=== PATIENT | female | born 1965 ===

== ENCOUNTER 2016-09-05 20:41 | Observation (INO) | payer MEDICAID ==
[2016-09-05 20:42] VITALS: BMI 24.2
[2016-09-05 22:06] VITALS: O2SAT 96
--- NOTE | 2016-09-06 01:57 | C.PDOC ---
History Of Present Illness 51 year old patient presents to the ED for acute alcohol intoxication. Patient admits to drinking prior to arrival. Patient also complains of a cough that started today. Patient denies shortness of breath, fever, vomiting, or any other complaints at this time. Time Seen by Provider: 09/06/16 00:45 Chief Complaint (Nursing): Substance Abuse History Per: Patient History/Exam Limitations: intoxication Onset/Duration Of Symptoms: Hrs (today) Current Symptoms Are (Timing): Still Present Suicide/Self Injury Attempted (Context): None Modifying Factor(s): Alcohol Severity: None Pain Scale Rating Of: 0 Recent travel outside of the [place]: No Past Medical History Reviewed: Historical Data, Nursing Documentation, Vital Signs Vital Signs: Last Vital Signs Temp 98 F 09/06/16 04:30 Pulse 84 09/06/16 04:30 Resp 20 09/06/16 04:30 BP 101/59 L 09/06/16 04:30 Pulse Ox 96 09/06/16 05:36 - Medical History PMH: Anxiety, Asthma, Depression, HTN, Paranoia, Pneumonia, Schizophrenia, TIA Denies: Chronic Kidney Disease - [facility] Procedures ALCOHOL DETOXIFICATION (12/21/14) APPLICATION OF SPLINT (05/22/14) DETOXIFICATION SERVICES FOR SUBSTANCE ABUSE TREATMENT (03/06/16) GROUP SALES AND SERVICE ENGINEER FOR SUBSTANCE ABUSE TREATMENT, PSYCHOEDUCATION (12/12/15) INDIV SALES AND SERVICE ENGINEER FOR SUBSTANCE ABUSE, COGNITIVE BEHAVIORAL (03/06/16) INDIV PSYCHOTHERAPY FOR SUBSTANCE ABUSE TREATMENT, SUPPORT (03/06/16) INJECT/INFUSE NEC (12/19/13) Family History: States: Unknown Family Hx - Social History Hx Tobacco Use: Yes Hx Alcohol Use: Yes Hx Substance Use: No - Immunization History Hx Tetanus Toxoid Vaccination: No Hx Influenza Vaccination: No Hx Pneumococcal Vaccination: No Review Of Systems Except As Marked, All Systems Reviewed And Found Negative. Constitutional: Negative for: Fever Respiratory: Positive for: Cough. Negative for: Shortness of Breath Gastrointestinal: Negative for: Vomiting Physical Exam - Physical Exam Appears: Non-toxic, No Acute Distress, Other (EtOH on breath) Skin: Warm, Dry, Rash Head: Atraumatic, Normacephalic Eye(s): bilateral: Normal Inspection, PERRL, EOMI Ear(s): Bilateral: Normal Nose: Normal Oral Mucosa: Moist Throat: Normal, No Erythema, No Exudate Neck: Normal ROM, Supple Chest: Symmetrical Cardiovascular: Rhythm Regular Respiratory: Normal Breath Sounds, No Accessory Muscle Use, Rales, Rhonchi, No Wheezing Gastrointestinal/Abdominal: Soft, No Tenderness Back: Normal Inspection Extremity: Normal ROM Neurological/Psych: Oriented x3 ED Course And Treatment O2 Sat by Pulse Oximetry: 96 (RA) Pulse Ox Interpretation: Normal Medical Decision Making Medical Decision Making: Plan: -Chest XR -Benadryl Chest XR: negative. No acute disease. pt requests refill of her permetrin cream that she lost for scabies, and also requests benadryl for itching in er. 600: pt awake alert ambulatory, steady gait, stable for d.c ED OBSERVATION Date of observation admission: 09/06/16 Time of observation admission: 01:20 - Observation admission statement Patient is being placed in observation because:: acute alcohol intoxication - Goals of Observation Goals of observation are:: sobriety Disposition - Disposition Disposition: HOME/ ROUTINE Disposition Time: 05:46 Condition: STABLE - Clinical Impression Clinical Impression: Scabies, Alcoholic intoxication - Scribe Statement The provider has reviewed the documentation as recorded by the Scribe Merced Lowe Provider Attestation: All medical record entries made by the Scribe were at my direction and personally dictated by me. I have reviewed the chart and agree that the record accurately reflects my personal performance of the history, physical exam, medical decision making, and the department course for this patient. I have also personally directed, reviewed, and agree with the discharge instructions and disposition.
[2016-09-06 05:40] VITALS: BP 101/59; PULSE 84; RESP 20; TEMP 98
--- NOTE | 2016-09-06 11:42 | RAD ---
HISTORY: Cough COMPARISON: 07/15/2016 TECHNIQUE: Chest PA and lateral FINDINGS: LUNGS: There is a 17 mm nodular opacity in the left lung base. There are chronic changes in both lung bases. There is no focal consolidation. PLEURA: No significant pleural effusion identified. No pneumothorax apparent. CARDIOVASCULAR: Normal. OSSEOUS STRUCTURES: No significant abnormalities. VISUALIZED UPPER ABDOMEN: Normal. OTHER FINDINGS: None. IMPRESSION: 17 mm nodular opacity in the left lung base may represent nipple shadow however parenchymal nodule cannot be completely excluded. Repeat PA radiographs with nipple markers is recommended. Chronic changes in both lung bases.
== END 2016-09-06 05:35 | disposition home or self-care (01) ==
LOC: C.ER 20:41 → C.9OBSV 09-06 01:20
PROVIDERS: ADMIT Student in an Organized Health Care Education/Training Program; ATTEND Student in an Organized Health Care Education/Training Program
DX: F10.129 Alcohol abuse with intoxication, unspecified (principal); I10 Essential (primary) hypertension; Z87.891 Personal history of nicotine dependence; Z59.0 Homelessness

== ENCOUNTER 2016-09-07 15:53 | Observation (INO) | payer MEDICAID ==
[2016-09-07 15:54] VITALS: BMI 24.2
[2016-09-07 16:18] VITALS: BP 128/83; PULSE 81; RESP 20
--- NOTE | 2016-09-07 16:54 | C.PDOC ---
Time Seen by Provider: 09/07/16 16:42 Chief Complaint (Nursing): Altered Mental Status Past Medical History Vital Signs: Last Vital Signs Temp Pulse 81 09/07/16 16:14 Resp 20 09/07/16 16:14 BP 128/83 09/07/16 16:14 Pulse Ox - Medical History PMH: Anxiety, Asthma, Depression, HTN, Paranoia, Pneumonia, Schizophrenia, TIA Denies: Chronic Kidney Disease - [facility] Procedures ALCOHOL DETOXIFICATION (12/21/14) APPLICATION OF SPLINT (05/22/14) DETOXIFICATION SERVICES FOR SUBSTANCE ABUSE TREATMENT (03/06/16) GROUP PRINCIPAL TRAINER FOR SUBSTANCE ABUSE TREATMENT, PSYCHOEDUCATION (12/12/15) INDIV PRINCIPAL TRAINER FOR SUBSTANCE ABUSE, COGNITIVE BEHAVIORAL (03/06/16) INDIV PSYCHOTHERAPY FOR SUBSTANCE ABUSE TREATMENT, SUPPORT (03/06/16) INJECT/INFUSE NEC (12/19/13) Family History: States: Unknown Family Hx - Social History Hx Tobacco Use: Yes Hx Alcohol Use: Yes Hx Substance Use: No - Immunization History Hx Tetanus Toxoid Vaccination: No Hx Influenza Vaccination: No Hx Pneumococcal Vaccination: No
--- NOTE | 2016-09-07 16:58 | C.PDOC ---
History Of Present Illness The patient, a 51 y/o female, is brought to the ED by EMS for evaluation of public alcohol intoxication for an unknown duration. Patient is familiar to the ED and has had many prior evaluations concerning alcohol intoxication. Patient admits to drinking earlier today. She denies suicidal/homicidal ideation and has no physical complaints at this time. Time Seen by Provider: 09/07/16 16:42 Chief Complaint (Nursing): Altered Mental Status History Per: Patient, EMS History/Exam Limitations: intoxication Onset/Duration Of Symptoms: Unknown Current Symptoms Are (Timing): Still Present Suicide/Self Injury Attempted (Context): None Modifying Factor(s): Alcohol Associated Symptoms: denies: Suicidal Thoughts, Suicidal Plan Involuntary Hold By: None Recent travel outside of the [place]: No Additional History Per: Patient, EMS Past Medical History Reviewed: Historical Data, Nursing Documentation, Vital Signs Vital Signs: Last Vital Signs Temp Pulse 81 09/07/16 16:14 Resp 20 09/07/16 16:14 BP 128/83 09/07/16 16:14 Pulse Ox - Medical History PMH: Anxiety, Asthma, Depression, HTN, Paranoia, Pneumonia, Schizophrenia, TIA Denies: Chronic Kidney Disease Surgical History: No Surg Hx - [facility] Procedures ALCOHOL DETOXIFICATION (12/21/14) APPLICATION OF SPLINT (05/22/14) DETOXIFICATION SERVICES FOR SUBSTANCE ABUSE TREATMENT (03/06/16) GROUP VICE PRESIDENT OF TALENT ACQUISITION FOR SUBSTANCE ABUSE TREATMENT, PSYCHOEDUCATION (12/12/15) INDIV VICE PRESIDENT OF TALENT ACQUISITION FOR SUBSTANCE ABUSE, COGNITIVE BEHAVIORAL (03/06/16) INDIV PSYCHOTHERAPY FOR SUBSTANCE ABUSE TREATMENT, SUPPORT (03/06/16) INJECT/INFUSE NEC (12/19/13) Family History: States: Unknown Family Hx - Social History Hx Tobacco Use: Yes Hx Alcohol Use: Yes Hx Substance Use: No - Immunization History Hx Tetanus Toxoid Vaccination: No Hx Influenza Vaccination: No Hx Pneumococcal Vaccination: No Review Of Systems Except As Marked, All Systems Reviewed And Found Negative. Constitutional: Positive for: Other (+ETOH intoxication ) Psych: Negative for: Suicidal ideation Physical Exam - Physical Exam Appears: No Acute Distress, Other (visibly intoxicated ) Skin: Normal Color, Warm, Dry Head: Atraumatic, Normacephalic Eye(s): bilateral: Normal Inspection, EOMI Oral Mucosa: Moist, Other (alcohol on breath ) Neck: Supple Chest: Symmetrical, No Deformity, No Tenderness Cardiovascular: Rhythm Regular, No Murmur Respiratory: Normal Breath Sounds, No Rales, No Rhonchi, No Wheezing Back: Normal Inspection, No Vertebral Tenderness, No Paraspinal Tenderness Extremity: Normal ROM, Capillary Refill (less than 2 seconds) Neurological/Psych: Other (arousable to touch and verbal stimuli ) Gait: Unsteady ED Course And Treatment Reevaluation Time: 19:10 Reassessment Condition: Improved (Patient seen ambulatory to the bathroom afterwhich she eloped from ED.) Disposition - Disposition Disposition: ELOPEMENT - ER ONLY Disposition Time: 19:10 Condition: IMPROVED - Clinical Impression Clinical Impression: Alcohol intoxication - Scribe Statement The provider has reviewed the documentation as recorded by the Scribe (Mary Lowe) Provider Attestation: All medical record entries made by the Scribe were at my direction and personally dictated by me. I have reviewed the chart and agree that the record accurately reflects my personal performance of the history, physical exam, medical decision making, and the department course for this patient. I have also personally directed, reviewed, and agree with the discharge instructions and disposition.
== END 2016-09-07 19:11 | disposition home or self-care (01) ==
LOC: C.ER 15:53 → C.9OBSV 17:09
PROVIDERS: ADMIT Emergency Medicine; ATTEND Emergency Medicine
DX: F10.129 Alcohol abuse with intoxication, unspecified (principal); I10 Essential (primary) hypertension; Z86.73 Personal history of transient ischemic attack (TIA), and cerebral infarction without residual deficits; Z87.891 Personal history of nicotine dependence

== ENCOUNTER 2016-09-16 20:09 | Observation (INO) | payer MEDICAID ==
[2016-09-16 20:10] VITALS: BMI 24.2
--- NOTE | 2016-09-16 20:33 | C.PDOC ---
History Of Present Illness Patient presents to the emergency room with ETOH intoxication. Patient is intoxicated and wants a place to stay since it's raining outside. Patient is well known to the ED with multiple prior visits for ETOH intoxication. Patient denies any knee pain or any other physical complaints. Time Seen by Provider: 09/16/16 20:31 Chief Complaint (Nursing): Substance Abuse History Per: Patient History/Exam Limitations: no limitations Onset/Duration Of Symptoms: Hrs Current Symptoms Are (Timing): Still Present Suicide/Self Injury Attempted (Context): None Modifying Factor(s): Alcohol Severity: None Involuntary Hold By: None Recent travel outside of the [place]: No Past Medical History Reviewed: Historical Data, Nursing Documentation, Vital Signs Vital Signs: Last Vital Signs Temp 97.8 F 09/16/16 20:24 Pulse 86 09/16/16 20:24 Resp 16 09/16/16 20:24 BP 131/84 09/16/16 20:24 Pulse Ox 99 09/16/16 20:37 - Medical History PMH: Anxiety, Asthma, Depression, HTN, Paranoia, Pneumonia, Schizophrenia, TIA Denies: Chronic Kidney Disease - [facility] Procedures ALCOHOL DETOXIFICATION (12/21/14) APPLICATION OF SPLINT (05/22/14) DETOXIFICATION SERVICES FOR SUBSTANCE ABUSE TREATMENT (03/06/16) GROUP ELECTRICAL CONTROLS TECHNICIAN FOR SUBSTANCE ABUSE TREATMENT, PSYCHOEDUCATION (12/12/15) INDIV ELECTRICAL CONTROLS TECHNICIAN FOR SUBSTANCE ABUSE, COGNITIVE BEHAVIORAL (03/06/16) INDIV PSYCHOTHERAPY FOR SUBSTANCE ABUSE TREATMENT, SUPPORT (03/06/16) INJECT/INFUSE NEC (12/19/13) Family History: States: Unknown Family Hx - Social History Hx Tobacco Use: Yes Hx Alcohol Use: Yes Hx Substance Use: No - Immunization History Hx Tetanus Toxoid Vaccination: Yes Hx Influenza Vaccination: No Hx Pneumococcal Vaccination: No Review Of Systems Constitutional: Positive for: Other (ETOH intoxication). Negative for: Fever, Chills Gastrointestinal: Negative for: Nausea, Vomiting, Diarrhea Musculoskeletal: Negative for: Other (Knee pain) Physical Exam - Physical Exam Appears: Non-toxic, No Acute Distress, Other (ETOH on breath) Skin: Warm, Dry Extremity: Normal ROM, No Tenderness Neurological/Psych: Oriented x3, Normal Speech ED Course And Treatment O2 Sat by Pulse Oximetry: 99 Pulse Ox Interpretation: Normal Reevaluation Time: 05:23 Reassessment Condition: Improved Disposition Counseled Patient/Family Regarding: Studies Performed, Diagnosis, Need For Followup - Disposition Disposition: HOME/ ROUTINE Disposition Time: 20:32 Condition: FAIR - Clinical Impression Clinical Impression: Alcohol abuse with intoxication - Scribe Statement The provider has reviewed the documentation as recorded by the Isis Dean Provider Scribe Attestation: All medical record entries made by the Isis were at my direction and personally dictated by me. I have reviewed the chart and agree that the record accurately reflects my personal performance of the history, physical exam, medical decision making, and the department course for this patient. I have also personally directed, reviewed, and agree with the discharge instructions and disposition.
[2016-09-17 05:57] VITALS: BP 120/71; PULSE 80; RESP 18; TEMP 98.4; O2SAT 100
== END 2016-09-17 05:23 | disposition home or self-care (01) ==
LOC: C.ER 20:09 → C.9OBSV 20:33
PROVIDERS: ADMIT Emergency Medicine; ATTEND Emergency Medicine
DX: F10.229 Alcohol dependence with intoxication, unspecified (principal); Z59.0 Homelessness; F41.8 Other specified anxiety disorders; I10 Essential (primary) hypertension; F20.9 Schizophrenia, unspecified; J45.909 Unspecified asthma, uncomplicated
CPT/HCPCS: 82948; 99284; G0378

== ENCOUNTER 2016-09-19 01:01 | Emergency (ER) | payer MEDICAID ==
[2016-09-19 01:01] VITALS: BMI 24.2
--- NOTE | 2016-09-19 02:32 | C.PDOC ---
History Of Present Illness Patient presents to the emergency room with ETOH intoxication. Patient is intoxicated and wants a place to stay. Patient is well known to the ED with multiple prior visits for ETOH intoxication. Patient denies any knee pain or any other physical complaints. History Per: Patient History/Exam Limitations: no limitations, intoxication Onset/Duration Of Symptoms: Hrs Current Symptoms Are (Timing): Still Present Past Medical History Reviewed: Historical Data, Nursing Documentation, Vital Signs Vital Signs: Last Vital Signs Temp 98.3 F 09/19/16 02:00 Pulse 74 09/19/16 02:00 Resp 20 09/19/16 04:35 BP 125/69 09/19/16 02:00 Pulse Ox 99 09/19/16 02:00 - Medical History PMH: Anxiety, Asthma, Depression, HTN, Paranoia, Pneumonia, Schizophrenia, TIA Denies: Chronic Kidney Disease - [facility] Procedures ALCOHOL DETOXIFICATION (12/21/14) APPLICATION OF SPLINT (05/22/14) DETOXIFICATION SERVICES FOR SUBSTANCE ABUSE TREATMENT (03/06/16) GROUP LARGE ANIMAL HUSBANDRY TECHNICIAN FOR SUBSTANCE ABUSE TREATMENT, PSYCHOEDUCATION (12/12/15) INDIV LARGE ANIMAL HUSBANDRY TECHNICIAN FOR SUBSTANCE ABUSE, COGNITIVE BEHAVIORAL (03/06/16) INDIV PSYCHOTHERAPY FOR SUBSTANCE ABUSE TREATMENT, SUPPORT (03/06/16) INJECT/INFUSE NEC (12/19/13) Family History: States: Unknown Family Hx - Social History Hx Tobacco Use: Yes Hx Alcohol Use: Yes Hx Substance Use: No - Immunization History Hx Tetanus Toxoid Vaccination: Yes Hx Influenza Vaccination: No Hx Pneumococcal Vaccination: No Review Of Systems Constitutional: Negative for: Fever, Chills Cardiovascular: Negative for: Palpitations Respiratory: Negative for: Cough Gastrointestinal: Negative for: Nausea, Vomiting Musculoskeletal: Negative for: Leg Pain Physical Exam - Physical Exam Appears: Well, Non-toxic Skin: Normal Color, Warm, Dry Head: Atraumatic, Normacephalic Oral Mucosa: Moist Chest: Symmetrical Cardiovascular: Rhythm Regular Respiratory: Normal Breath Sounds, No Rales, No Rhonchi, No Wheezing Gastrointestinal/Abdominal: Soft, No Tenderness Neurological/Psych: Oriented x3, Normal Speech, Normal Cognition ED OBSERVATION Date of observation admission: 09/19/16 Time of observation admission: 02:31 - Observation admission statement Patient is being placed in observation because:: Alcohol intoxication. homelessness Disposition - Disposition Disposition: HOME/ ROUTINE Disposition Time: 04:35 Condition: IMPROVED - Clinical Impression Clinical Impression: Alcohol intoxication - Scribe Statement The provider has reviewed the documentation as recorded by the Scribe Antoine Sumner All medical record entries made by the Tootieibe were at my direction and personally dictated by me. I have reviewed the chart and agree that the record accurately reflects my personal performance of the history, physical exam, medical decision making, and the department course for this patient. I have also personally directed, reviewed, and agree with the discharge instructions and disposition.
[2016-09-19 04:34] VITALS: BP 125/69; PULSE 74; TEMP 98.3; O2SAT 99
[2016-09-19 04:37] VITALS: RESP 20
== END 2016-09-19 04:34 | disposition home or self-care (01) ==
LOC: C.ER 01:01
DX: F10.129 Alcohol abuse with intoxication, unspecified (principal); Y90.9 Presence of alcohol in blood, level not specified

== ENCOUNTER 2016-09-19 19:59 | Observation (INO) | payer MEDICAID, OTHER ==
[2016-09-19 20:00] VITALS: BMI 24.2
--- NOTE | 2016-09-19 22:36 | C.PDOC ---
History Of Present Illness 51 year old patient presents to the ED for acute alcohol intoxication. Patient admits to drinking alcohol just prior to arrival. Patient is well known in the ED for the same complaint. Patient denies chest pain, shortness of breath, vomiting, abdominal pain, suicidal or homicidal ideation. Time Seen by Provider: 09/19/16 22:34 Chief Complaint (Nursing): Substance Abuse History Per: Patient History/Exam Limitations: intoxication Onset/Duration Of Symptoms: Other Suicide/Self Injury Attempted (Context): None Modifying Factor(s): Alcohol Recent travel outside of the [place]: No Additional History Per: Prior Records Past Medical History Reviewed: Historical Data, Nursing Documentation, Vital Signs Vital Signs: Last Vital Signs Temp 98.4 F 09/20/16 02:31 Pulse 81 09/20/16 02:31 Resp 17 09/20/16 02:31 BP 141/75 09/20/16 02:31 Pulse Ox 96 09/20/16 02:31 - Medical History PMH: Anxiety, Asthma, Depression, HTN, Paranoia, Pneumonia, Schizophrenia, TIA - [facility] Procedures ALCOHOL DETOXIFICATION (12/21/14) APPLICATION OF SPLINT (05/22/14) DETOXIFICATION SERVICES FOR SUBSTANCE ABUSE TREATMENT (03/06/16) GROUP ORE DRESSING ENGINEER FOR SUBSTANCE ABUSE TREATMENT, PSYCHOEDUCATION (12/12/15) INDIV ORE DRESSING ENGINEER FOR SUBSTANCE ABUSE, COGNITIVE BEHAVIORAL (03/06/16) INDIV PSYCHOTHERAPY FOR SUBSTANCE ABUSE TREATMENT, SUPPORT (03/06/16) INJECT/INFUSE NEC (12/19/13) Family History: States: Unknown Family Hx - Social History Hx Tobacco Use: Yes Hx Alcohol Use: Yes Hx Substance Use: No - Immunization History Hx Tetanus Toxoid Vaccination: Yes Review Of Systems Except As Marked, All Systems Reviewed And Found Negative. Cardiovascular: Negative for: Chest Pain Respiratory: Negative for: Shortness of Breath Gastrointestinal: Negative for: Vomiting, Abdominal Pain Psych: Negative for: Suicidal ideation Physical Exam - Physical Exam Appears: Non-toxic, No Acute Distress, Unkempt, Other (EtOH on breath) Skin: Warm, Dry Head: Atraumatic, Normacephalic Neck: Normal ROM, Supple Chest: Symmetrical Cardiovascular: Rhythm Regular Respiratory: Normal Breath Sounds Gastrointestinal/Abdominal: Soft, No Tenderness Back: Normal Inspection Extremity: Normal ROM ED Course And Treatment O2 Sat by Pulse Oximetry: 100 (RA) Pulse Ox Interpretation: Normal ED OBSERVATION Date of observation admission: 09/19/16 Time of observation admission: 22:35 - Observation admission statement Patient is being placed in observation because:: intoxication - Goals of Observation Goals of observation are:: sober enough to be discharged - Progress Note Progress Note: 09/20/16 05:05 pt remained stable after several hours of sleeping pt stable for dc Disposition - Disposition Disposition: HOME/ ROUTINE Disposition Time: 05:02 Condition: FAIR - Clinical Impression Clinical Impression: Alcohol intoxication - Scribe Statement The provider has reviewed the documentation as recorded by the Tootieibchristen Lowe Provider Attestation: All medical record entries made by the Tootieibe were at my direction and personally dictated by me. I have reviewed the chart and agree that the record accurately reflects my personal performance of the history, physical exam, medical decision making, and the department course for this patient. I have also personally directed, reviewed, and agree with the discharge instructions and disposition.
[2016-09-20 06:30] VITALS: BP 124/71; PULSE 80; RESP 18; TEMP 98.5; O2SAT 96
== END 2016-09-20 05:01 | disposition home or self-care (01) ==
LOC: C.ER 19:59 → C.9OBSV 22:35
PROVIDERS: ADMIT Emergency Medicine; ATTEND Emergency Medicine
DX: F10.129 Alcohol abuse with intoxication, unspecified (principal); J45.909 Unspecified asthma, uncomplicated; I10 Essential (primary) hypertension
CPT/HCPCS: G0378 ×2

== ENCOUNTER 2016-09-20 08:17 | Inpatient (IN) | payer MEDICAID, OTHER ==
[2016-09-20 08:18] VITALS: BMI 24.2
[2016-09-20] MEDS ORDERED: Multivitamin (MVI) 10 ML, Thiamine 100 MG, Folic Acid 1 MG in Sodium Chloride 0.9% 1,00... IV STA (08:48)
[2016-09-20] MEDS ORDERED: Dextrose 5%/0.9% NS 1,000 ML IV ONE (08:50)
[2016-09-20] MEDS ORDERED: Dextrose 5%/0.33% NS 1,000 ML IV ONE (09:04)
[2016-09-20 09:21] LABS: BASO % 1.1 % (0.0-2.0); EOS % 1.1 % (0.0-4.0); HEMATOCRIT 32.5 % (34.0-47.0); LYMPH # 0.8 K/uL (1.0-4.3); LYMPH % 22.2 % (20.0-40.0); MEAN CELL VOLUME 86.7 fL (81.0-99.0); MEAN CORPUSCULAR HEMOGLOBIN 27.5 pg (27.0-31.0); MEAN CORPUSCULAR HGB CONC 31.7 g/dL (33.0-37.0); MEAN PLATELET VOLUME 7.2 fL (7.2-11.7); MONO # 0.3 K/uL (0.0-0.8); MONO % 9.1 % (0.0-10.0); NRBC % 0.1 % (0.0-2.0); RED CELL DISTRIBUTION WIDTH 16.9 % (11.5-14.5); WHITE BLOOD COUNT 3.5 K/uL (4.8-10.8)
[2016-09-20 09:30] LABS: CHLORIDE 95 mmol/L (98-107)
[2016-09-20 09:31] LABS: POTASSIUM 3.6 mmol/L (3.6-5.2); SODIUM 140 mmol/L (132-148)
[2016-09-20 09:33] LABS: ALB/GLOB RATIO 1.3 (1.0-2.1); ALKALINE PHOSPHATASE 77 U/L (38-126); ALT/SGPT 64 U/L (9-52); AST/SGOT 172 U/L (14-36); BILIRUBIN,TOTAL 0.8 mg/dL (0.2-1.3); BLOOD UREA NITROGEN 14 mg/dL (7-17); CARBON DIOXIDE 28 mmol/L (22-30); GFR AFRICAN-AMERICAN > 60
[2016-09-20 09:34] LABS: ALCOHOL SERUM 127 mg/dl (0-10); CALCIUM 8.7 mg/dl (8.6-10.4); GLUCOSE,RANDOM 101 mg/dL (65-105)
--- NOTE | 2016-09-20 10:33 | C.PDOC ---
History Of Present Illness 51-year-old female, PMHx includes EtOH Abuse, presents to the emergency department with complaints of GI distress. Patient states she was discharged from ED this morning, after which she developed generalized tremors, and a few episodes of non-bilious/non-bloody vomiting w/ associated epigastric discomfort , resulting in her coming to the ED for evaluation. No other complaints at this time. Last drink was yesterday. Time Seen by Provider: 09/20/16 08:45 Chief Complaint (Nursing): GI Problem History Per: Patient History/Exam Limitations: no limitations Onset/Duration Of Symptoms: Hrs Current Symptoms Are (Timing): Still Present Past Medical History Reviewed: Historical Data, Nursing Documentation, Vital Signs Vital Signs: Last Vital Signs Temp 98.9 F 09/20/16 08:47 Pulse 83 09/20/16 17:37 Resp 18 09/20/16 17:37 BP 140/94 H 09/20/16 17:37 Pulse Ox 96 09/20/16 17:37 - Medical History PMH: Anxiety, Asthma, Depression, HTN, Paranoia, Pneumonia, Schizophrenia, TIA Denies: Chronic Kidney Disease - [facility] Procedures ALCOHOL DETOXIFICATION (12/21/14) APPLICATION OF SPLINT (05/22/14) DETOXIFICATION SERVICES FOR SUBSTANCE ABUSE TREATMENT (03/06/16) GROUP ASSEMBLER MUSICAL EQUIPMENT FOR SUBSTANCE ABUSE TREATMENT, PSYCHOEDUCATION (12/12/15) INDIV ASSEMBLER MUSICAL EQUIPMENT FOR SUBSTANCE ABUSE, COGNITIVE BEHAVIORAL (03/06/16) INDIV PSYCHOTHERAPY FOR SUBSTANCE ABUSE TREATMENT, SUPPORT (03/06/16) INJECT/INFUSE NEC (12/19/13) Family History: States: Unknown Family Hx - Social History Hx Tobacco Use: Yes Hx Alcohol Use: Yes Hx Substance Use: No - Immunization History Hx Tetanus Toxoid Vaccination: Yes Hx Influenza Vaccination: No Hx Pneumococcal Vaccination: No Review Of Systems Except As Marked, All Systems Reviewed And Found Negative. Constitutional: Negative for: Fever Cardiovascular: Negative for: Chest Pain, Palpitations Respiratory: Negative for: Shortness of Breath Gastrointestinal: Positive for: Nausea, Vomiting, Abdominal Pain Musculoskeletal: Negative for: Back Pain Skin: Negative for: Rash Neurological: Negative for: Weakness, Numbness, Headache, Dizziness Physical Exam - Physical Exam Appears: Non-toxic, No Acute Distress Skin: Warm, Dry, No Rash Head: Atraumatic, Normacephalic Eye(s): bilateral: Normal Inspection, PERRL Nose: Normal Oral Mucosa: Moist Tongue: Other (no fasciculation) Lips: Normal Appearing Neck: Normal ROM Cardiovascular: Rhythm Regular Respiratory: Normal Breath Sounds, No Accessory Muscle Use Gastrointestinal/Abdominal: Soft, Tenderness (mild, epigastricj), No Guarding, No Rebound Extremity: Normal ROM Neurological/Psych: Oriented x3, Normal Speech, Other (generalized tremors.) ED Course And Treatment - Laboratory Results Result Diagrams: 09/20/16 09:13 09/20/16 09:13 O2 Sat by Pulse Oximetry: 98 Progress Note: Patient was treated with IV hydration, Zofran, Protonix, banana bag, Librium po, Ativan, Duoneb x 1. On re-exam patient feels much better, tolerated po. patient now requesting detox, stating she feels depressed and wants to be evaluated. Patient is medically cleared to be evaluated and admitted by psych. Patient was evaluated by the weld lay out worker and was accepted to psych floor for admission by . Disposition - Disposition Disposition Time: 17:24 Condition: STABLE - Clinical Impression Clinical Impression: Alcohol abuse, Depressed, Nausea & vomiting - Scribe Statement The provider has reviewed the documentation as recorded by the Scribe Julius Diallo All medical record entries made by the Scribe were at my direction and personally dictated by me. I have reviewed the chart and agree that the record accurately reflects my personal performance of the history, physical exam, medical decision making, and the department course for this patient. I have also personally directed, reviewed, and agree with the discharge instructions and disposition. Decision To Admit - Pt Status Changed To: Hospital Disposition Of: Inpatient - Admit Certification Admit to Inpatient:: After my assessment, the patient will require hospitalization for at least two midnights. This is because of the severity of symptoms shown, intensity of services needed, and/or the medical risk in this patient being treated as an outpatient. - InPatient: Physician Admission Certification: I certify that this patient requires 2 or more midnights of care for the following reason:: patient will need more then 2 days of admission. - . Bed Request Type: Psychiatry Admitting Physician: Yan Todd Patient Diagnosis: Alcohol abuse, Depressed, Nausea & vomiting
[2016-09-20 11:36] LABS: RBC URINE < 1 /hpf (0-3); URINE BILIRUBIN NEGATIVE (NEGATIVE); URINE BLOOD NEGATIVE (NEGATIVE); URINE COLOR Yellow (YELLOW); URINE GLUCOSE (UA) 3+ mg/dL (Normal); URINE KETONE NEGATIVE (NEGATIVE); URINE LEUKOCYTE ESTERASE NEG Leu/uL (Negative); URINE PROTEIN NEGATIVE (NEGATIVE); URINE UROBILINOGEN NORMAL mg/dL (0.2-1.0); WBC URINE < 1 /hpf (0-5)
--- NOTE | 2016-09-20 12:32 | RAD ---
PROCEDURE: CHEST RADIOGRAPH, 1 VIEW HISTORY: vomiting COMPARISON: Comparison is made to the previous study dated 09/06/2016 FINDINGS: LUNGS: No evidence of new infiltrate or consolidation in the lungs. PLEURA: No pneumothorax or pleural fluid seen. CARDIOVASCULAR: Normal. OSSEOUS STRUCTURES: No significant abnormalities. VISUALIZED UPPER ABDOMEN: Normal. OTHER FINDINGS: None. IMPRESSION: No significant interval change compared to the previous exam.
--- NOTE | 2016-09-20 12:59 | US ---
HISTORY: epigastric abdominal pain COMPARISON: Abdominal ultrasound performed 12/12/15 TECHNIQUE: Sonographic evaluation of the right upper quadrant of the abdomen. FINDINGS: LIVER: Measures 19.1 cm in length. Echogenic liver may be seen in setting of hepatic parenchymal disease or fatty infiltration. No focal hepatic mass identified. The main portal vein appears patent with normal directional flow. No intrahepatic bile duct dilatation. GALLBLADDER: No gallstones. No gallbladder wall thickening or pericholecystic edema. Negative sonographic Rivas's sign as assessed by the automobile wrecker. COMMON BILE DUCT: Measures 3 mm. No stones. No dilatation. PANCREAS: Not well-visualized. RIGHT KIDNEY: Measures 11.2 x 4.3 x 4.4 cm. No obstructing calculus or hydronephrosis identified. AORTA: Limited visualization appears grossly unremarkable. IVC: Limited visualization appears grossly unremarkable. OTHER FINDINGS: None . IMPRESSION: Echogenic liver may be seen in setting of hepatic parenchymal disease or fatty infiltration. Mild hepatomegaly.
[2016-09-20] MEDS ORDERED: Albuterol-Ipratrop 3 mg / 0.5 (3 ml) UD IH STA (14:32)
[2016-09-20] MEDS ORDERED: Albuterol 0.083% Inhal Sol (2.5 mg/3 mL) UD ONE (14:35)
[2016-09-20 18:19] VITALS: O2SAT 98
[2016-09-21] MEDS: Multiple Vitamins Tab PO SCH (10:38)
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
[2016-09-21] MEDS: Albuterol-Ipratrop 3 mg / 0.5 (3 ml) UD INH PRN (16:19)
[2016-09-21] MEDS ORDERED: Albuterol HFA 90 mcg/actuation (8 g) INH PRN (18:12)
[2016-09-22 08:01] VITALS: TEMP 98.1
[2016-09-22] MEDS: Multiple Vitamins Tab PO SCH (10:59)
--- NOTE | 2016-09-22 12:54 | PCM.PYCHPN ---
Psychiatric Progress Note - Psychiatric Progress Note Patient seen today, length of contact: 20 min Patient Chief Complaint: "I feel better" Problems Identified/Issues Discussed: The pt is seen, chart reviewed, case discussed with staff. Patient's mood has improved from yesterday. She states her appetite has been good lately. She plans to enter an outpatient care center after discharge and plans to stay with mother. She currently refuses rehab. She has no suicidal thoughts or hallucinations. After care discussed, support and psychoeducation given. Medical Problems: Asthma Medication Change: Yes (Lorazepam Taper) Medical Record Reviewed: Yes Mental Status Examination - Cognitive Function Orientation: Person, Place, Situation, Time Memory: Intact Attention: WNL Concentration: WNL Association: WN Fund of Knowledge: WNL - Mood Mood: Depressed - Affect Affect: Constricted - Speech Speech: Appropriate - Formal Thought Process Formal Thought Process: No Impairment - Suicidal Ideation Suicidal Ideation: No - Homicidal Ideation Homicidal Ideation: No Goal/Treatment Plan - Goal/Treatment Plan Need for Continued Stay: Remain at risks for inpatient hospitalization, Discharge may exacerbated symptoms Progress Toward Problem(s) and Goals/Treatment Plan: Alcohol: -Lorazepam taper -Folic acid 1mg PO daily -Thiamine Hcl 100mg PO daily -Multivitamins daily -As needed meds -Attend group activities and groups -[place], CBT -supportive psychoeducation -Refer to program Depression: -CBT and supportive psychotherapy -Attend groups and activities -Consider meds Estimated Date of D/C: 09/23/16 - Smoking Cessation Smoking Cessation Initiated: No
[2016-09-23] MEDS: Albuterol-Ipratrop 3 mg / 0.5 (3 ml) UD INH PRN (05:16)
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
[2016-09-23] MEDS: Multiple Vitamins Tab PO SCH (11:05)
[2016-09-23 11:07] VITALS: BP 102/66; PULSE 100; RESP 19
== END 2016-09-23 11:45 | disposition home or self-care (01) | DRG 751 ==
LOC: C.ER 08:17 → C.5E 17:24
PROVIDERS: ADMIT Psychiatry & Neurology Psychiatry; ATTEND Psychiatry & Neurology Psychiatry
PROC: HZ2ZZZZ Detoxification Services for Substance Abuse Treatment (ICD-10-PCS; principal; 2016-09-20)
DX: F10.239 Alcohol dependence with withdrawal, unspecified (principal); F10.230 Alcohol dependence with withdrawal, uncomplicated; F33.9 Major depressive disorder, recurrent, unspecified; I10 Essential (primary) hypertension; F43.10 Post-traumatic stress disorder, unspecified; J45.909 Unspecified asthma, uncomplicated; Z87.891 Personal history of nicotine dependence; Z68.20 Body mass index [BMI] 20.0-20.9, adult; F10.229 Alcohol dependence with intoxication, unspecified; Y90.6 Blood alcohol level of 120-199 mg/100 ml

== ENCOUNTER 2016-10-03 20:34 | Emergency (ER) | payer MEDICAID, OTHER ==
[2016-10-03 20:35] VITALS: BMI 24.2
[2016-10-03 21:16] VITALS: BP 117/68; PULSE 89; RESP 18; TEMP 97.9; O2SAT 95
--- NOTE | 2016-10-03 21:32 | C.PDOC ---
History Of Present Illness 51 year old patient presents to the ED complaining of acute alcohol intoxication. Patient admits to drinking alcohol prior to arrival. Patient is well known in the ED for this complaint. Patient was argumentative at bedside and wants to leave now. Patient denies suicidal ideation, homicidal ideation, or any other complaints at this time. Time Seen by Provider: 10/03/16 21:30 Chief Complaint (Nursing): Substance Abuse History Per: Patient History/Exam Limitations: intoxication Onset/Duration Of Symptoms: Other Suicide/Self Injury Attempted (Context): None Modifying Factor(s): Alcohol Severity: None Pain Scale Rating Of: 0 Associated Symptoms: Other Involuntary Hold By: None Recent travel outside of the [place]: No Additional History Per: Prior Records Past Medical History Reviewed: Historical Data, Nursing Documentation, Vital Signs Vital Signs: Last Vital Signs Temp 97.9 F 10/03/16 21:14 Pulse 89 10/03/16 21:14 Resp 18 10/03/16 21:14 BP 117/68 10/03/16 21:14 Pulse Ox 95 10/03/16 23:10 - Medical History PMH: Anxiety, Asthma, Depression, HTN, Paranoia, Pneumonia, Schizophrenia, TIA - [facility] Procedures ALCOHOL DETOXIFICATION (12/21/14) APPLICATION OF SPLINT (05/22/14) DETOXIFICATION SERVICES FOR SUBSTANCE ABUSE TREATMENT (09/20/16) GROUP TILT TRAY DRIVER FOR SUBSTANCE ABUSE TREATMENT, PSYCHOEDUCATION (12/12/15) INDIV TILT TRAY DRIVER FOR SUBSTANCE ABUSE, COGNITIVE BEHAVIORAL (03/06/16) INDIV PSYCHOTHERAPY FOR SUBSTANCE ABUSE TREATMENT, SUPPORT (03/06/16) INJECT/INFUSE NEC (12/19/13) Family History: States: Unknown Family Hx - Social History Hx Tobacco Use: Yes Hx Alcohol Use: Yes Hx Substance Use: Yes - Immunization History Hx Tetanus Toxoid Vaccination: Yes Hx Influenza Vaccination: No Hx Pneumococcal Vaccination: No Review Of Systems Except As Marked, All Systems Reviewed And Found Negative. Psych: Negative for: Suicidal ideation Physical Exam - Physical Exam Appears: Non-toxic, No Acute Distress, Other (intoxicated, disheveled, argumentative, foul smelling) Skin: Warm, Dry Head: Atraumatic, Normacephalic Neck: Normal ROM, Supple Chest: Symmetrical Cardiovascular: Rhythm Regular Respiratory: No Accessory Muscle Use Back: Normal Inspection Extremity: Normal ROM Neurological/Psych: Oriented x3 Gait: Other (stable) ED Course And Treatment O2 Sat by Pulse Oximetry: 95 (RA) Pulse Ox Interpretation: Normal Medical Decision Making Medical Decision Making: typical alcohol abuse. stable gait Wants d/c Disposition Doctor Will See Patient In The: Office Counseled Patient/Family Regarding: Studies Performed, Diagnosis - Disposition Referrals: Alcoholics Anonymous [Outside] [facility] [Outside] [facility] [Outside] Disposition: HOME/ ROUTINE Disposition Time: 21:31 Condition: GOOD Instructions: Abuse of Alcohol (ED) - Clinical Impression Clinical Impression: Alcohol abuse - Scribe Statement The provider has reviewed the documentation as recorded by the Scribe Merced Lowe Provider Attestation: All medical record entries made by the Scribe were at my direction and personally dictated by me. I have reviewed the chart and agree that the record accurately reflects my personal performance of the history, physical exam, medical decision making, and the department course for this patient. I have also personally directed, reviewed, and agree with the discharge instructions and disposition.
== END 2016-10-03 21:40 | disposition home or self-care (01) ==
LOC: C.ER 20:34
DX: F10.120 Alcohol abuse with intoxication, uncomplicated (principal); Y90.9 Presence of alcohol in blood, level not specified

== ENCOUNTER 2016-10-15 23:38 | Observation (INO) | payer MEDICAID, OTHER ==
[2016-10-15 23:39] VITALS: BMI 24.2
[2016-10-15 23:58] VITALS: O2SAT 97
--- NOTE | 2016-10-16 00:06 | C.PDOC ---
History Of Present Illness Patient brought in by EMS for acute ETOH intoxication. Patient has no physical complaints at this time. Time Seen by Provider: 10/16/16 00:06 Chief Complaint (Nursing): Substance Abuse History Per: Patient, EMS History/Exam Limitations: no limitations, intoxication Onset/Duration Of Symptoms: Hrs Current Symptoms Are (Timing): Still Present Suicide/Self Injury Attempted (Context): None Modifying Factor(s): Alcohol Severity: None Pain Scale Rating Of: 0 Associated Symptoms: denies: Depression, Suicidal Thoughts, Suicidal Plan Involuntary Hold By: None Recent travel outside of the [place]: No Past Medical History Reviewed: Historical Data, Nursing Documentation, Vital Signs Vital Signs: Last Vital Signs Temp 98.1 F 10/15/16 23:58 Pulse 85 10/15/16 23:58 Resp 22 10/15/16 23:58 BP Pulse Ox 97 10/16/16 01:04 - Medical History PMH: Anxiety, Asthma, Depression, HTN, Paranoia, Pneumonia, Schizophrenia, TIA Surgical History: No Surg Hx - [facility] Procedures ALCOHOL DETOXIFICATION (12/21/14) APPLICATION OF SPLINT (05/22/14) DETOXIFICATION SERVICES FOR SUBSTANCE ABUSE TREATMENT (09/20/16) GROUP HARVEST MANAGER FOR SUBSTANCE ABUSE TREATMENT, PSYCHOEDUCATION (12/12/15) INDIV HARVEST MANAGER FOR SUBSTANCE ABUSE, COGNITIVE BEHAVIORAL (03/06/16) INDIV PSYCHOTHERAPY FOR SUBSTANCE ABUSE TREATMENT, SUPPORT (03/06/16) INJECT/INFUSE NEC (12/19/13) Family History: States: No Known Family Hx - Social History Hx Tobacco Use: Yes Hx Alcohol Use: Yes Hx Substance Use: Yes - Immunization History Hx Tetanus Toxoid Vaccination: Yes Hx Influenza Vaccination: No Hx Pneumococcal Vaccination: No Review Of Systems Constitutional: Negative for: Fever, Chills Gastrointestinal: Negative for: Nausea, Vomiting, Diarrhea Neurological: Positive for: Other (ETOH intoxication) Physical Exam - Physical Exam Appears: Well, Non-toxic, Other (ETOH on breath) Skin: Warm, Dry Oral Mucosa: Moist Chest: Symmetrical, No Tenderness Cardiovascular: Rhythm Regular, No Murmur Respiratory: No Rales, No Rhonchi, No Wheezing Gastrointestinal/Abdominal: Soft, No Tenderness Neurological/Psych: Oriented x3 ED Course And Treatment O2 Sat by Pulse Oximetry: 97 Pulse Ox Interpretation: Normal Reevaluation Time: 04:52 ED OBSERVATION Discharge: Yes Date of observation admission: 10/16/16 Time of observation admission: 00:34 - Observation admission statement Patient is being placed in observation because:: Acute ETOH intoxication - Goals of Observation Goals of observation are:: Sobriety Disposition Counseled Patient/Family Regarding: Studies Performed, Diagnosis, Need For Followup - Disposition Disposition: HOME/ ROUTINE Disposition Time: 00:06 Condition: FAIR - Clinical Impression Clinical Impression: Alcohol intoxication - Scribe Statement The provider has reviewed the documentation as recorded by the Tootieibchristen Sumner All medical record entries made by the Tootieibchristen were at my direction and personally dictated by me. I have reviewed the chart and agree that the record accurately reflects my personal performance of the history, physical exam, medical decision making, and the department course for this patient. I have also personally directed, reviewed, and agree with the discharge instructions and disposition.
[2016-10-16 05:38] VITALS: BP 130/70; PULSE 80; RESP 14; TEMP 97.8
== END 2016-10-16 04:52 | disposition home or self-care (01) ==
LOC: C.ER 23:38 → C.9OBSV 10-16 00:06
PROVIDERS: ADMIT Emergency Medicine; ATTEND Emergency Medicine
DX: F10.120 Alcohol abuse with intoxication, uncomplicated (principal); Y90.9 Presence of alcohol in blood, level not specified
CPT/HCPCS: 99283; G0378

== ENCOUNTER 2016-11-14 15:47 | Observation (INO) | payer MEDICAID, OTHER ==
[2016-11-14 15:48] VITALS: BMI 24.2
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
[2016-11-14 19:03] VITALS: BP 120/84; PULSE 79; RESP 18; TEMP 98.1; O2SAT 99
== END 2016-11-14 18:51 | disposition home or self-care (01) ==
LOC: C.ER 15:47 → C.9OBSV 18:02
PROVIDERS: ADMIT Emergency Medicine; ATTEND Emergency Medicine
DX: F10.129 Alcohol abuse with intoxication, unspecified (principal); F22 Delusional disorders; I10 Essential (primary) hypertension; Z87.891 Personal history of nicotine dependence; Y90.9 Presence of alcohol in blood, level not specified

== ENCOUNTER 2016-11-18 08:32 | Emergency (ER) | payer MEDICAID, OTHER ==
[2016-11-18 08:32] VITALS: BMI 24.2
[2016-11-18] MEDS ORDERED: Permethrin 5% Cream(60 gm) TOP ONE (09:18)
[2016-11-18] MEDS ORDERED: Albuterol-Ipratrop 3 mg / 0.5 (3 ml) UD ONE (09:27)
[2016-11-18] MEDS: Albuterol-Ipratrop 3 mg / 0.5 (3 ml) UD IH SCH ×3 (09:40→10:00)
--- NOTE | 2016-11-18 10:15 | C.PDOC ---
History Of Present Illness 51 y/o female pmhx asthma presents to the ED with complains of diffuse itching, wheezing and SOB. Pt also reports her upper lip is swollen. Pt denies chest pain , sore throat, throat swelling, or any other complaints. Time Seen by Provider: 11/18/16 08:38 Chief Complaint (Nursing): Shortness Of Breath History Per: Patient History/Exam Limitations: no limitations Onset/Duration Of Symptoms: Hrs Current Symptoms Are (Timing): Still Present Severity: Mild Recent travel outside of the [place]: No Past Medical History Reviewed: Historical Data, Nursing Documentation, Vital Signs Vital Signs: Last Vital Signs Temp 98.0 F 11/18/16 11:06 Pulse 82 11/18/16 11:06 Resp 18 11/18/16 11:06 BP 151/88 H 11/18/16 11:06 Pulse Ox 99 11/18/16 11:06 - Medical History PMH: Anxiety, Asthma, Depression, HTN, Paranoia, Pneumonia, Schizophrenia, TIA - [facility] Procedures ALCOHOL DETOXIFICATION (12/21/14) APPLICATION OF SPLINT (05/22/14) DETOXIFICATION SERVICES FOR SUBSTANCE ABUSE TREATMENT (09/20/16) GROUP HEARING AID TECHNICIAN FOR SUBSTANCE ABUSE TREATMENT, PSYCHOEDUCATION (12/12/15) INDIV HEARING AID TECHNICIAN FOR SUBSTANCE ABUSE, COGNITIVE BEHAVIORAL (03/06/16) INDIV PSYCHOTHERAPY FOR SUBSTANCE ABUSE TREATMENT, SUPPORT (03/06/16) INJECT/INFUSE NEC (12/19/13) Family History: States: Unknown Family Hx - Social History Hx Tobacco Use: Yes Hx Alcohol Use: Yes Hx Substance Use: No - Immunization History Hx Tetanus Toxoid Vaccination: Yes Hx Influenza Vaccination: No Hx Pneumococcal Vaccination: No Review Of Systems Except As Marked, All Systems Reviewed And Found Negative. Constitutional: Negative for: Fever ENT: Positive for: Other (upper lip swelling). Negative for: Throat Pain, Throat Swelling Cardiovascular: Negative for: Chest Pain Respiratory: Positive for: Shortness of Breath Skin: Positive for: Other (diffuse itching) Physical Exam - Physical Exam Appears: Non-toxic, No Acute Distress Skin: Warm, Dry, Other (excoriations to entire body with papules and burrows on hands) Head: Atraumatic, Normacephalic Eye(s): bilateral: Normal Inspection, PERRL, EOMI Nose: Normal Oral Mucosa: Moist Lips: Swelling (minimal upper lip swelling) Throat: Normal, No Erythema Neck: Normal, Normal ROM, Supple Chest: Symmetrical, No Tenderness Cardiovascular: Rhythm Regular, No Murmur Respiratory: No Accessory Muscle Use, No Rales, No Rhonchi, Wheezing (mild wheezing bilaterally) Gastrointestinal/Abdominal: Normal Exam, Soft, No Tenderness Extremity: Bilateral: Atraumatic Neurological/Psych: Oriented x3, Normal Speech (speaking in full sentences), Normal Motor Gait: Steady ED Course And Treatment O2 Sat by Pulse Oximetry: 98 (room air) Pulse Ox Interpretation: Normal Progress Note: Plan: benadryl, prednisone, nebulizer treatment Medical Decision Making Medical Decision Making: The patient was told to shower and permethrin was applied to the patient in the ED. On re-exam, the patient reports improvement of symptoms. Ambulatory in the ED with steady gait. Lungs are CTA, heart is RRR, abdomen is soft, non-tender and patient is tolerating PO well. Follow up with the medical doctor within 1-2 days without fail. Return if worsened. Disposition - Disposition Referrals: [facility] [Outside] Disposition: HOME/ ROUTINE Disposition Time: 10:42 Condition: GOOD Additional Instructions: Follow up with the medical doctor within 1-2 days without fail. Return if worsened. Prescriptions: Albuterol HFA [Ventolin HFA 90 mcg/actuation (8 g)] 1 puff IH Q6 #60 puff Bacitracin OINT 1 applic TP BID #3 tube DiphenhydrAMINE [Benadryl] 25 mg PO Q4H PRN #30 cap PRN Reason: Itching / Pruritus predniSONE [Prednisone] 20 mg PO BID #10 tab Instructions: Scabies (ED) - Clinical Impression Clinical Impression: Scabies, Asthma exacerbation - PA / [place] UNDERWRITER / Resident Statement MD/DO has reviewed & agrees with the documentation as recorded. - Scribe Statement The provider has reviewed the documentation as recorded by the Isis Galvez All medical record entries made by the Scribe were at my direction and personally dictated by me. I have reviewed the chart and agree that the record accurately reflects my personal performance of the history, physical exam, medical decision making, and the department course for this patient. I have also personally directed, reviewed, and agree with the discharge instructions and disposition.
[2016-11-18 11:06] VITALS: RESP 18
[2016-11-18 11:07] VITALS: BP 151/88; PULSE 82; TEMP 98
[2016-11-18 18:29] VITALS: O2SAT 98
== END 2016-11-18 11:07 | disposition home or self-care (01) ==
LOC: C.ER 08:32
DX: J45.901 Unspecified asthma with (acute) exacerbation (principal); B86 Scabies

== ENCOUNTER 2016-11-20 19:59 | Emergency (ER) | payer OTHER ==
[2016-11-20 19:59] VITALS: BMI 24.2
== END 2016-11-20 20:05 | disposition left against medical advice (07) ==
LOC: C.ER 19:59
DX: Z02.89 Encounter for other administrative examinations (principal); F19.10 Other psychoactive substance abuse, uncomplicated

== ENCOUNTER 2016-11-22 22:45 | Observation (INO) | payer OTHER ==
[2016-11-22 22:46] VITALS: BMI 24.2
[2016-11-22 23:12] VITALS: O2SAT 98
--- NOTE | 2016-11-23 00:55 | C.PDOC ---
History Of Present Illness 51 year old patient is brought to the ED by ambulance for acute alcohol intoxication. She is well known in the ED. Patient admits to drinking alcohol today. She denies suicidal ideation, homicidal ideation, or any physical complaints at this time. Time Seen by Provider: 11/22/16 23:17 Chief Complaint (Nursing): Substance Abuse History Per: Patient, EMS History/Exam Limitations: intoxication Onset/Duration Of Symptoms: Other Current Symptoms Are (Timing): Still Present Suicide/Self Injury Attempted (Context): None Modifying Factor(s): Alcohol Severity: None Pain Scale Rating Of: 0 Additional History Per: Prior Records Past Medical History Reviewed: Historical Data, Nursing Documentation, Vital Signs Vital Signs: Last Vital Signs Temp 97.4 F L 11/22/16 23:07 Pulse 85 11/22/16 23:07 Resp 16 11/22/16 23:07 BP 116/77 11/22/16 23:07 Pulse Ox 98 11/23/16 02:59 - Medical History PMH: Anxiety, Asthma, Depression, HTN, Paranoia, Pneumonia, Schizophrenia, TIA ( a year ago) - [facility] Procedures ALCOHOL DETOXIFICATION (12/21/14) APPLICATION OF SPLINT (05/22/14) DETOXIFICATION SERVICES FOR SUBSTANCE ABUSE TREATMENT (09/20/16) GROUP HERBOLOGIST FOR SUBSTANCE ABUSE TREATMENT, PSYCHOEDUCATION (12/12/15) INDIV HERBOLOGIST FOR SUBSTANCE ABUSE, COGNITIVE BEHAVIORAL (03/06/16) INDIV PSYCHOTHERAPY FOR SUBSTANCE ABUSE TREATMENT, SUPPORT (03/06/16) INJECT/INFUSE NEC (12/19/13) Family History: States: No Known Family Hx - Social History Hx Tobacco Use: Yes Hx Alcohol Use: Yes Hx Substance Use: No - Immunization History Hx Tetanus Toxoid Vaccination: Yes Hx Influenza Vaccination: No Hx Pneumococcal Vaccination: No Review Of Systems Except As Marked, All Systems Reviewed And Found Negative. Constitutional: Positive for: Other (intoxication) Psych: Negative for: Suicidal ideation, Other (homicidal ideation) Physical Exam - Physical Exam Appears: Unkempt, Other (intoxicated) Skin: Warm, Dry Head: Atraumatic, Normacephalic Neck: Supple Cardiovascular: Rhythm Regular Respiratory: Normal Breath Sounds, No Rales, No Rhonchi, No Wheezing Gastrointestinal/Abdominal: Soft, No Tenderness Back: Normal Inspection Extremity: Bilateral: Atraumatic Neurological/Psych: Oriented x3 ED Course And Treatment O2 Sat by Pulse Oximetry: 98 (room air) Pulse Ox Interpretation: Normal Disposition Counseled Patient/Family Regarding: Studies Performed, Diagnosis, Need For Followup - Disposition Disposition: HOME/ ROUTINE Disposition Time: 05:55 Condition: STABLE - POA Present On Arrival: None - Clinical Impression Clinical Impression: Alcohol intoxication - Scribe Statement The provider has reviewed the documentation as recorded by the Scribe Merced Lowe Provider Attestation: All medical record entries made by the Tootieibe were at my direction and personally dictated by me. I have reviewed the chart and agree that the record accurately reflects my personal performance of the history, physical exam, medical decision making, and the department course for this patient. I have also personally directed, reviewed, and agree with the discharge instructions and disposition.
[2016-11-23 06:14] VITALS: BP 117/80; PULSE 89; RESP 20; TEMP 98
== END 2016-11-23 05:55 | disposition home or self-care (01) ==
LOC: C.ER 22:45 → C.9OBSV 23:36
PROVIDERS: ADMIT Emergency Medicine; ATTEND Emergency Medicine
DX: F10.129 Alcohol abuse with intoxication, unspecified (principal); I10 Essential (primary) hypertension; Z87.891 Personal history of nicotine dependence; Y90.9 Presence of alcohol in blood, level not specified
CPT/HCPCS: 82948; G0378

== ENCOUNTER 2016-11-24 08:08 | Emergency (ER) | payer OTHER ==
[2016-11-24 08:20] VITALS: BMI 21.6
[2016-11-24 08:25] VITALS: BP 126/76; PULSE 100; RESP 20; TEMP 97.6; O2SAT 100
--- NOTE | 2016-11-24 08:31 | C.PDOC ---
History Of Present Illness 51 yr old female brought in via EMS, presents to the ER for being found sleeping in a [employer] vestibule. Patient is well known to this ER and provider. Patient states she has not drank since last night, states "I'm fine, i just want to be discharged so i can go to my mom's house". Patient denies drug use, fever, chest pain, SOB, homicidal ideation or suicidal ideation. BIBA FOR SLEEPING IN [employer] SPACE. PS HAS NOT DRANK SINCE LAST NIGHT. DENIES DRUG USE. STATES "IM FINE, I JUST WANT TO BE DC SO I CAN GO TO MY MOM'S HOUSE". PT WELL KNOWN TO THIS ER AND THIS PROVIDER EXAM PSYCH CLEAR SPEECH AND THOUGHT, STEADY GAIT. NO S/S ACUTE INTOX GAIT WNL REMAINDER NEG Time Seen by Provider: 11/24/16 08:19 Chief Complaint (Nursing): Medical Clearance History Per: Patient History/Exam Limitations: no limitations Onset/Duration Of Symptoms: Unknown Past Medical History Reviewed: Historical Data, Nursing Documentation, Vital Signs Vital Signs: Last Vital Signs Temp 97.6 F 11/24/16 08:12 Pulse 100 H 11/24/16 08:12 Resp 20 11/24/16 08:12 BP 126/76 11/24/16 08:12 Pulse Ox 100 11/24/16 08:43 - Medical History PMH: Anxiety, Asthma, Depression, HTN, Paranoia, Pneumonia, Schizophrenia, TIA ( a year ago) - [facility] Procedures ALCOHOL DETOXIFICATION (12/21/14) APPLICATION OF SPLINT (05/22/14) DETOXIFICATION SERVICES FOR SUBSTANCE ABUSE TREATMENT (09/20/16) GROUP PLASTIC MOLDER FOR SUBSTANCE ABUSE TREATMENT, PSYCHOEDUCATION (12/12/15) INDIV PLASTIC MOLDER FOR SUBSTANCE ABUSE, COGNITIVE BEHAVIORAL (03/06/16) INDIV PSYCHOTHERAPY FOR SUBSTANCE ABUSE TREATMENT, SUPPORT (03/06/16) INJECT/INFUSE NEC (12/19/13) Family History: States: Unknown Family Hx - Social History Hx Tobacco Use: Yes Hx Alcohol Use: Yes Hx Substance Use: No - Immunization History Hx Tetanus Toxoid Vaccination: No Hx Influenza Vaccination: No Hx Pneumococcal Vaccination: No Review Of Systems Except As Marked, All Systems Reviewed And Found Negative. Constitutional: Negative for: Fever Cardiovascular: Negative for: Chest Pain Respiratory: Negative for: Shortness of Breath Psych: Negative for: Suicidal ideation Physical Exam - Physical Exam Appears: Well, Non-toxic, No Acute Distress Skin: Warm, Dry, No Rash Head: Atraumatic, Normacephalic Chest: Symmetrical, No Tenderness Cardiovascular: Rhythm Regular, No Murmur Respiratory: Normal Breath Sounds, No Rales, No Rhonchi, No Wheezing Extremity: Normal ROM, No Swelling Neurological/Psych: Oriented x3, Normal Cognition, Normal Motor, Other (Clear speech and thoughts. ) Gait: Unsteady ED Course And Treatment O2 Sat by Pulse Oximetry: 100 Disposition Counseled Patient/Family Regarding: Diagnosis, Need For Followup - Disposition Referrals: YOUR,PMD [Other] Disposition: HOME/ ROUTINE Disposition Time: 08:29 Condition: IMPROVED Forms: General Discharge Instructions - Clinical Impression Clinical Impression: Medical assessment - Scribe Statement The provider has reviewed the documentation as recorded by the Tootieibe Jazzy Crowe Provider Attestation: All medical record entries made by the Scribe were at my direction and personally dictated by me. I have reviewed the chart and agree that the record accurately reflects my personal performance of the history, physical exam, medical decision making, and the department course for this patient. I have also personally directed, reviewed, and agree with the discharge instructions and disposition.
== END 2016-11-24 08:45 | disposition home or self-care (01) ==
LOC: C.ER 08:08
DX: Z00.00 Encounter for general adult medical examination without abnormal findings (principal)

== ENCOUNTER 2016-11-28 12:41 | Observation (INO) | payer OTHER ==
[2016-11-28 12:41] VITALS: BMI 21.6
[2016-11-28 12:58] VITALS: RESP 18
[2016-11-28] MEDS ORDERED: Multivitamin (MVI) 10 ML, Thiamine 100 MG, Folic Acid 1 MG in Sodium Chloride 0.9% 1,00... IV STA (14:15)
[2016-11-28 14:45] LABS: BASO % 0.9 % (0.0-2.0); EOS # 0.1 K/uL (0.0-0.7); EOS % 1.3 % (0.0-4.0); HEMATOCRIT 31.5 % (34.0-47.0); LYMPH # 1.5 K/uL (1.0-4.3); LYMPH % 31.9 % (20.0-40.0); MEAN CELL VOLUME 87.2 fL (81.0-99.0); MEAN CORPUSCULAR HEMOGLOBIN 28.2 pg (27.0-31.0); MEAN CORPUSCULAR HGB CONC 32.3 g/dL (33.0-37.0); MEAN PLATELET VOLUME 6.9 fL (7.2-11.7); MONO # 0.2 K/uL (0.0-0.8); MONO % 5.2 % (0.0-10.0); RED CELL DISTRIBUTION WIDTH 17.3 % (11.5-14.5); WHITE BLOOD COUNT 4.6 K/uL (4.8-10.8)
[2016-11-28 14:56] LABS: CHLORIDE 109 mmol/L (98-107)
[2016-11-28 14:57] LABS: POTASSIUM 3.5 mmol/L (3.6-5.2); SODIUM 146 mmol/L (132-148)
[2016-11-28 14:59] LABS: AST/SGOT 68 U/L (14-36); BILIRUBIN,TOTAL 0.6 mg/dL (0.2-1.3); CARBON DIOXIDE 23 mmol/L (22-30); GFR AFRICAN-AMERICAN > 60
[2016-11-28 15:00] LABS: ALB/GLOB RATIO 1.2 (1.0-2.1); ALKALINE PHOSPHATASE 82 U/L (38-126); ALT/SGPT 29 U/L (9-52); BLOOD UREA NITROGEN 14 mg/dL (7-17); CALCIUM 8.1 mg/dl (8.6-10.4); GLUCOSE,RANDOM 99 mg/dL (65-105); MAGNESIUM 1.9 mg/dL (1.6-2.3); TOTAL PROTEIN 7.4 g/dL (6.3-8.3)
[2016-11-28 15:20] LABS: ALCOHOL SERUM 363 mg/dl (0-10)
[2016-11-28 16:01] LABS: RBC URINE 1 /hpf (0-3); URINE BACTERIA RARE (<OCC); URINE BILIRUBIN NEGATIVE (NEGATIVE); URINE COLOR Yellow (YELLOW); URINE GLUCOSE (UA) NORMAL (Normal); URINE KETONE NEGATIVE (NEGATIVE); URINE LEUKOCYTE ESTERASE 2+ Leu/uL (Negative); URINE PROTEIN 1+ mg/dL (NEGATIVE); URINE UROBILINOGEN NORMAL mg/dL (0.2-1.0); WBC URINE 4 /hpf (0-5)
[2016-11-28 16:03] LABS: URINE BLOOD TRACE (NEGATIVE)
--- NOTE | 2016-11-28 20:47 | C.PDOC ---
History Of Present Illness Pt was BIBEMS due to public alcohol intoxication. Time Seen by Provider: 11/28/16 13:55 Chief Complaint (Nursing): Substance Abuse History Per: Patient, EMS History/Exam Limitations: intoxication Onset/Duration Of Symptoms: Unknown (today) Current Symptoms Are (Timing): Still Present Suicide/Self Injury Attempted (Context): None Modifying Factor(s): Alcohol Severity: Severe Associated Symptoms: denies: Suicidal Thoughts, Suicidal Plan Additional History Per: Prior Records Past Medical History Reviewed: Historical Data, Nursing Documentation, Vital Signs Vital Signs: Last Vital Signs Temp 97.9 F 11/28/16 22:18 Pulse 89 11/28/16 22:18 Resp 18 11/28/16 22:18 BP 123/61 11/28/16 22:18 Pulse Ox 99 11/28/16 22:18 - Medical History PMH: Anxiety, Asthma, Depression, HTN, Paranoia, Pneumonia, Schizophrenia, TIA ( a year ago) - [facility] Procedures ALCOHOL DETOXIFICATION (12/21/14) APPLICATION OF SPLINT (05/22/14) DETOXIFICATION SERVICES FOR SUBSTANCE ABUSE TREATMENT (09/20/16) GROUP DELIVERY TABLE OPERATOR FOR SUBSTANCE ABUSE TREATMENT, PSYCHOEDUCATION (12/12/15) INDIV DELIVERY TABLE OPERATOR FOR SUBSTANCE ABUSE, COGNITIVE BEHAVIORAL (03/06/16) INDIV PSYCHOTHERAPY FOR SUBSTANCE ABUSE TREATMENT, SUPPORT (03/06/16) INJECT/INFUSE NEC (12/19/13) Family History: States: Unknown Family Hx - Social History Hx Tobacco Use: Yes Hx Alcohol Use: Yes Hx Substance Use: No - Immunization History Hx Tetanus Toxoid Vaccination: No Hx Influenza Vaccination: No Hx Pneumococcal Vaccination: Yes Review Of Systems Review Of Systems: ROS cannot be obtained secondary to pt's inabilty to answer questions. Physical Exam - Physical Exam Appears: No Acute Distress, Unkempt, Agitated, Other (AOB, intoxicated) Skin: Warm, Dry Head: Atraumatic Eye(s): bilateral: PERRL Neck: Normal ROM, No Midline Cervical Tenderness, No Step Off Deformity, Supple Chest: Symmetrical, No Deformity Cardiovascular: Rhythm Regular Respiratory: Normal Breath Sounds, No Accessory Muscle Use Gastrointestinal/Abdominal: Soft Extremity: Normal ROM, No Deformity Neurological/Psych: Oriented x3, Slow To Respond With Command Gait: Unable To Assess ED Course And Treatment - Laboratory Results Result Diagrams: 11/28/16 14:42 11/28/16 14:42 O2 Sat by Pulse Oximetry: 100 Pulse Ox Interpretation: Normal ED OBSERVATION Date of observation admission: 11/28/16 Time of observation admission: 14:00 - Observation admission statement Patient is being placed in observation because:: Alcohol intoxication. - Goals of Observation Goals of observation are:: Sobriety Disposition - Disposition Disposition Time: 01:00 Condition: FAIR - Clinical Impression Clinical Impression: Alcohol intoxication Physician Patient Turnover Patient Signed Over To: Juanita Talley Handoff Comments: to discharge pt in the AM once sober.
[2016-11-29] MEDS ORDERED: Albuterol-Ipratrop 3 mg / 0.5 (3 ml) UD ONE (00:12)
[2016-11-29] MEDS ORDERED: Albuterol-Ipratrop 3 mg / 0.5 (3 ml) UD INH STA (00:30)
[2016-11-29 05:49] VITALS: BP 127/71; PULSE 88; TEMP 98.4; O2SAT 99
== END 2016-11-29 05:25 | disposition home or self-care (01) ==
LOC: C.ER 12:41 → C.9OBSV 20:49
PROVIDERS: ADMIT Emergency Medicine; ATTEND Emergency Medicine
DX: F10.120 Alcohol abuse with intoxication, uncomplicated (principal); F22 Delusional disorders; I10 Essential (primary) hypertension; Z87.891 Personal history of nicotine dependence; Y90.8 Blood alcohol level of 240 mg/100 ml or more; F13.10 Sedative, hypnotic or anxiolytic abuse, uncomplicated
CPT/HCPCS: 80053; 81001; 82550; 83735; 84703; 85025; 96374; G0378; G0480; J2060; J3411; J7040

== ENCOUNTER 2016-11-30 08:58 | Emergency (ER) | payer OTHER ==
[2016-11-30 08:59] VITALS: BMI 21.6
[2016-11-30 09:09] VITALS: BP 102/69; PULSE 90; RESP 18; TEMP 98.7; O2SAT 98
--- NOTE | 2016-11-30 09:44 | C.PDOC ---
History Of Present Illness 51 y/o female brought in by EMS for bizarre behavior outside. Patient yelling and uncooperative on ED arrival. Denies being drunk. Time Seen by Provider: 11/30/16 09:03 Chief Complaint (Nursing): Substance Abuse History Per: Patient History/Exam Limitations: no limitations Current Symptoms Are (Timing): Still Present Modifying Factor(s): None Associated Symptoms: denies: Suicidal Thoughts, Suicidal Plan Recent travel outside of the [place]: No Past Medical History Reviewed: Historical Data, Nursing Documentation, Vital Signs Vital Signs: Last Vital Signs Temp 98.7 F 11/30/16 09:00 Pulse 90 11/30/16 09:00 Resp 18 11/30/16 09:00 BP 102/69 11/30/16 09:00 Pulse Ox 98 11/30/16 10:14 - Medical History PMH: Anxiety, Asthma, Depression, HTN, Paranoia, Pneumonia, Schizophrenia, TIA ( a year ago) - [facility] Procedures ALCOHOL DETOXIFICATION (12/21/14) APPLICATION OF SPLINT (05/22/14) DETOXIFICATION SERVICES FOR SUBSTANCE ABUSE TREATMENT (09/20/16) GROUP QUALITY AUDITOR FOR SUBSTANCE ABUSE TREATMENT, PSYCHOEDUCATION (12/12/15) INDIV QUALITY AUDITOR FOR SUBSTANCE ABUSE, COGNITIVE BEHAVIORAL (03/06/16) INDIV PSYCHOTHERAPY FOR SUBSTANCE ABUSE TREATMENT, SUPPORT (03/06/16) INJECT/INFUSE NEC (12/19/13) Family History: States: No Known Family Hx - Social History Hx Tobacco Use: Yes Hx Alcohol Use: Yes Hx Substance Use: No - Immunization History Hx Tetanus Toxoid Vaccination: No Hx Influenza Vaccination: No Hx Pneumococcal Vaccination: Yes Review Of Systems Except As Marked, All Systems Reviewed And Found Negative. Constitutional: Negative for: Fever, Chills Respiratory: Negative for: Cough, Shortness of Breath Gastrointestinal: Negative for: Nausea, Vomiting, Abdominal Pain Skin: Negative for: Rash Neurological: Negative for: Headache Psych: Positive for: Anxiety, Other (bizarre behavior) Physical Exam - Physical Exam Appears: Well, Non-toxic, Unkempt, Other (Awake, alert, oriented. Appears anxious. ) Skin: Normal Color, Warm, Dry Head: Atraumatic, Normacephalic Oral Mucosa: Moist Chest: Symmetrical Cardiovascular: Rhythm Regular Respiratory: Normal Breath Sounds, No Rales, No Rhonchi, No Wheezing Gastrointestinal/Abdominal: Normal Exam, Bowel Sounds, Soft, No Tenderness Extremity: Normal ROM Neurological/Psych: Oriented x3 Gait: Steady ED Course And Treatment O2 Sat by Pulse Oximetry: 98 (RA) Pulse Ox Interpretation: Normal Progress Note: Patient is AAOx3, sober and ambulating normally in ED. She denies depression/suicidal or homicidal ideations. Will discharge. Disposition Counseled Patient/Family Regarding: Diagnosis, Need For Followup - Disposition Referrals: [facility] [Outside] Disposition: HOME/ ROUTINE Disposition Time: 10:00 Condition: STABLE Instructions: Alcohol Dependence (ED) Forms: General Discharge Instructions Print Language: LATVIAN - POA Present On Arrival: None - Clinical Impression Clinical Impression: Homeless, Alcohol dependence - Scribe Statement The provider has reviewed the documentation as recorded by the Isis Arevalo Provider Attestation: All medical record entries made by the Isis were at my direction and personally dictated by me. I have reviewed the chart and agree that the record accurately reflects my personal performance of the history, physical exam, medical decision making, and the department course for this patient. I have also personally directed, reviewed, and agree with the discharge instructions and disposition.
== END 2016-11-30 10:37 | disposition home or self-care (01) ==
LOC: C.ER 08:58
DX: F10.20 Alcohol dependence, uncomplicated (principal); Y90.9 Presence of alcohol in blood, level not specified; Z59.0 Homelessness

== ENCOUNTER → 2016-12-03 00:33 | Emergency (ER) | payer SELFPAY ==
[2016-12-03 00:33] VITALS: BMI 21.6
== END | disposition left against medical advice (07) ==
LOC: C.ER 00:33
DX: Z02.89 Encounter for other administrative examinations (principal); Z00.00 Encounter for general adult medical examination without abnormal findings

== ENCOUNTER 2016-12-04 03:51 | Emergency (ER) | payer SELFPAY ==
[2016-12-04 03:52] VITALS: BMI 21.6
[2016-12-04 04:10] VITALS: PULSE 78; RESP 20; O2SAT 97
--- NOTE | 2016-12-04 04:14 | C.PDOC ---
Time Seen by Provider: 12/04/16 04:13 Chief Complaint (Nursing): Substance Abuse Past Medical History Vital Signs: Last Vital Signs Temp 97.4 F L 12/04/16 04:00 Pulse 78 12/04/16 04:00 Resp 20 12/04/16 04:00 BP 112/70 12/04/16 04:00 Pulse Ox 97 12/04/16 04:00 - Medical History PMH: Anxiety, Asthma, Depression, HTN, Paranoia, Pneumonia, Schizophrenia, TIA ( a year ago) Denies: Diabetes, Hepatitis, HIV, Seizures, Sexually Transmitted Disease - [facility] Procedures ALCOHOL DETOXIFICATION (12/21/14) APPLICATION OF SPLINT (05/22/14) DETOXIFICATION SERVICES FOR SUBSTANCE ABUSE TREATMENT (09/20/16) GROUP TIRE BALANCER FOR SUBSTANCE ABUSE TREATMENT, PSYCHOEDUCATION (12/12/15) INDIV TIRE BALANCER FOR SUBSTANCE ABUSE, COGNITIVE BEHAVIORAL (03/06/16) INDIV PSYCHOTHERAPY FOR SUBSTANCE ABUSE TREATMENT, SUPPORT (03/06/16) INJECT/INFUSE NEC (12/19/13) Family History: States: Unknown Family Hx - Social History Hx Tobacco Use: Yes Hx Alcohol Use: Yes Hx Substance Use: No - Immunization History Hx Tetanus Toxoid Vaccination: No Hx Influenza Vaccination: No Hx Pneumococcal Vaccination: Yes ED Course And Treatment O2 Sat by Pulse Oximetry: 97 Medical Decision Making Medical Decision Making: typical alcohol abuse, malingering, no acute medical issues. Disposition Doctor Will See Patient In The: Office Counseled Patient/Family Regarding: Studies Performed, Diagnosis - Disposition Disposition: HOME/ ROUTINE Disposition Time: 04:14 Condition: GOOD - Clinical Impression Clinical Impression: Alcohol abuse with intoxication
[2016-12-04 04:45] VITALS: BP 132/78; TEMP 98
== END 2016-12-04 04:42 | disposition home or self-care (01) ==
LOC: C.ER 03:51
DX: F10.120 Alcohol abuse with intoxication, uncomplicated (principal); Y90.9 Presence of alcohol in blood, level not specified

== ENCOUNTER 2016-12-07 08:01 | Observation (INO) | payer OTHER ==
[2016-12-07 08:02] VITALS: BMI 21.6
--- NOTE | 2016-12-07 09:14 | C.PDOC ---
History Of Present Illness 51 yr old female brought in via BLS for alcohol intoxication. Patient is very well known to the ED for multiple visits to the ED for alcohol abuse. Denies any active complaints. Time Seen by Provider: 12/07/16 09:00 Chief Complaint (Nursing): Substance Abuse History Per: Patient History/Exam Limitations: no limitations Onset/Duration Of Symptoms: Persistent Current Symptoms Are (Timing): Still Present Modifying Factor(s): Alcohol Past Medical History Reviewed: Historical Data, Nursing Documentation, Vital Signs Vital Signs: Last Vital Signs Temp 98.1 F 12/07/16 16:18 Pulse 98 H 12/07/16 16:18 Resp 20 12/07/16 16:18 BP 138/88 12/07/16 16:18 Pulse Ox 99 12/07/16 16:18 - Medical History PMH: Anxiety, Asthma, Depression, HTN, Paranoia, Pneumonia, Schizophrenia, TIA - [facility] Procedures ALCOHOL DETOXIFICATION (12/21/14) APPLICATION OF SPLINT (05/22/14) DETOXIFICATION SERVICES FOR SUBSTANCE ABUSE TREATMENT (09/20/16) GROUP CABINET FINISHER FOR SUBSTANCE ABUSE TREATMENT, PSYCHOEDUCATION (12/12/15) INDIV CABINET FINISHER FOR SUBSTANCE ABUSE, COGNITIVE BEHAVIORAL (03/06/16) INDIV PSYCHOTHERAPY FOR SUBSTANCE ABUSE TREATMENT, SUPPORT (03/06/16) INJECT/INFUSE NEC (12/19/13) Family History: States: No Known Family Hx - Social History Hx Tobacco Use: Yes Hx Alcohol Use: Yes Hx Substance Use: No - Immunization History Hx Tetanus Toxoid Vaccination: No Hx Influenza Vaccination: No Hx Pneumococcal Vaccination: Yes Review Of Systems Except As Marked, All Systems Reviewed And Found Negative. Constitutional: Negative for: Fever Gastrointestinal: Negative for: Nausea, Vomiting Psych: Negative for: Suicidal ideation Physical Exam - Physical Exam Appears: Non-toxic, No Acute Distress, Unkempt Skin: Warm, Dry, No Rash Head: Atraumatic, Normacephalic Chest: Symmetrical, No Tenderness Cardiovascular: Rhythm Regular, No Murmur Respiratory: Normal Breath Sounds, No Rales, No Rhonchi, No Wheezing Extremity: Normal ROM, No Swelling Neurological/Psych: Oriented x3, Normal Speech, Normal Motor ED Course And Treatment O2 Sat by Pulse Oximetry: 97 Disposition - Disposition Disposition: HOME/ ROUTINE Disposition Time: 16:00 Condition: IMPROVED - Clinical Impression Clinical Impression: History of alcohol abuse, Alcohol use - Scribe Statement The provider has reviewed the documentation as recorded by the Scribe Jazzy Crowe Provider Attestation: All medical record entries made by the Tootieibe were at my direction and personally dictated by me. I have reviewed the chart and agree that the record accurately reflects my personal performance of the history, physical exam, medical decision making, and the department course for this patient. I have also personally directed, reviewed, and agree with the discharge instructions and disposition.
[2016-12-07 16:18] VITALS: BP 138/88; PULSE 98; RESP 20; TEMP 98.1
[2016-12-07 18:01] VITALS: O2SAT 97
== END 2016-12-07 16:05 | disposition home or self-care (01) ==
LOC: C.ER 08:01 → C.9OBSV 09:05
PROVIDERS: ADMIT Emergency Medicine; ATTEND Emergency Medicine
DX: F10.120 Alcohol abuse with intoxication, uncomplicated (principal); I10 Essential (primary) hypertension; F20.9 Schizophrenia, unspecified; J45.909 Unspecified asthma, uncomplicated; Z86.73 Personal history of transient ischemic attack (TIA), and cerebral infarction without residual deficits
CPT/HCPCS: 82948; G0378

== ENCOUNTER 2016-12-07 20:41 | Observation (INO) | payer OTHER ==
[2016-12-07 20:41] VITALS: BMI 21.6
[2016-12-07] MEDS ORDERED: Sodium Chloride 0.9% 1,000 ML IV ONE ×2 (21:23→23:26)
--- NOTE | 2016-12-07 21:49 | C.PDOC ---
History Of Present Illness 51 year old female presents to the ED with complaints of vomiting beginning just prior to arrival. Patient was discharged today from [facility] [place] ED and upon going to her mother's house she began to vomit the food she was given while in the ED. She is requesting detox despite being aware no detox beds were available. Patient denies any diarrhea or other physical complaints at this time. Time Seen by Provider: 12/07/16 21:09 Chief Complaint (Nursing): Substance Abuse History Per: Patient History/Exam Limitations: no limitations Onset/Duration Of Symptoms: Hrs Current Symptoms Are (Timing): Still Present Suicide/Self Injury Attempted (Context): None Associated Symptoms: denies: Suicidal Thoughts, Suicidal Plan Involuntary Hold By: None Recent travel outside of the [place]: No Additional History Per: Prior Records Past Medical History Reviewed: Historical Data, Nursing Documentation, Vital Signs Vital Signs: Last Vital Signs Temp 98.6 F 12/07/16 21:17 Pulse 108 H 12/07/16 21:17 Resp 20 12/07/16 21:17 BP 160/91 H 12/07/16 21:17 Pulse Ox 98 12/07/16 23:27 - Medical History PMH: Anxiety, Asthma, Depression, HTN, Paranoia, Pneumonia, Schizophrenia, TIA - [facility] Procedures ALCOHOL DETOXIFICATION (12/21/14) APPLICATION OF SPLINT (05/22/14) DETOXIFICATION SERVICES FOR SUBSTANCE ABUSE TREATMENT (09/20/16) GROUP PHLEBOTOMIST ASSOCIATE FOR SUBSTANCE ABUSE TREATMENT, PSYCHOEDUCATION (12/12/15) INDIV PHLEBOTOMIST ASSOCIATE FOR SUBSTANCE ABUSE, COGNITIVE BEHAVIORAL (03/06/16) INDIV PSYCHOTHERAPY FOR SUBSTANCE ABUSE TREATMENT, SUPPORT (03/06/16) INJECT/INFUSE NEC (12/19/13) Family History: States: Unknown Family Hx - Social History Hx Tobacco Use: Yes Hx Alcohol Use: Yes Hx Substance Use: No - Immunization History Hx Tetanus Toxoid Vaccination: No Hx Influenza Vaccination: No Hx Pneumococcal Vaccination: Yes Review Of Systems Constitutional: Negative for: Fever, Chills, Sweats Respiratory: Negative for: Cough, Shortness of Breath Gastrointestinal: Positive for: Vomiting. Negative for: Nausea, Abdominal Pain , Diarrhea Genitourinary: Negative for: Dysuria Neurological: Negative for: Headache Psych: Negative for: Suicidal ideation Physical Exam - Physical Exam Appears: Non-toxic, No Acute Distress, Other (Patient smells like urine and alcohol. ) Skin: Warm, Dry, Other (patient's hands are very brown from so much time spent outside. ) Head: Atraumatic Neck: Supple Chest: Symmetrical, No Deformity Cardiovascular: Rhythm Regular Respiratory: No Rales, No Rhonchi, No Stridor, No Wheezing Gastrointestinal/Abdominal: Soft, No Tenderness, No Distention, No Guarding, No Rebound Extremity: Normal ROM, No Tenderness, No Calf Tenderness, No Swelling Neurological/Psych: Oriented x3 ED Course And Treatment - Laboratory Results Result Diagrams: 12/07/16 21:47 12/07/16 21:47 Lab Interpretation: No Acute Changes Interpretation Of Abnormal: ETOH 63 O2 Sat by Pulse Oximetry: 98 (room air ) Pulse Ox Interpretation: Normal Progress Note: Patient better after IV fluids and Zofran. Requesting fluids by mouth. she is visible shaky. discussed with shut off worker and there are no available detox beds at this time. 11:25 Patient continues to vomit in ED. Additional Zofran and Librium ordered. - Physician Consult Information Time Consulting Physician Contacted: 23:35 Physician Contacted: Remy Hung Outcome Of Conversation: Patient to be admitted for alcohol withdrawal with persistent vomiting. Medical Decision Making Medical Decision Making: Patient was given IV fluids and Ondanestron. Patient was instructed to follow up regarding detox. Disposition - Disposition Disposition: HOSPITALIZED Disposition Time: 23:36 Condition: FAIR - POA Present On Arrival: None - Clinical Impression Clinical Impression: Alcohol withdrawal, Intractable vomiting - Scribe Statement The provider has reviewed the documentation as recorded by the Scribchristen Heredia All medical record entries made by the Tootieibchristen were at my direction and personally dictated by me. I have reviewed the chart and agree that the record accurately reflects my personal performance of the history, physical exam, medical decision making, and the department course for this patient. I have also personally directed, reviewed, and agree with the discharge instructions and disposition.
[2016-12-07 21:53] LABS: BASO % 0.9 % (0.0-2.0); EOS % 0.2 % (0.0-4.0); HEMATOCRIT 31.7 % (34.0-47.0); LYMPH # 0.7 K/uL (1.0-4.3); LYMPH % 13.5 % (20.0-40.0); MEAN CELL VOLUME 87.4 fL (81.0-99.0); MEAN CORPUSCULAR HEMOGLOBIN 29.2 pg (27.0-31.0); MEAN CORPUSCULAR HGB CONC 33.4 g/dL (33.0-37.0); MEAN PLATELET VOLUME 6.8 fL (7.2-11.7); MONO # 0.4 K/uL (0.0-0.8); NRBC % 0.2 % (0.0-2.0); RED CELL DISTRIBUTION WIDTH 18.4 % (11.5-14.5); WHITE BLOOD COUNT 5.1 K/uL (4.8-10.8)
[2016-12-07 22:01] LABS: CHLORIDE 100 mmol/L (98-107); POTASSIUM 3.9 mmol/L (3.6-5.2); SODIUM 141 mmol/L (132-148)
[2016-12-07 22:03] LABS: ALB/GLOB RATIO 1.2 (1.0-2.1); ALKALINE PHOSPHATASE 110 U/L (38-126); AST/SGOT 88 U/L (14-36); BILIRUBIN,TOTAL 0.9 mg/dL (0.2-1.3); CARBON DIOXIDE 28 mmol/L (22-30); GFR AFRICAN-AMERICAN > 60; TOTAL PROTEIN 7.8 g/dL (6.3-8.3)
[2016-12-07 22:04] LABS: ALCOHOL SERUM 63 mg/dl (0-10); ALT/SGPT 40 U/L (9-52); BLOOD UREA NITROGEN 17 mg/dL (7-17); CALCIUM 9.4 mg/dl (8.6-10.4); GLUCOSE,RANDOM 103 mg/dL (65-105)
[2016-12-08] MEDS ORDERED: Albuterol HFA 90 mcg/actuation (8 g) IH PRN (00:51)
[2016-12-08] MEDS ORDERED: Folic Acid 1 MG, Thiamine 100 MG, Multivitamin (MVI) 10 ML in Dextrose 5% In Water 1,00... IV SCH ×2 (01:00→10:00)
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
[2016-12-08 04:19] VITALS: RESP 20
[2016-12-08 07:23] LABS: BASO % 0.5 % (0.0-2.0); HEMATOCRIT 33.7 % (34.0-47.0); LYMPH # 1.2 K/uL (1.0-4.3); LYMPH % 31.3 % (20.0-40.0); MEAN CELL VOLUME 87.9 fL (81.0-99.0); MEAN PLATELET VOLUME 7.3 fL (7.2-11.7); MONO # 0.4 K/uL (0.0-0.8); MONO % 10.4 % (0.0-10.0); NRBC % 0.2 % (0.0-2.0); RED CELL DISTRIBUTION WIDTH 18.5 % (11.5-14.5); WHITE BLOOD COUNT 3.7 K/uL (4.8-10.8)
[2016-12-08 07:49] LABS: CHLORIDE 97 mmol/L (98-107)
[2016-12-08 07:50] LABS: POTASSIUM 3.3 mmol/L (3.6-5.2); SODIUM 135 mmol/L (132-148)
[2016-12-08 07:52] LABS: GFR AFRICAN-AMERICAN > 60
[2016-12-08 07:53] LABS: ALB/GLOB RATIO 1.1 (1.0-2.1); ALKALINE PHOSPHATASE 94 U/L (38-126); ALT/SGPT 30 U/L (9-52); AST/SGOT 73 U/L (14-36); BLOOD UREA NITROGEN 11 mg/dL (7-17); CALCIUM 8.7 mg/dl (8.6-10.4); CARBON DIOXIDE 30 mmol/L (22-30); GLUCOSE,RANDOM 79 mg/dL (65-105); PHOSPHOROUS 3.4 mg/dL (2.5-4.5); TOTAL PROTEIN 7.3 g/dL (6.3-8.3)
[2016-12-08 07:54] LABS: MAGNESIUM 1.6 mg/dL (1.6-2.3)
--- NOTE | 2016-12-08 09:19 | CP.PCM.PN ---
<Rosibel Winn V - Last Filed: 12/08/16 20:33> Objective - Vital Signs/Intake and Output Vital Signs (last 24 hours): Temp Pulse Resp BP Pulse Ox 98.2 F 95 H 20 126/91 H 96 12/08/16 16:04 12/08/16 16:04 12/08/16 16:04 12/08/16 16:04 12/08/16 16:04 Intake and Output: 12/08/16 12/09/16 18:59 06:59 Intake Total 800 Balance 800 - Medications Medications: Current Medications Albuterol (Ventolin Hfa 90 Mcg/Actuation (8 G)) 2 puff IH RQ6 PRN PRN Reason: Shortness of Breath Escitalopram Oxalate (Lexapro) 5 mg PO DAILY [facility] Famotidine (Pepcid) 20 mg IVP Q12 [facility] Last Admin: 12/08/16 09:21 Dose: 20 mg Heparin Sodium (Porcine) (Heparin) 5,000 units SC Q8 [facility] Last Admin: 12/08/16 13:07 Dose: 5,000 units Folic Acid 1 mg/ Thiamine HCl 100 mg/ Multivitamins/Vitamin C 10 ml/ Dextrose 1 ,011.2 mls @ 100 mls/hr IV DAILY [facility] Last Admin: 12/08/16 11:01 Dose: 100 mls/hr Lorazepam (Ativan) 2 mg IVP Q6H PRN; Taper PRN Reason: Anxiety Stop: 12/12/16 08:39 Last Admin: 12/08/16 17:40 Dose: 2 mg Ondansetron HCl (Zofran Inj) 4 mg IVP Q6 PRN PRN Reason: Nausea/Vomiting Promethazine HCl/Codeine (Phenergan/Codeine Oral Syrup) 5 ml PO Q6H PRN PRN Reason: Cough Trazodone HCl (Desyrel) 50 mg PO HS SHA - Labs Labs: 12/08/16 07:07 12/08/16 07:07 Attending/Attestation - Attestation I have personally seen and examined this patient.: Yes I have fully participated in the care of the patient.: Yes I have reviewed all pertinent clinical information, including history, physical exam and plan: Yes Notes (Text): Patient seen, examined, and case discussed during day-time resident. Patient seen during afternoon rounds. patient reports last drink was 24 hours ago. Patient denies SI/denies HI/denies hallucinations. Patient does not appear to have tremors. Patient is requesting for detox bed. Patient also reports history of asthma, multiple histories of pneumonia during the past 6 months, history of heart murmur. Patient reports she was living at a long-term last week, then at a friends, and then at her mothers. Assessment/Plan 1) Alcohol Withdrawal * Psych (Dr. Todd) on board-->help appreciated * Seizure precautions * Aspiration precautions * Ativan taper (Day 1) 2) Productive cough * Chest xray (12/08/16): no focal infiltrate no effusion * Phenergan w codeine 5ml PO Q 4hour PRN cough 3) Depression * Psych (Dr. Todd ) on board-->help appreciated * Lexapro 5mg PO daily 4) Suspect Scabies * Infectious Disease (Dr. Jernigan)-->f/u recommendations * Start Permethrin 5% cream * contact isolation * patient has poor hygiene and superficial leg wounds 5) History of Heart murmur * Order for echocardiogram 6) History of asthma * Albuterol PRN * patient is not in acute exacerbation 7) Prophylactic Measures * Pepcid 20mg IVP Q12H for GI px * SCDs b/l * Start Heparin 5000 units subq 8h for DVT ppx * Zofran 4mg IV Q 6 HR PRN nausea <Oumou Neri E - Last Filed: 12/08/16 21:21> Subjective - Date & Time of Evaluation Date of Evaluation: 12/08/16 Time of Evaluation: 07:45 - Subjective Subjective: Medicine Note (PGY1) : DR. Winn's service Patient was seen and examined at bedside. Patient was very drowsy. Patient states that she is feeling better with decreased nausea and being able to tolerate food. Patient had no acute event overnight. Patient reports headache, productive cough, chills, minimal nausea but denies nausea, fever, cp, sob, urinary symptoms and abd pain. Objective - Vital Signs/Intake and Output Vital Signs (last 24 hours): Temp Pulse Resp BP Pulse Ox 98.6 F 72 20 142/90 98 12/08/16 08:23 12/08/16 08:23 12/08/16 08:23 12/08/16 08:23 12/08/16 08:23 - Medications Medications: Current Medications Albuterol (Ventolin Hfa 90 Mcg/Actuation (8 G)) 2 puff IH RQ6 PRN PRN Reason: Shortness of Breath Famotidine (Pepcid) 20 mg IVP Q12 SHA Heparin Sodium (Porcine) (Heparin) 5,000 units SC Q8 [facility] Last Admin: 12/08/16 05:57 Dose: 5,000 units Folic Acid 1 mg/ Thiamine HCl 100 mg/ Multivitamins/Vitamin C 10 ml/ Dextrose 1 ,011.2 mls @ 100 mls/hr IV DAILY [facility] Lorazepam (Ativan) 2 mg IVP Q6H PRN; Taper PRN Reason: Anxiety Stop: 12/12/16 08:39 Ondansetron HCl (Zofran Inj) 4 mg IVP Q6 PRN PRN Reason: Nausea/Vomiting Permethrin (Permethrin 5% Cream) 1 gm TOP DAILY SHA - Labs Labs: 12/08/16 07:07 12/08/16 07:07 - Constitutional Appears: Well, No Acute Distress - Head Exam Head Exam: NORMOCEPHALIC - Eye Exam Eye Exam: EOMI, Normal appearance - ENT Exam ENT Exam: Mucous Membranes Moist - Respiratory Exam Respiratory Exam: Clear to Ausculation Bilateral, NORMAL BREATHING PATTERN - Cardiovascular Exam Cardiovascular Exam: REGULAR RHYTHM, +S1, +S2 - GI/Abdominal Exam GI & Abdominal Exam: Soft, Normal Bowel Sounds - Extremities Exam Extremities Exam: Normal Capillary Refill, Normal Inspection Additional comments: Rash and burrowing due to scabies - Neurological Exam Neurological Exam: Alert - Psychiatric Exam Psychiatric exam: Normal Affect, Normal Mood - Skin Skin Exam: Dry, Normal Color, Warm Assessment and Plan - Assessment and Plan (Free Text) Assessment: 1. Alcohol Withdrawal Ativan 2mg IV Q6h prn Banana bag Added MV/thiamine/folic acid after completion of banana bag Seizure precautions Aspiration precautions Lipase: 67 Liqid diet 2. Productive Cough Afebrile, no leukocytosis Chest X-ray (12/08/16): No focal infiltrate and no effusion Promethazine/Codeine 5ml PO q6h prn 3. Depression Psychiatry consulted (Dr. Yan Todd) -> help appreciated As per psychiatry: * Lexapro 5mg PO daily and trazadone 50mg HS for insomnia 4. Scabies consider skin scraping Permethrin 5% cream contact isolation Burrowing in the nail beds -> Podiatry consult (12/08/16) ---> help appreciated 5. Asthma Ventolin 2 puffs IH RQ6 PRN 6. Hx CARDIAC Murmur: F /U echocardiogram in the AM Prophylactic Measures Pepcid 20mg IVP Q12 SCDs NPO
[2016-12-08] MEDS ORDERED: Permethrin 5% Cream(60 gm) TOP SCH (10:00)
--- NOTE | 2016-12-08 11:37 | PCM.PSYCH ---
Initial Psychiatric Evaluation - Initial Psychiatric Evaluation Type of Admission: Voluntary Legal Status: Capacity Chief Complaint (in patient's own words): "Not well" History of Present Illness and Precipitating Events: The patient is seen, chart reviewed and case discussed. Consultation was requested because of patient's alcohol use. She is known to the flex o writer operator from previous admissions. This is a 51-year-old female, single with children, unemployed and living in [facility] in [place]. She frequent the visits ERs in both [facility] and [facility] and admitted again with alcohol-related GI problems this time. Likely pancreatitis. She admits to drinking more than a pint of liquor every day but denies drug use. She also feels depressed but not suicidal. No manic and no psychotic symptoms elicited. She admits to being noncompliant with outpatient follow-ups or medications. Past psych hx: Alcohol-related depression, no follow up Family psych: Depression Medical; Asthma Current Medications: Active Medications Generic Name Dose Route Start Last Admin Trade Name Freq PRN Reason Stop Dose Admin Albuterol 2 puff 12/08/16 00:51 Ventolin Hfa 90 Mcg/Actuation (8 G) IH RQ6 PRN Shortness of Breath Famotidine 20 mg 12/08/16 10:00 12/08/16 09:21 Pepcid IVP 20 mg Q12 SHA Administration Heparin Sodium (Porcine) 5,000 units 12/08/16 06:00 12/08/16 05:57 Heparin SC 5,000 units Q8 SHA Administration Folic Acid 1 mg/ Thiamine HCl 1,011.2 mls @ 100 mls/hr 12/08/16 10:00 11:01 100 mg/ Multivitamins/Vitamin IV 100 mls/hr C 10 ml/ Dextrose DAILY SHA Administration Lorazepam 2 mg 12/08/16 08:40 12/08/16 09:22 Ativan IVP 12/12/16 08:39 2 mg Q6H PRN Administration Anxiety Taper Ondansetron HCl 4 mg 12/08/16 01:06 Zofran Inj IVP Q6 PRN Nausea/Vomiting Permethrin 1 gm 12/08/16 10:00 Permethrin 5% Cream TOP DAILY SHA Past Psychiatric History - Past Psychiatric History Previous Treatment History: Inpatient Pertinent Medical Hx (Current Medical&Sleep Prob, Allergies): Allergies Allergy/AdvReac Type Severity Reaction Status Date / Time shellfish derived Allergy Severe SWELLING Verified 12/01/16 22:55 Albuterol HFA [Ventolin HFA 90 mcg/actuation (8 g)] 2 puff IH [id number] PRN Review of Systems - Neurological Neurological: Tremor, Weakness - Psychiatric Psychiatric: Abnormal Sleep Pattern, Anhedonia, Anxiety, Change in Appetite, Depression, Difficulty Concentrating. absent: Hallucinations, Homicidal Ideation, Suicidal Ideation Mental Status Examination - Personal Presentation Personal Presentation: Looks older than stated age - Affect Affect: Constricted - Motor Activity Motor Activity: Calm - Reliability in Providing Information Reliability in Providing Information: Fair - Speech Speech: Organized - Mood Mood: Depressed, Anxious - Formal Thought Process Formal Thought Process: No Impairment - Cognitive Functions Orientation: Person, Place, Situation, Time Sensorium: Drowsy Attention/Concentration: Easily distracted Abstract Thinking: [place] Estimate of Intelligence: Below average Judgement: Imparied, as evidence by: Poor judgement Memory: Recent intact, as evidence by: Ability to recall events of the day, Remote impaired as evidenced by: Inability to recall sig life events - Risk Risk: Withdrawal, Diminished functioning - Strength & Assets Inventory Strength & Assets Inventory: Cooperative - Limitations Limitations: Living alone DSM 5 DX - DSM 5 DSM 5 Diagnosis: Major depression, recurrent, moderate Alcohol withdrawal Alcohol use d/o - severe - Recommended/Plan of Treatment Treatment Recommendations and Plan of Treatment: Ativan IV detox due to NPO status Gabapentin for augmentation whe po is OK Lexapro and trazodone for depression and insomnia respectively when po ok As needed meds and vitamins MT for abstinence and CBT for relapse prevention Support and psychoeducation Consider and encourage MAT such as naltrexone Refer to after care 33 min
--- NOTE | 2016-12-08 12:17 | RAD ---
Chest x-ray single frontal view History: Cough. Comparison: None available. Findings: No focal infiltrate or effusion. Tortuous aorta. Heart size within normal limits. Impression: No focal infiltrate or effusion.
[2016-12-08] MEDS ORDERED: Permethrin 5% Cream(60 gm) TOP ONE (13:00)
[2016-12-08] MEDS ORDERED: Potassium Chloride 20 mEq ER Tab PO ONE ×2 (15:29→22:13)
[2016-12-08] MEDS ORDERED: Magnesium Sulfate 1 gm in D5W 1 GM/100 ML BAG IVPB ONE ×2 (15:31→21:50)
[2016-12-08] MEDS ORDERED: Promethazine/Cod 6.25mg-10mg/5ml Syr UD PO PRN (16:19)
[2016-12-09 00:57] VITALS: BP 122/82; TEMP 99; O2SAT 97
[2016-12-09 01:09] VITALS: PULSE 94
--- NOTE | 2016-12-09 05:53 | CP.PCM.PN ---
Objective - Vital Signs/Intake and Output Vital Signs (last 24 hours): Temp Pulse Resp BP Pulse Ox 99 F 94 H 20 122/82 97 12/08/16 23:25 12/09/16 01:05 12/08/16 23:25 12/08/16 23:25 12/08/16 23:25 Intake and Output: 12/08/16 12/09/16 18:59 06:59 Intake Total 800 1320 Balance 800 1320 - Medications Medications: Current Medications Albuterol (Ventolin Hfa 90 Mcg/Actuation (8 G)) 2 puff IH RQ6 PRN PRN Reason: Shortness of Breath Escitalopram Oxalate (Lexapro) 5 mg PO DAILY [facility] Famotidine (Pepcid) 20 mg IVP Q12 [facility] Last Admin: 12/08/16 21:37 Dose: 20 mg Heparin Sodium (Porcine) (Heparin) 5,000 units SC Q8 [facility] Last Admin: 12/08/16 21:37 Dose: 5,000 units Folic Acid 1 mg/ Thiamine HCl 100 mg/ Multivitamins/Vitamin C 10 ml/ Dextrose 1 ,011.2 mls @ 100 mls/hr IV DAILY [facility] Last Admin: 12/08/16 11:01 Dose: 100 mls/hr Lorazepam (Ativan) 2 mg IVP Q6H PRN; Taper PRN Reason: Anxiety Stop: 12/12/16 08:39 Last Admin: 12/08/16 17:40 Dose: 2 mg Ondansetron HCl (Zofran Inj) 4 mg IVP Q6 PRN PRN Reason: Nausea/Vomiting Promethazine HCl/Codeine (Phenergan/Codeine Oral Syrup) 5 ml PO Q6H PRN PRN Reason: Cough Trazodone HCl (Desyrel) 50 mg PO HS [facility] Last Admin: 12/08/16 21:37 Dose: 50 mg - Labs Labs: 12/08/16 07:07 12/08/16 07:07
[2016-12-09 06:46] LABS: CHLORIDE 93 mmol/L (98-107); SODIUM 132 mmol/L (132-148)
[2016-12-09 06:47] LABS: POTASSIUM 3.7 mmol/L (3.6-5.2)
[2016-12-09 06:49] LABS: ALKALINE PHOSPHATASE 106 U/L (38-126); AST/SGOT 70 U/L (14-36); BILIRUBIN,TOTAL 0.9 mg/dL (0.2-1.3); BLOOD UREA NITROGEN 6 mg/dL (7-17); CARBON DIOXIDE 29 mmol/L (22-30); GFR AFRICAN-AMERICAN > 60; GLUCOSE,RANDOM 93 mg/dL (65-105); PHOSPHOROUS 3.2 mg/dL (2.5-4.5); TOTAL PROTEIN 7.6 g/dL (6.3-8.3)
[2016-12-09 06:50] LABS: ALT/SGPT 37 U/L (9-52); CALCIUM 8.9 mg/dl (8.6-10.4); MAGNESIUM 1.9 mg/dL (1.6-2.3)
[2016-12-09 07:06] LABS: BASO % 0.9 % (0.0-2.0); EOS # 0.1 K/uL (0.0-0.7); EOS % 2.5 % (0.0-4.0); HEMATOCRIT 35.7 % (34.0-47.0); LYMPH # 0.9 K/uL (1.0-4.3); LYMPH % 27.8 % (20.0-40.0); MEAN CELL VOLUME 88.9 fL (81.0-99.0); MEAN CORPUSCULAR HEMOGLOBIN 29.1 pg (27.0-31.0); MEAN CORPUSCULAR HGB CONC 32.7 g/dL (33.0-37.0); MONO # 0.3 K/uL (0.0-0.8); MONO % 9.1 % (0.0-10.0); NRBC % 0.1 % (0.0-2.0); RED CELL DISTRIBUTION WIDTH 17.8 % (11.5-14.5); WHITE BLOOD COUNT 3.4 K/uL (4.8-10.8)
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
[2016-12-09] MEDS ORDERED: Potassium Chloride 20 mEq ER Tab PO ONE (21:49)
== END 2016-12-09 07:00 | disposition left against medical advice (07) ==
LOC: C.ER 20:41 → C.5T 23:37 → C.6T 12-08 00:57 → C.5T 12-08 00:57 → C.9E 12-08 01:40 → C.5T 12-08 03:45
PROVIDERS: ADMIT Hospitalist; ATTEND Hospitalist
DX: F10.230 Alcohol dependence with withdrawal, uncomplicated (principal); F41.9 Anxiety disorder, unspecified; G47.00 Insomnia, unspecified; J45.909 Unspecified asthma, uncomplicated; K85.90 Acute pancreatitis without necrosis or infection, unspecified; Z87.01 Personal history of pneumonia (recurrent); F33.1 Major depressive disorder, recurrent, moderate; F10.220 Alcohol dependence with intoxication, uncomplicated; Y90.3 Blood alcohol level of 60-79 mg/100 ml
CPT/HCPCS: 36415; 71010; 80053; 80320; 83690; 83735; 84100; 85025; 86703; 96361; 96365; 96372; 96375; 96376; 99285; G0378; J1644; J2060; J2405; J3411; J3475; J7040; J7070

== ENCOUNTER 2016-12-13 02:52 | Emergency (ER) | payer OTHER ==
[2016-12-13 02:52] VITALS: BMI 21.6
[2016-12-13 03:06] VITALS: O2SAT 98
--- NOTE | 2016-12-13 03:22 | C.PDOC ---
History Of Present Illness Patient was brought to the ER via EMS for acute ETOH intoxication. Denies any physical complaints at this time. Time Seen by Provider: 12/13/16 03:10 Chief Complaint (Nursing): Substance Abuse History Per: Patient History/Exam Limitations: no limitations Onset/Duration Of Symptoms: Hrs Current Symptoms Are (Timing): Still Present Suicide/Self Injury Attempted (Context): None Modifying Factor(s): Alcohol Severity: None Pain Scale Rating Of: 0 Associated Symptoms: denies: Depression, Suicidal Thoughts, Suicidal Plan Involuntary Hold By: None Recent travel outside of the [place]: No Past Medical History Reviewed: Historical Data, Nursing Documentation, Vital Signs Vital Signs: Last Vital Signs Temp 97.2 F L 12/13/16 03:01 Pulse 88 12/13/16 03:01 Resp 18 12/13/16 03:01 BP 125/88 12/13/16 03:01 Pulse Ox 98 12/13/16 03:28 - Medical History PMH: Anxiety, Asthma, Depression, HTN, Paranoia, Pneumonia, Schizophrenia, TIA Surgical History: No Surg Hx - [facility] Procedures ALCOHOL DETOXIFICATION (12/21/14) APPLICATION OF SPLINT (05/22/14) DETOXIFICATION SERVICES FOR SUBSTANCE ABUSE TREATMENT (09/20/16) GROUP CATEGORY ANALYST FOR SUBSTANCE ABUSE TREATMENT, PSYCHOEDUCATION (12/12/15) INDIV CATEGORY ANALYST FOR SUBSTANCE ABUSE, COGNITIVE BEHAVIORAL (03/06/16) INDIV PSYCHOTHERAPY FOR SUBSTANCE ABUSE TREATMENT, SUPPORT (03/06/16) INJECT/INFUSE NEC (12/19/13) Family History: States: Unknown Family Hx - Social History Hx Tobacco Use: Yes Hx Alcohol Use: Yes Hx Substance Use: No - Immunization History Hx Tetanus Toxoid Vaccination: No Hx Influenza Vaccination: No Hx Pneumococcal Vaccination: Yes Review Of Systems Constitutional: Negative for: Fever, Chills Gastrointestinal: Negative for: Nausea, Vomiting, Diarrhea Physical Exam - Physical Exam Appears: Non-toxic, Other (ETOH on breath) Skin: Warm, Dry Oral Mucosa: Moist Chest: Symmetrical, No Tenderness Cardiovascular: Rhythm Regular, No Murmur Respiratory: No Rales, No Rhonchi, No Wheezing Gastrointestinal/Abdominal: Soft, No Tenderness Neurological/Psych: Oriented x3 ED Course And Treatment O2 Sat by Pulse Oximetry: 98 (Room air) Pulse Ox Interpretation: Normal Progress Note: Librium administered. Reevaluation Time: 05:45 Reassessment Condition: Improved Disposition Counseled Patient/Family Regarding: Studies Performed, Diagnosis, Need For Followup - Disposition Referrals: [facility] [Outside] Disposition Time: 05:46 Condition: FAIR Instructions: Alcohol Intoxication (DC) - Clinical Impression Clinical Impression: Alcohol intoxication, Alcohol abuse - Scribe Statement The provider has reviewed the documentation as recorded by the Scribe Antoine Sumner All medical record entries made by the Tootieibchristen were at my direction and personally dictated by me. I have reviewed the chart and agree that the record accurately reflects my personal performance of the history, physical exam, medical decision making, and the department course for this patient. I have also personally directed, reviewed, and agree with the discharge instructions and disposition.
[2016-12-13 05:52] VITALS: BP 128/66; PULSE 81; RESP 20; TEMP 97.4
== END 2016-12-13 05:52 | disposition home or self-care (01) ==
LOC: C.ER 02:52
DX: F10.129 Alcohol abuse with intoxication, unspecified (principal)

== ENCOUNTER 2016-12-14 10:08 | Observation (INO) | payer OTHER ==
[2016-12-14 10:08] VITALS: BMI 21.6
[2016-12-14 10:43] VITALS: O2SAT 98
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
[2016-12-14 16:52] VITALS: BP 102/64; PULSE 74; RESP 20; TEMP 98.6
== END 2016-12-14 16:41 | disposition home or self-care (01) ==
LOC: C.ER 10:08 → C.9OBSV 10:45
PROVIDERS: ADMIT Emergency Medicine; ATTEND Emergency Medicine
DX: F10.129 Alcohol abuse with intoxication, unspecified (principal); F22 Delusional disorders; I10 Essential (primary) hypertension; J45.909 Unspecified asthma, uncomplicated; Y90.9 Presence of alcohol in blood, level not specified
CPT/HCPCS: G0378; J3486

== ENCOUNTER 2016-12-23 05:37 | Emergency (ER) | payer OTHER ==
[2016-12-23 05:50] VITALS: BMI 22.3
[2016-12-23 06:08] VITALS: BP 158/94; PULSE 97; RESP 18; TEMP 98.2; O2SAT 97
--- NOTE | 2016-12-23 06:22 | C.PDOC ---
History Of Present Illness 51 year old female brought via EMS for a complaint of dysuria and frequent urination or an unknown amount of time. Patient is a well known homeless alcoholic; is surprisingly not intoxicated at this time. Denies abdominal pain or back pain. Time Seen by Provider: 12/23/16 05:46 Chief Complaint (Nursing): Female Genitourinary History Per: Patient History/Exam Limitations: no limitations Onset/Duration Of Symptoms: Unknown Current Symptoms Are (Timing): Still Present Quality Of Discomfort: Burning Associated Symptoms: Urinary Symptoms. denies: Back Pain Alleviating Factors: None Recent travel outside of the [place]: No Abnormal Vaginal Bleeding: No Past Medical History Reviewed: Historical Data, Nursing Documentation, Vital Signs Vital Signs: Last Vital Signs Temp 98.2 F 12/23/16 06:05 Pulse 97 H 12/23/16 06:05 Resp 18 12/23/16 06:05 BP 158/94 H 12/23/16 06:05 Pulse Ox 97 12/23/16 06:25 - Medical History PMH: Anxiety, Asthma, Depression, HTN, Paranoia, Pneumonia, Schizophrenia, TIA Surgical History: No Surg Hx - [facility] Procedures ALCOHOL DETOXIFICATION (12/21/14) APPLICATION OF SPLINT (05/22/14) DETOXIFICATION SERVICES FOR SUBSTANCE ABUSE TREATMENT (09/20/16) GROUP LEGAL CLERK FOR SUBSTANCE ABUSE TREATMENT, PSYCHOEDUCATION (12/12/15) INDIV LEGAL CLERK FOR SUBSTANCE ABUSE, COGNITIVE BEHAVIORAL (03/06/16) INDIV PSYCHOTHERAPY FOR SUBSTANCE ABUSE TREATMENT, SUPPORT (03/06/16) INJECT/INFUSE NEC (12/19/13) Family History: States: Unknown Family Hx - Social History Hx Tobacco Use: Yes Hx Alcohol Use: Yes Hx Substance Use: No - Immunization History Hx Tetanus Toxoid Vaccination: No Hx Influenza Vaccination: No Hx Pneumococcal Vaccination: Yes Review Of Systems Gastrointestinal: Negative for: Abdominal Pain Genitourinary: Positive for: Dysuria, Frequency Musculoskeletal: Negative for: Back Pain Physical Exam - Physical Exam Appears: Other (Disheveled, foul smelling) Skin: Normal Color, Warm, Dry Head: Atraumatic, Normacephalic Oral Mucosa: Moist Gastrointestinal/Abdominal: Soft, No Tenderness Neurological/Psych: Oriented x3, Normal Speech, Normal Cognition ED Course And Treatment - Laboratory Results Lab Interpretation: Abnormal (UIA 209 WBC's) Urine POC: Negative O2 Sat by Pulse Oximetry: 97 (Room air) Pulse Ox Interpretation: Normal Progress Note: Urinalysis ordered. pyridium, macrobid Medical Decision Making Medical Decision Making: uti, not preg Disposition Doctor Will See Patient In The: Office Counseled Patient/Family Regarding: Studies Performed, Diagnosis - Disposition Disposition: HOME/ ROUTINE Disposition Time: 06:38 Condition: GOOD - Clinical Impression Clinical Impression: UTI (urinary tract infection) - Scribe Statement The provider has reviewed the documentation as recorded by the Scribchristen Sumner All medical record entries made by the Tootieibchristen were at my direction and personally dictated by me. I have reviewed the chart and agree that the record accurately reflects my personal performance of the history, physical exam, medical decision making, and the department course for this patient. I have also personally directed, reviewed, and agree with the discharge instructions and disposition.
[2016-12-23 06:26] LABS: SQUAMOUS EPITHIAL 1 /hpf (0-5); URINE BACTERIA RARE (<OCC); URINE BILIRUBIN NEGATIVE (NEGATIVE); URINE BLOOD NEGATIVE (NEGATIVE); URINE CLARITY Hazy (Clear); URINE COLOR Yellow (YELLOW); URINE GLUCOSE (UA) NORMAL (Normal); URINE LEUKOCYTE ESTERASE 2+ Leu/uL (Negative); URINE NITRATE NEGATIVE (NEGATIVE); URINE PROTEIN 2+ mg/dL (NEGATIVE)
[2016-12-23 06:34] LABS: HCG,QUALITATIVE URINE NEGATIVE (NEGATIVE)
== END 2016-12-23 06:49 | disposition home or self-care (01) ==
LOC: C.ER 05:37
DX: N39.0 Urinary tract infection, site not specified (principal)

== ENCOUNTER 2016-12-31 02:57 | Observation (INO) | payer OTHER ==
[2016-12-31 02:57] VITALS: BMI 23.3
--- NOTE | 2016-12-31 03:35 | C.PDOC ---
History Of Present Illness A 51 y/o F brought in by EMS for ETOH intoxication. Denies suicidal, homicidal ideation, or any other complaints. No signs of trauma. Time Seen by Provider: 12/31/16 03:13 Chief Complaint (Nursing): Substance Abuse History Per: Patient History/Exam Limitations: no limitations Onset/Duration Of Symptoms: Hrs Current Symptoms Are (Timing): Still Present Suicide/Self Injury Attempted (Context): None Modifying Factor(s): Alcohol Severity: Mild Associated Symptoms: denies: Suicidal Thoughts, Suicidal Plan Involuntary Hold By: None Recent travel outside of the [place]: No Additional History Per: Patient Past Medical History Reviewed: Historical Data, Nursing Documentation, Vital Signs Vital Signs: Last Vital Signs Temp 98.0 F 12/31/16 03:05 Pulse 66 12/31/16 03:05 Resp 16 12/31/16 03:05 BP 99/64 L 12/31/16 03:05 Pulse Ox 99 12/31/16 03:57 - Medical History PMH: Anxiety, Asthma, Depression, HTN, Paranoia, Pneumonia, Schizophrenia, TIA - [facility] Procedures ALCOHOL DETOXIFICATION (12/21/14) APPLICATION OF SPLINT (05/22/14) DETOXIFICATION SERVICES FOR SUBSTANCE ABUSE TREATMENT (09/20/16) GROUP COCOA PRESS OPERATOR FOR SUBSTANCE ABUSE TREATMENT, PSYCHOEDUCATION (12/12/15) INDIV COCOA PRESS OPERATOR FOR SUBSTANCE ABUSE, COGNITIVE BEHAVIORAL (03/06/16) INDIV PSYCHOTHERAPY FOR SUBSTANCE ABUSE TREATMENT, SUPPORT (03/06/16) INJECT/INFUSE NEC (12/19/13) Family History: States: Unknown Family Hx - Social History Hx Tobacco Use: Yes Hx Alcohol Use: Yes Hx Substance Use: No - Immunization History Hx Tetanus Toxoid Vaccination: No Hx Influenza Vaccination: No Hx Pneumococcal Vaccination: Yes Review Of Systems Except As Marked, All Systems Reviewed And Found Negative. Constitutional: Positive for: Other (ETOH intoxicated. No trauma) Psych: Negative for: Suicidal ideation, Other (Homicidal ideation) Physical Exam - Physical Exam Appears: Non-toxic, No Acute Distress, Other (ETOH intoxicated, (+) AOB. No signs of trauma) Skin: Warm, Dry Head: Atraumatic, Normacephalic Cardiovascular: Rhythm Regular Respiratory: Normal Breath Sounds, No Accessory Muscle Use, No Rales, No Rhonchi , No Wheezing Gastrointestinal/Abdominal: Soft, No Tenderness Neurological/Psych: Oriented x3, Other (No focal deficit) ED Course And Treatment O2 Sat by Pulse Oximetry: 99 (RA) Pulse Ox Interpretation: Normal Progress Note: Impression: A 51 y/o F brought in by EMS for ETOH intoxication. Plans: ED obs, reassess ED OBSERVATION Date of observation admission: 12/31/16 Time of observation admission: 03:34 - Observation admission statement Patient is being placed in observation because:: ETOH intoxication - Goals of Observation Goals of observation are:: Needs to be observed in the safe place for sobriety. - Progress Note Progress Note: 12/31/16 06:51 Patient is alert and awake, walking in ED with steady gait and is stable to be d /c home. Disposition - Disposition Disposition: HOME/ ROUTINE Disposition Time: 06:51 Condition: IMPROVED - Clinical Impression Clinical Impression: Alcohol intoxication - Scribe Statement The provider has reviewed the documentation as recorded by the Scribe Iris potter All medical record entries made by the Scribe were at my direction and personally dictated by me. I have reviewed the chart and agree that the record accurately reflects my personal performance of the history, physical exam, medical decision making, and the department course for this patient. I have also personally directed, reviewed, and agree with the discharge instructions and disposition.
[2016-12-31 12:30] VITALS: BP 100/62; PULSE 75; RESP 18; TEMP 98.7; O2SAT 97
== END 2016-12-31 06:57 | disposition home or self-care (01) ==
LOC: C.ER 02:57 → C.9OBSV 03:35
PROVIDERS: ADMIT Emergency Medicine; ATTEND Emergency Medicine
DX: F10.129 Alcohol abuse with intoxication, unspecified (principal); Z86.73 Personal history of transient ischemic attack (TIA), and cerebral infarction without residual deficits; J45.909 Unspecified asthma, uncomplicated; I10 Essential (primary) hypertension; F22 Delusional disorders; F20.9 Schizophrenia, unspecified; F41.9 Anxiety disorder, unspecified; F32.9 Major depressive disorder, single episode, unspecified
CPT/HCPCS: 99283; G0378

== ENCOUNTER 2017-01-26 03:28 | Emergency (ER) | payer SELFPAY ==
[2017-01-26 03:28] VITALS: BMI 23.3
== END 2017-01-26 03:32 | disposition left against medical advice (07) ==
LOC: C.ER 03:28
DX: Z04.8 Encounter for examination and observation for other specified reasons (principal); Z02.9 Encounter for administrative examinations, unspecified

== ENCOUNTER 2017-01-28 01:35 | Emergency (ER) | payer SELFPAY ==
[2017-01-28 01:35] VITALS: BMI 23.3
[2017-01-28 01:52] VITALS: BP 120/80; PULSE 64; RESP 18; TEMP 97.6; O2SAT 97
--- NOTE | 2017-01-28 02:00 | C.PDOC ---
History Of Present Illness The patient presents to the ED with acute alcohol intoxication for an unknown duration. Patient is familiar to the ED and has had multiple visits concerning alcohol intoxication. Patient admits to drinking earlier today. She denies suicidal/homicidal ideation and has no physical complaints at this time. Time Seen by Provider: 01/28/17 01:59 Chief Complaint (Nursing): Substance Abuse History Per: Patient History/Exam Limitations: intoxication Onset/Duration Of Symptoms: Unknown Current Symptoms Are (Timing): Still Present Suicide/Self Injury Attempted (Context): None Modifying Factor(s): Alcohol Severity: Mild Pain Scale Rating Of: 3 Associated Symptoms: denies: Suicidal Thoughts, Suicidal Plan Involuntary Hold By: None Recent travel outside of the [place]: No Additional History Per: Patient Past Medical History Reviewed: Historical Data, Nursing Documentation, Vital Signs Vital Signs: Last Vital Signs Temp 97.6 F 01/28/17 01:50 Pulse 64 01/28/17 01:50 Resp 18 01/28/17 01:50 BP 120/80 01/28/17 01:50 Pulse Ox 97 01/28/17 02:28 - Medical History PMH: Anxiety, Asthma, COPD, Depression, HTN, Paranoia, Pneumonia, Schizophrenia , TIA Surgical History: No Surg Hx - [facility] Procedures ALCOHOL DETOXIFICATION (12/21/14) APPLICATION OF SPLINT (05/22/14) DETOXIFICATION SERVICES FOR SUBSTANCE ABUSE TREATMENT (09/20/16) GROUP TRACK REPAIR LABORER FOR SUBSTANCE ABUSE TREATMENT, PSYCHOEDUCATION (12/12/15) INDIV TRACK REPAIR LABORER FOR SUBSTANCE ABUSE, COGNITIVE BEHAVIORAL (03/06/16) INDIV PSYCHOTHERAPY FOR SUBSTANCE ABUSE TREATMENT, SUPPORT (03/06/16) INJECT/INFUSE NEC (12/19/13) Family History: States: Unknown Family Hx - Social History Hx Tobacco Use: Yes Hx Alcohol Use: Yes Hx Substance Use: No - Immunization History Hx Tetanus Toxoid Vaccination: No Hx Influenza Vaccination: No Hx Pneumococcal Vaccination: Yes Review Of Systems Constitutional: Positive for: Other (+ETOH intoxication ). Negative for: Fever , Chills Cardiovascular: Negative for: Chest Pain Respiratory: Negative for: Cough, Shortness of Breath Gastrointestinal: Negative for: Nausea, Vomiting, Abdominal Pain Skin: Negative for: Rash, Lesions, Jaundice, Bruising Neurological: Negative for: Weakness, Numbness Psych: Negative for: Suicidal ideation Physical Exam - Physical Exam Appears: No Acute Distress, Other (visibly intoxicated ) Skin: Warm, Dry Head: Normacephalic Eye(s): bilateral: Normal Inspection Oral Mucosa: Moist, Other (alcohol on breath ) Neck: Supple Chest: Symmetrical, No Deformity, No Tenderness Cardiovascular: Rhythm Regular, No Murmur Respiratory: No Rales, No Rhonchi, No Wheezing Extremity: Normal ROM, Capillary Refill (less than 2 seconds ) Neurological/Psych: Other (arousable to touch and verbal stimuli ) Gait: Unsteady ED Course And Treatment O2 Sat by Pulse Oximetry: 97 (on RA) Pulse Ox Interpretation: Normal Disposition Counseled Patient/Family Regarding: Studies Performed, Diagnosis - Disposition Disposition: ELOPEMENT - ER ONLY Disposition Time: 02:00 Condition: FAIR Forms: [facility] (Hungarian) - Clinical Impression Clinical Impression: Alcohol intoxication, History of alcohol abuse - Scribe Statement The provider has reviewed the documentation as recorded by the Scribe (Mary Lowe) Provider Attestation: All medical record entries made by the Scribe were at my direction and personally dictated by me. I have reviewed the chart and agree that the record accurately reflects my personal performance of the history, physical exam, medical decision making, and the department course for this patient. I have also personally directed, reviewed, and agree with the discharge instructions and disposition.
== END 2017-01-28 02:23 | disposition left against medical advice (07) ==
LOC: C.ER 01:35
DX: F10.129 Alcohol abuse with intoxication, unspecified (principal); Y90.9 Presence of alcohol in blood, level not specified

== ENCOUNTER 2017-03-10 18:57 | Emergency (ER) | payer SELFPAY ==
[2017-03-10 18:59] VITALS: BMI 18.3
--- NOTE | 2017-03-10 19:14 | C.PDOC ---
History Of Present Illness 51 y/o female presents to the ED by ambulance for evaluation of public alcohol intoxication for an unknown duration. Patient is a local homeless alcoholic and has had many prior visits concerning similar symptoms, mainly at [place]. Patient also claims she bit her lip during transit. She denies Time Seen by Provider: 03/10/17 19:12 Chief Complaint (Nursing): Psychiatric Evaluation History Per: Patient History/Exam Limitations: no limitations, intoxication Current Symptoms Are (Timing): Still Present Suicide/Self Injury Attempted (Context): None Modifying Factor(s): Alcohol Associated Symptoms: denies: Suicidal Thoughts, Suicidal Plan Involuntary Hold By: None Recent travel outside of the [place]: No Additional History Per: Patient Past Medical History Reviewed: Historical Data, Nursing Documentation, Vital Signs - Medical History PMH: Anxiety, Asthma, COPD, Depression, HTN, Paranoia, Pneumonia, Schizophrenia , TIA Surgical History: No Surg Hx - [facility] Procedures ALCOHOL DETOXIFICATION (12/21/14) APPLICATION OF SPLINT (05/22/14) DETOXIFICATION SERVICES FOR SUBSTANCE ABUSE TREATMENT (09/20/16) GROUP APPAREL CUTTER FOR SUBSTANCE ABUSE TREATMENT, PSYCHOEDUCATION (12/12/15) INDIV APPAREL CUTTER FOR SUBSTANCE ABUSE, COGNITIVE BEHAVIORAL (03/06/16) INDIV PSYCHOTHERAPY FOR SUBSTANCE ABUSE TREATMENT, SUPPORT (03/06/16) INJECT/INFUSE NEC (12/19/13) Family History: States: Unknown Family Hx - Social History Hx Tobacco Use: Yes Hx Alcohol Use: Yes Hx Substance Use: No - Immunization History Hx Tetanus Toxoid Vaccination: No Hx Influenza Vaccination: No Hx Pneumococcal Vaccination: Yes Review Of Systems Psych: Positive for: Other (alcohol intoxication ). Negative for: Suicidal ideation Physical Exam - Physical Exam Appears: Non-toxic, No Acute Distress, Other (visibly intoxicated ) Skin: Normal Color, Warm, Dry Head: Atraumatic, Normacephalic Eye(s): bilateral: Normal Inspection Oral Mucosa: Moist, Other (alcohol on breath) Lips: Other (scant amount of blood in mouth ) Teeth: No Normal Dentition (scant poor dentition ) Neck: Supple Chest: Symmetrical, No Deformity, No Tenderness Cardiovascular: Rhythm Regular, No Murmur Respiratory: Normal Breath Sounds, No Rales, No Rhonchi, No Wheezing Extremity: Normal ROM, Capillary Refill (less than 2 seconds ) Neurological/Psych: Oriented x3, Normal Speech, Normal Cognition Gait: Steady Medical Decision Making Medical Decision Making: biba for public intox, bit her lip during transport, denies assault/injuries. many prior recent evals @ [facility] ED, usually ETOH related. Disposition Doctor Will See Patient In The: Office Counseled Patient/Family Regarding: Studies Performed, Diagnosis - Disposition Disposition: HOME/ ROUTINE Disposition Time: 19:14 Condition: GOOD Forms: [facility] (Tanzanian) - Clinical Impression Clinical Impression: Alcohol abuse, Biting lips - Scribe Statement The provider has reviewed the documentation as recorded by the Scribe (Mary Lowe) Provider Attestation: All medical record entries made by the Scribe were at my direction and personally dictated by me. I have reviewed the chart and agree that the record accurately reflects my personal performance of the history, physical exam, medical decision making, and the department course for this patient. I have also personally directed, reviewed, and agree with the discharge instructions and disposition.
== END 2017-03-10 19:17 | disposition home or self-care (01) ==
LOC: C.ER 18:57
DX: F10.10 Alcohol abuse, uncomplicated (principal); K13.1 Cheek and lip biting

== ENCOUNTER 2017-03-18 17:35 | Emergency (ER) | payer SELFPAY ==
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
[2017-03-18 17:53] VITALS: BP 134/93; PULSE 103; RESP 18; TEMP 98.2; O2SAT 98; BMI 27.4
== END 2017-03-18 18:25 | disposition home or self-care (01) ==
LOC: C.ER 17:35
DX: F10.10 Alcohol abuse, uncomplicated (principal); Y90.9 Presence of alcohol in blood, level not specified; Z59.0 Homelessness

== ENCOUNTER 2017-03-19 03:20 | Observation (INO) | payer SELFPAY ==
[2017-03-19 03:20] VITALS: BMI 27.4
[2017-03-19 03:41] VITALS: RESP 20
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
[2017-03-19 06:23] VITALS: BP 133/71; PULSE 82; TEMP 97.8
[2017-03-19 06:42] VITALS: O2SAT 96
--- NOTE | 2017-03-19 11:16 | RAD ---
HISTORY: cough COMPARISON: Comparison chest 12/08/2016 TECHNIQUE: Chest PA and lateral FINDINGS: LUNGS: Rounded nodular densities are seen overlying both lower lung rodriguez likely representing nipple shadow artifact. Follow-up chest radiograph with nipple markers in place or nonemergent CT scan of the chest could confirm and exclude other on parenchymal nodules; note that CT scan is much more sensitive for detecting small nodules at may not be readily apparent on plain film radiographs. PLEURA: No significant pleural effusion identified. No pneumothorax apparent. CARDIOVASCULAR: Normal. OSSEOUS STRUCTURES: No significant abnormalities. VISUALIZED UPPER ABDOMEN: Normal. OTHER FINDINGS: None. IMPRESSION: No acute infiltrates. Rounded nodular densities are seen overlying both lower lung rodriguez likely representing nipple shadow artifact. Follow-up chest radiograph with nipple markers in place or nonemergent CT scan of the chest could confirm and exclude other on parenchymal nodules; note that CT scan is much more sensitive for detecting small nodules at may not be readily apparent on plain film radiographs. Note this report was placed in PA review folder for followup.
== END 2017-03-19 05:42 | disposition home or self-care (01) ==
LOC: C.ER 03:20 → C.9OBSV 04:42
PROVIDERS: ADMIT Student in an Organized Health Care Education/Training Program; ATTEND Student in an Organized Health Care Education/Training Program
DX: F10.10 Alcohol abuse, uncomplicated (principal); I10 Essential (primary) hypertension; F22 Delusional disorders; J44.9 Chronic obstructive pulmonary disease, unspecified; Z86.73 Personal history of transient ischemic attack (TIA), and cerebral infarction without residual deficits; Z87.891 Personal history of nicotine dependence
CPT/HCPCS: 71020; 99284; G0378

== ENCOUNTER 2017-03-27 12:56 | Emergency (ER) | payer SELFPAY ==
[2017-03-27 12:56] VITALS: BMI 27.4
== END 2017-03-27 13:40 | disposition left against medical advice (07) ==
LOC: C.ER 12:56
DX: Z04.8 Encounter for examination and observation for other specified reasons (principal); Z02.9 Encounter for administrative examinations, unspecified

== ENCOUNTER 2017-04-06 08:31 | Emergency (ER) | payer OTHER ==
[2017-04-06 08:31] VITALS: BMI 27.4
[2017-04-06 08:48] VITALS: O2SAT 99
--- NOTE | 2017-04-06 09:10 | C.PDOC ---
History Of Present Illness 51 year old female with a history of alcohol abuse and homelessness comes into ED complaining of itching and dryness to skin. Patient also asking for Librium for her nerves, as she did not drink since last night. Patient is well known to this ED for alcohol abuse and bed seeking. Time Seen by Provider: 04/06/17 09:01 Chief Complaint (Nursing): Abnormal Skin Integrity History Per: Patient History/Exam Limitations: no limitations Onset/Duration Of Symptoms: Days Current Symptoms Are (Timing): Still Present Reports Recently: Seen In ED Recent travel outside of the [place]: No Past Medical History Reviewed: Historical Data, Nursing Documentation, Vital Signs Vital Signs: Last Vital Signs Temp 98.2 F 04/06/17 10:02 Pulse 92 H 04/06/17 10:02 Resp 16 04/06/17 10:02 BP 162/90 H 04/06/17 10:02 Pulse Ox 99 04/06/17 10:02 - Medical History PMH: Anxiety, Asthma, COPD, Depression, HTN, Paranoia, Pneumonia, Schizophrenia , TIA - [facility] Procedures ALCOHOL DETOXIFICATION (12/21/14) APPLICATION OF SPLINT (05/22/14) DETOXIFICATION SERVICES FOR SUBSTANCE ABUSE TREATMENT (09/20/16) GROUP CREDIT PRODUCTS OFFICER FOR SUBSTANCE ABUSE TREATMENT, PSYCHOEDUCATION (12/12/15) INDIV CREDIT PRODUCTS OFFICER FOR SUBSTANCE ABUSE, COGNITIVE BEHAVIORAL (03/06/16) INDIV PSYCHOTHERAPY FOR SUBSTANCE ABUSE TREATMENT, SUPPORT (03/06/16) INJECT/INFUSE NEC (12/19/13) Family History: States: Unknown Family Hx - Social History Hx Tobacco Use: Yes Hx Alcohol Use: Yes Hx Substance Use: No - Immunization History Hx Tetanus Toxoid Vaccination: No Hx Influenza Vaccination: No Hx Pneumococcal Vaccination: Yes Review Of Systems Except As Marked, All Systems Reviewed And Found Negative. Constitutional: Negative for: Fever, Chills Respiratory: Negative for: Cough, Shortness of Breath Gastrointestinal: Negative for: Vomiting Skin: Positive for: Rash Neurological: Negative for: Headache, Dizziness Physical Exam - Physical Exam Appears: Non-toxic, No Acute Distress, Other (alcohol on breath) Skin: Warm, Dry, Other ( dry, scaly patches, excoriations and scabs to upper arms, and back, no signs of cellulitis) Head: Atraumatic, Normacephalic Chest: Symmetrical Cardiovascular: Rhythm Regular Respiratory: Normal Breath Sounds, No Rales, No Rhonchi, No Wheezing Gastrointestinal/Abdominal: Soft, No Tenderness, No Guarding, No Rebound Back: Normal Inspection Extremity: Normal ROM Neurological/Psych: Oriented x3 ED Course And Treatment O2 Sat by Pulse Oximetry: 99 Pulse Ox Interpretation: Normal Medical Decision Making Medical Decision Making: Impression: 51 y/o female, hx etoh abuse, c/o generalized itchiness, requesting librium Plan: * Librium Patient remained in no acute distress. She is speaking clearly and ambulatory with steady gait. Patient is stable for discharge. Rx given for rash and advise to avoid scratching the ar. Disposition Counseled Patient/Family Regarding: Diagnosis, Need For Followup - Disposition Referrals: [facility] [Outside] Disposition: HOME/ ROUTINE Disposition Time: 09:45 Condition: STABLE Additional Instructions: You can apply cream to affected areas 1-2 times per day. Follow up in the clinic Prescriptions: Hydrocortisone [Cortisone] 28 gm TP DAILY #1 cream..g. Instructions: Dermatitis (ED) - POA Present On Arrival: None - Clinical Impression Clinical Impression: Alcohol abuse, Atopic dermatitis - PA / DATA CENTER SOLUTIONS ARCHITECT / Resident Statement MD/DO has reviewed & agrees with the documentation as recorded. - Scribe Statement The provider has reviewed the documentation as recorded by the Isis Arevalo All medical record entries made by the Isis were at my direction and personally dictated by me. I have reviewed the chart and agree that the record accurately reflects my personal performance of the history, physical exam, medical decision making, and the department course for this patient. I have also personally directed, reviewed, and agree with the discharge instructions and disposition.
[2017-04-06 10:04] VITALS: BP 162/90; PULSE 92; RESP 16; TEMP 98.2
== END 2017-04-06 10:02 | disposition home or self-care (01) ==
LOC: C.ER 08:31
DX: L20.9 Atopic dermatitis, unspecified (principal); F10.10 Alcohol abuse, uncomplicated; I10 Essential (primary) hypertension; J44.9 Chronic obstructive pulmonary disease, unspecified; Z59.0 Homelessness; Z87.891 Personal history of nicotine dependence

== ENCOUNTER 2017-05-09 07:01 | Emergency (ER) | payer OTHER | END 2017-05-09 07:04 | disposition left against medical advice (07) | LOC: C.ER 07:01 | DX: Z02.89 Encounter for other administrative examinations (principal); F19.10 Other psychoactive substance abuse, uncomplicated ==

== ENCOUNTER 2017-05-25 08:52 | Emergency (ER) | payer MEDICAID, OTHER ==
--- NOTE | 2017-05-25 09:25 | C.PDOC ---
History Of Present Illness 51 year old female brought in by EMS for evaluation of SOB, wheezing and swelling of the lower extremities. Patient reports symptoms have been worsening for the past month; patient states she was admitted at [facility] but then signed out AMA prior to todays visit. Patient denies itching, CP, palpitations, fever, cough, nausea, vomiting/diarrhea. Time Seen by Provider: 05/25/17 09:20 Chief Complaint (Nursing): Upper Extremity Problem/Injury History Per: Patient History/Exam Limitations: no limitations Onset/Duration Of Symptoms: Days Current Symptoms Are (Timing): Still Present Quality: Other (Swelling) Severity: Mild Recent travel outside of the [place]: No Additional History Per: Patient Past Medical History Reviewed: Historical Data, Nursing Documentation, Vital Signs Vital Signs: Last Vital Signs Temp 97.9 F 05/25/17 09:30 Pulse 74 05/25/17 09:30 Resp 18 05/25/17 09:30 BP 127/86 05/25/17 09:30 Pulse Ox 97 05/25/17 12:38 - Medical History PMH: Anxiety, Asthma, COPD, Depression, HTN, Paranoia, Pneumonia, Schizophrenia , TIA Surgical History: No Surg Hx - [facility] Procedures ALCOHOL DETOXIFICATION (12/21/14) APPLICATION OF SPLINT (05/22/14) DETOXIFICATION SERVICES FOR SUBSTANCE ABUSE TREATMENT (09/20/16) GROUP FASHION STYLING INTERN FOR SUBSTANCE ABUSE TREATMENT, PSYCHOEDUCATION (12/12/15) INDIV FASHION STYLING INTERN FOR SUBSTANCE ABUSE, COGNITIVE BEHAVIORAL (03/06/16) INDIV PSYCHOTHERAPY FOR SUBSTANCE ABUSE TREATMENT, SUPPORT (03/06/16) INJECT/INFUSE NEC (12/19/13) Family History: States: No Known Family Hx - Social History Hx Tobacco Use: Yes Hx Alcohol Use: Yes Hx Substance Use: No - Immunization History Hx Tetanus Toxoid Vaccination: No Hx Influenza Vaccination: No Hx Pneumococcal Vaccination: No Review Of Systems Except As Marked, All Systems Reviewed And Found Negative. Constitutional: Negative for: Fever, Chills Cardiovascular: Negative for: Chest Pain, Palpitations Respiratory: Positive for: Shortness of Breath, Wheezing. Negative for: Cough Gastrointestinal: Negative for: Nausea, Vomiting, Abdominal Pain Musculoskeletal: Negative for: Back Pain Skin: Negative for: Rash Neurological: Negative for: Weakness, Numbness Physical Exam - Physical Exam Appears: Non-toxic, Other (Unkempt, malodorous ) Skin: Other (Chronic skin changes in all extremities, thick skin, scattered excoriation in arms and legs) Head: Atraumatic, Normacephalic Eye(s): bilateral: PERRL, EOMI, Other (Mild periorbital swelling) Nose: No Discharge Oral Mucosa: Moist, No Drooling Tongue: No Swelling Lips: No Swelling Neck: Supple Chest: Symmetrical Cardiovascular: Rhythm Regular, No Murmur Respiratory: No Rales, No Rhonchi, No Stridor, Wheezing (Mild expiratory B/L) Gastrointestinal/Abdominal: Normal Exam, Bowel Sounds, Soft, No Tenderness Extremity: Normal ROM, No Calf Tenderness, Capillary Refill (< 2 seconds all digits ), No Deformity, Swelling (2 + pitting edema), Other (Chronic skin changes in all extremities, thick skin, with scattered excoriations on arms and legs) Neurological/Psych: Oriented x3 ED Course And Treatment - Laboratory Results Result Diagrams: 05/25/17 10:27 05/25/17 10:27 O2 Sat by Pulse Oximetry: 97 (On RA) Pulse Ox Interpretation: Normal Progress Note: Plan: Blood work, CXR, EKG ordered and reviewed. Patient given albuterol treatment. 12:00- Patient eloped from ED. Disposition - Disposition Disposition: ELOPEMENT - ER ONLY Disposition Time: 12:00 Condition: STABLE Forms: [facility] (Barbadian) - Clinical Impression Clinical Impression: Wheezing, Homelessness - Scribe Statement The provider has reviewed the documentation as recorded by the Scribchristen Rios All medical record entries made by the Scribe were at my direction and personally dictated by me. I have reviewed the chart and agree that the record accurately reflects my personal performance of the history, physical exam, medical decision making, and the department course for this patient. I have also personally directed, reviewed, and agree with the discharge instructions and disposition.
[2017-05-25 09:32] VITALS: BP 127/86; PULSE 74; RESP 18; TEMP 97.9; O2SAT 97
[2017-05-25] MEDS ORDERED: Albuterol 0.083% Inhal Sol (2.5 mg/3 mL) UD IH STA (09:51)
[2017-05-25] MEDS ORDERED: Albuterol-Ipratrop 3 mg / 0.5 (3 ml) UD ONE ×2 (10:15)
[2017-05-25 10:32] LABS: BASO # 0.1 K/uL (0.0-0.2); BASO % 2.7 % (0.0-2.0); EOS % 1.3 % (0.0-4.0); HEMATOCRIT 27.1 % (34.0-47.0); LYMPH # 0.7 K/uL (1.0-4.3); LYMPH % 20.7 % (20.0-40.0); MEAN CORPUSCULAR HEMOGLOBIN 29.4 pg (27.0-31.0); MEAN CORPUSCULAR HGB CONC 32.1 g/dL (33.0-37.0); MEAN PLATELET VOLUME 7.1 fL (7.2-11.7); MONO # 0.2 K/uL (0.0-0.8); MONO % 6.3 % (0.0-10.0); NRBC % 0.2 % (0.0-2.0); RED CELL DISTRIBUTION WIDTH 17.1 % (11.5-14.5); WHITE BLOOD COUNT 3.5 K/uL (4.8-10.8)
[2017-05-25 10:35] LABS: MEAN CELL VOLUME 91.6 fL (81.0-99.0)
[2017-05-25 10:46] LABS: ALB/GLOB RATIO 0.9 (1.0-2.1); ALKALINE PHOSPHATASE 163 U/L (38-126); ALT/SGPT 112 U/L (9-52); AST/SGOT 166 U/L (14-36); BILIRUBIN,TOTAL 0.4 mg/dL (0.2-1.3); BLOOD UREA NITROGEN 12 mg/dL (7-17); CALCIUM 7.6 mg/dl (8.6-10.4); CARBON DIOXIDE 35 mmol/L (22-30); CHLORIDE 102 mmol/L (98-107); GFR AFRICAN-AMERICAN > 60; GLUCOSE,RANDOM 96 mg/dL (65-105); POTASSIUM 3.9 mmol/L (3.6-5.2); SODIUM 144 mmol/L (132-148); TOTAL PROTEIN 7.9 g/dL (6.3-8.3)
[2017-05-25 10:53] LABS: URINE BACTERIA RARE (<OCC); URINE BILIRUBIN NEGATIVE (NEGATIVE); URINE BLOOD 1+ (NEGATIVE); URINE COLOR Straw (YELLOW); URINE GLUCOSE (UA) NORMAL (Normal); URINE KETONE NEGATIVE (NEGATIVE); URINE LEUKOCYTE ESTERASE TRACE Leu/uL (Negative); URINE PROTEIN NEGATIVE (NEGATIVE); URINE UROBILINOGEN NORMAL mg/dL (0.2-1.0); WBC URINE 3 /hpf (0-5)
--- NOTE | 2017-05-25 13:07 | RAD ---
PROCEDURE: CHEST RADIOGRAPH, 1 VIEW HISTORY: Cough. Shortness of breath. COMPARISON: 04/20/2017 FINDINGS: LUNGS: Diffuse increased interstitial lung markings suggestive for edema and or infiltrate. More patchy increased markings within the right upper to mid lung zone. PLEURA: As above. CARDIOVASCULAR: Cardiomegaly. OSSEOUS STRUCTURES: Degenerative changes in the spine and shoulders. VISUALIZED UPPER ABDOMEN: Normal. OTHER FINDINGS: None. IMPRESSION: Diffuse increased interstitial lung markings suggestive for edema and or infiltrate. More patchy increased markings within the right upper to mid lung zone.
== END 2017-05-25 09:30 | disposition left against medical advice (07) ==
LOC: C.ER 08:52
DX: R06.2 Wheezing (principal); Z59.0 Homelessness

== ENCOUNTER 2017-08-28 02:00 | Emergency (ER) | payer MEDICAID, OTHER ==
[2017-08-28] MEDS ORDERED: Tdap Vaccine 0.5 ml Vial (10-64 yrs) IM ONE ×2 (02:30→03:01)
[2017-08-28 02:32] VITALS: RESP 20
--- NOTE | 2017-08-28 02:33 | C.PDOC ---
History Of Present Illness 52 y/o female brought to the ER via EMS for evaluation s/p fall. Patient was drinking today when she fell and hit her head. No LOC. Patient denies any severe headache, nausea, vomiting, or dizziness. Time Seen by Provider: 08/28/17 02:29 Chief Complaint (Nursing): Abnormal Skin Integrity History Per: Patient History/Exam Limitations: no limitations Onset/Duration Of Symptoms: Hrs Current Symptoms Are (Timing): Still Present Past Medical History Reviewed: Historical Data, Nursing Documentation, Vital Signs Vital Signs: Last Vital Signs Temp 97 F L 08/28/17 06:12 Pulse 68 08/28/17 06:12 Resp 20 08/28/17 06:12 BP 118/70 08/28/17 06:12 Pulse Ox 97 08/28/17 06:12 - Medical History PMH: Anxiety, Asthma, COPD, Depression, HTN, Paranoia, Pneumonia, Schizophrenia , TIA Denies: Diabetes, Hepatitis, HIV, Seizures, Sexually Transmitted Disease - [facility] Procedures ALCOHOL DETOXIFICATION (12/21/14) APPLICATION OF SPLINT (05/22/14) DETOXIFICATION SERVICES FOR SUBSTANCE ABUSE TREATMENT (09/20/16) GROUP ELECTRONICS TECHNOLOGY DEPARTMENT CHAIR FOR SUBSTANCE ABUSE TREATMENT, PSYCHOEDUCATION (12/12/15) INDIV ELECTRONICS TECHNOLOGY DEPARTMENT CHAIR FOR SUBSTANCE ABUSE, COGNITIVE BEHAVIORAL (03/06/16) INDIV PSYCHOTHERAPY FOR SUBSTANCE ABUSE TREATMENT, SUPPORT (03/06/16) INJECT/INFUSE NEC (12/19/13) Family History: States: Unknown Family Hx - Social History Hx Tobacco Use: Yes Hx Alcohol Use: Yes Hx Substance Use: No - Immunization History Hx Tetanus Toxoid Vaccination: No Hx Influenza Vaccination: No Hx Pneumococcal Vaccination: No Review Of Systems Gastrointestinal: Negative for: Nausea, Vomiting Neurological: Positive for: Other (Pain to forehead, + hematoma). Negative for : Dizziness Physical Exam - Physical Exam Appears: Non-toxic, No Acute Distress Skin: Normal Color, Warm, Dry Head: Normacephalic, Swelling (2 cm hematoma to the forehead) Eye(s): bilateral: Normal Inspection, PERRL, EOMI Ear(s): Bilateral: Normal Nose: Normal Oral Mucosa: Moist Neck: Normal ROM, No Midline Cervical Tenderness, Supple Chest: Symmetrical Cardiovascular: Rhythm Regular, No Murmur Respiratory: Normal Breath Sounds, No Accessory Muscle Use Gastrointestinal/Abdominal: Soft, No Tenderness, No Distention Back: Normal Inspection, No CVA Tenderness, No Vertebral Tenderness Extremity: Bilateral: Atraumatic, Normal Color And Temperature, Normal ROM Neurological/Psych: Oriented x3, Normal Speech, Normal Motor, Normal Sensation Gait: Steady ED Course And Treatment O2 Sat by Pulse Oximetry: 94 (RA) Medical Decision Making Medical Decision Making: Impression: 52 year old with head injury, fall Time: 2:30 Initial Plan: * Accucheck * Tetanus vaccine given * Pending CT Head and CT Maxillofacial awake alert amabultory steady gait, imaging neg for acute pathology. neuro intact. stable for dc Disposition - Disposition Referrals: [facility] [Outside] [facility] [Outside] [facility] [Outside] Disposition: HOME/ ROUTINE Disposition Time: 07:00 Condition: STABLE Additional Instructions: please follow up in clinic. return to er with worsening symptoms or concerns. Instructions: Alcohol Abuse and Alcoholism (DC), Head Injury Observation (DC) Forms: [employer] (Turkmen) - Clinical Impression Clinical Impression: Head injury - Scribe Statement The provider has reviewed the documentation as recorded by the Tootieibchristen Velazquez Provider Attestation: All medical record entries made by the Scribe were at my direction and personally dictated by me. I have reviewed the chart and agree that the record accurately reflects my personal performance of the history, physical exam, medical decision making, and the department course for this patient. I have also personally directed, reviewed, and agree with the discharge instructions and disposition.
--- NOTE | 2017-08-28 03:28 | CT ---
EXAM: CT Head Without Intravenous Contrast CLINICAL HISTORY: 52 years old, female; Injury or trauma; Fall; Late effect from previous injury; Blunt trauma (contusions or hematomas); Consciousness not specified TECHNIQUE: Axial computed tomography images of the head/brain without intravenous contrast. All CT scans at this facility use one or more dose reduction techniques, viz.: automated exposure control; ma/kV adjustment per patient size (including targeted exams where dose is matched to indication; i.e. head); or iterative reconstruction technique. 768 images are submitted. Coronal and sagittal reformatted images were created and reviewed. COMPARISON: No relevant prior studies available. FINDINGS: Brain: Unremarkable. No hemorrhage. No significant white matter disease. No edema. Ventricles: Unremarkable. No ventriculomegaly. Bones/joints: Unremarkable. No acute fracture. Soft tissues: Frontal soft tissue swelling. Sinuses: Unremarkable. No acute sinusitis. Mastoid air cells: Unremarkable. No mastoid effusion. Orbits: Bilateral globes and lens are intact. IMPRESSION: 1. Frontal soft tissue swelling. 2. No evidence of an acute intracranial hemorrhage, midline shift or mass effect is identified.
--- NOTE | 2017-08-28 03:33 | CT ---
EXAM: CT Maxillofacial and mandible Without Intravenous Contrast CLINICAL HISTORY: 52 years old, female; Injury or trauma; Fall; Late effect from previous injury; Blunt trauma (contusions or hematomas); Cheek bone; Left TECHNIQUE: Axial computed tomography images of the face and mandible without intravenous contrast. All CT scans at this facility use one or more dose reduction techniques, viz.: automated exposure control; ma/kV adjustment per patient size (including targeted exams where dose is matched to indication; i.e. head); or iterative reconstruction technique. [address] maxillofacial with mandible Coronal and sagittal reformatted images were created and reviewed. COMPARISON: No relevant prior studies available. FINDINGS: Bones/joints: No acute fracture. Soft tissues: Left facial contusion. Minimal frontal soft tissue swelling. Orbits: The globe and lens are intact. Sinuses: Unremarkable. No air-fluid levels. Dental: There are large carious lesions within the left maxillary first premolar and canine with periapical abscess. There is carious involvement are right canine with periapical abscess. There is a retained root off the right maxillary second premolar. Multifocal carious lesions within mandibular and maxillary teeth. Limited do to dental shinto artifact. Mandibular central incisor periapical lucency representing periapical abscess. IMPRESSION: 1. Multifocal dental disease with periapical abscess. 2. Left facial contusion. 3.There is no evidence of acute fracture.
[2017-08-28 06:13] VITALS: BP 118/70; PULSE 68; TEMP 97
[2017-08-28 06:41] VITALS: O2SAT 94
== END 2017-08-28 06:13 | disposition home or self-care (01) ==
LOC: C.ER 02:00
DX: S09.90XA Unspecified injury of head, initial encounter (principal); W19.XXXA Unspecified fall, initial encounter; Z23 Encounter for immunization; I10 Essential (primary) hypertension; Z72.0 Tobacco use; F20.9 Schizophrenia, unspecified

== ENCOUNTER → 2017-09-10 19:35 | Emergency (ER) | payer OTHER ==
[2017-09-10 19:35] VITALS: BMI 21.6
[~2017-09-10 19:35] MED LIST: Potassium Chloride 20 mEq ER Tab PO ONE
== END | disposition left against medical advice (07) ==
LOC: C.ER 19:35
DX: Z02.89 Encounter for other administrative examinations (principal); Z00.00 Encounter for general adult medical examination without abnormal findings

== ENCOUNTER 2017-09-11 00:53 | Emergency (ER) | payer OTHER ==
[2017-09-11 00:53] VITALS: BMI 21.6
--- NOTE | 2017-09-11 02:04 | C.PDOC ---
History Of Present Illness 52 y/o female brought in by ambulance for alcohol intoxication. Patient speaking with slurred speech, admits to drinking alcohol. Offers no physical complaints at this time. No suicidal or homicidal ideation. Time Seen by Provider: 09/11/17 02:00 Chief Complaint (Nursing): Substance Abuse History Per: Patient History/Exam Limitations: intoxication Onset/Duration Of Symptoms: Hrs Current Symptoms Are (Timing): Still Present Modifying Factor(s): Alcohol Past Medical History Reviewed: Historical Data, Nursing Documentation, Vital Signs Vital Signs: Last Vital Signs Temp 97.8 F 09/11/17 04:31 Pulse 85 09/11/17 04:31 Resp 16 09/11/17 04:31 BP 118/77 09/11/17 04:31 Pulse Ox 100 09/11/17 04:31 - Medical History PMH: Anxiety, Asthma, COPD, Depression, HTN, Paranoia, Pneumonia, Schizophrenia , TIA Denies: Diabetes, Hepatitis, HIV, Chronic Kidney Disease, Seizures, Sexually Transmitted Disease Other PMH: Alcoholism Other Surgeries: DNC - [facility] Procedures ALCOHOL DETOXIFICATION (12/21/14) APPLICATION OF SPLINT (05/22/14) DETOXIFICATION SERVICES FOR SUBSTANCE ABUSE TREATMENT (09/20/16) GROUP TOBACCO PRIZER FOR SUBSTANCE ABUSE TREATMENT, PSYCHOEDUCATION (12/12/15) INDIV TOBACCO PRIZER FOR SUBSTANCE ABUSE, COGNITIVE BEHAVIORAL (03/06/16) INDIV PSYCHOTHERAPY FOR SUBSTANCE ABUSE TREATMENT, SUPPORT (03/06/16) INJECT/INFUSE NEC (12/19/13) Family History: States: Unknown Family Hx - Social History Hx Tobacco Use: Yes Hx Alcohol Use: Yes Hx Substance Use: No - Immunization History Hx Tetanus Toxoid Vaccination: No Hx Influenza Vaccination: No Hx Pneumococcal Vaccination: No Review Of Systems Review Of Systems: ROS cannot be obtained secondary to pt's inabilty to answer questions. Physical Exam - Physical Exam Appears: Non-toxic, No Acute Distress Skin: Normal Color, Warm, Dry Head: Atraumatic, Normacephalic Eye(s): bilateral: Normal Inspection, PERRL, EOMI Nose: Normal Oral Mucosa: Moist Neck: Normal ROM, Supple Chest: Symmetrical Cardiovascular: Rhythm Regular, No Murmur Respiratory: Normal Breath Sounds, No Accessory Muscle Use Gastrointestinal/Abdominal: Soft, No Tenderness, No Distention Extremity: Bilateral: Atraumatic, Normal Color And Temperature, Normal ROM Neurological/Psych: Other (+ alcohol on breath, slurred speech) Gait: Unsteady ED Course And Treatment O2 Sat by Pulse Oximetry: 97 (RA) Pulse Ox Interpretation: Normal Medical Decision Making Medical Decision Making: Impression: 52 y/o intoxicated female * Pending clinical sobriety Disposition Counseled Patient/Family Regarding: Diagnosis - Disposition Referrals: [facility] [Outside] Disposition: HOME/ ROUTINE Disposition Time: 05:50 Condition: STABLE Instructions: Alcohol Abuse and Alcoholism (DC) Forms: [employer] (Georgian) - POA Present On Arrival: None - Clinical Impression Clinical Impression: Alcohol intoxication - Scribe Statement The provider has reviewed the documentation as recorded by the Isis Velazquez Provider Attestation: All medical record entries made by the Isis were at my direction and personally dictated by me. I have reviewed the chart and agree that the record accurately reflects my personal performance of the history, physical exam, medical decision making, and the department course for this patient. I have also personally directed, reviewed, and agree with the discharge instructions and disposition.
[2017-09-11 04:32] VITALS: RESP 16
[2017-09-11 06:02] VITALS: BP 116/84; PULSE 115; TEMP 97.9; O2SAT 99
== END 2017-09-11 06:04 | disposition home or self-care (01) ==
LOC: C.ER 00:53
DX: F10.129 Alcohol abuse with intoxication, unspecified (principal); Y90.9 Presence of alcohol in blood, level not specified

== ENCOUNTER 2017-10-13 09:36 | Emergency (ER) | payer MEDICAID, OTHER ==
[2017-10-13 09:36] VITALS: BMI 21.6
== END 2017-10-13 09:55 | disposition left against medical advice (07) ==
LOC: C.ER 09:36
DX: Z02.89 Encounter for other administrative examinations (principal)

== ENCOUNTER 2017-11-13 01:30 | Emergency (ER) | payer MEDICAID, OTHER ==
[2017-11-13 01:30] VITALS: BMI 21.6
--- NOTE | 2017-11-13 02:28 | C.PDOC ---
History Of Present Illness 52 year old female with multiple prior visits to the ED for ETOH intoxication presents to ED intoxicated and with c/o of chronic cough. Patient denies any fever, chills, nausea, CP, SOB, weakness, numbness. Time Seen by Provider: 11/13/17 01:39 Chief Complaint (Nursing): Medical Clearance History Per: Patient, EMS History/Exam Limitations: no limitations Onset/Duration Of Symptoms: Hrs Current Symptoms Are (Timing): Still Present Recent travel outside of the [place] States: No Additional History Per: Patient Past Medical History Reviewed: Historical Data, Nursing Documentation, Vital Signs Vital Signs: Last Vital Signs Temp 98.2 F 11/13/17 05:56 Pulse 75 11/13/17 05:56 Resp 18 11/13/17 05:56 BP 122/68 11/13/17 05:56 Pulse Ox 98 11/13/17 05:56 - Medical History PMH: Anxiety, Asthma, COPD, Depression, HTN, Paranoia, Pneumonia, Schizophrenia , TIA Denies: Diabetes, Hepatitis, HIV, Chronic Kidney Disease, Seizures, Sexually Transmitted Disease Surgical History: No Surg Hx - [facility] Procedures ALCOHOL DETOXIFICATION (12/21/14) APPLICATION OF SPLINT (05/22/14) DETOXIFICATION SERVICES FOR SUBSTANCE ABUSE TREATMENT (09/20/16) GROUP CAR REPAIRER PULLMAN FOR SUBSTANCE ABUSE TREATMENT, PSYCHOEDUCATION (12/12/15) INDIV CAR REPAIRER PULLMAN FOR SUBSTANCE ABUSE, COGNITIVE BEHAVIORAL (03/06/16) INDIV PSYCHOTHERAPY FOR SUBSTANCE ABUSE TREATMENT, SUPPORT (03/06/16) INJECT/INFUSE NEC (12/19/13) Family History: States: Unknown Family Hx - Social History Hx Tobacco Use: Yes Hx Alcohol Use: Yes Hx Substance Use: No - Immunization History Hx Tetanus Toxoid Vaccination: No Hx Influenza Vaccination: No Hx Pneumococcal Vaccination: No Review Of Systems Constitutional: Negative for: Fever, Chills Cardiovascular: Negative for: Chest Pain Respiratory: Positive for: Cough. Negative for: Shortness of Breath Gastrointestinal: Negative for: Nausea, Vomiting Skin: Negative for: Rash Neurological: Negative for: Weakness, Numbness Physical Exam - Physical Exam Appears: Non-toxic, No Acute Distress, Other (Intoxicated, AOB) Skin: Normal Color, Warm, Dry Head: Atraumatic, Normacephalic Eye(s): bilateral: Normal Inspection, PERRL, EOMI Oral Mucosa: Moist Neck: Normal ROM, Supple Chest: Symmetrical Cardiovascular: Rhythm Regular, No Murmur Respiratory: Normal Breath Sounds, No Rales, No Rhonchi, No Wheezing Gastrointestinal/Abdominal: Soft, No Tenderness, No Guarding, No Rebound Extremity: Normal ROM, No Tenderness, No Swelling Neurological/Psych: Oriented x3, Normal Speech Gait: Steady ED Course And Treatment O2 Sat by Pulse Oximetry: 99 (On RA) Pulse Ox Interpretation: Normal - Radiology CXR: Interpreted by Me CXR Interpretation: Yes: No Acute Disease Progress Note: Plan: - CXR, observation for sobriety. On re-evaluation patient is alert and awake, steady gait. She is stable to be d/c home Disposition - Disposition Referrals: Non [facility] Provider, [Primary Care Provider] - Disposition: HOME/ ROUTINE Disposition Time: 05:43 Condition: STABLE Additional Instructions: Follow up with PMD/clinic. Return to ED if feel worse. Instructions: Cough in Adults, Alcohol Abuse and Alcoholism (DC) Forms: [employer] (Luxembourgish) - Clinical Impression Clinical Impression: Alcohol intoxication, Cough - PA / INTELLIGENCE MANAGER / Resident Statement MD/DO has reviewed & agrees with the documentation as recorded. - Scribe Statement The provider has reviewed the documentation as recorded by the Scribe Julio C Rios All medical record entries made by the Scribe were at my direction and personally dictated by me. I have reviewed the chart and agree that the record accurately reflects my personal performance of the history, physical exam, medical decision making, and the department course for this patient. I have also personally directed, reviewed, and agree with the discharge instructions and disposition.
[2017-11-13 03:47] VITALS: RESP 18
[2017-11-13 05:57] VITALS: BP 122/68; PULSE 75; TEMP 98.2
[2017-11-13 06:09] VITALS: O2SAT 99
--- NOTE | 2017-11-13 09:02 | RAD ---
HISTORY: cough COMPARISON: Portable chest 05/25/2017. TECHNIQUE: Chest PA and lateral FINDINGS: LUNGS: No active pulmonary disease. Prior right-sided airspace disease has resolved in the interval. Bilateral nipple shadows are identified inferiorly, surrounded by air. PLEURA: No significant pleural effusion identified. No pneumothorax apparent. CARDIOVASCULAR: Normal. OSSEOUS STRUCTURES: No significant abnormalities. VISUALIZED UPPER ABDOMEN: Normal. OTHER FINDINGS: None. IMPRESSION: No acute cardiopulmonary disease appreciated. There is interval resolution of prior right-sided airspace disease.
== END 2017-11-13 05:57 | disposition home or self-care (01) ==
LOC: SUPCPDRO 01:30 → C.ER 01:30
DX: F10.129 Alcohol abuse with intoxication, unspecified (principal); Y90.9 Presence of alcohol in blood, level not specified; R05 Cough

== ENCOUNTER 2017-12-15 09:13 | Emergency (ER) | payer OTHER ==
[2017-12-15] MEDS ORDERED: Iohexol 240 (50 ml) PO STA (09:42)
[2017-12-15] MEDS ORDERED: Sodium Chloride 0.9% 1,000 ML IV SCH (09:45)
[2017-12-15] MEDS ORDERED: Sodium Chloride 0.9% 1,000 ML IV ONE (09:45)
[2017-12-15 10:23] LABS: SQUAMOUS EPITHIAL < 1 /hpf (0-5); URINE BILIRUBIN NEGATIVE (NEGATIVE); URINE BLOOD NEGATIVE (NEGATIVE); URINE CLARITY Hazy (Clear); URINE COLOR Amber (YELLOW); URINE GLUCOSE (UA) NORMAL (Normal); URINE LEUKOCYTE ESTERASE 3+ Leu/uL (Negative); URINE PROTEIN 2+ mg/dL (NEGATIVE)
[2017-12-15] MEDS ORDERED: Sodium Chloride 0.9% 1,000 ML ONE (10:26)
[2017-12-15 10:29] LABS: PROTHROMBIN TIME 10.6 SECONDS (9.7-12.2)
[2017-12-15 10:33] LABS: BARBITURATES, UR NEGATIVE (NEGATIVE); OPIATES, UR NEGATIVE (NEGATIVE); PHENCYCLIDINE, UR NEGATIVE (NEGATIVE)
[2017-12-15 10:36] LABS: BASO % 0.8 % (0.0-2.0); EOS # 0.1 K/uL (0.0-0.7); EOS % 2.2 % (0.0-4.0); HEMOGLOBIN 10.9 g/dL (11.0-16.0); LYMPH # 0.6 K/uL (1.0-4.3); LYMPH % 22.4 % (20.0-40.0); MEAN CELL VOLUME 90.6 fL (81.0-99.0); MEAN CORPUSCULAR HEMOGLOBIN 30.4 pg (27.0-31.0); MEAN CORPUSCULAR HGB CONC 33.6 g/dL (33.0-37.0); MEAN PLATELET VOLUME 8.3 fL (7.2-11.7); MONO # 0.2 K/uL (0.0-0.8); MONO % 8.2 % (0.0-10.0); NEUT # 1.8 K/uL (1.8-7.0); NEUT % 66.4 % (50.0-75.0); NRBC % 0.1 % (0.0-2.0); RBC 3.59 Mil/uL (3.80-5.20); RED CELL DISTRIBUTION WIDTH 16.7 % (11.5-14.5); WHITE BLOOD COUNT 2.7 K/uL (4.8-10.8)
[2017-12-15] MEDS ORDERED: Barium Sulfate Susp 2.1% w/v, 2.0% w/w 450 mL Bottle PO STA (10:50)
[2017-12-15 10:55] LABS: ALB/GLOB RATIO 1.3 (1.0-2.1); ALBUMIN 4.3 g/dL (3.5-5.0); ALT/SGPT 49 U/L (9-52); AST/SGOT 115 U/L (14-36); BLOOD UREA NITROGEN 13 mg/dL (7-17); CALCIUM 8.6 mg/dl (8.6-10.4); GFR AFRICAN-AMERICAN > 60; GFR NON-AFRICAN AMERICAN > 60; LIPASE 124 U/L (23-300)
[2017-12-15 11:12] LABS: BENZODIAZEPINES, UR POSITIVE (NEGATIVE)
--- NOTE | 2017-12-15 12:37 | C.PDOC ---
History Of Present Illness 52-year-old female, presents to the emergency department with complaints of abdominal pain, associated with nausea and non-blood/non-bilious vomiting. Additionally, pt is complaining of withdrawal from alcohol. Patient has a Hx of multiple visits to ED for similar complaint. No fever, chills, chest pain or shortness of breath. No other complaints at this time. Time Seen by Provider: 12/15/17 09:41 Chief Complaint (Nursing): Abdominal Pain History Per: Patient History/Exam Limitations: no limitations Current Symptoms Are (Timing): Still Present Severity: Moderate Past Medical History Reviewed: Historical Data, Nursing Documentation, Vital Signs Vital Signs: Last Vital Signs Temp 98.7 F 12/15/17 17:37 Pulse 75 12/15/17 17:37 Resp 20 12/15/17 17:37 BP 142/96 H 12/15/17 17:37 Pulse Ox 100 12/15/17 17:37 - Medical History PMH: Anxiety, Asthma, COPD, Depression, HTN, Paranoia, Pneumonia, Schizophrenia , TIA Denies: Diabetes, Hepatitis, HIV - [facility] Procedures ALCOHOL DETOXIFICATION (12/21/14) APPLICATION OF SPLINT (05/22/14) DETOXIFICATION SERVICES FOR SUBSTANCE ABUSE TREATMENT (09/20/16) GROUP DIRECTOR DIGITAL ANALYTICS FOR SUBSTANCE ABUSE TREATMENT, PSYCHOEDUCATION (12/12/15) INDIV DIRECTOR DIGITAL ANALYTICS FOR SUBSTANCE ABUSE, COGNITIVE BEHAVIORAL (03/06/16) INDIV PSYCHOTHERAPY FOR SUBSTANCE ABUSE TREATMENT, SUPPORT (03/06/16) INJECT/INFUSE NEC (12/19/13) Family History: States: No Known Family Hx - Social History Hx Tobacco Use: Yes Hx Alcohol Use: Yes Hx Substance Use: No - Immunization History Hx Tetanus Toxoid Vaccination: No Hx Influenza Vaccination: No Hx Pneumococcal Vaccination: No Review Of Systems Constitutional: Negative for: Fever, Chills Cardiovascular: Negative for: Chest Pain, Palpitations Gastrointestinal: Positive for: Nausea, Vomiting, Abdominal Pain Musculoskeletal: Negative for: Back Pain Skin: Negative for: Rash Neurological: Negative for: Weakness, Numbness, Headache, Dizziness Physical Exam - Physical Exam Appears: Non-toxic, No Acute Distress Skin: Normal Color, Warm, Dry, No Rash Head: Atraumatic, Normacephalic Eye(s): bilateral: Normal Inspection, PERRL, EOMI Nose: Normal Oral Mucosa: Moist Lips: Normal Appearing Neck: Normal ROM Cardiovascular: Rhythm Regular Respiratory: Normal Breath Sounds, No Accessory Muscle Use Gastrointestinal/Abdominal: Soft, Tenderness (diffuse), No Guarding, No Rebound Back: Normal Inspection Extremity: Normal ROM, No Deformity, No Swelling Neurological/Psych: Oriented x3, Normal Speech ED Course And Treatment - Laboratory Results Result Diagrams: 12/15/17 10:15 12/15/17 10:37 O2 Sat by Pulse Oximetry: 98 (RA) Pulse Ox Interpretation: Normal - CT Scan/US CT Abd/Pel Other Rad Studies (CT/US): Read By Radiologist, Radiology Report Reviewed CT/US Interpretation: Accession No. : [id number]. Patient Name / ID : LADAN CASTILLO / [id number]. Exam Date : 12/15/2017 15:24:44 ( Approved ). Study Comment : Sex / Age : F / 52Y. Creator : Lee Ann Parada. Dictator : Vidal Rivers MD. Tobacco Grader : Order Entry : Vidal Rivers MD. Approver2 : Report Date : 12/15/2017 15:30:54. My Comment : . PROCEDURE: CT Abdomen and Pelvis without intravenous contrast. HISTORY: abd pain. COMPARISON: 11/22/2013. TECHNIQUE: Without contrast.. Contrast dose: 0. Radiation dose: Total exam DLP = 252.88 mGy-cm. This CT exam was performed using one or more of the following dose reduction techniques: Automated exposure control, adjustment of the mA and/or kV according to patient size, and/ or use of iterative reconstruction technique. FINDINGS: LOWER THORAX: Minimal linear scar/ atelectasis in right middle lobe. LIVER: Hepatomegaly. The liver measures 22.2 cm craniocaudal. Extensive diffuse fatty infiltration of the liver. No mass. No biliary ductal dilatation. GALLBLADDER AND BILE DUCTS : Unremarkable. PANCREAS: Unremarkable. No gross lesion or ductal dilatation. SPLEEN: Unremarkable. ADRENALS: Unremarkable. No mass. KIDNEYS AND URETERS: Unremarkable. No hydronephrosis. No solid mass. VASCULATURE: Unremarkable. No aortic aneurysm. BOWEL: Unremarkable. No obstruction. No gross mural thickening. APPENDIX: Normal appendix identified. PERITONEUM: Minimal fluid in cul-de-sac, nonspecific. No generalized ascites. No pneumoperitoneum. LYMPH NODES: Unremarkable. No enlarged lymph nodes. BLADDER : Unremarkable. REPRODUCTIVE: Normal uterus. BONES: No acute fracture. OTHER FINDINGS: None. IMPRESSION: No acute abnormality. Hepatomegaly and extensive fatty infiltration of the liver. Otherwise unremarkable examination. Again noted ulna chronic cracked Progress Note: Patient found to have UTI. She was treated with Rocephin IV and was discharge from ED in stable condition. Disposition - Disposition Disposition: HOME/ ROUTINE Disposition Time: 17:51 Condition: STABLE Additional Instructions: Follow up with your PMD within 1-2 days. Return to ED if feel worse. Prescriptions: Nitrofurantoin Macrocrystals [Macrobid] 1 cap PO BID #14 cap Phenazopyridine [Pyridium] 200 mg PO TID #15 tab Forms: [employer] (Hebrew) - Clinical Impression Clinical Impression: Abdominal pain, UTI (urinary tract infection) - Scribe Statement The provider has reviewed the documentation as recorded by the Scribe (Julius Diallo) All medical record entries made by the Scribe were at my direction and personally dictated by me. I have reviewed the chart and agree that the record accurately reflects my personal performance of the history, physical exam, medical decision making, and the department course for this patient. I have also personally directed, reviewed, and agree with the discharge instructions and disposition.
--- NOTE | 2017-12-15 16:22 | CT ---
PROCEDURE: CT Abdomen and Pelvis without intravenous contrast HISTORY: abd pain COMPARISON: 11/22/2013 TECHNIQUE: Without contrast.. Contrast dose: 0 Radiation dose: Total exam DLP = 252.88 mGy-cm. This CT exam was performed using one or more of the following dose reduction techniques: Automated exposure control, adjustment of the mA and/or kV according to patient size, and/or use of iterative reconstruction technique. FINDINGS: LOWER THORAX: Minimal linear scar/ atelectasis in right middle lobe. LIVER: Hepatomegaly. The liver measures 22.2 cm craniocaudal. Extensive diffuse fatty infiltration of the liver. No mass. No biliary ductal dilatation. GALLBLADDER AND BILE DUCTS: Unremarkable. PANCREAS: Unremarkable. No gross lesion or ductal dilatation. SPLEEN: Unremarkable. ADRENALS: Unremarkable. No mass. KIDNEYS AND URETERS: Unremarkable. No hydronephrosis. No solid mass. VASCULATURE: Unremarkable. No aortic aneurysm. BOWEL: Unremarkable. No obstruction. No gross mural thickening. APPENDIX: Normal appendix identified. PERITONEUM: Minimal fluid in cul-de-sac, nonspecific. No generalized ascites. No pneumoperitoneum. LYMPH NODES: Unremarkable. No enlarged lymph nodes. BLADDER: Unremarkable. REPRODUCTIVE: Normal uterus BONES: No acute fracture. OTHER FINDINGS: None. IMPRESSION: No acute abnormality. Hepatomegaly and extensive fatty infiltration of the liver. Otherwise unremarkable examination. Again noted ulna chronic cracked
[2017-12-15] MEDS ORDERED: cefTRIAXone IV 1 gm in Dextros 50 ML IVPB ONE (17:33)
[2017-12-15 17:37] VITALS: BP 142/96; PULSE 75; RESP 20; TEMP 98.7
[2017-12-15 17:55] VITALS: O2SAT 98
== END 2017-12-15 18:31 | disposition home or self-care (01) ==
LOC: C.ER 09:13
DX: N39.0 Urinary tract infection, site not specified (principal); R10.9 Unspecified abdominal pain
CPT/HCPCS: 74176; 80053; 80320; 80324; 80345; 80346; 80349; 80353; 80358; 80361; 81001; 82948; 83690; 83992; 85025; 85610; 85730; 87086; 96361; 96374; 96375; 96376; 99285; C9113; J0696; J2060; J2405; J7030

== ENCOUNTER 2017-12-27 07:28 | Emergency (ER) | payer OTHER ==
[2017-12-27 07:37] VITALS: BMI 23.3
[2017-12-27 07:39] VITALS: RESP 18; O2SAT 98
[2017-12-27] MEDS ORDERED: Sodium Chloride 0.9% 1,000 ML IV ONE (07:43)
[2017-12-27] MEDS ORDERED: Sodium Chloride 0.9% 1,000 ML ONE (07:57)
--- NOTE | 2017-12-27 08:23 | C.PDOC ---
History Of Present Illness 52-year-old female presents to the emergency department with complaints of abdominal pain, associated with nausea, non-bloody/non-bilious vomiting and diarrhea that started this morning. Patient denies any other physical complaints. Time Seen by Provider: 12/27/17 07:30 Chief Complaint (Nursing): GI Problem History Per: Patient History/Exam Limitations: no limitations Onset/Duration Of Symptoms: Hrs Current Symptoms Are (Timing): Still Present Severity: Moderate Past Medical History Reviewed: Historical Data, Nursing Documentation, Vital Signs Vital Signs: Last Vital Signs Temp 99.4 F 12/27/17 11:24 Pulse 87 12/27/17 11:24 Resp 18 12/27/17 11:24 BP 138/82 12/27/17 11:24 Pulse Ox 98 12/27/17 11:32 - Medical History PMH: Anxiety, Asthma, COPD, Depression, HTN, Paranoia, Pneumonia, Schizophrenia , TIA - [facility] Procedures ALCOHOL DETOXIFICATION (12/21/14) APPLICATION OF SPLINT (05/22/14) DETOXIFICATION SERVICES FOR SUBSTANCE ABUSE TREATMENT (09/20/16) GROUP TIRE BAGGER FOR SUBSTANCE ABUSE TREATMENT, PSYCHOEDUCATION (12/12/15) INDIV TIRE BAGGER FOR SUBSTANCE ABUSE, COGNITIVE BEHAVIORAL (03/06/16) INDIV PSYCHOTHERAPY FOR SUBSTANCE ABUSE TREATMENT, SUPPORT (03/06/16) INJECT/INFUSE NEC (12/19/13) Family History: States: No Known Family Hx - Social History Hx Tobacco Use: Yes Hx Alcohol Use: Yes Hx Substance Use: No - Immunization History Hx Tetanus Toxoid Vaccination: No Hx Influenza Vaccination: No Hx Pneumococcal Vaccination: No Review Of Systems Constitutional: Negative for: Fever, Chills Cardiovascular: Negative for: Chest Pain, Palpitations Respiratory: Negative for: Shortness of Breath Gastrointestinal: Positive for: Nausea, Vomiting, Abdominal Pain, Diarrhea Genitourinary: Negative for: Dysuria, Hematuria Musculoskeletal: Negative for: Back Pain Skin: Negative for: Rash Physical Exam - Physical Exam Appears: Well, Non-toxic, Unkempt (malodorous), Other (Actively vomiting) Skin: Normal Color, Warm, Dry, No Rash Head: Normacephalic Eye(s): bilateral: Normal Inspection Oral Mucosa: Moist Cardiovascular: Rhythm Regular Respiratory: Normal Breath Sounds, No Rales, No Rhonchi, No Wheezing Gastrointestinal/Abdominal: Bowel Sounds, Soft, Tenderness (diffuse TTP), No Guarding, No Rebound Neurological/Psych: Oriented x3 ED Course And Treatment - Laboratory Results Result Diagrams: 12/27/17 08:07 12/27/17 08:07 O2 Sat by Pulse Oximetry: 98 (RA) Pulse Ox Interpretation: Normal Progress Note: Blood work, UA, Upreg ordered and reviewed. Patient given IV NA bolus, IV Zofran, IV Reglan, IV Pepcid, IV toradol. UA showed UTI - PO Cipro given. Reevaluation Time: 11:30 Reassessment Condition: Improved (Patient reassesed, is resting comfortably and states she feels better. On exam, abdomen is soft and nontender. Patient is comfortable being discharged at this time. Rxs given for Cipro and Zofran. Patient instructed to follow up with PMD/clinic in 1-2 days, and understands she should return to ED if symptoms worsen.) Disposition Counseled Patient/Family Regarding: Studies Performed, Diagnosis, Need For Followup, Rx Given - Disposition Referrals: [facility] [Outside] Disposition: HOME/ ROUTINE Disposition Time: 11:30 Condition: STABLE Additional Instructions: FOLLOW UP WITH YOUR DOCTOR IN 1-2 DAYS USE MEDICATIONS DIRECTED RETURN TO ER IF SYMPTOMS WORSEN Prescriptions: Ciprofloxacin [Cipro] 1 tab PO BID #14 tab Ondansetron [Zofran Odt] 4 mg PO Q8 PRN #10 odt PRN Reason: Nausea/Vomiting Instructions: Urinary Tract Infection, Adult (DC), Nausea and Vomiting, Adult ( DC) Forms: [employer] (Micronesian) Print Language: VIETNAMESE - Clinical Impression Clinical Impression: UTI (urinary tract infection), Nausea & vomiting - Scribe Statement The provider has reviewed the documentation as recorded by the Scribe (Julius Diallo) All medical record entries made by the Scribe were at my direction and personally dictated by me. I have reviewed the chart and agree that the record accurately reflects my personal performance of the history, physical exam, medical decision making, and the department course for this patient. I have also personally directed, reviewed, and agree with the discharge instructions and disposition.
[2017-12-27 08:30] LABS: BASO % 0.7 % (0.0-2.0); EOS # 0.1 K/uL (0.0-0.7); EOS % 2.6 % (0.0-4.0); HEMOGLOBIN 10.9 g/dL (11.0-16.0); LYMPH # 0.7 K/uL (1.0-4.3); LYMPH % 20.7 % (20.0-40.0); MEAN CELL VOLUME 91.9 fL (81.0-99.0); MEAN CORPUSCULAR HEMOGLOBIN 31.7 pg (27.0-31.0); MEAN CORPUSCULAR HGB CONC 34.5 g/dL (33.0-37.0); MONO # 0.2 K/uL (0.0-0.8); MONO % 6.4 % (0.0-10.0); NEUT # 2.3 K/uL (1.8-7.0); NEUT % 69.6 % (50.0-75.0); NRBC % 0.2 % (0.0-2.0); RBC 3.45 Mil/uL (3.80-5.20); RED CELL DISTRIBUTION WIDTH 17.7 % (11.5-14.5); WHITE BLOOD COUNT 3.3 K/uL (4.8-10.8)
[2017-12-27 08:48] LABS: ALB/GLOB RATIO 1.3 (1.0-2.1); ALBUMIN 4.6 g/dL (3.5-5.0); ALT/SGPT 67 U/L (9-52); AST/SGOT 156 U/L (14-36); BLOOD UREA NITROGEN 17 mg/dL (7-17); CALCIUM 9.1 mg/dl (8.6-10.4); GFR AFRICAN-AMERICAN > 60; GFR NON-AFRICAN AMERICAN > 60; LIPASE 155 U/L (23-300)
[2017-12-27 10:38] LABS: SQUAMOUS EPITHIAL 4 /hpf (0-5); URINE BACTERIA RARE (<OCC); URINE BILIRUBIN NEGATIVE (NEGATIVE); URINE BLOOD NEGATIVE (NEGATIVE); URINE CLARITY Hazy (Clear); URINE COLOR Amber (YELLOW); URINE GLUCOSE (UA) NORMAL (Normal); URINE LEUKOCYTE ESTERASE 1+ Leu/uL (Negative); URINE PROTEIN 2+ mg/dL (NEGATIVE)
[2017-12-27 10:51] LABS: HCG,QUALITATIVE URINE NEGATIVE (NEGATIVE)
[2017-12-27 11:24] VITALS: BP 138/82; PULSE 87; TEMP 99.4
== END 2017-12-27 11:49 | disposition home or self-care (01) ==
LOC: C.ER 07:28
DX: N39.0 Urinary tract infection, site not specified (principal); R11.2 Nausea with vomiting, unspecified
CPT/HCPCS: 80053; 81001; 82948; 83690; 84703; 85025; 87086; 96361; 96374; 96375; 96376; 99284; J1885; J2405; J2765; J7030

== ENCOUNTER 2018-03-15 09:36 | Emergency (ER) | payer SELFPAY ==
[2018-03-15 09:36] VITALS: BMI 23.3
[2018-03-15] MEDS ORDERED: Permethrin 5% Cream(60 gm) TOP ONE (09:46)
[2018-03-15 10:02] VITALS: BP 131/77; PULSE 77; RESP 16; TEMP 98.2; O2SAT 99
--- NOTE | 2018-03-15 10:14 | C.PDOC ---
History Of Present Illness 52-year-old female, PMHx includes EtOH abuse, presents to the emergency department with complaints of diffuse itchy rash all over body. Pt has a Hx of multiple visits to ED for same complaint in the past. No SI. Time Seen by Provider: 03/15/18 09:53 Chief Complaint (Nursing): Abnormal Skin Integrity History Per: Patient History/Exam Limitations: no limitations Current Symptoms Are (Timing): Still Present Quality Of Symptoms: Itching Severity: Mild Past Medical History Reviewed: Historical Data, Nursing Documentation, Vital Signs Vital Signs: Last Vital Signs Temp 98.2 F 03/15/18 10:01 Pulse 77 03/15/18 10:01 Resp 16 03/15/18 10:01 BP 131/77 03/15/18 10:01 Pulse Ox 99 03/15/18 10:01 - Medical History PMH: Anxiety, Asthma, COPD, Depression, Fractures, Gastritis, HTN, Paranoia, Pneumonia, Schizophrenia, Seizures, TIA - [facility] Procedures ALCOHOL DETOXIFICATION (12/21/14) APPLICATION OF SPLINT (05/22/14) DETOXIFICATION SERVICES FOR SUBSTANCE ABUSE TREATMENT (09/20/16) GROUP MASON LINER FOR SUBSTANCE ABUSE TREATMENT, PSYCHOEDUCATION (12/12/15) INDIV MASON LINER FOR SUBSTANCE ABUSE, COGNITIVE BEHAVIORAL (03/06/16) INDIV PSYCHOTHERAPY FOR SUBSTANCE ABUSE TREATMENT, SUPPORT (03/06/16) INJECT/INFUSE NEC (12/19/13) Family History: States: No Known Family Hx - Social History Hx Tobacco Use: Yes Hx Alcohol Use: Yes Hx Substance Use: No - Immunization History Hx Tetanus Toxoid Vaccination: Yes Hx Influenza Vaccination: No Hx Pneumococcal Vaccination: No Review Of Systems Constitutional: Negative for: Fever Skin: Positive for: Rash, Other (itch) Psych: Negative for: Psychosis, Suicidal ideation Physical Exam - Physical Exam Appears: Non-toxic, No Acute Distress, Unkempt Skin: Warm, Dry, Rash (diffuse urticarial rash on back ) Head: Atraumatic, Normacephalic Eye(s): bilateral: Normal Inspection Nose: Normal Oral Mucosa: Moist Lips: Normal Appearing Neck: Normal ROM Cardiovascular: Rhythm Regular, No Murmur Respiratory: Normal Breath Sounds, No Accessory Muscle Use Extremity: Normal ROM, No Deformity Neurological/Psych: Oriented x3, Normal Speech Gait: Steady ED Course And Treatment O2 Sat by Pulse Oximetry: 99 Disposition Counseled Patient/Family Regarding: Diagnosis, Need For Followup - Disposition Referrals: [facility] [Outside] [facility] [employer] [Outside] Disposition: HOME/ ROUTINE Disposition Time: 15:00 Condition: GOOD Additional Instructions: return to ED if any increase symptoms Instructions: Scabies Forms: [employer] (Estonian) - POA Present On Arrival: None - Clinical Impression Clinical Impression: Scabies - Scribe Statement The provider has reviewed the documentation as recorded by the Scribe (Julius Diallo) All medical record entries made by the Scribe were at my direction and personally dictated by me. I have reviewed the chart and agree that the record accurately reflects my personal performance of the history, physical exam, medical decision making, and the department course for this patient. I have also personally directed, reviewed, and agree with the discharge instructions and disposition.
== END 2018-03-15 10:24 | disposition home or self-care (01) ==
LOC: C.ER 09:36
DX: B86 Scabies (principal)

== ENCOUNTER 2018-03-20 04:59 | Emergency (ER) | payer SELFPAY ==
[2018-03-20 04:59] VITALS: BMI 23.3
[2018-03-20 05:05] VITALS: BP 116/74; PULSE 89; RESP 18; TEMP 97.6; O2SAT 97
--- NOTE | 2018-03-20 05:25 | C.PDOC ---
History Of Present Illness Pt was BIBEMS requesting to sleep and wants juice. As per EMS pt walked into a police precinct and asked for prison and ems was called to bring pt to ED. pt is a chronic alcoholic and offers no c/o. Time Seen by Provider: 03/20/18 05:08 Chief Complaint (Nursing): Substance Abuse History Per: Patient, EMS Modifying Factor(s): Alcohol Associated Symptoms: denies: Anxiety, Agitation, Suicidal Plan Past Medical History Vital Signs: Last Vital Signs Temp 97.6 F 03/20/18 05:02 Pulse 89 03/20/18 05:02 Resp 18 03/20/18 05:02 BP 116/74 03/20/18 05:02 Pulse Ox 97 03/20/18 05:02 - Medical History PMH: Anxiety, Asthma, COPD, Depression, Fractures, Gastritis, HTN, Paranoia, Pneumonia, Schizophrenia, Seizures, TIA Denies: Diabetes, Hepatitis, HIV, Chronic Kidney Disease, Sexually Transmitted Disease - [facility] Procedures ALCOHOL DETOXIFICATION (12/21/14) APPLICATION OF SPLINT (05/22/14) DETOXIFICATION SERVICES FOR SUBSTANCE ABUSE TREATMENT (09/20/16) GROUP RN BONE MARROW TRANSPLANT FOR SUBSTANCE ABUSE TREATMENT, PSYCHOEDUCATION (12/12/15) INDIV RN BONE MARROW TRANSPLANT FOR SUBSTANCE ABUSE, COGNITIVE BEHAVIORAL (03/06/16) INDIV PSYCHOTHERAPY FOR SUBSTANCE ABUSE TREATMENT, SUPPORT (03/06/16) INJECT/INFUSE NEC (12/19/13) Family History: States: Unknown Family Hx - Social History Hx Tobacco Use: Yes Hx Alcohol Use: Yes Hx Substance Use: No - Immunization History Hx Tetanus Toxoid Vaccination: Yes Hx Influenza Vaccination: No Hx Pneumococcal Vaccination: No Review Of Systems Constitutional: Negative for: Fever Cardiovascular: Negative for: Chest Pain Respiratory: Negative for: Shortness of Breath Gastrointestinal: Negative for: Nausea, Vomiting, Abdominal Pain Physical Exam - Physical Exam Appears: Well, Non-toxic Head: Atraumatic Eye(s): bilateral: Normal Inspection Respiratory: Normal Breath Sounds Extremity: Normal ROM Extremity: Bilateral: Atraumatic Neurological/Psych: Oriented x3, Normal Speech Gait: Steady (Pt arrived ambulatory with EMS- steady gait) ED Course And Treatment O2 Sat by Pulse Oximetry: 97 Pulse Ox Interpretation: Normal Progress Note: Pt requesting bed and a blanket before laying down, able to answer all questions, no resp distress. Pt will be discharged and recommended to seek prison Disposition - Disposition Referrals: Non [facility] Provider, [Primary Care Provider] - Disposition: HOME/ ROUTINE Disposition Time: 05:24 Condition: GOOD Additional Instructions: Please follow in clinic Recommend DEtox Return as needed Instructions: Alcohol Abuse and Alcoholism (DC) Forms: [employer] (Kuwaiti) - Clinical Impression Clinical Impression: Homelessness, Alcohol abuse with alcohol-induced disorder
== END 2018-03-20 05:41 | disposition home or self-care (01) ==
LOC: C.ER 04:59 → SUPCPDRO 04:59 → C.ER 05:41
DX: F10.19 Alcohol abuse with unspecified alcohol-induced disorder (principal); Z59.0 Homelessness; F20.9 Schizophrenia, unspecified; I10 Essential (primary) hypertension; J44.9 Chronic obstructive pulmonary disease, unspecified

== ENCOUNTER 2018-03-24 01:09 | Emergency (ER) | payer OTHER ==
[2018-03-24 01:09] VITALS: BMI 23.3
[2018-03-24 01:24] VITALS: RESP 20; O2SAT 97
--- NOTE | 2018-03-24 01:39 | C.PDOC ---
History Of Present Illness 52 year old female is brought to the ED by EMS for public intoxication. Patient was found sleeping in the street intoxicated. Patient denies SI/HI, hallucinations, injury, trauma, fall, other injuries. Time Seen by Provider: 03/24/18 01:18 Chief Complaint (Nursing): Substance Abuse History Per: Patient, EMS History/Exam Limitations: intoxication Onset/Duration Of Symptoms: Hrs Current Symptoms Are (Timing): Still Present Suicide/Self Injury Attempted (Context): None Modifying Factor(s): Alcohol Associated Symptoms: denies: Depression, Suicidal Thoughts, Suicidal Plan Recent travel outside of the [place]: No Additional History Per: Patient, EMS Past Medical History Reviewed: Historical Data, Nursing Documentation, Vital Signs Vital Signs: Last Vital Signs Temp 97.7 F 03/24/18 01:12 Pulse 78 03/24/18 01:12 Resp 20 03/24/18 01:12 BP 127/81 03/24/18 01:12 Pulse Ox 97 03/24/18 01:12 - Medical History PMH: Anxiety, Asthma, COPD, Depression, Fractures, Gastritis, HTN, Paranoia, Pneumonia, Schizophrenia, Seizures, TIA Denies: Diabetes, Hepatitis, HIV, Chronic Kidney Disease, Sexually Transmitted Disease Surgical History: No Surg Hx - [facility] Procedures ALCOHOL DETOXIFICATION (12/21/14) APPLICATION OF SPLINT (05/22/14) DETOXIFICATION SERVICES FOR SUBSTANCE ABUSE TREATMENT (09/20/16) GROUP JAVA LEAD DEVELOPER FOR SUBSTANCE ABUSE TREATMENT, PSYCHOEDUCATION (12/12/15) INDIV JAVA LEAD DEVELOPER FOR SUBSTANCE ABUSE, COGNITIVE BEHAVIORAL (03/06/16) INDIV PSYCHOTHERAPY FOR SUBSTANCE ABUSE TREATMENT, SUPPORT (03/06/16) INJECT/INFUSE NEC (12/19/13) Family History: States: Unknown Family Hx - Social History Hx Tobacco Use: Yes Hx Alcohol Use: Yes Hx Substance Use: No - Immunization History Hx Tetanus Toxoid Vaccination: Yes Hx Influenza Vaccination: No Hx Pneumococcal Vaccination: No Review Of Systems Constitutional: Negative for: Fever, Chills Cardiovascular: Negative for: Chest Pain Respiratory: Negative for: Shortness of Breath Gastrointestinal: Negative for: Nausea, Vomiting Skin: Negative for: Rash Psych: Negative for: Depression, Suicidal ideation Physical Exam - Physical Exam Appears: Non-toxic, No Acute Distress, Unkempt, Other (foul smelling ) Skin: Normal Color, Warm, Dry Head: Atraumatic, Normacephalic Eye(s): bilateral: Normal Inspection Neck: Normal ROM, Supple Chest: Symmetrical Cardiovascular: Rhythm Regular Respiratory: Normal Breath Sounds, No Rales, No Rhonchi, No Wheezing Gastrointestinal/Abdominal: Soft, No Tenderness, No Guarding, No Rebound Extremity: Normal ROM, No Tenderness, No Swelling Neurological/Psych: Oriented x3, Normal Speech, Normal Cognition Gait: Steady ED Course And Treatment O2 Sat by Pulse Oximetry: 97 (ON RA) Pulse Ox Interpretation: Normal Progress Note: Plan: - Observe until clinically sober Disposition Counseled Patient/Family Regarding: Diagnosis, Need For Followup - Disposition Referrals: [facility] [Outside] Disposition: HOME/ ROUTINE Disposition Time: 05:30 Condition: STABLE Instructions: Alcohol Abuse and Alcoholism (DC) Forms: [employer] (Mauritian) Print Language: KYRGYZ - Clinical Impression Clinical Impression: Alcohol intoxication, Homeless - Scribe Statement The provider has reviewed the documentation as recorded by the Scribe Julio C Rios All medical record entries made by the Scribe were at my direction and personally dictated by me. I have reviewed the chart and agree that the record accurately reflects my personal performance of the history, physical exam, medical decision making, and the department course for this patient. I have also personally directed, reviewed, and agree with the discharge instructions and disposition.
[2018-03-24 04:59] VITALS: BP 101/61; PULSE 104; TEMP 98.3
== END 2018-03-24 05:26 | disposition home or self-care (01) ==
LOC: C.ER 01:09
DX: F10.129 Alcohol abuse with intoxication, unspecified (principal); Y90.9 Presence of alcohol in blood, level not specified; Z59.0 Homelessness

== ENCOUNTER 2018-03-25 17:45 | Emergency (ER) | payer OTHER ==
[2018-03-25 17:45] VITALS: BMI 23.3
[2018-03-25 18:03] VITALS: TEMP 98.7; O2SAT 98
--- NOTE | 2018-03-25 18:08 | C.PDOC ---
History Of Present Illness 52 year old female BIBA to ED for evaluation of alcohol intoxication. She is currently c/o headache, states she fell "recently" and "hurt herself". She denies any SI/HI, fever/chills, or other physical complaints. Time Seen by Provider: 03/25/18 17:55 Chief Complaint (Nursing): Substance Abuse History Per: Patient, EMS History/Exam Limitations: intoxication Current Symptoms Are (Timing): Still Present Suicide/Self Injury Attempted (Context): None Modifying Factor(s): Alcohol Severity: Mild Associated Symptoms: denies: Suicidal Thoughts, Suicidal Plan Past Medical History Reviewed: Historical Data, Nursing Documentation, Vital Signs Vital Signs: Last Vital Signs Temp 98.7 F 03/25/18 18:02 Pulse 99 H 03/25/18 18:02 Resp 16 03/25/18 18:02 BP 118/71 03/25/18 18:02 Pulse Ox 98 03/25/18 18:02 - Medical History PMH: Anxiety, Asthma, COPD, Depression, Fractures, Gastritis, HTN, Paranoia, Pneumonia, Schizophrenia, Seizures, TIA Denies: Diabetes, Hepatitis, HIV, Chronic Kidney Disease, Sexually Transmitted Disease Other Surgeries: Hx of surgeries - [facility] Procedures ALCOHOL DETOXIFICATION (12/21/14) APPLICATION OF SPLINT (05/22/14) DETOXIFICATION SERVICES FOR SUBSTANCE ABUSE TREATMENT (09/20/16) GROUP SPECIAL ORDER JEWELER FOR SUBSTANCE ABUSE TREATMENT, PSYCHOEDUCATION (12/12/15) INDIV SPECIAL ORDER JEWELER FOR SUBSTANCE ABUSE, COGNITIVE BEHAVIORAL (03/06/16) INDIV PSYCHOTHERAPY FOR SUBSTANCE ABUSE TREATMENT, SUPPORT (03/06/16) INJECT/INFUSE NEC (12/19/13) Family History: States: No Known Family Hx - Social History Hx Tobacco Use: Yes Hx Alcohol Use: Yes Hx Substance Use: No - Immunization History Hx Tetanus Toxoid Vaccination: Yes Hx Influenza Vaccination: No Hx Pneumococcal Vaccination: No Review Of Systems Constitutional: Negative for: Fever, Chills Neurological: Positive for: Headache. Negative for: Dizziness Physical Exam - Physical Exam Appears: Non-toxic, Other (malodorous, intoxicated) Skin: Warm, Dry Head: Atraumatic, Normacephalic, No Abrasion, No Laceration Eye(s): bilateral: Normal Inspection, PERRL, EOMI Ear(s): Bilateral: Normal Nose: Normal Oral Mucosa: Moist Neck: Normal ROM Chest: Symmetrical Cardiovascular: Rhythm Regular Respiratory: Normal Breath Sounds, No Rales, No Rhonchi, No Wheezing Gastrointestinal/Abdominal: Soft, No Tenderness Extremity: Normal ROM Extremity: Bilateral: Atraumatic, Normal Color And Temperature, Normal ROM Neurological/Psych: Oriented x3 Gait: Steady ED Course And Treatment O2 Sat by Pulse Oximetry: 98 (RA) Pulse Ox Interpretation: Normal - CT Scan/US CT HEAD Other Rad Studies (CT/US): Read By Radiologist, Radiology Report Reviewed CT/US Interpretation: Name:ANNA PICKERING Exam Date:Mar 25, 2018 6:43:30 PM EDT. Modality Type:CT\\SR. Description:CT - BRAIN. Gender:F Laterality:Not applicable. :65 Referring Physician:Flaquita Medeiros (). EXAM: CT Head Without IV contrast. CLINICAL HISTORY: Headache, head injury. TECHNIQUE: Axial computed tomography images of the head/brain without intravenous contrast. 850.96 mGy-cm. COMPARISON: CT\\SD - HEAD W/O CONTRAST - 03/10/2018 02:30 PM EDT. FINDINGS: BRAIN. No acute intraparenchymal hemorrhage. No mass lesion. No CT evidence for acute territorial infarct. No midline shift or extra-axial collections. VENTRICLES: No hydrocephalus. ORBITS: The orbits are unremarkable. SINUSES AND MASTOIDS: The paranasal sinuses and mastoid air cells are clear. BONES: No fracture. IMPRESSION: No acute intracranial abnormality. . Electronically signed on Mar 25, 2018 7:43:37 PM EDT by: Darinel Garay M.D., GURPREET Certified By ABR & CBCCT. Fellowship Trained MRI and CT Specialist. Progress Note: Patient given PO Tylenol, and CT head ordered and reviewed. Patient pending sobriety. Reevaluation Time: 21:40 Reassessment Condition: Improved (Patient reassessed, is currently AAOx3, ambulating normally in the ED. She is clinically sober at this time, will discharge.) Disposition Counseled Patient/Family Regarding: Studies Performed, Diagnosis, Need For Followup - Disposition Referrals: [facility] at [facility] [Outside] Disposition: HOME/ ROUTINE Disposition Time: 21:45 Condition: STABLE Instructions: Alcohol Abuse and Alcoholism (DC) Forms: [employer] (Lao) Print Language: PERUVIAN - Clinical Impression Clinical Impression: Alcoholic intoxication, Head injury - Scribe Statement The provider has reviewed the documentation as recorded by the Scribe Beth Beckham All medical record entries made by the Tootieibe were at my direction and personally dictated by me. I have reviewed the chart and agree that the record accurately reflects my personal performance of the history, physical exam, medical decision making, and the department course for this patient. I have also personally directed, reviewed, and agree with the discharge instructions and disposition.
[2018-03-25 21:27] VITALS: BP 110/76; PULSE 87; RESP 18
--- NOTE | 2018-03-26 10:14 | CT ---
Date of service: 03/25/2018 PROCEDURE: CT HEAD WITHOUT CONTRAST. HISTORY: HEADACHE, HEAD INJURY COMPARISON: Comparison made with CT scan brain 03/10/2018. TECHNIQUE: Axial computed tomography images were obtained through the head/brain without intravenous contrast. Radiation dose: Total exam DLP = 850.96 mGy-cm. This CT exam was performed using one or more of the following dose reduction techniques: Automated exposure control, adjustment of the mA and/or kV according to patient size, and/or use of iterative reconstruction technique. FINDINGS: Study is slightly limited by motion artifact HEMORRHAGE: No acute parenchymal, subarachnoid or extra-axial hemorrhage. BRAIN: Suspect minimal chronic periventricular white matter ischemic changes.. No obvious parenchymal nor extra-axial mass or collection seen on this noncontrast exam. Mild-moderate generalized volume loss. VENTRICLES: No obstructive hydrocephalus. CALVARIUM: There are no acute calvarial fractures. PARANASAL SINUSES: Minor mucosal thickening seen within several ethmoid air cells as well as the sphenoid sinus. Unremarkable as visualized. No significant inflammatory changes. MASTOID AIR CELLS: Unremarkable as visualized. No inflammatory changes. OTHER FINDINGS: None. IMPRESSION: Limited motion degraded study. Mild chronic periventricular white matter ischemic changes. Mild to moderate generalized volume loss.
== END 2018-03-25 21:48 | disposition home or self-care (01) ==
LOC: C.ER 17:45
DX: F10.129 Alcohol abuse with intoxication, unspecified (principal); S09.90XA Unspecified injury of head, initial encounter; W19.XXXA Unspecified fall, initial encounter; Y92.9 Unspecified place or not applicable

== ENCOUNTER 2018-03-27 06:58 | Emergency (ER) | payer OTHER ==
[2018-03-27 06:59] VITALS: BMI 23.3
--- NOTE | 2018-03-27 09:39 | C.PDOC ---
History Of Present Illness 52-year-old female, PMHx includes EtOH abuse, presents to the emergency department with complaints of vomiting. Patients last drink was last night. Pt has a Hx of alcohol abuse and multiple visits to ED for same complaint. No SI/HI. Time Seen by Provider: 03/27/18 07:24 Chief Complaint (Nursing): Substance Abuse History Per: Patient History/Exam Limitations: no limitations Past Medical History Reviewed: Historical Data, Nursing Documentation, Vital Signs Vital Signs: Last Vital Signs Temp 98.2 F 03/27/18 07:36 Pulse 82 03/27/18 08:00 Resp 14 03/27/18 08:00 BP 115/75 03/27/18 08:00 Pulse Ox 92 L 03/27/18 08:00 - Medical History PMH: Anxiety, Asthma, COPD, Depression, Fractures, Gastritis, HTN, Paranoia, Pneumonia, Schizophrenia, Seizures, TIA - [facility] Procedures ALCOHOL DETOXIFICATION (12/21/14) APPLICATION OF SPLINT (05/22/14) DETOXIFICATION SERVICES FOR SUBSTANCE ABUSE TREATMENT (09/20/16) GROUP BATTERY ASSEMBLER DRY CELL FOR SUBSTANCE ABUSE TREATMENT, PSYCHOEDUCATION (12/12/15) INDIV BATTERY ASSEMBLER DRY CELL FOR SUBSTANCE ABUSE, COGNITIVE BEHAVIORAL (03/06/16) INDIV PSYCHOTHERAPY FOR SUBSTANCE ABUSE TREATMENT, SUPPORT (03/06/16) INJECT/INFUSE NEC (12/19/13) Family History: States: No Known Family Hx - Social History Hx Tobacco Use: Yes Hx Alcohol Use: Yes Hx Substance Use: No - Immunization History Hx Tetanus Toxoid Vaccination: Yes Hx Influenza Vaccination: No Hx Pneumococcal Vaccination: No Review Of Systems Constitutional: Negative for: Fever Gastrointestinal: Negative for: Vomiting Psych: Negative for: Suicidal ideation Physical Exam - Physical Exam Appears: Non-toxic, No Acute Distress, Unkempt (malodorous) Skin: Warm, Dry, No Rash Head: Atraumatic, Normacephalic Eye(s): bilateral: Normal Inspection Nose: Normal Oral Mucosa: Moist Lips: Normal Appearing Neck: Normal ROM Chest: Symmetrical Respiratory: No Decreased Breath Sounds, No Accessory Muscle Use Extremity: Normal ROM, No Deformity Neurological/Psych: Oriented x3, Normal Speech ED Course And Treatment O2 Sat by Pulse Oximetry: 92 Medical Decision Making Medical Decision Making: Patient given 25mg librium PO and 4mg zofran IM. Resting comfortably in bed. On re-eval patient states that she is thirsty, was able to tolerate some PO. Patient began to complain of ALCANTAR, 30mg toradol IM given. Patient complained of recurring nausea, vomited once. Additional 4mg zofran IM given. Additional 25mg librium PO given. Patient eventually got out of bed and was ambulating without difficulty. Disposition - Disposition Disposition: HOME/ ROUTINE Disposition Time: 13:20 Condition: FAIR Additional Instructions: ANNA PICKERING, thank you for letting us take care of you today. Your provider was Lori Venegas MD and you were treated for MEDICAL CLEARANCE. The emergency medical care you received today was directed at your acute symptoms. If you were prescribed any medication, please fill it and take as directed. It may take several days for your symptoms to resolve. Return to the Emergency Department if your symptoms worsen, do not improve, or if you have any other problems. Please contact your doctor or call one of the physicians/clinics you have been referred to that are listed on the Patient Visit Information form that is included in your discharge packet. Bring any paperwork you were given at discharge with you along with any medications you are taking to your follow up visit. Our treatment cannot replace ongoing medical care by a primary care provider outside of the emergency department. Thank you for allowing the [facility] team to be part of your care today. If you had an X-Ray or CT scan: A Radiologist will review the ED reading if any change in treatment is needed we will contact you. If you had a blood, urine, or wound culture: It will take several days for the results, if any change in treatment is needed we will contact you. If you had an STI test: It will take 48 hours for the results. Please call after 1 week if you have not heard back. Instructions: Alcohol Abuse and Alcoholism (DC) Forms: [employer] (Vietnamese) - Clinical Impression Clinical Impression: Alcohol abuse - Scribe Statement The provider has reviewed the documentation as recorded by the Scribe (Julius Diallo) Provider Attestation: All medical record entries made by the Scribe were at my direction and personally dictated by me. I have reviewed the chart and agree that the record accurately reflects my personal performance of the history, physical exam, medical decision making, and the department course for this patient. I have also personally directed, reviewed, and agree with the discharge instructions and disposition.
[2018-03-27 11:05] VITALS: RESP 18
[2018-03-27 12:17] VITALS: BP 147/91; PULSE 105; TEMP 98.6
[2018-03-27 19:06] VITALS: O2SAT 92
== END 2018-03-27 13:20 | disposition home or self-care (01) ==
LOC: C.ER 06:58
DX: F10.10 Alcohol abuse, uncomplicated (principal); Y90.9 Presence of alcohol in blood, level not specified; R11.2 Nausea with vomiting, unspecified; R51 Headache
CPT/HCPCS: 96372; 99285; J1885; J2405

== ENCOUNTER 2018-03-30 02:14 | Emergency (ER) | payer OTHER ==
[2018-03-30 02:14] VITALS: BMI 23.3
[2018-03-30 02:38] VITALS: PULSE 74; TEMP 97.6
--- NOTE | 2018-03-30 03:38 | C.PDOC ---
History Of Present Illness TOY, presents to the ED after drinking all day. The patient suffered a hematoma on the right side of the forehead. She denies any LOC. The patient has full ROM of all extremities. Time Seen by Provider: 03/30/18 03:19 Chief Complaint (Nursing): Abnormal Skin Integrity History Per: Patient History/Exam Limitations: no limitations Onset/Duration Of Symptoms: Hrs Current Symptoms Are (Timing): Still Present Suicide/Self Injury Attempted (Context): None Modifying Factor(s): Alcohol Severity: Moderate Pain Scale Rating Of: 4 Associated Symptoms: denies: Suicidal Thoughts, Suicidal Plan Recent travel outside of the [place]: No Past Medical History Reviewed: Historical Data, Nursing Documentation, Vital Signs Vital Signs: Last Vital Signs Temp 97.6 F 03/30/18 02:33 Pulse 74 03/30/18 02:33 Resp 20 03/30/18 02:33 BP 108/72 03/30/18 02:33 Pulse Ox 99 03/30/18 02:33 - Medical History PMH: Anxiety, Asthma, COPD, Depression, Fractures, Gastritis, HTN, Paranoia, Pneumonia, Schizophrenia, Seizures, TIA Denies: Diabetes, Hepatitis, HIV, Chronic Kidney Disease, Sexually Transmitted Disease Other Surgeries: Dilation and Curettage - [facility] Procedures ALCOHOL DETOXIFICATION (12/21/14) APPLICATION OF SPLINT (05/22/14) DETOXIFICATION SERVICES FOR SUBSTANCE ABUSE TREATMENT (09/20/16) GROUP MANAGER BUSINESS MANAGEMENT FOR SUBSTANCE ABUSE TREATMENT, PSYCHOEDUCATION (12/12/15) INDIV MANAGER BUSINESS MANAGEMENT FOR SUBSTANCE ABUSE, COGNITIVE BEHAVIORAL (03/06/16) INDIV PSYCHOTHERAPY FOR SUBSTANCE ABUSE TREATMENT, SUPPORT (03/06/16) INJECT/INFUSE NEC (12/19/13) Family History: States: Unknown Family Hx - Social History Hx Tobacco Use: Yes Hx Alcohol Use: Yes Hx Substance Use: No - Immunization History Hx Tetanus Toxoid Vaccination: Yes Hx Influenza Vaccination: No Hx Pneumococcal Vaccination: No Review Of Systems Constitutional: Negative for: Fever, Chills Skin: Positive for: Bruising (on forehead ) Neurological: Negative for: Weakness, Numbness, Altered Mental Status, Headache Physical Exam - Physical Exam Appears: Unkempt, Other (malodorous) Skin: Warm, Dry Head: Normacephalic Eye(s): bilateral: Normal Inspection Oral Mucosa: Moist Neck: Trachea Midline, Supple Chest: Symmetrical Cardiovascular: Rhythm Regular Respiratory: No Rales, No Rhonchi, No Wheezing Gastrointestinal/Abdominal: Soft, No Tenderness, No Distention Extremity: Normal ROM Extremity: Bilateral: Normal Color And Temperature, Normal ROM Pulses: Left Dorsalis Pedis: Normal, Right Dorsalis Pedis: Normal Neurological/Psych: Oriented x3 Gait: Steady ED Course And Treatment O2 Sat by Pulse Oximetry: 99 (RA) Pulse Ox Interpretation: Normal - CT Scan/US Brain Other Rad Studies (CT/US): Read By Radiologist, Radiology Report Reviewed CT/US Interpretation: CT SCAN OF THE BRAIN WITHOUT IV CONTRAST. COMPARISON: 03/10/2018. TECHNIQUE: Axial and reformatted sagittal and coronal images of the brain obtained without IV contrast administration. Normal size of the ventricles and extra-axial spaces for the patient's age. Normal white matter tracts of the supratentorial brain. Normal basal ganglia and thalami. Normal brainstem. Normal cerebellum. There is no demonstrated extra-axial, intraparenchymal, or intraventricular hemorrhage. There are no findings of an acute ischemic infarction. Normal calvarium. There is no demonstrated fracture. Right frontal subgaleal soft tissue hematoma. Normal visualized paranasal sinuses. IMPRESSION: Normal unenhanced CT scan of the brain. Right frontal subgaleal soft tissue hematoma. Reevaluation Time: 05:02 Reassessment Condition: Improved Disposition Counseled Patient/Family Regarding: Studies Performed, Diagnosis, Need For Followup - Disposition Referrals: [facility] [Outside] Disposition: HOME/ ROUTINE Disposition Time: 03:38 Condition: FAIR Instructions: Minor Head Injury (DC), Alcohol Abuse and Alcoholism (DC) Forms: [employer] (Azeri) - Clinical Impression Clinical Impression: Alcohol intoxication, Alcohol dependence, Fall, Minor head injury without loss of consciousness - PA / BLACKING MACHINE OPERATOR / Resident Statement MD/DO has reviewed & agrees with the documentation as recorded. - Scribe Statement The provider has reviewed the documentation as recorded by the Scribe (Alayna Edmonds) Provider Attestation: All medical record entries made by the Scribe were at my direction and personally dictated by me. I have reviewed the chart and agree that the record accurately reflects my personal performance of the history, physical exam, medical decision making, and the department course for this patient. I have also personally directed, reviewed, and agree with the discharge instructions and disposition.
[2018-03-30 06:22] VITALS: BP 123/82; RESP 14; O2SAT 100
--- NOTE | 2018-03-30 07:17 | CT ---
Date of service: 03/30/2018 PROCEDURE: CT HEAD WITHOUT CONTRAST. HISTORY: fall, frontal hematoma COMPARISON: None available. TECHNIQUE: Axial computed tomography images were obtained through the head/brain without intravenous contrast. Radiation dose: Total exam DLP = 964 mGy-cm. This CT exam was performed using one or more of the following dose reduction techniques: Automated exposure control, adjustment of the mA and/or kV according to patient size, and/or use of iterative reconstruction technique. FINDINGS: HEMORRHAGE: No intracranial hemorrhage. BRAIN: No mass effect or edema. No atrophy or chronic microvascular ischemic changes. VENTRICLES: Unremarkable. No hydrocephalus. CALVARIUM: Unremarkable. PARANASAL SINUSES: Unremarkable as visualized. No significant inflammatory changes. MASTOID AIR CELLS: Unremarkable as visualized. No inflammatory changes. OTHER FINDINGS: Prominent right frontal soft tissue hematoma. IMPRESSION: Prominent right frontal soft tissue hematoma. No acute intracranial abnormality. If symptoms persists, consider correlation with MRI. These findings were preliminarily reported at 4:19 a.m. on 03/30/[address] Nancy Concepcion from [facility].
== END 2018-03-30 06:23 | disposition home or self-care (01) ==
LOC: C.ER 02:14
DX: F10.229 Alcohol dependence with intoxication, unspecified (principal); S09.90XA Unspecified injury of head, initial encounter; W19.XXXA Unspecified fall, initial encounter; I10 Essential (primary) hypertension; F20.9 Schizophrenia, unspecified; Z72.0 Tobacco use

== ENCOUNTER 2018-03-30 23:10 | Emergency (ER) | payer OTHER ==
[2018-03-30 23:10] VITALS: BMI 23.3
== END 2018-03-30 23:14 | disposition left against medical advice (07) ==
LOC: C.ER 23:10
DX: Z02.89 Encounter for other administrative examinations (principal); Z00.00 Encounter for general adult medical examination without abnormal findings

== ENCOUNTER 2018-03-30 23:26 | Emergency (ER) | payer OTHER ==
[2018-03-30 23:26] VITALS: BMI 23.3
[2018-03-30 23:31] VITALS: TEMP 97.5
--- NOTE | 2018-03-30 23:48 | C.PDOC ---
History Of Present Illness Patient presents to the ER with acute ETOH intoxication. Denies any physical complaints at this time. Time Seen by Provider: 03/30/18 23:47 Chief Complaint (Nursing): Substance Abuse History Per: Patient History/Exam Limitations: no limitations Onset/Duration Of Symptoms: Hrs Current Symptoms Are (Timing): Still Present Suicide/Self Injury Attempted (Context): None Modifying Factor(s): Alcohol Severity: None Pain Scale Rating Of: 0 Associated Symptoms: denies: Depression, Suicidal Thoughts Involuntary Hold By: None Recent travel outside of the [place]: No Additional History Per: Patient Past Medical History Reviewed: Historical Data, Nursing Documentation, Vital Signs Vital Signs: Last Vital Signs Temp 97.5 F L 03/30/18 23:28 Pulse 84 03/30/18 23:28 Resp 16 03/30/18 23:28 BP 130/68 03/30/18 23:28 Pulse Ox 96 03/30/18 23:28 - Medical History PMH: Anxiety, Asthma, COPD, Depression, Fractures, Gastritis, HTN, Paranoia, Pneumonia, Schizophrenia, Seizures, TIA Denies: Diabetes, Hepatitis, HIV, Chronic Kidney Disease, Sexually Transmitted Disease - [facility] Procedures ALCOHOL DETOXIFICATION (12/21/14) APPLICATION OF SPLINT (05/22/14) DETOXIFICATION SERVICES FOR SUBSTANCE ABUSE TREATMENT (09/20/16) GROUP ORGANIC GARDENING TEACHER FOR SUBSTANCE ABUSE TREATMENT, PSYCHOEDUCATION (12/12/15) INDIV ORGANIC GARDENING TEACHER FOR SUBSTANCE ABUSE, COGNITIVE BEHAVIORAL (03/06/16) INDIV PSYCHOTHERAPY FOR SUBSTANCE ABUSE TREATMENT, SUPPORT (03/06/16) INJECT/INFUSE NEC (12/19/13) Family History: States: No Known Family Hx - Social History Hx Tobacco Use: Yes Hx Alcohol Use: Yes Hx Substance Use: No - Immunization History Hx Tetanus Toxoid Vaccination: Yes Hx Influenza Vaccination: No Hx Pneumococcal Vaccination: No Review Of Systems Constitutional: Negative for: Fever, Chills Cardiovascular: Negative for: Chest Pain Respiratory: Negative for: Shortness of Breath Gastrointestinal: Negative for: Abdominal Pain Skin: Positive for: Bruising (forehead right) Neurological: Negative for: Headache Psych: Negative for: Depression, Suicidal ideation Physical Exam - Physical Exam Appears: Non-toxic, Other (ETOH on breath, ) Skin: Warm, Dry Head: Other (large ecchimosis right forehead(old)) Chest: Symmetrical, No Tenderness Cardiovascular: Rhythm Regular Respiratory: No Rales, No Rhonchi, No Wheezing Gastrointestinal/Abdominal: Soft, No Tenderness Extremity: Normal ROM Neurological/Psych: Oriented x3 Gait: Unsteady ED Course And Treatment O2 Sat by Pulse Oximetry: 96 (Room air) Pulse Ox Interpretation: Normal Reevaluation Time: 05:32 Reassessment Condition: Improved Disposition Counseled Patient/Family Regarding: Studies Performed, Diagnosis, Need For Followup - Disposition Referrals: [facility] at [facility] [Outside] Disposition: HOME/ ROUTINE Disposition Time: 23:47 Condition: FAIR Instructions: Alcohol Abuse and Alcoholism (DC) Forms: [facility] (Slovak) - Clinical Impression Clinical Impression: Alcohol intoxication, Alcohol abuse - Scribe Statement The provider has reviewed the documentation as recorded by the Scribchristen Sumner All medical record entries made by the Scribe were at my direction and personally dictated by me. I have reviewed the chart and agree that the record accurately reflects my personal performance of the history, physical exam, medical decision making, and the department course for this patient. I have also personally directed, reviewed, and agree with the discharge instructions and disposition.
[2018-03-31 06:01] VITALS: BP 132/67; PULSE 82; RESP 18; O2SAT 100
== END 2018-03-31 06:02 | disposition home or self-care (01) ==
LOC: C.ER 23:26
DX: F10.129 Alcohol abuse with intoxication, unspecified (principal); F20.9 Schizophrenia, unspecified; I10 Essential (primary) hypertension; J44.9 Chronic obstructive pulmonary disease, unspecified; Z86.73 Personal history of transient ischemic attack (TIA), and cerebral infarction without residual deficits; Z72.0 Tobacco use

== ENCOUNTER 2018-04-01 00:41 | Emergency (ER) | payer OTHER ==
[2018-04-01 00:41] VITALS: BMI 23.3
--- NOTE | 2018-04-01 03:24 | C.PDOC ---
History Of Present Illness 52 year old female patient brought to the ER ambulance for alcohol intoxication. Patient reports she has a headache for x2 weeks, states she had a fall last week. Patient was seen in the ER several days ago for same complaint (same fall), had normal CT scan of head at the time. She denies other physical complaints. Time Seen by Provider: 04/01/18 00:45 Chief Complaint (Nursing): Substance Abuse History Per: Patient History/Exam Limitations: no limitations Onset/Duration Of Symptoms: Unknown Current Symptoms Are (Timing): Still Present Modifying Factor(s): Alcohol Severity: Moderate Involuntary Hold By: Emergency Physician Past Medical History Reviewed: Historical Data, Nursing Documentation, Vital Signs Vital Signs: Last Vital Signs Temp 97.8 F 04/01/18 00:47 Pulse 80 04/01/18 00:50 Resp 14 04/01/18 00:50 BP 132/80 04/01/18 00:50 Pulse Ox 97 04/01/18 00:50 - Medical History PMH: Anxiety, Asthma, COPD, Depression, Fractures, Gastritis, HTN, Paranoia, Pneumonia, Schizophrenia, Seizures, TIA - [facility] Procedures ALCOHOL DETOXIFICATION (12/21/14) APPLICATION OF SPLINT (05/22/14) DETOXIFICATION SERVICES FOR SUBSTANCE ABUSE TREATMENT (09/20/16) GROUP REFRACTORY MANAGER FOR SUBSTANCE ABUSE TREATMENT, PSYCHOEDUCATION (12/12/15) INDIV REFRACTORY MANAGER FOR SUBSTANCE ABUSE, COGNITIVE BEHAVIORAL (03/06/16) INDIV PSYCHOTHERAPY FOR SUBSTANCE ABUSE TREATMENT, SUPPORT (03/06/16) INJECT/INFUSE NEC (12/19/13) Family History: States: No Known Family Hx - Social History Hx Tobacco Use: Yes Hx Alcohol Use: Yes Hx Substance Use: No - Immunization History Hx Tetanus Toxoid Vaccination: Yes Hx Influenza Vaccination: No Hx Pneumococcal Vaccination: No Review Of Systems Constitutional: Positive for: Other (alcohol intoxication ). Negative for: Fever Cardiovascular: Negative for: Chest Pain, Palpitations Respiratory: Negative for: Shortness of Breath Gastrointestinal: Negative for: Nausea, Vomiting, Abdominal Pain, Diarrhea Neurological: Positive for: Headache. Negative for: Weakness, Numbness, Dizziness Psych: Positive for: Other (alcohol intoxication ) Physical Exam - Physical Exam Appears: Well, Non-toxic, No Acute Distress, Unkempt, Other (alcohol intoxication; malodorous) Skin: Normal Color, Warm, Dry Head: Atraumatic, Normacephalic Eye(s): bilateral: Normal Inspection, PERRL, EOMI Oral Mucosa: Moist Neck: Normal, Normal ROM, No Midline Cervical Tenderness, No Paracervical Tenderness, No Step Off Deformity, Supple Cardiovascular: Rhythm Regular Respiratory: Normal Breath Sounds, No Rales, No Rhonchi, No Wheezing Gastrointestinal/Abdominal: Normal Exam, Bowel Sounds, Soft, No Tenderness Back: No CVA Tenderness Extremity: Bilateral: Atraumatic, Normal Color And Temperature, Normal ROM Neurological/Psych: Other (intoxicated, moving all 4 extremities spontaneously, arousable to verbal stimuli) ED Course And Treatment O2 Sat by Pulse Oximetry: 97 (RA) Pulse Ox Interpretation: Normal Progress Note: Patient pending sobriety. Reevaluation Time: 05:15 Reassessment Condition: Improved (Patient is currently AAOx3, ambulating normally in the ED. She is clinically sober at this time, will discharge.) Disposition Counseled Patient/Family Regarding: Diagnosis, Need For Followup - Disposition Referrals: [facility] at [facility] [Outside] Disposition: HOME/ ROUTINE Disposition Time: 05:15 Condition: STABLE Instructions: Alcohol Abuse and Alcoholism (DC) Forms: [employer] (Tajik) - Clinical Impression Clinical Impression: Alcohol intoxication - Scribe Statement The provider has reviewed the documentation as recorded by the Tootieibchristen Henderson Do Provider Attestation: All medical record entries made by the Scribe were at my direction and personally dictated by me. I have reviewed the chart and agree that the record accurately reflects my personal performance of the history, physical exam, medical decision making, and the department course for this patient. I have also personally directed, reviewed, and agree with the discharge instructions and disposition.
[2018-04-01 05:49] VITALS: BP 137/74; PULSE 86; RESP 20; TEMP 98.3
[2018-04-09 13:36] VITALS: O2SAT 97
== END 2018-04-01 05:48 | disposition home or self-care (01) ==
LOC: C.ER 00:41
DX: F10.129 Alcohol abuse with intoxication, unspecified (principal); Y90.9 Presence of alcohol in blood, level not specified

== ENCOUNTER 2018-04-03 18:43 | Emergency (ER) | payer OTHER ==
[2018-04-03 18:44] VITALS: BMI 23.3
[2018-04-03 19:22] VITALS: BP 114/68; PULSE 72; RESP 16; TEMP 97.9; O2SAT 98
--- NOTE | 2018-04-03 19:28 | C.PDOC ---
History Of Present Illness Patient presents to the ER via EMS after being found intoxicated in public. Denies physical complaints at this time. Time Seen by Provider: 04/03/18 19:16 Chief Complaint (Nursing): Substance Abuse History Per: Patient, EMS History/Exam Limitations: no limitations Onset/Duration Of Symptoms: Hrs Current Symptoms Are (Timing): Still Present Suicide/Self Injury Attempted (Context): None Modifying Factor(s): Alcohol Severity: None Pain Scale Rating Of: 0 Associated Symptoms: denies: Depression, Suicidal Thoughts Involuntary Hold By: None Recent travel outside of the [place]: No Past Medical History Reviewed: Historical Data, Nursing Documentation, Vital Signs Vital Signs: Last Vital Signs Temp 97.9 F 04/03/18 19:22 Pulse 72 04/03/18 19:22 Resp 16 04/03/18 19:22 BP 114/68 04/03/18 19:22 Pulse Ox 98 04/03/18 19:22 - Medical History PMH: Anxiety, Asthma, COPD, Depression, Fractures, Gastritis, HTN, Paranoia, Pneumonia, Schizophrenia, Seizures, TIA Denies: Diabetes, Hepatitis, HIV, Chronic Kidney Disease, Sexually Transmitted Disease - [facility] Procedures ALCOHOL DETOXIFICATION (12/21/14) APPLICATION OF SPLINT (05/22/14) DETOXIFICATION SERVICES FOR SUBSTANCE ABUSE TREATMENT (09/20/16) GROUP DIE DESIGNER FOR SUBSTANCE ABUSE TREATMENT, PSYCHOEDUCATION (12/12/15) INDIV DIE DESIGNER FOR SUBSTANCE ABUSE, COGNITIVE BEHAVIORAL (03/06/16) INDIV PSYCHOTHERAPY FOR SUBSTANCE ABUSE TREATMENT, SUPPORT (03/06/16) INJECT/INFUSE NEC (12/19/13) Family History: States: No Known Family Hx - Social History Hx Tobacco Use: Yes Hx Alcohol Use: Yes Hx Substance Use: No - Immunization History Hx Tetanus Toxoid Vaccination: Yes Hx Influenza Vaccination: No Hx Pneumococcal Vaccination: No Review Of Systems Constitutional: Negative for: Fever, Chills Cardiovascular: Negative for: Chest Pain, Palpitations Respiratory: Negative for: Cough, Shortness of Breath Gastrointestinal: Negative for: Nausea, Vomiting Neurological: Negative for: Weakness, Numbness Physical Exam - Physical Exam Appears: Non-toxic, Other (ETOH on breath, no sign of injury) Skin: Warm, Dry Head: Normacephalic Oral Mucosa: Moist Chest: Symmetrical, No Tenderness Cardiovascular: Rhythm Regular Respiratory: No Rales, No Rhonchi, No Wheezing Gastrointestinal/Abdominal: Soft, No Tenderness Neurological/Psych: Oriented x3 ED Course And Treatment O2 Sat by Pulse Oximetry: 98 (Room air) Pulse Ox Interpretation: Normal Reevaluation Time: 22:29 Reassessment Condition: Improved Disposition Counseled Patient/Family Regarding: Studies Performed, Diagnosis, Need For Followup - Disposition Referrals: [facility] at [facility] [Outside] Disposition: HOME/ ROUTINE Disposition Time: 22:30 Condition: FAIR Instructions: Alcohol Abuse and Alcoholism (DC) Forms: [employer] (Amharic) - Clinical Impression Clinical Impression: Alcohol intoxication - Scribe Statement The provider has reviewed the documentation as recorded by the Scribe Antoine Sumner All medical record entries made by the Scribe were at my direction and personally dictated by me. I have reviewed the chart and agree that the record accurately reflects my personal performance of the history, physical exam, medical decision making, and the department course for this patient. I have also personally directed, reviewed, and agree with the discharge instructions and disposition.
== END 2018-04-03 22:48 | disposition home or self-care (01) ==
LOC: C.ER 18:43
DX: F10.129 Alcohol abuse with intoxication, unspecified (principal); Y90.9 Presence of alcohol in blood, level not specified

== ENCOUNTER 2018-04-05 00:48 | Emergency (ER) | payer OTHER ==
[2018-04-05 00:49] VITALS: BMI 23.3
--- NOTE | 2018-04-05 03:41 | C.PDOC ---
History Of Present Illness 52 year old female presents to the ER with acute ETOH intoxication. Denies physical complaints at this time. Time Seen by Provider: 04/05/18 01:23 Chief Complaint (Nursing): Substance Abuse History Per: Patient History/Exam Limitations: no limitations Onset/Duration Of Symptoms: Hrs Current Symptoms Are (Timing): Still Present Suicide/Self Injury Attempted (Context): None Modifying Factor(s): Alcohol Associated Symptoms: denies: Depression, Suicidal Thoughts Involuntary Hold By: None Recent travel outside of the [place]: No Past Medical History Reviewed: Historical Data, Nursing Documentation, Vital Signs Vital Signs: Last Vital Signs Temp 98 F 04/05/18 00:59 Pulse 84 04/05/18 00:59 Resp 20 04/05/18 00:59 BP 140/95 H 04/05/18 00:59 Pulse Ox 99 04/05/18 00:59 - Medical History PMH: Anxiety, Asthma, COPD, Depression, Fractures, Gastritis, HTN, Paranoia, Pneumonia, Schizophrenia, Seizures, TIA Denies: Diabetes, Hepatitis, HIV, Chronic Kidney Disease, Sexually Transmitted Disease - [facility] Procedures ALCOHOL DETOXIFICATION (12/21/14) APPLICATION OF SPLINT (05/22/14) DETOXIFICATION SERVICES FOR SUBSTANCE ABUSE TREATMENT (09/20/16) GROUP PRINCIPAL SCIENTIST FOR SUBSTANCE ABUSE TREATMENT, PSYCHOEDUCATION (12/12/15) INDIV PRINCIPAL SCIENTIST FOR SUBSTANCE ABUSE, COGNITIVE BEHAVIORAL (03/06/16) INDIV PSYCHOTHERAPY FOR SUBSTANCE ABUSE TREATMENT, SUPPORT (03/06/16) INJECT/INFUSE NEC (12/19/13) Family History: States: Unknown Family Hx - Social History Hx Tobacco Use: Yes Hx Alcohol Use: Yes Hx Substance Use: No - Immunization History Hx Tetanus Toxoid Vaccination: Yes Hx Influenza Vaccination: No Hx Pneumococcal Vaccination: No Review Of Systems Constitutional: Negative for: Fever, Chills Cardiovascular: Negative for: Chest Pain, Palpitations Respiratory: Negative for: Cough, Shortness of Breath Gastrointestinal: Negative for: Nausea, Vomiting Neurological: Negative for: Weakness, Numbness Physical Exam - Physical Exam Appears: Non-toxic, Other (ETOH on breath, no sign of injury) Skin: Normal Color, Warm, Dry Head: Atraumatic, Normacephalic Eye(s): bilateral: Normal Inspection Oral Mucosa: Moist Neck: Normal, No Midline Cervical Tenderness, No Paracervical Tenderness, Supple Chest: Symmetrical, No Tenderness Cardiovascular: Rhythm Regular Respiratory: Normal Breath Sounds, No Rales, No Rhonchi, No Wheezing Gastrointestinal/Abdominal: Soft, No Tenderness Back: No Vertebral Tenderness, No Paraspinal Tenderness Extremity: Normal ROM (x4) Neurological/Psych: Oriented x3, Normal Speech ED Course And Treatment O2 Sat by Pulse Oximetry: 99 (Room air) Pulse Ox Interpretation: Normal Medical Decision Making Medical Decision Making: Patient is resting comfortably in the ER in no acute distress, ambulatory with steady gait, vitals are stable, will discharge home. Disposition - Disposition Disposition: HOME/ ROUTINE Disposition Time: 06:00 Condition: STABLE Additional Instructions: Return if worsened. Instructions: Alcohol Use - When Is Drinking a Problem? Forms: [employer] (Fijian) - Clinical Impression Clinical Impression: Normal exam, History of alcohol abuse - PA / JOURNEYMAN MOLDER / Resident Statement MD/DO has reviewed & agrees with the documentation as recorded. - Scribe Statement The provider has reviewed the documentation as recorded by the Scribe Antoine Sumner All medical record entries made by the Scribe were at my direction and personally dictated by me. I have reviewed the chart and agree that the record accurately reflects my personal performance of the history, physical exam, medical decision making, and the department course for this patient. I have also personally directed, reviewed, and agree with the discharge instructions and disposition.
[2018-04-05 04:40] VITALS: BP 145/87; PULSE 82; RESP 12; TEMP 98
[2018-04-05 06:43] VITALS: O2SAT 99
== END 2018-04-05 05:05 | disposition home or self-care (01) ==
LOC: C.ER 00:48
DX: F10.10 Alcohol abuse, uncomplicated (principal)

== ENCOUNTER 2018-04-06 01:49 | Emergency (ER) | payer OTHER ==
[2018-04-06 01:50] VITALS: BMI 23.3
[2018-04-06 02:00] VITALS: RESP 18
--- NOTE | 2018-04-06 02:07 | C.PDOC ---
History Of Present Illness 52 year old female brought in via EMS after being found intoxicated in public. Denies any complaints at this time. Time Seen by Provider: 04/06/18 02:01 Chief Complaint (Nursing): Substance Abuse History Per: Patient, EMS History/Exam Limitations: no limitations Onset/Duration Of Symptoms: Hrs Current Symptoms Are (Timing): Still Present Suicide/Self Injury Attempted (Context): None Modifying Factor(s): Alcohol Associated Symptoms: denies: Depression, Suicidal Thoughts Involuntary Hold By: None Recent travel outside of the [place]: No Past Medical History Reviewed: Historical Data, Nursing Documentation, Vital Signs Vital Signs: Last Vital Signs Temp 97.6 F 04/06/18 01:57 Pulse 82 04/06/18 01:57 Resp 18 04/06/18 01:57 BP 127/85 04/06/18 01:57 Pulse Ox 97 04/06/18 01:57 - Medical History PMH: Anxiety, Asthma, COPD, Depression, Fractures, Gastritis, HTN, Paranoia, Pneumonia, Schizophrenia, Seizures, TIA Denies: Diabetes, Hepatitis, HIV, Chronic Kidney Disease, Sexually Transmitted Disease - [facility] Procedures ALCOHOL DETOXIFICATION (12/21/14) APPLICATION OF SPLINT (05/22/14) DETOXIFICATION SERVICES FOR SUBSTANCE ABUSE TREATMENT (09/20/16) GROUP ELECTRONICS TECHNICIAN APPRENTICE FOR SUBSTANCE ABUSE TREATMENT, PSYCHOEDUCATION (12/12/15) INDIV ELECTRONICS TECHNICIAN APPRENTICE FOR SUBSTANCE ABUSE, COGNITIVE BEHAVIORAL (03/06/16) INDIV PSYCHOTHERAPY FOR SUBSTANCE ABUSE TREATMENT, SUPPORT (03/06/16) INJECT/INFUSE NEC (12/19/13) Family History: States: Unknown Family Hx - Social History Hx Tobacco Use: Yes Hx Alcohol Use: Yes Hx Substance Use: No - Immunization History Hx Tetanus Toxoid Vaccination: Yes Hx Influenza Vaccination: No Hx Pneumococcal Vaccination: No Review Of Systems Constitutional: Negative for: Fever, Chills Cardiovascular: Negative for: Chest Pain, Palpitations Respiratory: Negative for: Cough, Shortness of Breath Gastrointestinal: Negative for: Nausea, Vomiting Neurological: Negative for: Weakness, Numbness Physical Exam - Physical Exam Appears: Non-toxic, Other (ETOH on breath, no sign of injury) Skin: Normal Color, Warm, Dry Head: Atraumatic, Normacephalic Eye(s): bilateral: Normal Inspection Oral Mucosa: Moist Neck: Normal, Supple Chest: Symmetrical, No Tenderness Cardiovascular: Rhythm Regular Respiratory: Normal Breath Sounds, No Rales, No Rhonchi, No Wheezing Gastrointestinal/Abdominal: Soft, No Tenderness Back: No CVA Tenderness Extremity: Normal ROM (x4) Neurological/Psych: Oriented x3, Normal Speech ED Course And Treatment O2 Sat by Pulse Oximetry: 97 (Room air) Pulse Ox Interpretation: Normal Disposition - Disposition Referrals: Non [facility] Provider, [Primary Care Provider] - Disposition: HOME/ ROUTINE Disposition Time: 03:00 Condition: IMPROVED Additional Instructions: ANNA PICKERING, thank you for letting us take care of you today. The emergency medical care you received today was directed at your acute symptoms. If you were prescribed any medication, please fill it and take as directed. It may take several days for your symptoms to resolve. Return to the Emergency Department if your symptoms worsen, do not improve, or if you have any other problems. Please contact your doctor or call one of the physicians/clinics you have been referred to that are listed on the Patient Visit Information form that is included in your discharge packet. Bring any paperwork you were given at discharge with you along with any medications you are taking to your follow up visit. Our treatment cannot replace ongoing medical care by a primary care provider outside of the emergency department. Thank you for allowing the [facility] team to be part of your care today. Follow up with your primary care doctor or our clinic for outpatient care. Prescriptions: Polymyxin/Trimethoprim Sulfate [Polytrim Ophth Soln] 1 drop OU BID 5 Days #1 bottle Instructions: Alcohol Abuse and Alcoholism (DC) Forms: [employer] ([place] Citizen) - Clinical Impression Clinical Impression: Alcohol abuse - Scribe Statement The provider has reviewed the documentation as recorded by the Scribchristen Sumner All medical record entries made by the Scribe were at my direction and personally dictated by me. I have reviewed the chart and agree that the record accurately reflects my personal performance of the history, physical exam, medical decision making, and the department course for this patient. I have also personally directed, reviewed, and agree with the discharge instructions and disposition.
[2018-04-06 04:55] VITALS: BP 101/57; PULSE 99; TEMP 98.2
[2018-04-06 06:11] VITALS: O2SAT 97
== END 2018-04-06 05:20 | disposition home or self-care (01) ==
LOC: SUPCPDRO 01:49 → C.ER 01:49
DX: F10.10 Alcohol abuse, uncomplicated (principal)

== ENCOUNTER 2018-04-07 20:01 | Emergency (ER) | payer OTHER ==
[2018-04-07 20:04] VITALS: BMI 23.3
[2018-04-07 20:21] VITALS: BP 122/82; PULSE 78; RESP 20; TEMP 97.3; O2SAT 98
--- NOTE | 2018-04-07 20:56 | C.PDOC ---
History Of Present Illness 52 year old female is brought into the emergency department via ambulance for public intoxication. Patient was reported to be drinking alcohol on the scene. Patient has no active complaints at this time and is requesting a place to sleep for the night. Time Seen by Provider: 04/07/18 20:18 Chief Complaint (Nursing): Substance Abuse History Per: Patient, EMS History/Exam Limitations: no limitations Onset/Duration Of Symptoms: Hrs Current Symptoms Are (Timing): Still Present Suicide/Self Injury Attempted (Context): None Modifying Factor(s): Alcohol Associated Symptoms: denies: Suicidal Thoughts, Suicidal Plan Past Medical History Reviewed: Historical Data, Nursing Documentation, Vital Signs Vital Signs: Last Vital Signs Temp 97.3 F L 04/07/18 20:15 Pulse 78 04/07/18 20:15 Resp 20 04/07/18 20:15 BP 122/82 04/07/18 20:15 Pulse Ox 98 04/07/18 20:15 - Medical History PMH: Anxiety, Asthma, COPD, Depression, Fractures, Gastritis, HTN, Paranoia, Pneumonia, Schizophrenia, Seizures, TIA Denies: Diabetes, Hepatitis, HIV, Chronic Kidney Disease, Sexually Transmitted Disease Surgical History: No Surg Hx - [facility] Procedures ALCOHOL DETOXIFICATION (12/21/14) APPLICATION OF SPLINT (05/22/14) DETOXIFICATION SERVICES FOR SUBSTANCE ABUSE TREATMENT (09/20/16) GROUP AOC DIRECTOR INTELLIGENCE OFFICER FOR SUBSTANCE ABUSE TREATMENT, PSYCHOEDUCATION (12/12/15) INDIV AOC DIRECTOR INTELLIGENCE OFFICER FOR SUBSTANCE ABUSE, COGNITIVE BEHAVIORAL (03/06/16) INDIV PSYCHOTHERAPY FOR SUBSTANCE ABUSE TREATMENT, SUPPORT (03/06/16) INJECT/INFUSE NEC (12/19/13) Family History: States: Unknown Family Hx - Social History Hx Tobacco Use: Yes Hx Alcohol Use: Yes Hx Substance Use: No - Immunization History Hx Tetanus Toxoid Vaccination: Yes Hx Influenza Vaccination: No Hx Pneumococcal Vaccination: No Review Of Systems Except As Marked, All Systems Reviewed And Found Negative. Constitutional: Negative for: Fever, Chills Gastrointestinal: Negative for: Nausea, Vomiting, Diarrhea Psych: Negative for: Suicidal ideation Physical Exam - Physical Exam Additional Physical Exam Comments: Constitutional: No acute distress. Head: Normocephalic. Atraumatic. Eyes: PERRL. ENT: Moist mucous membranes. Neck: Supple. Cardiovascular: Regular rate. Radial pulse 2+ bilaterally. Chest: No tenderness. Respiratory: Clear to auscultation bilaterally. GI: Soft. Nontender. Nondistended. Back: No CVA tenderness. Musculoskeletal: No tenderness or swelling of extremities. Skin: No rash. Neurologic: Alert, no focal deficit. ED Course And Treatment O2 Sat by Pulse Oximetry: 98 (RA) Pulse Ox Interpretation: Normal Medical Decision Making Medical Decision Making: Will observe for sobriety. Disposition - Disposition Disposition: HOME/ ROUTINE Disposition Time: 21:31 Condition: STABLE Instructions: Alcohol Abuse and Alcoholism (DC) Forms: [employer] (Maltese) - Clinical Impression Clinical Impression: Alcohol abuse with intoxication - Scribe Statement The provider has reviewed the documentation as recorded by the Scribe (Vivek Aquino) Provider Attestation: All medical record entries made by the Scribe were at my direction and personally dictated by me. I have reviewed the chart and agree that the record accurately reflects my personal performance of the history, physical exam, medical decision making, and the department course for this patient. I have also personally directed, reviewed, and agree with the discharge instructions and disposition.
== END 2018-04-07 23:42 | disposition left against medical advice (07) ==
LOC: C.ER 20:01
DX: F10.129 Alcohol abuse with intoxication, unspecified (principal); Y90.9 Presence of alcohol in blood, level not specified

== ENCOUNTER → 2018-04-30 06:54 | Emergency (ER) | payer MEDICAID, OTHER ==
[~2018-04-30 06:54] MED LIST changes: +Lidocaine Hydrochloride 10 ML INJ ONE; -Potassium Chloride 20 mEq ER Tab PO ONE
[2018-04-30 06:55] VITALS: BMI 23.3
== END | disposition left against medical advice (07) ==
LOC: C.ER 06:54
DX: Z02.89 Encounter for other administrative examinations (principal); S89.90XA Unspecified injury of unspecified lower leg, initial encounter

== ENCOUNTER 2018-04-30 07:40 | Inpatient (IN) | payer MEDICAID, OTHER ==
[2018-04-30 07:41] VITALS: BMI 23.3
--- NOTE | 2018-04-30 09:30 | C.PDOC ---
History Of Present Illness 52 y/o female brought to ER by ambulance for evaluation of right lower leg and ankle pain which has been present since yesterday. Patient thinks she may have fell down the stairs, bt is unsure. She denies known LOC, headache, dizziness, sensory changes, other injuries. Of note, patient has history of chronic ETOH abuse and is well known to ER for multiple ER visits. Time Seen by Provider: 04/30/18 07:41 Chief Complaint (Nursing): Lower Extremity Problem/Injury History Per: Patient History/Exam Limitations: no limitations Onset/Duration Of Symptoms: Days Current Symptoms Are (Timing): Still Present Severity: Moderate Past Medical History Reviewed: Historical Data, Nursing Documentation, Vital Signs Vital Signs: Last Vital Signs Temp 98.2 F 04/30/18 07:58 Pulse 86 04/30/18 07:58 Resp 18 04/30/18 07:58 BP 130/72 04/30/18 07:58 Pulse Ox 97 04/30/18 07:58 - Medical History PMH: Anxiety, Asthma, COPD, Depression, Fractures, Gastritis, HTN, Paranoia, Pneumonia, Schizophrenia, Seizures, TIA Other Surgeries: Hx of surgeries - [facility] Procedures ALCOHOL DETOXIFICATION (12/21/14) APPLICATION OF SPLINT (05/22/14) DETOXIFICATION SERVICES FOR SUBSTANCE ABUSE TREATMENT (09/20/16) GROUP SENIOR QUALITY ASSURANCE ENGINEER FOR SUBSTANCE ABUSE TREATMENT, PSYCHOEDUCATION (12/12/15) INDIV SENIOR QUALITY ASSURANCE ENGINEER FOR SUBSTANCE ABUSE, COGNITIVE BEHAVIORAL (03/06/16) INDIV PSYCHOTHERAPY FOR SUBSTANCE ABUSE TREATMENT, SUPPORT (03/06/16) INJECT/INFUSE NEC (12/19/13) Family History: States: No Known Family Hx - Social History Hx Tobacco Use: Yes Hx Alcohol Use: Yes Hx Substance Use: No - Immunization History Hx Tetanus Toxoid Vaccination: Yes Hx Influenza Vaccination: No Hx Pneumococcal Vaccination: No Review Of Systems Except As Marked, All Systems Reviewed And Found Negative. Constitutional: Negative for: Fever, Chills Cardiovascular: Negative for: Chest Pain Respiratory: Negative for: Shortness of Breath Gastrointestinal: Negative for: Nausea, Vomiting, Abdominal Pain Musculoskeletal: Positive for: Leg Pain (right leg pain) Neurological: Negative for: Weakness, Numbness, Headache Physical Exam - Physical Exam Appears: Non-toxic, Unkempt, Other (mildly intoxicated, awake,alert, malodorous) Skin: Normal Color, Warm, Dry, Other (pruny skin with blister to plantar aspect of right foot) Head: Atraumatic, Normacephalic Eye(s): bilateral: Normal Inspection, PERRL, EOMI Nose: Normal Oral Mucosa: Moist Neck: No Midline Cervical Tenderness, No Paracervical Tenderness, No Step Off Deformity, Supple Chest: Symmetrical Cardiovascular: Rhythm Regular Respiratory: Normal Breath Sounds, No Rales, No Rhonchi, No Wheezing Gastrointestinal/Abdominal: Normal Exam, Bowel Sounds, Soft, No Tenderness Extremity: Normal ROM, Tenderness (tenderness to palpation over right lower leg, ankle, and foot), Capillary Refill (< 2 sec all digits ), No Deformity, Swelling (moderate swelling at right ankle/lower leg and foot) Pulses: Left Dorsalis Pedis: Normal, Right Dorsalis Pedis: Normal Neurological/Psych: Oriented x3, Normal Sensation ED Course And Treatment - Laboratory Results Result Diagrams: 05/09/18 07:03 05/09/18 07:03 O2 Sat by Pulse Oximetry: 97 (RA) Pulse Ox Interpretation: Normal - CT Scan/US CT Lower Ext. Other Rad Studies (CT/US): Read By Radiologist CT/US Interpretation: Findings: Prominent reticulation and edema within the circumferential subcutaneous soft tissues with a suggestion of some possible hemorrhage seen within the lateral and anterolateral soft tissues. Markedly comminuted, distracted, and dislocated fracture deformity of the distal tibia with prominent intra-articular extension. A few prominent fracture fragments are noted at the anterolateral distal tibia measuring up to 3.4 centimeters with apparent anterior lateral distraction measuring 1.6 centimeters. Posterior subluxation of the remaining fracture fragment. Fracture deformities involve the medial and posterior malleolus. Distal fibula appears dislocated posteriorly in relationship to the distal tibia. Punctate ossific density at the level of the distal fibula which may represent a small avulsion injury. Type 1 os navicularis variant. Punctate small accessory ossicle adjacent to the cuboid bone. Patchy osteopenia of the midfoot. Plantar calcaneal spurring. Evaluation somewhat limited given suboptimal patient positioning. Impression: Evaluation somewhat limited given suboptimal patient positioning. 1. Prominent reticulation and edema within the circumferential subcutaneous soft tissues with a suggestion of some possible hemorrhage seen within the lateral and anterolateral soft tissues. 2. Markedly comminuted, distracted, and dislocated fracture deformity of the distal tibia with prominent intra-articular extension. A few prominent fracture fragments are noted at the anterolateral distal tibia measuring up to 3.4 centimeters with apparent anterior lateral distraction measuring 1.6 centimeters. Posterior subluxation of the remaining fracture fragment. Fracture deformities involve the medial and posterior malleolus. 3. Distal fibula appears dislocated posteriorly in relationship to the distal tibia. Punctate ossific density at the level of the distal fibula which may represent a small avulsion injury. 4. Patchy osteopenia of the midfoot. 5. Plantar calcaneal spurring. Progress Note: Xrays of right tib/fib, ankle and foot ordered and reviewed. Patient initially given PO Motrin for pain. Xrays show trimalleolar fx of right ankle/distal tibia. Blood work, CT scan of extremity ordered. IV morphine given. Poditry consulted and evaluated patient - will need admission for OR repair. - Physician Consult Information Physician Contacted: Lukas Lowe Outcome Of Conversation: Discussed patient with hospitalist, agrees with admission for right ankle/distal tibia trimalleolar fx, for OR repair by podiatry. Disposition - Disposition Disposition: HOSPITALIZED Disposition Time: 12:34 Condition: STABLE - Clinical Impression Clinical Impression: Trimalleolar fracture of ankle, closed, Alcohol dependence - Scribe Statement The provider has reviewed the documentation as recorded by the Isis Farley Provider Attestation: All medical record entries made by the Scribe were at my direction and personally dictated by me. I have reviewed the chart and agree that the record accurately reflects my personal performance of the history, physical exam, medical decision making, and the department course for this patient. I have also personally directed, reviewed, and agree with the discharge instructions and disposition. Decision To Admit - Pt Status Changed To: Hospital Disposition Of: Inpatient - Admit Certification Admit to Inpatient:: After my assessment, the patient will require hospitalization for at least two midnights. This is because of the severity of symptoms shown, intensity of services needed, and/or the medical risk in this patient being treated as an outpatient. - InPatient: Physician Admission Certification: I certify that this patient requires 2 or more midnights of care for the following reason:: see notes - . Bed Request Type: Regular Admitting Physician: Lukas Lowe Patient Diagnosis: Trimalleolar fracture of ankle, closed, Alcohol dependence
--- NOTE | 2018-04-30 10:26 | RAD ---
PROCEDURE: Radiographs of the right tibia fibula Radiographs of the right foot Radiographs of the right ankle HISTORY: RIGHT LOWER LEG PAIN COMPARISON: None available. FINDINGS: BONES: Trimalleolar comminuted displaced fractures of the distal fibula. The remainder of the visualized osseous structures appear intact. JOINT SPACES: Disruption of the ankle mortise. OTHER FINDINGS: Soft tissue swelling. No evidence of radiopaque foreign body. IMPRESSION: Comminuted trimalleolar displaced fractures of the distal fibula. Disruption of the ankle mortise. Soft tissue swelling.
[2018-04-30 10:48] LABS: BASO # 0.1 K/uL (0.0-0.2); BASO % 1.2 % (0.0-2.0); EOS % 0.1 % (0.0-4.0); LYMPH # 0.8 K/uL (1.0-4.3); LYMPH % 15.2 % (20.0-40.0); MEAN CELL VOLUME 91.8 fL (81.0-99.0); MEAN CORPUSCULAR HEMOGLOBIN 30.5 pg (27.0-31.0); MEAN CORPUSCULAR HGB CONC 33.2 g/dL (33.0-37.0); MEAN PLATELET VOLUME 7.1 fL (7.2-11.7); MONO # 0.2 K/uL (0.0-0.8); MONO % 4.7 % (0.0-10.0); NEUT # 3.9 K/uL (1.8-7.0); NEUT % 78.8 % (50.0-75.0); NRBC % 0.1 % (0.0-2.0); RBC 3.1 Mil/uL (3.80-5.20); RED CELL DISTRIBUTION WIDTH 17.3 % (11.5-14.5)
[2018-04-30 10:58] LABS: PROTHROMBIN TIME 11.4 SECONDS (9.7-12.2)
[2018-04-30 11:01] LABS: HEMOGLOBIN 9.5 g/dL (11.0-16.0)
[2018-04-30 11:02] LABS: ALB/GLOB RATIO 1.2 (1.0-2.1); ALBUMIN 4.2 g/dL (3.5-5.0); ALT/SGPT 72 U/L (9-52); AST/SGOT 134 U/L (14-36); BLOOD UREA NITROGEN 13 mg/dL (7-17); CALCIUM 8.3 mg/dl (8.6-10.4); GFR NON-AFRICAN AMERICAN > 60
--- NOTE | 2018-04-30 11:55 | CT ---
CT right ankle HISTORY: Fracture. Comparison: X-ray dated 04/30/2018 Technique: Multiple contiguous axial images were performed through the right ankle without the use of intravenous contrast. Subsequently, sagittal and coronal reformatted images were obtained. Findings: Prominent reticulation and edema within the circumferential subcutaneous soft tissues with a suggestion of some possible hemorrhage seen within the lateral and anterolateral soft tissues. Markedly comminuted, distracted, and dislocated fracture deformity of the distal tibia with prominent intra-articular extension. A few prominent fracture fragments are noted at the anterolateral distal tibia measuring up to 3.4 centimeters with apparent anterior lateral distraction measuring 1.6 centimeters. Posterior subluxation of the remaining fracture fragment. Fracture deformities involve the medial and posterior malleolus. Distal fibula appears dislocated posteriorly in relationship to the distal tibia. Punctate ossific density at the level of the distal fibula which may represent a small avulsion injury. Type 1 os navicularis variant. Punctate small accessory ossicle adjacent to the cuboid bone. Patchy osteopenia of the midfoot. Plantar calcaneal spurring. Evaluation somewhat limited given suboptimal patient positioning. Impression: Evaluation somewhat limited given suboptimal patient positioning. 1. Prominent reticulation and edema within the circumferential subcutaneous soft tissues with a suggestion of some possible hemorrhage seen within the lateral and anterolateral soft tissues. 2. Markedly comminuted, distracted, and dislocated fracture deformity of the distal tibia with prominent intra-articular extension. A few prominent fracture fragments are noted at the anterolateral distal tibia measuring up to 3.4 centimeters with apparent anterior lateral distraction measuring 1.6 centimeters. Posterior subluxation of the remaining fracture fragment. Fracture deformities involve the medial and posterior malleolus. 3. Distal fibula appears dislocated posteriorly in relationship to the distal tibia. Punctate ossific density at the level of the distal fibula which may represent a small avulsion injury. 4. Patchy osteopenia of the midfoot. 5. Plantar calcaneal spurring.
[2018-04-30 12:40] LABS: BARBITURATES, UR NEGATIVE (NEGATIVE); BENZODIAZEPINES, UR NEGATIVE (NEGATIVE); OPIATES, UR NEGATIVE (NEGATIVE); PHENCYCLIDINE, UR NEGATIVE (NEGATIVE)
[2018-04-30] MEDS ORDERED: Lidocaine 1% Inj (20ml) INFIL STA (13:05)
--- NOTE | 2018-04-30 13:28 | RAD ---
Date of service: 04/30/2018 HISTORY: Surgical Clearance COMPARISON: 11/13/2017. FINDINGS: LUNGS: No active pulmonary disease. PLEURA: No significant pleural effusion identified, no pneumothorax apparent. CARDIOVASCULAR: No atherosclerotic calcification present No radiographic findings to suggest acute or significant cardiovascular disease. OSSEOUS STRUCTURES: No significant abnormalities. VISUALIZED UPPER ABDOMEN: Normal. OTHER FINDINGS: None. IMPRESSION: No active disease. No significant interval change compared to the prior examination(s).
--- NOTE | 2018-04-30 13:43 | CT ---
Date of service: 04/30/2018 PROCEDURE: CT HEAD WITHOUT CONTRAST. HISTORY: S/P Fall COMPARISON: Noncontrast head CT performed 03/30/18 TECHNIQUE: Axial computed tomography images were obtained through the head/brain without intravenous contrast. Radiation dose: Total exam DLP = 1091.9 mGy-cm. This CT exam was performed using one or more of the following dose reduction techniques: Automated exposure control, adjustment of the mA and/or kV according to patient size, and/or use of iterative reconstruction technique. FINDINGS: Streak artifact obscures evaluation of the skull base. HEMORRHAGE: No intracranial hemorrhage. BRAIN: No mass effect or edema. Intracranial atherosclerotic calcifications. Scattered periventricular and subcortical white matter hypodensities, which are nonspecific, but often seen with chronic microvascular ischemic disease. Please note that MRI with diffusion imaging is more sensitive in the detection of acute ischemic event. VENTRICLES: No hydrocephalus. CALVARIUM: Unremarkable. PARANASAL SINUSES: Unremarkable as visualized. No significant inflammatory changes. MASTOID AIR CELLS: Unremarkable as visualized. No inflammatory changes. OTHER FINDINGS: None. IMPRESSION: No acute intracranial pathology identified. See above.
--- NOTE | 2018-04-30 13:45 | RAD ---
Date of service: 04/30/2018 PROCEDURE: Left Foot Radiographs. HISTORY: r/o fracture of left great toe COMPARISON: None. FINDINGS: BONES: Normal. No fracture. JOINTS: Minor hallux valgus deformity. SOFT TISSUES: Normal. OTHER FINDINGS: None. IMPRESSION: No visible fracture.
[2018-04-30] MEDS ORDERED: Multivitamin (MVI) 10 ML, Thiamine 100 MG, Folic Acid 1 MG in Sodium Chloride 0.9% 1,00... IV ONE (15:42)
[2018-04-30] MEDS ORDERED: Albuterol-Ipratrop 3 mg / 0.5 (3 ml) UD INH PRN (15:53)
--- NOTE | 2018-04-30 17:38 | CP.PCM.HP ---
<Nikhil Arnold - Last Filed: 04/30/18 17:56> History of Present Illness - History of Present Illness History of Present Illness: Patient is a 52 year old female with a PMH of asthma, HTN, alcohol abuse, and pneumonia who presents to the ED via Ambulance after a fall. Patient states she was inside a building on [facility] to keep warm. She was on the third floor and fell asleep. Upon awakening, she found herself falling down the stairs. She states that she fell down 3 flights of stairs. She denies any SOB, dizziness, palpitations prior to falling. Patient states that she eventually lost consciousness for about five minutes according to her. There was no one present who witnessed the LOC. Patient denies symptoms of blurry vision, dizziness, SOB or palpitations after the fall. She states that she fell on her legs and felt pain in posterior side of right extremity as well as left toe. She denies alcohol intoxication at the time of the incident. She states that her last drink prior to this incident was two days ago. Patient admits to numbness on plantar aspect of feet bilaterally that she has had for many years, fatigue, lower extremity edema, right LE pain, left toe pain, dysuria, and burning sensation during urinary voiding. She denies blurry vision, headache, fevers, chills, shortness of breath, cough, palpitations, chest pain, abdominal pain, or n/v/d. In ED, blood alcohol level was 375. PMH: Astma, Heart murmur, HTN, 3 miscarriages with heavy bleeding, Alcohol abuse, Ezcema, PNA, Anxiety/Depression PSH: D&C at age 45 with no complications Medications: Patient denies taking any medications, including prescription or herbal Allergies: NKDA FH: Mother had hypothyroid. Other family history unknown SH: Drinks half to one bottle of vodka daily. Last drink was 2 days ago. 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 PMD: none Next of kin: Viridiana (Mom): Present on Admission - Present on Admission Any Indicators Present on Admission: No History of DVT/PE: No History of Uncontrolled Diabetes: No Urinary Catheter: No Decubitus Ulcer Present: No Review of Systems - Review of Systems All systems: reviewed and no additional remarkable complaints except Past Patient History - Infectious Disease Hx of Infectious Diseases: None - Tetanus Immunizations Tetanus Immunization: Unknown - Past Medical History & Family History Past Medical History?: Yes - Past Social History Smoking Status: Light Smoker < 10 Cigarettes Daily - CARDIAC Hx Hypertension: Yes - PULMONARY Hx Asthma: Yes Hx Chronic Obstructive Pulmonary Disease (COPD): Yes Hx Pneumonia: Yes - NEUROLOGICAL Hx Seizures: Yes Hx Transient Ischemic Attacks (TIA): Yes - HEENT Hx HEENT Problems: No - RENAL Hx Chronic Kidney Disease: No - ENDOCRINE/METABOLIC Hx Endocrine Disorders: No - HEMATOLOGICAL/ONCOLOGICAL Hx Human Immunodeficiency Virus (HIV): No - INTEGUMENTARY Hx Dermatological Problems: Yes Hx Eczema: Yes Hx Psoriasis: Yes Other/Comment: scabies - MUSCULOSKELETAL/RHEUMATOLOGICAL Hx Fractures: Yes - GASTROINTESTINAL Hx Gastritis: Yes - GENITOURINARY/GYNECOLOGICAL Hx Sexually Transmitted Disorders: No - PSYCHIATRIC Hx Anxiety: Yes Hx Depression: Yes Hx Paranoia: Yes Hx Schizophrenia: Yes Hx Substance Use: No - SURGICAL HISTORY Hx Surgeries: Yes Hx Dilation and Curettage: Yes - ANESTHESIA Hx Anesthesia: Yes Hx Anesthesia Reactions: No Hx Malignant Hyperthermia: No Meds Allergies/Adverse Reactions: Allergies Allergy/AdvReac Type Severity Reaction Status Date / Time shellfish derived Allergy Severe SWELLING Verified 04/30/18 07:53 Physical Exam - Constitutional Appears: Well, No Acute Distress, Older Than Stated Age - Head Exam Head Exam: ATRAUMATIC, NORMOCEPHALIC - Eye Exam Eye Exam: EOMI, Normal appearance - ENT Exam ENT Exam: Mucous Membranes Dry - Neck Exam Neck exam: Positive for: Normal Inspection. Negative for: Tenderness, Thyromegaly - Respiratory Exam Respiratory Exam: Clear to Auscultation Bilateral. absent: Accessory Muscle Use, Rales, Rhonchi, Wheezes, Respiratory Distress - Cardiovascular Exam Cardiovascular Exam: +S1, +S2, Systolic Murmur (Systolic murmur best heard at mitral area). absent: Gallop, Rubs - GI/Abdominal Exam GI & Abdominal Exam: Normal Bowel Sounds, Soft. absent: Distended, Firm, Guarding, Tenderness - Extremities Exam Extremities exam: Positive for: normal capillary refill, pedal edema (non- pitting edema noted bilaterally), tenderness (Tender to palpation on the right leg and toe. ), pedal pulses present - Neurological Exam Neurological exam: Alert, CN II-XII Intact, Oriented x3 - Psychiatric Exam Psychiatric exam: Normal Affect, Normal Mood - Skin Skin Exam: Dry, Intact, Normal Color, Warm Additional comments: Bruising noted on right orbit, excoriations on bilateral arms Results - Vital Signs Recent Vital Signs: Last Vital Signs Temp 98.9 F 04/30/18 14:11 Pulse 104 H 04/30/18 14:11 Resp 20 04/30/18 14:11 BP 119/75 04/30/18 14:11 Pulse Ox 97 04/30/18 14:11 - Labs Result Diagrams: 04/30/18 10:43 04/30/18 10:43 Labs: Laboratory Results - last 24 hr 04/30/18 04/30/18 04/30/18 10:43 10:43 10:43 WBC 5.0 D RBC 3.10 L Hgb 9.5 L D Hct 28.5 L MCV 91.8 MCH 30.5 MCHC 33.2 RDW 17.3 H Plt Count 128 L D MPV 7.1 L Neut % (Auto) 78.8 H Lymph % (Auto) 15.2 L [place] % (Auto) 4.7 Eos % (Auto) 0.1 Baso % (Auto) 1.2 Neut # (Auto) 3.9 Lymph # (Auto) 0.8 L [place] # (Auto) 0.2 Eos # (Auto) 0.0 Baso # (Auto) 0.1 Differential Comment PT 11.4 INR 1.0 APTT 30 Sodium 143 Potassium 3.6 Chloride 102 Carbon Dioxide 29 Anion Gap 16 BUN 13 Creatinine 0.5 L Est GFR ( Amer) > 60 Est GFR (Non-Af Amer) > 60 Random Glucose 90 Calcium 8.3 L Total Bilirubin 0.5 AST 134 H D ALT 72 H D Alkaline Phosphatase 92 Total Protein 7.7 Albumin 4.2 Globulin 3.6 Albumin/Globulin Ratio 1.2 Beta HCG, Quant 4.19 Urine Opiates Screen Urine Methadone Screen Ur Barbiturates Screen Ur Phencyclidine Scrn Ur Amphetamines Screen U Benzodiazepines Scrn U Oth Cocaine Metabols U Cannabinoids Screen Alcohol, Quantitative 374 H 04/30/18 12:13 WBC RBC Hgb Hct MCV MCH MCHC RDW Plt Count MPV Neut % (Auto) Lymph % (Auto) [place] % (Auto) Eos % (Auto) Baso % (Auto) Neut # (Auto) Lymph # (Auto) [place] # (Auto) Eos # (Auto) Baso # (Auto) Differential Comment PT INR APTT Sodium Potassium Chloride Carbon Dioxide Anion Gap BUN Creatinine Est GFR ( Amer) Est GFR (Non-Af Amer) Random Glucose Calcium Total Bilirubin AST ALT Alkaline Phosphatase Total Protein Albumin Globulin Albumin/Globulin Ratio Beta HCG, Quant Urine Opiates Screen Negative Urine Methadone Screen Negative Ur Barbiturates Screen Negative Ur Phencyclidine Scrn Negative Ur Amphetamines Screen Negative U Benzodiazepines Scrn Negative U Oth Cocaine Metabols Negative U Cannabinoids Screen Negative Alcohol, Quantitative Assessment & Plan - Assessment and Plan (Free Text) Assessment: Patient is a 52 year old female with a PMH of asthma, HTN, alcohol abuse, and pneumonia who presents to the ED via Ambulance after a fall. Plan: Right distal tibia/fibula fracture: Patient medically optimized for surgery - Right Ankle Xray (04/30): Comminuted trimalleolar displaced fractures of the distal fibula. Disruption of the ankle mortise. Soft tissue swelling. - Right lower extremity CT (04/30): Markedly comminuted, distracted, and dislocated fracture deformity of the distal tibia with prominent intra-articular extension. A few prominent fracture fragments are noted at the anterolateral distal tibia measuring up to 3.4 centimeters with apparent anterior lateral distraction measuring 1.6 centimeters. Posterior subluxation of the remaining fracture fragment. Fracture deformities involve the medial and posterior malleolus. - Head CT (04/30): No acute intracranial pathology identified. - CXR (04/30): No acute findings - Podiatry, Dr. Hurley consulted - Plan for surgery tomorrow - ORIF in the am - NPO after midnight - Morphine 0.5mg Q6 PRN - Moderate pain - Morphine 1mg Q6 PRN - Severe pain - Left lower extremity duplex: f/u Hx of alcohol abuse: - Monitor for possible withdrawal symptoms - Blood alcohol level: 375 - Ativan 1mg IV Q6 PRN - Banana bag @ 120 mls/hr - Folate, B12 levels: f/u Normocytic anemia: - Likely 2/2 alcohol abuse - Will continue to monitor with daily CBC Thrombocytopenia: - Likely 2/2 alcohol abuse - Will hold chemical anticoagulants - Will continue to monitor with daily CBC Transaminitis: - Likely 2/2 alcohol abuse - AST:ALT is >2 - Will continue to monitor Hx of HTN: - Patient is not currently taking any medications - Patient is hemodynamically stable - Will continue to monitor - Vitals Q4 Hx of depression: - As per prior medical records - Patient is not currently taking any medications Hx of schizophrenia: - As per prior medical records - Patient is not currently taking any medications Hypocalcemia: - Patient is currently asymptomatic - Will continue to monitor Hx of Asthma: - Duonebs Q6 PRN Case discussed with Dr. Ezequiel Arnold, PGY-1 <Lukas Lowe - Last Filed: 05/04/18 00:17> Results - Vital Signs Recent Vital Signs: Last Vital Signs Temp 98.5 F 05/03/18 15:00 Pulse 101 H 05/03/18 15:00 Resp 20 05/03/18 15:00 BP 105/72 05/03/18 15:00 Pulse Ox 96 05/03/18 15:00 - Labs Result Diagrams: 05/03/18 07:09 05/03/18 07:09 Labs: Laboratory Results - last 24 hr 05/03/18 05/03/18 07:09 07:09 WBC 6.0 RBC 2.85 L Hgb 8.9 L Hct 26.2 L MCV 91.8 MCH 31.4 H MCHC 34.1 RDW 17.1 H Plt Count 144 MPV 8.4 Neut % (Auto) 64.5 Lymph % (Auto) 20.6 [place] % (Auto) 11.5 H Eos % (Auto) 2.8 Baso % (Auto) 0.6 Neut # (Auto) 3.8 Lymph # (Auto) 1.2 [place] # (Auto) 0.7 Eos # (Auto) 0.2 Baso # (Auto) 0.0 Sodium 132 Potassium 4.0 Chloride 99 Carbon Dioxide 25 Anion Gap 12 BUN 12 Creatinine 0.6 L Est GFR ( Amer) > 60 Est GFR (Non-Af Amer) > 60 Random Glucose 94 Calcium 8.8 Phosphorus 3.0 Magnesium 1.8 Total Bilirubin 0.8 AST 48 H D ALT 39 Alkaline Phosphatase 76 Total Protein 7.3 Albumin 3.8 Globulin 3.5 Albumin/Globulin Ratio 1.1 Attending/Attestation - Attestation I have personally seen and examined this patient.: Yes I have fully participated in the care of the patient.: Yes I have reviewed all pertinent clinical information: Yes Notes (Text): 05/04/18 00:16 This is a late entry. Patient was seen and examined in the ER Bed #8 at the time of admission shortly after being notified by ER physician of admission. History, Physical, Assessment and Plan, and all orders were gone over with the resident Dr. Clayton Lowe D.O.
--- NOTE | 2018-04-30 19:14 | CP.PCM.CON ---
History of Present Illness - History of Present Illness History of Present Illness: Podiatry Consult note for Dr. Hurley 52F seen and evaluated in ED for b/l foot and ankle pain. Patient states that she fell down two flights of stairs last night and felt immediate pain to both lower extremities. She was also immediately unable to walk due to the pain. She appears intoxicated during her examination but denies any alcohol consumption recently. She states that her left great toe hurts more than her right ankle. Denies any further pedal complaints at this time. Denies any recent N/V/F/C/CP/SOB/D Review of Systems - Review of Systems All systems: reviewed and no additional remarkable complaints except Review of Systems: as per HPI Past Patient History - Infectious Disease Hx of Infectious Diseases: None - Tetanus Immunizations Tetanus Immunization: Unknown - Past Medical History & Family History Past Medical History?: Yes - Past Social History Smoking Status: Light Smoker < 10 Cigarettes Daily - CARDIAC Hx Hypertension: Yes - PULMONARY Hx Asthma: Yes Hx Chronic Obstructive Pulmonary Disease (COPD): Yes Hx Pneumonia: Yes - NEUROLOGICAL Hx Seizures: Yes Hx Transient Ischemic Attacks (TIA): Yes - HEENT Hx HEENT Problems: No - RENAL Hx Chronic Kidney Disease: No - ENDOCRINE/METABOLIC Hx Endocrine Disorders: No - HEMATOLOGICAL/ONCOLOGICAL Hx Human Immunodeficiency Virus (HIV): No - INTEGUMENTARY Hx Dermatological Problems: Yes Hx Eczema: Yes Hx Psoriasis: Yes Other/Comment: scabies - MUSCULOSKELETAL/RHEUMATOLOGICAL Hx Fractures: Yes - GASTROINTESTINAL Hx Gastritis: Yes - GENITOURINARY/GYNECOLOGICAL Hx Sexually Transmitted Disorders: No - PSYCHIATRIC Hx Anxiety: Yes Hx Depression: Yes Hx Paranoia: Yes Hx Schizophrenia: Yes Hx Substance Use: No - SURGICAL HISTORY Hx Surgeries: Yes Hx Dilation and Curettage: Yes - ANESTHESIA Hx Anesthesia: Yes Hx Anesthesia Reactions: No Hx Malignant Hyperthermia: No Meds Allergies/Adverse Reactions: Allergies Allergy/AdvReac Type Severity Reaction Status Date / Time shellfish derived Allergy Severe SWELLING Verified 04/30/18 07:53 - Medications Medications: Current Medications Albuterol/Ipratropium (Duoneb 3 Mg/0.5 Mg (3 Ml) Ud) 3 ml INH RQ6 PRN PRN Reason: Shortness of Breath Multivitamins/Vitamin C 10 ml/Thiamine HCl 100 mg/ Folic Acid 1 mg/ Sodium Chloride 1,011.2 mls @ 120 mls/hr IV .Q8H26M ONE Stop: 05/01/18 00:07 Lorazepam (Ativan) 1 mg IVP Q6H PRN PRN Reason: Symptoms of alcohol withdrawl Morphine Sulfate (Morphine) 0.5 mg IVP Q6H PRN PRN Reason: Pain, moderate (4-7) Morphine Sulfate (Morphine) 1 mg IVP Q6H PRN PRN Reason: Pain, severe (8-10) Physical Exam - Constitutional Appears: Well, Non-toxic, No Acute Distress - Extremities Exam Additional comments: B/l LE focused exam: Vasc: DP/PT pulses non-palpable on right side due to 2+ non-pitting edema to ankle and foot. Pulses are audible with triphasic waveforms on doppler. DP/PT pulses fully palpable 2/4 to left LE. CFT < 3 seconds to all digits. Skin temperature gradient WNL b/l. Neuro: Epicritic and protective sensation grossly diminished to right LE Derm: No open lesions, wounds, maceration, xerosis, abnormal pigmentation or abnormal growths noted b/l - Neurological Exam Neurological exam: Alert, Oriented x3 - Psychiatric Exam Psychiatric exam: Normal Affect, Normal Mood Results - Vital Signs Recent Vital Signs: Last Vital Signs Temp 98.9 F 04/30/18 14:11 Pulse 104 H 04/30/18 14:11 Resp 20 04/30/18 14:11 BP 119/75 04/30/18 14:11 Pulse Ox 97 04/30/18 14:11 - Labs Result Diagrams: 04/30/18 10:43 04/30/18 10:43 Labs: Laboratory Results - last 24 hr 04/30/18 04/30/18 04/30/18 10:43 10:43 10:43 WBC 5.0 D RBC 3.10 L Hgb 9.5 L D Hct 28.5 L MCV 91.8 MCH 30.5 MCHC 33.2 RDW 17.3 H Plt Count 128 L D MPV 7.1 L Neut % (Auto) 78.8 H Lymph % (Auto) 15.2 L [place] % (Auto) 4.7 Eos % (Auto) 0.1 Baso % (Auto) 1.2 Neut # (Auto) 3.9 Lymph # (Auto) 0.8 L [place] # (Auto) 0.2 Eos # (Auto) 0.0 Baso # (Auto) 0.1 Differential Comment PT 11.4 INR 1.0 APTT 30 Sodium 143 Potassium 3.6 Chloride 102 Carbon Dioxide 29 Anion Gap 16 BUN 13 Creatinine 0.5 L Est GFR ( Amer) > 60 Est GFR (Non-Af Amer) > 60 Random Glucose 90 Calcium 8.3 L Total Bilirubin 0.5 AST 134 H D ALT 72 H D Alkaline Phosphatase 92 Total Protein 7.7 Albumin 4.2 Globulin 3.6 Albumin/Globulin Ratio 1.2 Beta HCG, Quant 4.19 Urine Opiates Screen Urine Methadone Screen Ur Barbiturates Screen Ur Phencyclidine Scrn Ur Amphetamines Screen U Benzodiazepines Scrn U Oth Cocaine Metabols U Cannabinoids Screen Alcohol, Quantitative 374 H 04/30/18 12:13 WBC RBC Hgb Hct MCV MCH MCHC RDW Plt Count MPV Neut % (Auto) Lymph % (Auto) [place] % (Auto) Eos % (Auto) Baso % (Auto) Neut # (Auto) Lymph # (Auto) [place] # (Auto) Eos # (Auto) Baso # (Auto) Differential Comment PT INR APTT Sodium Potassium Chloride Carbon Dioxide Anion Gap BUN Creatinine Est GFR ( Amer) Est GFR (Non-Af Amer) Random Glucose Calcium Total Bilirubin AST ALT Alkaline Phosphatase Total Protein Albumin Globulin Albumin/Globulin Ratio Beta HCG, Quant Urine Opiates Screen Negative Urine Methadone Screen Negative Ur Barbiturates Screen Negative Ur Phencyclidine Scrn Negative Ur Amphetamines Screen Negative U Benzodiazepines Scrn Negative U Oth Cocaine Metabols Negative U Cannabinoids Screen Negative Alcohol, Quantitative Assessment & Plan - Assessment and Plan (Free Text) Assessment: 52F seen for displaced, comminuted distal tibia fracture of right leg and dorsally dislocated hallux of left foot Plan: Patient seen and evaluated Plan discussed with Dr. Xavi Hernandez, absent leukocytosis Patient admitted to floors under hospitalist Continue pain management per primary team Alcohol, quantitative 374 Right Ankle xray: Comminuted trimalleolar displaced fractures of the distal fibula. Disruption of the ankle mortise. Soft tissue swelling. RLE CT: 1. Prominent reticulation and edema within the circumferential subcutaneous soft tissues with a suggestion of some possible hemorrhage seen within the lateral and anterolateral soft tissues. 2. Markedly comminuted, distracted, and dislocated fracture deformity of the distal tibia with prominent intra-articular extension. A few prominent fracture fragments are noted at the anterolateral distal tibia measuring up to 3.4 centimeters with apparent anterior lateral distraction measuring 1.6 centimeters. Posterior subluxation of the remaining fracture fragment. Fracture deformities involve the medial and posterior malleolus. 3. Distal fibula appears dislocated posteriorly in relationship to the distal tibia. Punctate ossific density at the level of the distal fibula which may represent a small avulsion injury. Left foot xray: Dorsal dislocation of hallux Patient placed in posterior splint on right leg Given good vascular status, evidence for compartment syndrome is limited at this time. Will continue to monitor for signs/symptoms 10 cc of 1% lidocaine plain applied in local block fashion to left hallux Hallux close reduced back in to proper anatomical placement with xray confirmation Left LE dressed in Arnold compression Patient to OR tomorrow at 12 pm for application of external fixator to RLE NPO after midnight Medical clearance obtained from Dr. Lowe Podiatry will continue to follow - Date & Time Date: 04/30/18 Time: 19:27
[2018-05-01 07:53] LABS: BASO % 0.7 % (0.0-2.0); EOS % 0.1 % (0.0-4.0); HEMOGLOBIN 9.6 g/dL (11.0-16.0); LYMPH # 0.8 K/uL (1.0-4.3); LYMPH % 17.6 % (20.0-40.0); MEAN CORPUSCULAR HEMOGLOBIN 30.7 pg (27.0-31.0); MEAN CORPUSCULAR HGB CONC 33.7 g/dL (33.0-37.0); MEAN PLATELET VOLUME 7.8 fL (7.2-11.7); MONO # 0.5 K/uL (0.0-0.8); MONO % 11.1 % (0.0-10.0); NEUT # 3.1 K/uL (1.8-7.0); NEUT % 70.5 % (50.0-75.0); NRBC % 0.1 % (0.0-2.0); RBC 3.12 Mil/uL (3.80-5.20); RED CELL DISTRIBUTION WIDTH 17.3 % (11.5-14.5); WHITE BLOOD COUNT 4.4 K/uL (4.8-10.8)
[2018-05-01] MEDS ORDERED: Multivitamin (MVI) 10 ML, Thiamine 100 MG, Folic Acid 1 MG in Sodium Chloride 0.9% 1,00... IV ONE (08:24)
[2018-05-01 08:27] LABS: ALB/GLOB RATIO 1.2 (1.0-2.1); ALBUMIN 3.9 g/dL (3.5-5.0); ALT/SGPT 57 U/L (9-52); AST/SGOT 95 U/L (14-36); BLOOD UREA NITROGEN 9 mg/dL (7-17); CALCIUM 8.3 mg/dl (8.6-10.4); GFR NON-AFRICAN AMERICAN > 60
--- NOTE | 2018-05-01 08:30 | CP.PCM.PCO ---
Physician Communication Note - Physician Communication Note Physician Communication Note: Please see above
--- NOTE | 2018-05-01 08:37 | RAD ---
Date of service: 04/30/2018 PROCEDURE: Left Foot Radiographs. HISTORY: closed reduction of dislocated left hallux COMPARISON: 04/30/2018 at 12:30 hours FINDINGS: BONES: The prior dorsal dislocation of the 1st proximal phalanx has been reduced to normal anatomical alignment. There indeterminate ossifications bordering the lateral 1st metatarsal-phalangeal joint. The medial sesamoid bone is intact. Tiny chip flake fracture fragment off the lateral sesamoid and/or possibly multiple sesamoid bones with or without flake fractures from those additional sesamoid bones here are a consideration-given the prior appearance JOINTS: Successful reduction as above SOFT TISSUES: Diffuse soft tissue swelling and density overlying casting OTHER FINDINGS: Tiny incidental os peroneum. IMPRESSION: Successful post reduction of prior dorsal dislocation of 1st proximal phalanx relative to 1st metatarsal. Possible flake fracture fragments (specific origin donor sites-indeterminate) needed be considered bordering the lateral 1st metatarsal-phalangeal joint.
[2018-05-01 09:28] LABS: FOLATE > 20.0 ng/mL
--- NOTE | 2018-05-01 10:46 | CP.PCM.PN ---
Subjective - Date & Time of Evaluation Date of Evaluation: 05/01/18 Time of Evaluation: 10:42 - Subjective Subjective: Podiatry Progress Note for Dr. Hurley 52F seen at bedside for comminuted, displaced pilon fracture of right leg and dislocated hallux of left foot. Patient is showing signs of and symptoms of alcohol withdrawal. States that pain to left hallux is greatly improved since closed reduction yesterday. Also states that pain in right foot and ankle is improved and numbness to right foot has decreased slightly. Denies any further pedal complaints. States that she has been experiencing nausea and vomiting all night Objective - Vital Signs/Intake and Output Vital Signs (last 24 hours): Temp Pulse Resp BP Pulse Ox 100.1 F H 101 H 20 146/83 96 05/01/18 07:00 05/01/18 07:00 05/01/18 07:00 05/01/18 07:00 05/01/18 07:00 Intake and Output: 05/01/18 05/01/18 06:59 18:59 Intake Total 1260 Balance 1260 - Medications Medications: Current Medications Acetaminophen (Tylenol 325mg Tab) 650 mg PO Q6H SHA Stop: 05/02/18 09:00 Albuterol/Ipratropium (Duoneb 3 Mg/0.5 Mg (3 Ml) Ud) 3 ml INH RQ6 PRN PRN Reason: Shortness of Breath Azithromycin (Zithromax) 250 mg PO DAILY SHA; Protocol Stop: 05/05/18 10:00 Chlordiazepoxide (Librium) 25 mg PO Q6 SHA; Taper Stop: 05/05/18 11:59 Multivitamins/Vitamin C 10 ml/Thiamine HCl 100 mg/ Folic Acid 1 mg/ Sodium Chloride 1,011.2 mls @ 100 mls/hr IV .Q10H7M ONE Stop: 05/01/18 18:30 Lorazepam (Ativan) 1 mg IVP Q6H PRN PRN Reason: Symptoms of alcohol withdrawl Last Admin: 04/30/18 23:12 Dose: 1 mg Morphine Sulfate (Morphine) 0.5 mg IVP Q6H PRN PRN Reason: Pain, moderate (4-7) Morphine Sulfate (Morphine) 1 mg IVP Q6H PRN PRN Reason: Pain, severe (8-10) Last Admin: 05/01/18 05:05 Dose: 1 mg Ondansetron HCl (Zofran Inj) 4 mg IVP Q6H PRN PRN Reason: Nausea/Vomiting Pneumococcal Polyvalent Vaccine (Pneumovax 23 Vaccine) 0.5 ml IM .ONCE ONE Stop: 05/02/18 10:01 - Labs Labs: 05/01/18 07:32 05/01/18 07:32 PT 11.4 SECONDS (9.7-12.2) 04/30/18 10:43 INR 1.0 04/30/18 10:43 APTT 30 SECONDS (21-34) 04/30/18 10:43 - Constitutional Appears: Well, Non-toxic, No Acute Distress - Extremities Exam Additional comments: RLE Posterior splint noted to be C/D/I with no evidence of patient attempts to walk. Dressings left intact Vasc: CFT < 3 seconds to all digits Neuro: Epicritic and protective sensation grossly diminished to right side Derm: Unable to assess due to posterior splint MSK: Patient unable to wiggle toes secondary to guarding LLE: Dressing noted to be C/D/I with no evidence of patient attempts to walk. Dressings left intact Vasc: CFT < 3 seconds to all digits Neuro: Epicritic and protective sensation grossly diminished to right side Derm: Unable to assess due to dressing MSK: Patient unable to wiggle toes secondary to guarding - Neurological Exam Neurological Exam: Alert, Awake, Oriented x3 - Psychiatric Exam Psychiatric exam: Normal Affect, Normal Mood Assessment and Plan - Assessment and Plan (Free Text) Assessment: 52F seen at bedside for comminuted, displaced pilon fracture of right leg and dislocated hallux of left foot. Plan: Patient seen and evaluated Plan discussed with Dr. Hurley Per Dr. Lowe, patient is not medically cleared for surgery at this time Patient will be reassessed daily for signs of withdrawal and will be tentatively scheduled for application of external fixator on Saturday 05/05 Patient to remain strict NWB Patient to keep dressing C/D/I Continue pain management per primary team Podiatry will continue to follow while patient in house
[2018-05-01] MEDS ORDERED: Potassium Chloride 20 mEq ER Tab PO ONE (14:00)
--- NOTE | 2018-05-01 14:31 | CP.PCM.PN ---
<Luís Sanchez - Last Filed: 05/01/18 16:29> Subjective - Date & Time of Evaluation Date of Evaluation: 05/01/18 Time of Evaluation: 14:23 - Subjective Subjective: PGY-[address] Ezequiel Lowe Patient seen and examined at bedside. Patient did have an episode of vomiting overnight. IV Zofran administered did help with nausea/vomiting. Patient states she does feel that this is attributable to withdrawal from alcohol. Patient given stat dose of ativan. Today she did have mildly elevated temps and was slightly tachy on exam. Today, patient does not feel nauseous. However, she is complaining of new sore throat with nasal congestion. States hurts to swallow. Patient denies chest pain, headache, dizziness, palpitations, hallucinations. Objective - Vital Signs/Intake and Output Vital Signs (last 24 hours): Temp Pulse Resp BP Pulse Ox 100.1 F H 101 H 20 146/83 96 05/01/18 07:00 05/01/18 07:00 05/01/18 07:00 05/01/18 07:00 05/01/18 07:00 Intake and Output: 05/01/18 05/01/18 06:59 18:59 Intake Total 1260 Balance 1260 - Medications Medications: Current Medications Acetaminophen (Tylenol 325mg Tab) 650 mg PO Q6H SHA Stop: 05/02/18 09:00 Last Admin: 05/01/18 11:05 Dose: 650 mg Albuterol/Ipratropium (Duoneb 3 Mg/0.5 Mg (3 Ml) Ud) 3 ml INH RQ6 PRN PRN Reason: Shortness of Breath Azithromycin (Zithromax) 250 mg PO DAILY [facility]; Protocol Stop: 05/05/18 10:00 Chlordiazepoxide (Librium) 25 mg PO Q6 [facility]; Taper Stop: 05/05/18 11:59 Last Admin: 05/01/18 14:01 Dose: 25 mg Multivitamins/Vitamin C 10 ml/Thiamine HCl 100 mg/ Folic Acid 1 mg/ Sodium Chloride 1,011.2 mls @ 100 mls/hr IV .Q10H7M ONE Stop: 05/01/18 18:30 Last Admin: 05/01/18 10:56 Dose: 100 mls/hr Lorazepam (Ativan) 1 mg IVP Q6H PRN PRN Reason: Symptoms of alcohol withdrawl Last Admin: 04/30/18 23:12 Dose: 1 mg Morphine Sulfate (Morphine) 0.5 mg IVP Q6H PRN PRN Reason: Pain, moderate (4-7) Morphine Sulfate (Morphine) 1 mg IVP Q6H PRN PRN Reason: Pain, severe (8-10) Last Admin: 05/01/18 05:05 Dose: 1 mg Ondansetron HCl (Zofran Inj) 4 mg IVP Q6H PRN PRN Reason: Nausea/Vomiting Last Admin: 05/01/18 11:06 Dose: 4 mg Pneumococcal Polyvalent Vaccine (Pneumovax 23 Vaccine) 0.5 ml IM .ONCE ONE Stop: 05/02/18 10:01 - Labs Labs: 05/01/18 07:32 05/01/18 07:32 PT 11.4 SECONDS (9.7-12.2) 04/30/18 10:43 INR 1.0 04/30/18 10:43 APTT 30 SECONDS (21-34) 04/30/18 10:43 - Constitutional Appears: No Acute Distress - Head Exam Head Exam: ATRAUMATIC, NORMAL INSPECTION - Eye Exam Eye Exam: EOMI, Normal appearance - ENT Exam ENT Exam: Mucous Membranes Moist Additional comments: Dried blood.mucous in nose b/l. - Neck Exam Neck Exam: absent: Lymphadenopathy, Tenderness - Respiratory Exam Respiratory Exam: Rales. absent: Rhonchi, Wheezes - Cardiovascular Exam Cardiovascular Exam: Tachycardia, REGULAR RHYTHM, +S1, +S2. absent: Murmur - GI/Abdominal Exam GI & Abdominal Exam: Soft, Normal Bowel Sounds. absent: Tenderness - Extremities Exam Extremities Exam: Tenderness (R lower extremity tenderness). absent: Pedal Edema - Neurological Exam Neurological Exam: Alert, Awake, CN II-XII Intact, Oriented x3 - Psychiatric Exam Psychiatric exam: Normal Affect, Normal Mood - Skin Skin Exam: Dry, Intact, Normal Color, Warm Assessment and Plan - Assessment and Plan (Free Text) Assessment: Patient is a 52 year old female with a PMH of asthma, HTN, alcohol abuse, and pneumonia who presents to the ED via Ambulance after a fall. Plan: Right distal tibia/fibula fracture: Patient medically optimized for surgery - Right Ankle Xray (04/30): Comminuted trimalleolar displaced fractures of the distal fibula. Disruption of the ankle mortise. Soft tissue swelling. - Right lower extremity CT (04/30): Markedly comminuted, distracted, and dislocated fracture deformity of the distal tibia with prominent intra-articular extension. A few prominent fracture fragments are noted at the anterolateral distal tibia measuring up to 3.4 centimeters with apparent anterior lateral distraction measuring 1.6 centimeters. Posterior subluxation of the remaining fracture fragment. Fracture deformities involve the medial and posterior malleolus. - Head CT (04/30): No acute intracranial pathology identified. - CXR (04/30): No acute findings - Podiatry, Dr. Hurley consulted - -- Planned ORIF in today postponed due to patient with elevated temps and tachy, likely 2/2 ETOH withdrawal; Diet restarted - -- Plan for OR Monday, pending no more fevers/withdrawal sx - Morphine 0.5mg Q6 PRN - Moderate pain - Morphine 1mg Q6 PRN - Severe pain - Left lower extremity duplex: f/u Hx of alcohol abuse: - Continue to monitor for possible withdrawal symptoms - Blood alcohol level 375 on admission - Librium taper - 25mg PO Q6 --> Q8 --> Q12 --> Once - Ativan 1mg IV Q6 PRN - Daily banana bag @ 100 mls/hr - Folate > 20, B12 - 427 - Today 05/01: Temp 100.1, tachycardic in 110s. ORIF postponed for now. Continue to monitor symptoms. Low Grade Fever - Tmax 100.1 F - Azithromycin 500mg PO given once today - Azithromycin 250 mg PO BID - Likely 2/2 withdrawal - Urine and blood cx - Follow up and continue Abx pending. - Plan for OR Monday, pending no more fevers/withdrawal sx Normocytic anemia: - Likely 2/2 alcohol abuse - Will continue to monitor with daily CBC Thrombocytopenia: - Likely 2/2 alcohol abuse - Will hold chemical anticoagulants - Will continue to monitor with daily CBC Transaminitis: - Likely 2/2 alcohol abuse - AST:ALT is >2 - Will continue to monitor Hx of HTN: - Patient is not currently taking any medications - Patient is hemodynamically stable - Will continue to monitor - Vitals Q4 Hx of depression: - As per prior medical records - Patient is not currently taking any medications Hx of schizophrenia: - As per prior medical records - Patient is not currently taking any medications Hypocalcemia: - Patient is currently asymptomatic - Will continue to monitor Hx of Asthma: - Duonebs Q6 PRN Case discussed with Dr. Ezequiel Sanchez, PGY-1 <Lukas Lowe - Last Filed: 05/04/18 00:19> Objective - Vital Signs/Intake and Output Vital Signs (last 24 hours): Temp Pulse Resp BP Pulse Ox 98.5 F 101 H 20 105/72 96 05/03/18 15:00 05/03/18 15:00 05/03/18 15:00 05/03/18 15:00 05/03/18 15:00 - Medications Medications: Current Medications Acetaminophen (Tylenol 325mg Tab) 650 mg PO Q6 PRN PRN Reason: Pain, Mild (1-3) Last Admin: 05/02/18 13:01 Dose: 650 mg Albuterol/Ipratropium (Duoneb 3 Mg/0.5 Mg (3 Ml) Ud) 3 ml INH RQ6 PRN PRN Reason: Shortness of Breath Azithromycin (Zithromax) 250 mg PO DAILY [facility]; Protocol Stop: 05/05/18 10:00 Last Admin: 05/03/18 10:43 Dose: 250 mg Chlordiazepoxide (Librium) 25 mg PO BID [facility]; Taper Stop: 05/05/18 11:59 Last Admin: 05/03/18 17:17 Dose: 25 mg Lorazepam (Ativan) 1 mg IVP Q6H PRN PRN Reason: Symptoms of alcohol withdrawl Last Admin: 05/03/18 00:37 Dose: 1 mg Lorazepam (Ativan) 1 mg IVP Q4 SHA Last Admin: 05/03/18 20:49 Dose: 1 mg Metoprolol Tartrate (Lopressor) 12.5 mg PO BIDCC [facility] Last Admin: 05/03/18 17:17 Dose: 12.5 mg Morphine Sulfate (Morphine) 0.5 mg IVP Q6H PRN PRN Reason: Pain, moderate (4-7) Morphine Sulfate (Morphine) 1 mg IVP Q6H PRN PRN Reason: Pain, severe (8-10) Last Admin: 05/03/18 06:55 Dose: 1 mg Ondansetron HCl (Zofran Inj) 4 mg IVP Q6H PRN PRN Reason: Nausea/Vomiting Last Admin: 05/01/18 11:06 Dose: 4 mg Thiamine HCl (Vitamin B1 Tab) 100 mg PO BID [facility] Last Admin: 05/03/18 17:17 Dose: Not Given Trazodone HCl (Desyrel) 25 mg PO HS SHA Last Admin: 05/03/18 21:17 Dose: 25 mg - Labs Labs: 05/03/18 07:09 05/03/18 07:09 PT 11.4 SECONDS (9.7-12.2) 04/30/18 10:43 INR 1.0 04/30/18 10:43 APTT 30 SECONDS (21-34) 04/30/18 10:43 Attending/Attestation - Attestation I have personally seen and examined this patient.: Yes I have fully participated in the care of the patient.: Yes I have reviewed all pertinent clinical information, including history, physical exam and plan: Yes Notes (Text): 05/04/18 00:18 This is a late entry. Care of this patient was gone over in detail with resident Dr. Sanchez during rounds on 05/01/18, Lukas Lowe D.O.
[2018-05-02] MEDS ORDERED: Multivitamin (MVI) 10 ML, Thiamine 100 MG, Folic Acid 1 MG in Sodium Chloride 0.9% 1,00... IV ONE (06:58)
--- NOTE | 2018-05-02 07:02 | CP.PCM.PN ---
<Luís Sanchez - Last Filed: 05/02/18 16:23> Subjective - Date & Time of Evaluation Date of Evaluation: 05/02/18 Time of Evaluation: 06:57 - Subjective Subjective: PGY-[address] Ezequiel Lowe Patient seen and examined at bedside. No acute events overnight per nursing. Patient no longer complaining of any nausea, has not vomited. States she feels much better. The patient did not realized that she had fractures of her right lower extremity- I explained to patient where the fractures were located and explained plan for external fixation. Patient denies chest pain, headache, dizziness, palpitations, hallucinations. Objective - Vital Signs/Intake and Output Vital Signs (last 24 hours): Temp Pulse Resp BP Pulse Ox 99.2 F 86 20 134/81 98 05/02/18 04:20 05/02/18 04:20 05/02/18 04:20 05/02/18 04:20 05/02/18 04:20 Intake and Output: 05/01/18 05/02/18 18:59 06:59 Intake Total 340 Balance 340 - Medications Medications: Current Medications Acetaminophen (Tylenol 325mg Tab) 650 mg PO Q6H SHA Stop: 05/02/18 09:00 Last Admin: 05/02/18 02:15 Dose: 650 mg Albuterol/Ipratropium (Duoneb 3 Mg/0.5 Mg (3 Ml) Ud) 3 ml INH RQ6 PRN PRN Reason: Shortness of Breath Azithromycin (Zithromax) 250 mg PO DAILY [facility]; Protocol Stop: 05/05/18 10:00 Chlordiazepoxide (Librium) 25 mg PO Q6 [facility]; Taper Stop: 05/05/18 11:59 Last Admin: 05/02/18 05:50 Dose: 25 mg Lorazepam (Ativan) 1 mg IVP Q6H PRN PRN Reason: Symptoms of alcohol withdrawl Last Admin: 04/30/18 23:12 Dose: 1 mg Morphine Sulfate (Morphine) 0.5 mg IVP Q6H PRN PRN Reason: Pain, moderate (4-7) Morphine Sulfate (Morphine) 1 mg IVP Q6H PRN PRN Reason: Pain, severe (8-10) Last Admin: 05/01/18 05:05 Dose: 1 mg Ondansetron HCl (Zofran Inj) 4 mg IVP Q6H PRN PRN Reason: Nausea/Vomiting Last Admin: 05/01/18 11:06 Dose: 4 mg Pneumococcal Polyvalent Vaccine (Pneumovax 23 Vaccine) 0.5 ml IM .ONCE ONE Stop: 05/02/18 10:01 - Labs Labs: 05/01/18 07:32 05/01/18 07:32 PT 11.4 SECONDS (9.7-12.2) 04/30/18 10:43 INR 1.0 04/30/18 10:43 APTT 30 SECONDS (21-34) 04/30/18 10:43 - Constitutional Appears: Non-toxic, No Acute Distress - Head Exam Head Exam: ATRAUMATIC, NORMAL INSPECTION - Eye Exam Eye Exam: EOMI, Normal appearance - ENT Exam ENT Exam: Mucous Membranes Moist - Neck Exam Neck Exam: absent: Tenderness - Respiratory Exam Respiratory Exam: Clear to Ausculation Bilateral, NORMAL BREATHING PATTERN. absent: Rales, Rhonchi, Wheezes - Cardiovascular Exam Cardiovascular Exam: REGULAR RHYTHM, +S1, +S2 - GI/Abdominal Exam GI & Abdominal Exam: Soft, Normal Bowel Sounds. absent: Tenderness Additional comments: Not tachy on exam - Extremities Exam Extremities Exam: absent: Pedal Edema, Tenderness Additional comments: RLE tenderness. Dressings c/d/i. - Neurological Exam Neurological Exam: Alert, Awake, CN II-XII Intact, Oriented x3 - Psychiatric Exam Psychiatric exam: Normal Affect, Normal Mood - Skin Skin Exam: Dry, Intact, Normal Color, Warm Assessment and Plan - Assessment and Plan (Free Text) Assessment: Patient is a 52 year old female with a PMH of asthma, HTN, alcohol abuse, and pneumonia who presents to the ED via Ambulance after a fall. Plan: Right distal tibia/fibula fracture: Patient medically optimized for surgery - Right Ankle Xray (04/30): Comminuted trimalleolar displaced fractures of the distal fibula. Disruption of the ankle mortise. Soft tissue swelling. - Right lower extremity CT (04/30): Markedly comminuted, distracted, and dislocated fracture deformity of the distal tibia with prominent intra-articular extension. A few prominent fracture fragments are noted at the anterolateral distal tibia measuring up to 3.4 centimeters with apparent anterior lateral distraction measuring 1.6 centimeters. Posterior subluxation of the remaining fracture fragment. Fracture deformities involve the medial and posterior malleolus. - Head CT (04/30): No acute intracranial pathology identified. - CXR (04/30): No acute findings - Podiatry, Dr. Hurley consulted - -- Planned ORIF in today postponed due to patient with elevated temps and tachy, likely 2/2 ETOH withdrawal; Diet restarted - -- Plan for OR Monday, pending no more fevers/withdrawal sx - Morphine 0.5mg Q6 PRN - Moderate pain - Morphine 1mg Q6 PRN - Severe pain - Left lower extremity duplex: f/u Hx of alcohol abuse: - Continue to monitor for possible withdrawal symptoms - Blood alcohol level 375 on admission - Librium taper - 25mg PO Q6 --> Q8 --> Q12 --> Once - Ativan 1mg IV Q6 PRN - Daily banana bag @ 100 mls/hr - Folate > 20, B12 - 427 - Withdrawal sx noted on 05/01: Temp 100.1, tachycardic in 110s. ORIF postponed for now. Continue to monitor symptoms. - --Currently afebrile, HR 90s-100s, BP mildly elevated Low Grade Fever - Tmax 100.1 F - --Afebrile overnight 05/02 - Azithromycin 250 mg PO BID - Likely 2/2 withdrawal - Urine and blood cx - Follow up and continue Abx pending. - Plan for OR Monday, pending no more fevers/withdrawal sx Normocytic anemia: - Likely 2/2 alcohol abuse - Will continue to monitor with daily CBC Thrombocytopenia: - Likely 2/2 alcohol abuse - Will hold chemical anticoagulants - Will continue to monitor with daily CBC Transaminitis: - Likely 2/2 alcohol abuse - AST:ALT is >2 - Will continue to monitor Hx of HTN: - Patient is not currently taking any medications - Patient is hemodynamically stable - Will continue to monitor - Vitals Q4 Hx of depression: - As per prior medical records - Patient is not currently taking any medications Hx of schizophrenia: - As per prior medical records - Patient is not currently taking any medications Hypocalcemia: - Patient is currently asymptomatic - Will continue to monitor Hx of Asthma: - Duonebs Q6 PRN Case discussed with Dr. Ezequiel Sanchez, PGY-1 <Lukas Lowe - Last Filed: 05/02/18 20:35> Objective - Vital Signs/Intake and Output Vital Signs (last 24 hours): Temp Pulse Resp BP Pulse Ox 99.7 F H 92 H 20 103/67 99 05/02/18 15:00 05/02/18 15:00 05/02/18 15:00 05/02/18 15:00 05/02/18 15:00 Intake and Output: 05/02/18 05/03/18 18:59 06:59 Intake Total 1400 Output Total 700 Balance 700 - Medications Medications: Current Medications Acetaminophen (Tylenol 325mg Tab) 650 mg PO Q6 PRN PRN Reason: Pain, Mild (1-3) Last Admin: 05/02/18 13:01 Dose: 650 mg Albuterol/Ipratropium (Duoneb 3 Mg/0.5 Mg (3 Ml) Ud) 3 ml INH RQ6 PRN PRN Reason: Shortness of Breath Azithromycin (Zithromax) 250 mg PO DAILY [facility]; Protocol Stop: 05/05/18 10:00 Last Admin: 05/02/18 09:51 Dose: 250 mg Chlordiazepoxide (Librium) 25 mg PO TID [facility]; Taper Stop: 05/05/18 11:59 Last Admin: 05/02/18 17:45 Dose: 25 mg Lorazepam (Ativan) 1 mg IVP Q6H PRN PRN Reason: Symptoms of alcohol withdrawl Last Admin: 04/30/18 23:12 Dose: 1 mg Metoprolol Tartrate (Lopressor) 12.5 mg PO BIDCC [facility] Last Admin: 05/02/18 17:45 Dose: 12.5 mg Morphine Sulfate (Morphine) 0.5 mg IVP Q6H PRN PRN Reason: Pain, moderate (4-7) Morphine Sulfate (Morphine) 1 mg IVP Q6H PRN PRN Reason: Pain, severe (8-10) Last Admin: 05/01/18 05:05 Dose: 1 mg Ondansetron HCl (Zofran Inj) 4 mg IVP Q6H PRN PRN Reason: Nausea/Vomiting Last Admin: 05/01/18 11:06 Dose: 4 mg - Labs Labs: 05/02/18 06:37 05/02/18 06:37 PT 11.4 SECONDS (9.7-12.2) 04/30/18 10:43 INR 1.0 04/30/18 10:43 APTT 30 SECONDS (21-34) 04/30/18 10:43 Attending/Attestation - Attestation I have personally seen and examined this patient.: Yes I have fully participated in the care of the patient.: Yes I have reviewed all pertinent clinical information, including history, physical exam and plan: Yes Notes (Text): 05/02/18 20:20 Patient was seen and examined at 11:30 AM 05/02/18. Care of this patient was gone over in detail with resident Dr. Sanchez. Upon FULL ROS: Stated that she was feeling much better Pain in the right lowere leg only if she moves it: she understands to only ask for pain medication if absolutely necessary as I explained to her about not adding another addiction to her already addiction to alcohol and she expressed understaning NO chest pain NO palpitations NO abdominal pain NO diarrhea NO visual/auditory hallucinations Also on exam: Very faint hand tremors present: this is much improved compared to 05/01/18 when patient was tremulousness throughout entire upper half of body Patient also very relaxed today and speaking of the future and that she had spoken with her daughter Siri in [place] and there is a possibility of her going to live with her there HgB/Hct are stable Platelets are trending up LFTs have almost normalized Blood Pressure and Heart Rate are elevated and this is likely secondary to the Alcohol Withdrawl: Metoprolol 12.5 mg PO 2x/day with holding parameters has been added. Patient will finish Ativan Taper on 05/04/18 Patient will finish Azithromycin 250 mg PO 1x/day on Monday05/05/18 for treatment of her Pharyngitis (pharyngeal erythema and right submandibular tender lymphadenopathy on 05/01/18 exam but not noted today). Patient stated that her sore throat has improved and does not hurt as much. For the Right Lower Leg Pain: Morphine 0.5 mg IV Q6H for moderate and 1 mg IV Q6H for severe pain as needed NO anticoagulation can be used at this time considering the Anemia and Thrombocytopenia She is S/P Left Hallux Close Reduction back in to proper anatomical placement with xray confirmation by Podiatry on 04/30/18 Medicine Team: should the patient continue to improve with her Alcohol Withdrawl, then clear patient for external fixation of Right Distal Tib/Fib Fracture with Podiatry Dr. Hurley scheduled for Monday05/05/18. She will need to be made NPO after midnight 05/04/18. Notify Podiatry Resident Dr. Artie Vidal on Monday05/04/18 once patient is cleared. Lukas Lowe D.O.
[2018-05-02 07:30] LABS: ALBUMIN 3.5 g/dL (3.5-5.0); ALT/SGPT 46 U/L (9-52); AST/SGOT 66 U/L (14-36); BLOOD UREA NITROGEN 11 mg/dL (7-17); CALCIUM 8.6 mg/dl (8.6-10.4); GFR NON-AFRICAN AMERICAN > 60
[2018-05-02 07:37] LABS: BASO % 0.9 % (0.0-2.0); EOS # 0.1 K/uL (0.0-0.7); EOS % 2.7 % (0.0-4.0); HEMOGLOBIN 9.6 g/dL (11.0-16.0); LYMPH # 0.9 K/uL (1.0-4.3); LYMPH % 20.5 % (20.0-40.0); MEAN CELL VOLUME 91.4 fL (81.0-99.0); MEAN CORPUSCULAR HEMOGLOBIN 30.6 pg (27.0-31.0); MEAN CORPUSCULAR HGB CONC 33.5 g/dL (33.0-37.0); MEAN PLATELET VOLUME 8.5 fL (7.2-11.7); MONO # 0.4 K/uL (0.0-0.8); MONO % 8.7 % (0.0-10.0); NEUT # 3.1 K/uL (1.8-7.0); NEUT % 67.2 % (50.0-75.0); NRBC % 0.1 % (0.0-2.0); RBC 3.14 Mil/uL (3.80-5.20); RED CELL DISTRIBUTION WIDTH 17.4 % (11.5-14.5); WHITE BLOOD COUNT 4.6 K/uL (4.8-10.8)
[2018-05-02] MEDS ORDERED: Pneumococcal 23-Valent Vaccine IM ONE (10:00)
--- NOTE | 2018-05-02 10:26 | CP.PCM.PN ---
Subjective - Date & Time of Evaluation Date of Evaluation: 05/02/18 Time of Evaluation: 10:23 - Subjective Subjective: Podiatry Progress Note for Dr. Hurley 52F seen at bedside for comminuted, displaced pilon fracture of right leg and dislocated hallux of left foot. Patient is AAO x 3 and NAD, resting comfortably in bed at time of visit. Patient is visibly more coherent and energetic this morning. States that she is experiencing some pain in her right ankle and denies pain to her left hallux. Patient denies any remaining numbness to her right foot and is able to wiggle all toes of both feet freely without pain. Patient denies any acute overnight events and states that she is currently not experiencing any nausea or vomiting. Denies any further pedal complaints at this time. Objective - Vital Signs/Intake and Output Vital Signs (last 24 hours): Temp Pulse Resp BP Pulse Ox 97.4 F L 103 H 20 152/73 H 98 05/02/18 08:16 05/02/18 08:16 05/02/18 08:16 05/02/18 08:16 05/02/18 08:16 Intake and Output: 05/02/18 05/02/18 06:59 18:59 Output Total 400 Balance -400 - Medications Medications: Current Medications Albuterol/Ipratropium (Duoneb 3 Mg/0.5 Mg (3 Ml) Ud) 3 ml INH RQ6 PRN PRN Reason: Shortness of Breath Azithromycin (Zithromax) 250 mg PO DAILY [facility]; Protocol Stop: 05/05/18 10:00 Last Admin: 05/02/18 09:51 Dose: 250 mg Chlordiazepoxide (Librium) 25 mg PO Q6 [facility]; Taper Stop: 05/05/18 11:59 Last Admin: 05/02/18 05:50 Dose: 25 mg Multivitamins/Vitamin C 10 ml/Thiamine HCl 100 mg/ Folic Acid 1 mg/ Sodium Chloride 1,011.2 mls @ 100 mls/hr IV .Q10H7M ONE Stop: 05/02/18 17:04 Lorazepam (Ativan) 1 mg IVP Q6H PRN PRN Reason: Symptoms of alcohol withdrawl Last Admin: 04/30/18 23:12 Dose: 1 mg Morphine Sulfate (Morphine) 0.5 mg IVP Q6H PRN PRN Reason: Pain, moderate (4-7) Morphine Sulfate (Morphine) 1 mg IVP Q6H PRN PRN Reason: Pain, severe (8-10) Last Admin: 05/01/18 05:05 Dose: 1 mg Ondansetron HCl (Zofran Inj) 4 mg IVP Q6H PRN PRN Reason: Nausea/Vomiting Last Admin: 05/01/18 11:06 Dose: 4 mg - Labs Labs: 05/02/18 06:37 05/02/18 06:37 PT 11.4 SECONDS (9.7-12.2) 04/30/18 10:43 INR 1.0 04/30/18 10:43 APTT 30 SECONDS (21-34) 04/30/18 10:43 - Constitutional Appears: Well, Non-toxic, No Acute Distress - Extremities Exam Additional comments: RLE Posterior splint noted to be C/D/I with no evidence of patient attempts to walk. Dressings left intact Vasc: CFT < 3 seconds to all digits Neuro: Epicritic and protective sensation intact Derm: Unable to assess due to posterior splint MSK: Patient able to wiggle all toes without pain LLE: Dressing noted to be C/D/I with no evidence of patient attempts to walk. Dressings left intact Vasc: CFT < 3 seconds to all digits Neuro: Epicritic and protective sensation grossly intact Derm: Unable to assess due to dressing MSK: Patient able to wiggle all toes without pain - Neurological Exam Neurological Exam: Alert, Awake, Oriented x3 - Psychiatric Exam Psychiatric exam: Normal Affect, Normal Mood Assessment and Plan - Assessment and Plan (Free Text) Assessment: 52F seen at bedside for comminuted, displaced pilon fracture of right leg and dislocated hallux of left foot Plan: Patient seen and evaluated Plan discussed with Dr. Hurley Afebrile, absent leukocytosis Continue abx per ID Continue pain management per primary team LE arterial duplex: read pending Right Ankle xray: Comminuted trimalleolar displaced fractures of the distal fibula. Disruption of the ankle mortise. Soft tissue swelling. RLE CT: 1. Prominent reticulation and edema within the circumferential subcutaneous soft tissues with a suggestion of some possible hemorrhage seen within the lateral and anterolateral soft tissues. 2. Markedly comminuted, distracted, and dislocated fracture deformity of the distal tibia with prominent intra-articular extension. A few prominent fracture fragments are noted at the anterolateral distal tibia measuring up to 3.4 centimeters with apparent anterior lateral distraction measuring 1.6 centimeters. Posterior subluxation of the remaining fracture fragment. Fracture deformities involve the medial and posterior malleolus. 3. Distal fibula appears dislocated posteriorly in relationship to the distal tibia. Punctate ossific density at the level of the distal fibula which may represent a small avulsion injury. Patient will be reassessed daily for signs of withdrawal and is tentatively scheduled for application of external fixator on Saturday 05/05 Patient to remain strict NWB Patient to keep dressing C/D/I Continue pain management per primary team Podiatry will continue to follow while patient in house
[2018-05-02] MEDS ORDERED: Potassium Chloride 20 mEq ER Tab PO ONE (11:00)
--- NOTE | 2018-05-02 15:57 | VASCLAB ---
Date of service: 05/02/2018 PROCEDURE: Left Lower Extremity Venous Duplex Exam. HISTORY: rule out DVT PRIORS: None. TECHNIQUE: Left common femoral, femoral, popliteal and posterior tibial, peroneal and great saphenous veins were evaluated. Flow was assessed with color Doppler, compressibility, assessment of phasic flow and augmentation response. Report prepared by JOURDAN Norwood FINDINGS: LEFT: 1. Common Femoral Vein: 1.1. Compressibility - Fully compressible: Thrombus - None : Flow - Phasic: Augmentation -Normal: Reflux - None. 2. Femoral Vein: 2.1. Compressibility - Fully compressible: Thrombus - None: Flow - Phasic: Augmentation -Normal: Reflux - None. 3. Popliteal Vein: 3.1. Compressibility - Fully compressible: Thrombus - None: Flow - Phasic: Augmentation -Normal: Reflux - None. 4. Posterior Tibial Vein: 4.1. Compressibility - Fully compressible: Thrombus - None: Flow - Phasic: Augmentation -Normal: Reflux - None. 5. Peroneal Vein: 5.1. Compressibility - Fully compressible: Thrombus - None: Flow - Phasic: Augmentation -Normal: Reflux - None. 6. Great Saphenous Vein: 6.1. Compressibility - Fully compressible: Thrombus - None: Flow - Phasic: Augmentation - Normal: Reflux - None. OTHER FINDINGS: IMPRESSION: No evidence of deep or superficial vein thrombosis of the left lower extremity with excellent venous flow. Normal valve function noted of the left side. Normal venous flow noted in the right common femoral vein.
--- NOTE | 2018-05-02 20:35 | CP.PCM.PCO ---
Physician Communication Note - Physician Communication Note Physician Communication Note: Please see above
--- NOTE | 2018-05-02 21:21 | CARD ---
APPROVED REPORT Date of service: 04/30/2018 EKG Measurement Heart [id number] <Conclusion> Borderline sinus tachycardia Borderline EKG
--- NOTE | 2018-05-03 05:01 | PCM.FALL ---
Post Fall Progress Note - Post Fall Fall Date: 05/02/18 Fall Time: 22:03 - Post Fall Exam Vital Sign: Temp Pulse Resp BP Pulse Ox 98.1 F 95 H 20 120/75 100 05/02/18 23:15 05/02/18 23:15 05/02/18 23:15 05/02/18 23:15 05/02/18 23:15 Skull Exam: Negative for: Scalp wound, Scalp hematoma, Scalp depression, Ridge in skull Eye Exam: Positive for: Pupils equal, Pupils reactive Ear Exam: Negative for: Discharge, Bleeding Nose Exam: Negative for: Discharge, Bleeding Skin Exam: Negative for: Colour, Lacerations, Grazes, Bruising Mouth Exam: Negative for: Tongue bitten, Teeth dislodge Neck Exam: Negative for: Tenderness, Tingling, Weakness Spinal Exam: Negative for: Tenderness, Tingling, Weakness Chest Exam: Negative for: Difficulty breathing, Tenderness in collar bones, Tenderness in ribs Abdomen Exam: Negative for: Tenderness Pelvic Exam: Negative for: Tenderness, Hematuria Arm Exam: Negative for: Deformity, Alteration in range of movement Leg Exam: Negative for: Deformity, Alteration in range of movement Impression/Plan: House doctor note. Code star called at 10:03 pm for patient. Vitals: 134/94, HR 110, Spo2 98% on RA. Patient was incontinent of stool and stood up to clean herself off. Nurse was aiding patient in wiping her backside as patient was standing and bracing herself against the bed side rail. She was not able to keep her balance on her R leg and fell onto her R side. Patient complains of increased pain to her right distal leg and 5th toe. Denies head trauma, loss of consciousness, dizziness, and lightheadedness.
[2018-05-03 07:18] LABS: BASO % 0.6 % (0.0-2.0); EOS # 0.2 K/uL (0.0-0.7); EOS % 2.8 % (0.0-4.0); HEMOGLOBIN 8.9 g/dL (11.0-16.0); LYMPH # 1.2 K/uL (1.0-4.3); LYMPH % 20.6 % (20.0-40.0); MEAN CELL VOLUME 91.8 fL (81.0-99.0); MEAN CORPUSCULAR HEMOGLOBIN 31.4 pg (27.0-31.0); MEAN CORPUSCULAR HGB CONC 34.1 g/dL (33.0-37.0); MEAN PLATELET VOLUME 8.4 fL (7.2-11.7); MONO # 0.7 K/uL (0.0-0.8); MONO % 11.5 % (0.0-10.0); NEUT # 3.8 K/uL (1.8-7.0); NEUT % 64.5 % (50.0-75.0); RBC 2.85 Mil/uL (3.80-5.20); RED CELL DISTRIBUTION WIDTH 17.1 % (11.5-14.5)
[2018-05-03] MEDS ORDERED: Multivitamin (MVI) 10 ML, Thiamine 100 MG, Folic Acid 1 MG in Sodium Chloride 0.9% 1,00... IV ONE (08:00)
--- NOTE | 2018-05-03 08:03 | RAD ---
Date of service: 05/02/2018 PROCEDURE: Right Foot Radiographs. HISTORY: pain s/p fall, known tib fib fx COMPARISON: CT 04/30/2018 FINDINGS: BONES: Distal tibial epiphyseal osteopenia. Comminuted distal tibial plafond, medial malleolar/posterior malleolar fracture. Extensive intra-articular extension. Major fracture fragments appear the anteromedial tibial segments. The most displaced fracture fragments involve the anteromedial tibial segments. No major fibular fractures appreciated. 1 to 2 mm osseous avulsed fragments from the fibula probable JOINTS: Intra-articular joint extension as above. Talar dome appears grossly intact. SOFT TISSUES: Gross soft tissue swelling lower leg ankle and hindfoot. Casting in place OTHER FINDINGS: None. IMPRESSION: Extensively comminuted distal tibial fracture fragments with marked intra-articular extension and mostly anteromedial displaced fracture fragments. Probable tiny osseous avulsed fracture fragments fibula. Grossly intact talar dome.
[2018-05-03 08:06] LABS: ALB/GLOB RATIO 1.1 (1.0-2.1); ALBUMIN 3.8 g/dL (3.5-5.0); ALT/SGPT 39 U/L (9-52); AST/SGOT 48 U/L (14-36); BLOOD UREA NITROGEN 12 mg/dL (7-17); CALCIUM 8.8 mg/dl (8.6-10.4); GFR NON-AFRICAN AMERICAN > 60
--- NOTE | 2018-05-03 08:14 | RAD ---
Date of service: 05/02/2018 PROCEDURE: Right Ankle Radiographs. HISTORY: pain s/p fall, known tib fib fx COMPARISON: 04/30/2018 FINDINGS: BONES: The extensively comminuted, distracted and displaced fracture fragments of the tibial plafond, medial and posterior malleolus are re- noted and similar allowing for slight differences in projection. No interval healing in the short interval time appreciated. Punctate distal fibular avulsed fracture fragments noted: No other more significant fibular fracture appreciated. Inferior calcaneal spurring Tiny os peroneum JOINTS: No ankle mortise widening suggested this exam. SOFT TISSUES: Extensive circumferential soft tissue swelling lower leg and ankle OTHER FINDINGS: Casting present. IMPRESSION: The extensively comminuted distal tibial fracture with major fracture fragments displaced and distracted are re-noted. The extensive intra-articular extension is re-noted. No interval healing in the short interval time appreciated Other findings as above.
--- NOTE | 2018-05-03 08:54 | RAD ---
Date of service: 05/02/2018 PROCEDURE: Radiographs of the right tibia and fibula. HISTORY: pain s/p fall, known tib fib fx COMPARISON: None available TECHNIQUE: Frontal and lateral views obtained. FINDINGS: BONES: The extensively comminuted, distracted and displaced fracture fragments of the tibial plafond, medial and posterior malleolus are re- noted no interval healing in the short interval time appreciated. Punctate distal fibular avulsed fracture fragments noted: No other more significant fibular fracture appreciated. JOINT SPACES: Intra articular comminuted fracture fragment extension-ankle. OTHER FINDINGS: Extensive circumferential subcutaneous reticulated edema. Casting present IMPRESSION: Distal tibial extensively comminuted distracted and displaced fracture fragments with intra-articular extension-as detailed above. No more proximal tibial fibular shaft fractures noted.
[2018-05-03] MEDS ORDERED: Potassium Chloride 20 mEq ER Tab PO SCH (10:00)
--- NOTE | 2018-05-03 13:27 | CP.PCM.PN ---
Subjective - Date & Time of Evaluation Date of Evaluation: 05/03/18 Time of Evaluation: 13:24 - Subjective Subjective: Podiatry Progress Note for Dr. Hurley 52F seen at bedside for comminuted, displaced pilon fracture of right leg and dislocated hallux of left foot. Patient is AAO x 3 and NAD, resting comfortably in bed at time of visit. Patient states that she is still experiencing some pain in her right ankle and denies pain to her left hallux. Patient is able to wiggle all toes of both feet freely without pain. Patient denies any acute overnight events and states that she is currently not experiencing any nausea or vomiting. Denies any further pedal complaints at this time. States that she tried to get out of bed yesterday to use the bathroom and felt pain at that time but denies stepping on her right side. Objective - Vital Signs/Intake and Output Vital Signs (last 24 hours): Temp Pulse Resp BP Pulse Ox 100.3 F H 102 H 20 117/81 98 05/03/18 08:56 05/03/18 07:00 05/03/18 07:00 05/03/18 07:00 05/03/18 07:00 Intake and Output: 05/03/18 05/03/18 06:59 18:59 Intake Total 620 Balance 620 - Medications Medications: Current Medications Acetaminophen (Tylenol 325mg Tab) 650 mg PO Q6 PRN PRN Reason: Pain, Mild (1-3) Last Admin: 05/02/18 13:01 Dose: 650 mg Albuterol/Ipratropium (Duoneb 3 Mg/0.5 Mg (3 Ml) Ud) 3 ml INH RQ6 PRN PRN Reason: Shortness of Breath Azithromycin (Zithromax) 250 mg PO DAILY SHA; Protocol Stop: 05/05/18 10:00 Last Admin: 05/03/18 10:43 Dose: 250 mg Chlordiazepoxide (Librium) 25 mg PO BID SHA; Taper Stop: 05/05/18 11:59 Last Admin: 05/03/18 10:44 Dose: 25 mg Multivitamins/Vitamin C 10 ml/Thiamine HCl 100 mg/ Folic Acid 1 mg/ Sodium Chloride 1,011.2 mls @ 100 mls/hr IV .Q10H7M ONE Stop: 05/03/18 18:06 Last Admin: 05/03/18 08:21 Dose: 100 mls/hr Lorazepam (Ativan) 1 mg IVP Q6H PRN PRN Reason: Symptoms of alcohol withdrawl Last Admin: 05/03/18 00:37 Dose: 1 mg Lorazepam (Ativan) 1 mg IVP Q4 [facility] Metoprolol [facility]) [facility] Last Admin: 05/03/18 08:22 Dose: 12.5 mg Morphine Sulfate (Morphine) 0.5 mg IVP Q6H PRN PRN Reason: Pain, moderate (4-7) Morphine Sulfate (Morphine) 1 mg IVP Q6H PRN PRN Reason: Pain, severe (8-10) Last Admin: 05/03/18 06:55 Dose: 1 mg Ondansetron HCl (Zofran Inj) 4 mg IVP Q6H PRN PRN Reason: Nausea/Vomiting Last Admin: 05/01/18 11:06 Dose: 4 mg Thiamine HCl (Vitamin B1 Tab) 100 mg PO BID [facility] - Labs Labs: 05/03/18 07:09 05/03/18 07:09 PT 11.4 SECONDS (9.7-12.2) 04/30/18 10:43 INR 1.0 04/30/18 10:43 APTT 30 SECONDS (21-34) 04/30/18 10:43 - Constitutional Appears: Well, Non-toxic, No Acute Distress - Extremities Exam Additional comments: RLE Posterior splint noted to be C/D/I with no evidence of patient attempts to walk. Dressings left intact Vasc: CFT < 3 seconds to all digits Neuro: Epicritic and protective sensation intact Derm: Unable to assess due to posterior splint MSK: Patient able to wiggle all toes without pain LLE: Dressing noted to be C/D/I with no evidence of patient attempts to walk. Dressing removed Vasc: DP/PT 2/4, CFT < 3 seconds to all digits, minimal edema noted to hallux Neuro: Epicritic and protective sensation grossly intact Derm: No open lesions, wounds, maceration, xerosis, abnormal pigmentation or abnormal growths noted MSK: Patient able to wiggle all toes without pain - Neurological Exam Neurological Exam: Alert, Awake, Oriented x3 - Psychiatric Exam Psychiatric exam: Normal Affect, Normal Mood Assessment and Plan - Assessment and Plan (Free Text) Assessment: 52F seen at bedside for comminuted, displaced pilon fracture of right leg and dislocated hallux of left foot Plan: Patient seen and evaluated Plan discussed with Dr. Hurley Febrile Absent leuocytosis Continue abx per ID Continue pain management per primary team LE arterial duplex: read pending Right Ankle xray: Comminuted trimalleolar displaced fractures of the distal fibula. Disruption of the ankle mortise. Soft tissue swelling. RLE CT: 1. Prominent reticulation and edema within the circumferential subcutaneous soft tissues with a suggestion of some possible hemorrhage seen within the lateral and anterolateral soft tissues. 2. Markedly comminuted, distracted, and dislocated fracture deformity of the distal tibia with prominent intra-articular extension. A few prominent fracture fragments are noted at the anterolateral distal tibia measuring up to 3.4 centimeters with apparent anterior lateral distraction measuring 1.6 centim eters. Posterior subluxation of the remaining fracture fragment. Fracture deformities involve the medial and posterior malleolus. 3. Distal fibula appears dislocated posteriorly in relationship to the distal tibia. Punctate ossific density at the level of the distal fibula which may represent a small avulsion injury. Per Dr. Lowe, patient continues to improve from withdrawals and is tentatively cleared for surgery Patient will be reassessed daily for signs of withdrawal and is tentatively scheduled for application of external fixator vs. ORIF vs. both on Saturday 05/05 Patient to remain strict NWB Patient to keep dressing C/D/I Continue pain management per primary team Podiatry will continue to follow while patient in house
--- NOTE | 2018-05-03 14:34 | CP.PCM.PN ---
Subjective - Date & Time of Evaluation Date of Evaluation: 05/03/18 Time of Evaluation: 14:22 - Subjective Subjective: PGY-[address] Manzanares Patient seen and examined at bedside. Code star overnight - Patient attempted to walk after soiling herself and fell (see full note). Patient then proceded to stand up again and urinate on the floor. Haldol given for agitation. Today, patient was increasingly tremorous on exam. Patient denies chest pain, headache, dizziness, palpitations, hallucinations. Objective - Vital Signs/Intake and Output Vital Signs (last 24 hours): Temp Pulse Resp BP Pulse Ox 100.3 F H 102 H 20 117/81 98 05/03/18 08:56 05/03/18 07:00 05/03/18 07:00 05/03/18 07:00 05/03/18 07:00 Intake and Output: 05/03/18 05/03/18 06:59 18:59 Intake Total 620 Balance 620 - Medications Medications: Current Medications Acetaminophen (Tylenol 325mg Tab) 650 mg PO Q6 PRN PRN Reason: Pain, Mild (1-3) Last Admin: 05/02/18 13:01 Dose: 650 mg Albuterol/Ipratropium (Duoneb 3 Mg/0.5 Mg (3 Ml) Ud) 3 ml INH RQ6 PRN PRN Reason: Shortness of Breath Azithromycin (Zithromax) 250 mg PO DAILY SHA; Protocol Stop: 05/05/18 10:00 Last Admin: 05/03/18 10:43 Dose: 250 mg Chlordiazepoxide (Librium) 25 mg PO BID SHA; Taper Stop: 05/05/18 11:59 Last Admin: 05/03/18 10:44 Dose: 25 mg Multivitamins/Vitamin C 10 ml/Thiamine HCl 100 mg/ Folic Acid 1 mg/ Sodium Chloride 1,011.2 mls @ 100 mls/hr IV .Q10H7M ONE Stop: 05/03/18 18:06 Last Admin: 05/03/18 08:21 Dose: 100 mls/hr Lorazepam (Ativan) 1 mg IVP Q6H PRN PRN Reason: Symptoms of alcohol withdrawl Last Admin: 05/03/18 00:37 Dose: 1 mg Lorazepam (Ativan) 1 mg IVP Q4 [facility] Last Admin: 05/03/18 12:00 Dose: Not Given Metoprolol Tartrate (Lopressor) 12.5 mg PO BIDCC [facility] Last Admin: 05/03/18 08:22 Dose: 12.5 mg Morphine Sulfate (Morphine) 0.5 mg IVP Q6H PRN PRN Reason: Pain, moderate (4-7) Morphine Sulfate (Morphine) 1 mg IVP Q6H PRN PRN Reason: Pain, severe (8-10) Last Admin: 05/03/18 06:55 Dose: 1 mg Ondansetron HCl (Zofran Inj) 4 mg IVP Q6H PRN PRN Reason: Nausea/Vomiting Last Admin: 05/01/18 11:06 Dose: 4 mg Thiamine HCl (Vitamin B1 Tab) 100 mg PO BID [facility] - Labs Labs: 05/03/18 07:09 05/03/18 07:09 PT 11.4 SECONDS (9.7-12.2) 04/30/18 10:43 INR 1.0 04/30/18 10:43 APTT 30 SECONDS (21-34) 04/30/18 10:43 - Constitutional Appears: No Acute Distress - Head Exam Head Exam: ATRAUMATIC, NORMOCEPHALIC - Eye Exam Eye Exam: EOMI, Normal appearance - ENT Exam ENT Exam: Mucous Membranes Moist - Respiratory Exam Respiratory Exam: Clear to Ausculation Bilateral, NORMAL BREATHING PATTERN. absent: Rales, Rhonchi, Wheezes - Cardiovascular Exam Cardiovascular Exam: Tachycardia, +S1, +S2 - GI/Abdominal Exam GI & Abdominal Exam: Soft, Normal Bowel Sounds. absent: Tenderness - Extremities Exam Additional comments: RLE dressed. Dressings C/d/i. +Tenderness at distal RLE. UE tremors. - Neurological Exam Neurological Exam: Alert, Awake, CN II-XII Intact, Oriented x3 - Psychiatric Exam Psychiatric exam: Normal Affect Additional comments: Pressured speech compared to yesterday - Skin Skin Exam: Dry, Intact, Normal Color, Warm Assessment and Plan - Assessment and Plan (Free Text) Assessment: Patient is a 52 year old female with a PMH of asthma, HTN, alcohol abuse, and pneumonia who presents to the ED via Ambulance after a fall. Plan: Right distal tibia/fibula fracture: Patient medically optimized for surgery - Right Ankle Xray (04/30): Comminuted trimalleolar displaced fractures of the distal fibula. Disruption of the ankle mortise. Soft tissue swelling. - Right lower extremity CT (04/30): Markedly comminuted, distracted, and dislocated fracture deformity of the distal tibia with prominent intra-articular extension. A few prominent fracture fragments are noted at the anterolateral distal tibia measuring up to 3.4 centimeters with apparent anterior lateral distraction measuring 1.6 centimeters. Posterior subluxation of the remaining fracture fragment. Fracture deformities involve the medial and posterior malleolus. - Head CT (04/30): No acute intracranial pathology identified. - CXR (04/30): No acute findings - Podiatry, Dr. Hurley consulted - -- Planned ORIF in today postponed due to patient with elevated temps and tachy, likely 2/2 ETOH withdrawal; Diet restarted - -- Plan for OR Monday, pending no more fevers/withdrawal sx - Morphine 0.5mg Q6 PRN - Moderate pain - Morphine 1mg Q6 PRN - Severe pain - Left lower extremity duplex: f/u Hx of alcohol abuse: - Continue to monitor for possible withdrawal symptoms - Blood alcohol level 375 on admission - Librium 25 mg BID + Ativan 1 mg IVP Q4 SHA - Ativan 1mg IV Q6 PRN - Daily banana bag @ 100 mls/hr - Folate > 20, B12 - 427 - Withdrawal sx noted on 05/01: Temp 100.1, tachycardic in 110s. ORIF postponed for now. Continue to monitor symptoms. - --Currently afebrile, HR 90s-100s, BP mildly elevated - Code Star called over night 05/02: "Code star called at 10:03 pm for patient. Vitals: 134/94, HR 110, Spo2 98% on RA. Patient was incontinent of stool and stood up to clean herself off. Nurse was aiding patient in wiping her backside as patient was standing and bracing herself against the bed side rail. She was not able to keep her balance on her R leg and fell onto her R side. Patient complains of increased pain to her right distal leg and 5th toe. Denies head trauma, loss of consciousness, dizziness, and lightheadedness." - --Patient given Haldol for agitation overnight - We discourage the use of Haldol for agitation with this patient. Should use prn Ativan for future events. -Patient not tolerating today's decreased Librium dose. Changed to Librium 25 mg BID + Ativan 1 mg IVP Q4. Low Grade Fever - Tmax 100.1 F - --Afebrile overnight 05/02 - Azithromycin 250 mg PO BID - Likely 2/2 withdrawal - Urine and blood cx - Follow up and continue Abx pending. - Plan for OR Monday, pending no more fevers/withdrawal sx Normocytic anemia: - Likely 2/2 alcohol abuse - Will continue to monitor with daily CBC Thrombocytopenia: - Likely 2/2 alcohol abuse - Will hold chemical anticoagulants - Will continue to monitor with daily CBC Transaminitis: - Likely 2/2 alcohol abuse - AST:ALT is >2 - Will continue to monitor Hx of HTN: - Patient is not currently taking any medications - Patient is hemodynamically stable - Will continue to monitor - Vitals Q4 Hx of depression: - As per prior medical records - Patient is not currently taking any medications Hx of schizophrenia: - As per prior medical records - Patient is not currently taking any medications Hypocalcemia: - Patient is currently asymptomatic - Will continue to monitor Hx of Asthma: - Duonebs Q6 PRN Case discussed with Dr. Ezequiel Sanchez, PGY-1
[2018-05-03] MEDS: traZODone 25 mg Tab PO SCH (21:17)
[2018-05-04 07:59] LABS: BASO # 0.1 K/uL (0.0-0.2); EOS # 0.2 K/uL (0.0-0.7); EOS % 3.5 % (0.0-4.0); HEMOGLOBIN 9.2 g/dL (11.0-16.0); LYMPH # 1.1 K/uL (1.0-4.3); NEUT # 2.6 K/uL (1.8-7.0)
[2018-05-04 08:05] LABS: BASO % 1.4 % (0.0-2.0); LYMPH % 22.9 % (20.0-40.0); MEAN CELL VOLUME 93.5 fL (81.0-99.0); MEAN CORPUSCULAR HEMOGLOBIN 30.8 pg (27.0-31.0); MEAN PLATELET VOLUME 7.8 fL (7.2-11.7); MONO % 19.4 % (0.0-10.0); NEUT % 52.8 % (50.0-75.0); NRBC % 0.3 % (0.0-2.0); RBC 2.99 Mil/uL (3.80-5.20); RED CELL DISTRIBUTION WIDTH 16.8 % (11.5-14.5)
[2018-05-04 08:29] LABS: ALBUMIN 3.7 g/dL (3.5-5.0); ALT/SGPT 34 U/L (9-52); AST/SGOT 36 U/L (14-36); BLOOD UREA NITROGEN 13 mg/dL (7-17); CALCIUM 8.5 mg/dl (8.6-10.4); GFR NON-AFRICAN AMERICAN > 60
[2018-05-04] MEDS ORDERED: Multivitamin (MVI) 10 ML, Thiamine 100 MG, Folic Acid 1 MG in Sodium Chloride 0.9% 1,00... IV ONE (09:55)
--- NOTE | 2018-05-04 13:18 | CP.PCM.PN ---
Subjective - Date & Time of Evaluation Date of Evaluation: 05/04/18 Time of Evaluation: 13:14 - Subjective Subjective: Podiatry Progress Note for Dr. Hurley 52F seen at bedside for comminuted, displaced pilon fracture of right leg and dislocated hallux of left foot. Patient is AAO x 3 and NAD, resting comfortably in bed at time of visit. Patient states that she continues to experience pain in her right ankle and denies pain to her left hallux. Patient is able to wiggle all toes of both feet freely without pain. Patient denies any acute overnight ev ents and states that she is currently not experiencing any nausea or vomiting. Denies any further pedal complaints at this time. Patient denies trying to walk on her foot at this time. Objective - Vital Signs/Intake and Output Vital Signs (last 24 hours): Temp Pulse Resp BP Pulse Ox 98.8 F 99 H 20 133/74 100 05/04/18 07:35 05/04/18 07:35 05/04/18 07:35 05/04/18 07:35 05/04/18 07:35 - Medications Medications: Current Medications Acetaminophen (Tylenol 325mg Tab) 650 mg PO Q6 PRN PRN Reason: Pain, Mild (1-3) Last Admin: 05/02/18 13:01 Dose: 650 mg Albuterol/Ipratropium (Duoneb 3 Mg/0.5 Mg (3 Ml) Ud) 3 ml INH RQ6 PRN PRN Reason: Shortness of Breath Azithromycin (Zithromax) 250 mg PO DAILY SHA; Protocol Stop: 05/05/18 10:00 Last Admin: 05/04/18 10:33 Dose: 250 mg Chlordiazepoxide (Librium) 25 mg PO DAILY SHA; Taper Stop: 05/05/18 11:59 Last Admin: 05/04/18 10:33 Dose: 25 mg Chlordiazepoxide (Librium) 25 mg PO Q8 PRN PRN Reason: Symptoms of alcohol withdrawl Folic Acid (Folic Acid) 1 mg PO DAILY SHA Multivitamins/Vitamin C 10 ml/Thiamine HCl 100 mg/ Folic Acid 1 mg/ Sodium Chloride 1,011.2 mls @ 100 mls/hr IV .Q10H7M ONE Stop: 05/04/18 20:01 Last Admin: 05/04/18 11:49 Dose: 100 mls/hr Metoprolol Tartrate (Lopressor) 12.5 mg PO BIDCC [facility] Last Admin: 05/04/18 08:39 Dose: 12.5 mg Morphine Sulfate (Morphine) 0.5 mg IVP Q6H PRN PRN Reason: Pain, moderate (4-7) Morphine Sulfate (Morphine) 1 mg IVP Q6H PRN PRN Reason: Pain, severe (8-10) Last Admin: 05/04/18 10:34 Dose: 1 mg Multivitamins (Hexavitamin) 1 tab PO DAILY [facility] Ondansetron HCl (Zofran Inj) 4 mg IVP Q6H PRN PRN Reason: Nausea/Vomiting Last Admin: 05/01/18 11:06 Dose: 4 mg Thiamine HCl (Vitamin B1 Tab) 100 mg PO DAILY [facility] Trazodone HCl (Desyrel) 25 mg PO HS [facility] Last Admin: 05/03/18 21:17 Dose: 25 mg - Labs Labs: 05/04/18 07:51 05/04/18 07:51 PT 11.4 SECONDS (9.7-12.2) 04/30/18 10:43 INR 1.0 04/30/18 10:43 APTT 30 SECONDS (21-34) 04/30/18 10:43 - Constitutional Appears: Well, Non-toxic, No Acute Distress - Extremities Exam Additional comments: LLE focused exam: Vasc: DP/PT pulses faintly palpable 1/4 secondary to moderate amounts of diffuse, non-pitting edema to left ankle and leg. CFT < 3 seconds to all digits. Skin temperature warm to warm from proximal to distal WNL. Neuro: Epicritic and protective sensation grossly intact b/l Derm: No open lesions, wounds, maceration, xerosis, abnormal pigmentation or abnormal growths noted. Mild ecchymosis noted to ankle MSK: POP to left ankle. Unable to assess ROM or MMT secondary to patient guarding. No gross deformities noted - Neurological Exam Neurological Exam: Alert, Awake, Oriented x3 - Psychiatric Exam Psychiatric exam: Normal Affect, Normal Mood Assessment and Plan - Assessment and Plan (Free Text) Assessment: 52F seen at bedside for comminuted, displaced pilon fracture of right leg and dislocated hallux of left foot Plan: Patient seen and evaluated Plan discussed with Dr. Hurley Afebrile, absent leukocytosis Continue IV abx per ID Continue pain management per primary team Right Ankle xray: Comminuted trimalleolar displaced fractures of the distal fibula. Disruption of the ankle mortise. Soft tissue swelling. RLE CT: 1. Prominent reticulation and edema within the circumferential subcutaneous soft tissues with a suggestion of some possible hemorrhage seen within the lateral and anterolateral soft tissues. 2. Markedly comminuted, distracted, and dislocated fracture deformity of the distal tibia with prominent intra-articular extension. A few prominent fracture fragments are noted at the anterolateral distal tibia measuring up to 3.4 centimeters with apparent anterior lateral distraction measuring 1.6 centimeters. Posterior subluxation of the remaining fracture fragment. Fracture deformities involve the medial and posterior malleolus. 3. Distal fibula appears dislocated posteriorly in relationship to the distal tibia. Punctate ossific density at the level of the distal fibula which may represent a small avulsion injury. Type and screen ordered NPO past midnight except meds Patient for application of Delta Frame vs. ORIF of distal tibia vs. both tomorrow morning pending medical clearance from Dr. Pa Walsh will be anesthesiologist on case and has been made aware of the details Posterior splint removed and campbell compression dressing applied with reapplication of posterior splint Patient to remain strict NWB Podiatry will continue to follow while patient in house
--- NOTE | 2018-05-04 16:35 | CP.PCM.PN ---
<Luís Sanchez - Last Filed: 05/04/18 17:16> Subjective - Date & Time of Evaluation Date of Evaluation: 05/04/18 Time of Evaluation: 16:28 - Subjective Subjective: PGY-[address] Winn Patient seen and examined at bedside. No acute events overnight. Patient no longer appears tremulous on exam, does not appear to be agitated. Patient kept NPO overnight for surgery tomorrow, plan to start anticoagulation following the procedure, as her liver function has improved and platelet count and INR are WNL. Patient denies chest pain, headache, dizziness, palpitations, hallucinations. Objective - Vital Signs/Intake and Output Vital Signs (last 24 hours): Temp Pulse Resp BP Pulse Ox 98.8 F 99 H 20 133/74 100 05/04/18 07:35 05/04/18 07:35 05/04/18 07:35 05/04/18 07:35 05/04/18 07:35 - Medications Medications: Current Medications Acetaminophen (Tylenol 325mg Tab) 650 mg PO Q6 PRN PRN Reason: Pain, Mild (1-3) Last Admin: 05/04/18 15:01 Dose: 650 mg Albuterol/Ipratropium (Duoneb 3 Mg/0.5 Mg (3 Ml) Ud) 3 ml INH RQ6 PRN PRN Reason: Shortness of Breath Azithromycin (Zithromax) 250 mg PO DAILY SHA; Protocol Stop: 05/05/18 10:00 Last Admin: 05/04/18 10:33 Dose: 250 mg Chlordiazepoxide (Librium) 25 mg PO DAILY SHA; Taper Stop: 05/05/18 11:59 Last Admin: 05/04/18 10:33 Dose: 25 mg Chlordiazepoxide (Librium) 25 mg PO Q8 PRN PRN Reason: Symptoms of alcohol withdrawl Folic Acid (Folic Acid) 1 mg PO DAILY SHA Multivitamins/Vitamin C 10 ml/Thiamine HCl 100 mg/ Folic Acid 1 mg/ Sodium Chloride 1,011.2 mls @ 100 mls/hr IV .Q10H7M ONE Stop: 05/04/18 20:01 Last Admin: 05/04/18 11:49 Dose: 100 mls/hr Metoprolol Tartrate (Lopressor) 12.5 mg PO BIDCC [facility] Last Admin: 05/04/18 08:39 Dose: 12.5 mg Morphine Sulfate (Morphine) 0.5 mg IVP Q6H PRN PRN Reason: Pain, moderate (4-7) Morphine Sulfate (Morphine) 1 mg IVP Q6H PRN PRN Reason: Pain, severe (8-10) Last Admin: 05/04/18 10:34 Dose: 1 mg Multivitamins (Hexavitamin) 1 tab PO DAILY [facility] Ondansetron HCl (Zofran Inj) 4 mg IVP Q6H PRN PRN Reason: Nausea/Vomiting Last Admin: 05/01/18 11:06 Dose: 4 mg Thiamine HCl (Vitamin B1 Tab) 100 mg PO DAILY SHA Trazodone HCl (Desyrel) 25 mg PO HS SHA Last Admin: 05/03/18 21:17 Dose: 25 mg - Labs Labs: 05/04/18 07:51 05/04/18 07:51 PT 11.4 SECONDS (9.7-12.2) 04/30/18 10:43 INR 1.0 04/30/18 10:43 APTT 30 SECONDS (21-34) 04/30/18 10:43 - Constitutional Appears: Non-toxic, No Acute Distress - Eye Exam Eye Exam: EOMI, Normal appearance - ENT Exam ENT Exam: Mucous Membranes Moist - Respiratory Exam Respiratory Exam: Clear to Ausculation Bilateral, NORMAL BREATHING PATTERN. absent: Rales, Rhonchi, Wheezes - Cardiovascular Exam Cardiovascular Exam: REGULAR RHYTHM, +S1, +S2. absent: Murmur - GI/Abdominal Exam GI & Abdominal Exam: Soft. absent: Tenderness - Extremities Exam Additional comments: No tremors. RLE tender to palpation. Dressings clean, dry, and intact. - Neurological Exam Neurological Exam: Alert, Awake, Oriented x3 - Psychiatric Exam Psychiatric exam: Normal Affect, Normal Mood - Skin Skin Exam: Dry, Intact, Normal Color, Warm Assessment and Plan - Assessment and Plan (Free Text) Assessment: Patient is a 52 year old female with a PMH of asthma, HTN, alcohol abuse, and pneumonia who presents to the ED via Ambulance after a fall. Plan: Right distal tibia/fibula fracture: Patient medically optimized for surgery - Right Ankle Xray (04/30): Comminuted trimalleolar displaced fractures of the distal fibula. Disruption of the ankle mortise. Soft tissue swelling. - Right lower extremity CT (04/30): Markedly comminuted, distracted, and dislocated fracture deformity of the distal tibia with prominent intra-articular extension. A few prominent fracture fragments are noted at the anterolateral distal tibia measuring up to 3.4 centimeters with apparent anterior lateral distraction measuring 1.6 centimeters. Posterior subluxation of the remaining fracture fragment. Fracture deformities involve the medial and posterior malleolus. - Left lower extremity duplex 04/30: No evidence of deep or superficial vein thrombosis of the left lower extremity with excellent venous flow. Normal valve function noted of the left side. Normal venous flow noted in the right common femoral vein. - Head CT (04/30): No acute intracranial pathology identified. - CXR (04/30): No acute findings - Podiatry, Dr. Hurley consulted - -- OR tomorrow for external fixation. Patient is NPO after midnight, plan to start DVT prop following surgery. - Morphine 0.5mg Q6 PRN - Moderate pain - Morphine 1mg Q6 PRN - Severe pain - Non-weight bearing. Fall precautions. Hx of alcohol abuse: - Continue to monitor for possible withdrawal symptoms - Blood alcohol level 375 on admission - Librium/Ativan adjusted - --Librium 25 mg PO BID + 25 mg PO prn for sx - --Ativan discontinued - Daily thiamine, folate, multivitamin - Folate > 20, B12 - 427 - Patient no longer demonstrating any symptoms of withdrawal at this time - [facility] Star called over night 05/02: "Code star called at 10:03 pm for patient. Vitals: 134/94, HR 110, Spo2 98% on RA. Patient was incontinent of stool and stood up to clean herself off. Nurse was aiding patient in wiping her backside as patient was standing and bracing herself against the bed side rail. She was not able to keep her balance on her R leg and fell onto her R side. Patient complains of increased pain to her right distal leg and 5th toe. Denies head trauma, loss of consciousness, dizziness, and lightheadedness." - --Patient given Haldol for agitation overnight - We discourage the use of Haldol for agitation with this patient. Librium for future events. - Off tele Low Grade Fever - Tmax 100.1 F - --Afebrile overnight 05/02 - Azithromycin 250 mg PO BID - Likely 2/2 withdrawal - Blood culture - NG x3 days - Plan for OR Monday, patient kept NPO after midngiht Normocytic anemia: - Likely 2/2 alcohol abuse - Will continue to monitor with daily CBC Thrombocytopenia: - Likely 2/2 alcohol abuse - Will hold chemical anticoagulants - Will continue to monitor with daily CBC Transaminitis: - Likely 2/2 alcohol abuse - AST:ALT is >2 - Will continue to monitor Hx of HTN: - Patient is not currently taking any medications - Patient is hemodynamically stable - Will continue to monitor - Vitals Q4 Hx of depression: - As per prior medical records - Patient is not currently taking any medications Hx of schizophrenia: - As per prior medical records - Patient is not currently taking any medications Hypocalcemia: - Patient is currently asymptomatic - Will continue to monitor Hx of Asthma: - Duonebs Q6 PRN PPx: - DVT: Heparin held for procedure bj - Fall precautions, non-weight bearing Case discussed with Dr. Pa Sanchez, PGY-1 <Rosibel Winn V - Last Filed: 05/05/18 01:10> Objective - Vital Signs/Intake and Output Vital Signs (last 24 hours): Temp Pulse Resp BP Pulse Ox 99.0 F 102 H 20 123/69 98 05/04/18 15:00 05/04/18 15:00 05/04/18 15:00 05/04/18 15:00 05/04/18 15:00 Intake and Output: 05/04/18 05/05/18 18:59 06:59 Intake Total 400 Balance 400 - Medications Medications: Current Medications Acetaminophen (Tylenol 325mg Tab) 650 mg PO Q6 PRN PRN Reason: Pain, Mild (1-3) Last Admin: 05/04/18 15:01 Dose: 650 mg Albuterol/Ipratropium (Duoneb 3 Mg/0.5 Mg (3 Ml) Ud) 3 ml INH RQ6 PRN PRN Reason: Shortness of Breath Azithromycin (Zithromax) 250 mg PO DAILY SHA; Protocol Stop: 05/05/18 10:00 Last Admin: 05/04/18 10:33 Dose: 250 mg Chlordiazepoxide (Librium) 25 mg PO DAILY SHA; Taper Stop: 05/05/18 11:59 Last Admin: 05/04/18 10:33 Dose: 25 mg Chlordiazepoxide (Librium) 25 mg PO Q8 PRN PRN Reason: Symptoms of alcohol withdrawl Last Admin: 05/05/18 00:09 Dose: 25 mg Folic Acid (Folic Acid) 1 mg PO DAILY [facility] Metoprolol Tartrate (Lopressor) 12.5 mg PO BIDCC [facility] Last Admin: 05/04/18 18:40 Dose: 12.5 mg Morphine Sulfate (Morphine) 0.5 mg IVP Q6H PRN PRN Reason: Pain, moderate (4-7) Morphine Sulfate (Morphine) 1 mg IVP Q6H PRN PRN Reason: Pain, severe (8-10) Last Admin: 05/05/18 00:08 Dose: 1 mg Multivitamins (Hexavitamin) 1 tab PO DAILY [facility] Ondansetron HCl (Zofran Inj) 4 mg IVP Q6H PRN PRN Reason: Nausea/Vomiting Last Admin: 05/01/18 11:06 Dose: 4 mg Thiamine HCl (Vitamin B1 Tab) 100 mg PO DAILY [facility] Trazodone HCl (Desyrel) 25 mg PO HS [facility] Last Admin: 05/04/18 22:06 Dose: 25 mg - Labs Labs: 05/04/18 07:51 05/04/18 07:51 PT 11.4 SECONDS (9.7-12.2) 04/30/18 10:43 INR 1.0 04/30/18 10:43 APTT 30 SECONDS (21-34) 04/30/18 10:43 Attending/Attestation - Attestation I have personally seen and examined this patient.: Yes I have fully participated in the care of the patient.: Yes I have reviewed all pertinent clinical information, including history, physical exam and plan: Yes Notes (Text): This is late computer entry for 05/04/18. patient seen, examined, and case discussed with medical assistant secretary. patient seen with podiatry team at bedside. Patient reports she is feeling better. patient denies heart racing, denies palpitations, denies tremors, denies hallucinations. Patient taking off telemetry since she is not in acute withdrawal. patient noted she had place weight on affected leg while going to echocardiogram; i kindly reminded she is not to be weight bearing and will coordinate with podiatry team when she is considered to be weight bearing given she is going to have surgery tomorrow. Heparin d/c pending repeat EKG Assessment/Plan 1) Right distal tibia/fibula fracture * Podiatry (Dr. Hurley) on board-->help appreciated * Right Ankle Xray (04/30): Comminuted trimalleolar displaced fractures of the distal fibula. Disruption of the ankle mortise. Soft tissue swelling. * Right lower extremity CT (04/30): Markedly comminuted, distracted, and dislocated fracture deformity of the distal tibia with prominent intra- articular extension. A few prominent fracture fragments are noted at the anterolateral distal tibia measuring up to 3.4 centimeters with apparent anter ior lateral distraction measuring 1.6 centimeters. Posterior subluxation of the remaining fracture fragment. Fracture deformities involve the medial and posterior malleolus. * Left lower extremity duplex 04/30: No evidence of deep or superficial vein thrombosis of the left lower extremity with excellent venous flow. Normal valve function noted of the left side. Normal venous flow noted in the right common femoral vein. * Head CT (04/30): No acute intracranial pathology identified. * CXR (04/30): No acute findings * Morphine 0.5mg Q6 PRN - Moderate pain * Morphine 1mg Q6 PRN - Severe pain * Non-weight bearing. Fall precautions. * pending repeat EKG * Prior EKG while patient was withdrawing from alcohol * Echocardiogram (05/04): normal size la, lv and ra and rv. normal lv wall motion, thickenss and systolic function w lvef ef 60-65%, lv diastolc dysfunctio, normal arotic, mitral, tv, and pv, mild tr/pi mild pulm htn, normal size aortic root, no pericardial effusion 2) Hx of alcohol abuse: * Blood alcohol level 375 on admission on 04/30 * Librium taper * Librium 25mg PO Q8 PRN symptoms of alcohol withdrawal * Folic acid 1mg PO daily * MV1 tab Po daily * Thiamine 100mg PO daily * Folate > 20, B12 - 427 3) Low Grade Fever * Tmax 100.3 F (05/03 8:56AM) * Blood culture (05/01/18): no growth afrer 3 days X2 * Azithromycin 250mg PO daily (active since 04/22/18) * No evidence of DVT noted on US on 04/30/18 4) Normocytic anemia: * secondary to bone marrow suppression caused by alcohol * Monitor H/H * Advised type and cross 1 unit of PRBC prior to OR to podiatry resident * Will continue to monitor with daily CBC 5) Thrombocytopenia (resolved) * secondary to bone marrow suppression caused by alcohol * platelets have normalized 6) Transaminitis: * Likely 2/2 alcohol abuse * normalized 7) Hx of HTN: * Lopressor 12.5mg PO BID * Monitor vital signs 8) Hx of depression: * As per prior medical records-->Patient is not currently taking any medications * patient denies any HI/denies SI 9) Hx of schizophrenia: * As per prior medical records-->- Patient is not currently taking any medications 10)Hypocalcemia: * within normal limits 11) Hx of Asthma: * Patient is not in acute exacerbation * Chest xray: no active disease 12) PPx: * DVT: Heparin held for procedure bj * Fall precautions, non-weight bearing Disposition: pending repeat EKG. patient is not in acute withdrawal from alcohol. Echo reviewed. Patient is low to intermediate risk prior to OR for noncardiac surgery. Surgery and anesthesia to discuss risk and benefits of procedure prior to OR respectively.
--- NOTE | 2018-05-04 19:34 | CARD ---
APPROVED REPORT Date of service: 05/04/2018 EXAM: Two-dimensional and M-mode echocardiogram with Doppler and color Doppler. 2D DIMENSIONS IVSd0.9 (0.7-1.1cm)LVDd4.1 (3.9-5.9cm) PWd1.0 (0.7-1.1cm)LA Eorlol06 (18-58mL) LVDs2.5 (2.5-4.0cm)FS (%) 39.4 % LVEF (%)70.4 (>50%)LVEF (Suarez's)63.15 % M-Mode DIMENSIONS Left Atrium (MM)3.70 (2.5-4.0cm)IVSd0.82 (0.7-1.1cm) Aortic Root3.09 (2.2-3.7cm)LVDd4.93 (4.0-5.6cm) Aortic Cusp Exc.2.16 (1.5-2.0cm)PWd0.83 (0.7-1.1cm) FS (%) 41 %LVDs2.93 (2.0-3.8cm) LVEF (%)71 (>50%) Mitral Valve MV E Zpfnfyxs25.5cm/sMV A Bysqoawf23.6cm/sE/A ratio0.6 TDI Lateral E' Peak V9.38cm/sMedial E' Peak V5.71cm/sE/Lateral E'5.8 E/Medial E'9.5 Tricuspid Valve TR Peak [id number]/sTR Peak [id number] <Conclusion> normal size la,lv & ra rv. normal lv wall motion,thickness & systolic function with lvef of 60-65%. lv diastolic dysfunction grade one. normal aortic,mitral,tv & pv. mild tr & pi with calculated pulmonary systolic pressures of 37 mm of hg,c/w mild pulmonary hypertension. normal size aortic root. no pericardial effusion.
[2018-05-04] MEDS: traZODone 25 mg Tab PO SCH (22:06)
[2018-05-05] MEDS ORDERED: Benzocaine/Menthol (Cepacol) Lozenge MT ONE (04:07)
[2018-05-05 06:18] LABS: BASO % 0.8 % (0.0-2.0); EOS # 0.1 K/uL (0.0-0.7); EOS % 2.1 % (0.0-4.0); LYMPH % 17.1 % (20.0-40.0); MEAN CELL VOLUME 92.1 fL (81.0-99.0); MEAN CORPUSCULAR HGB CONC 33.7 g/dL (33.0-37.0); MEAN PLATELET VOLUME 7.5 fL (7.2-11.7); MONO # 1.1 K/uL (0.0-0.8); MONO % 19.6 % (0.0-10.0); NEUT # 3.4 K/uL (1.8-7.0); NEUT % 60.4 % (50.0-75.0); RBC 2.89 Mil/uL (3.80-5.20); RED CELL DISTRIBUTION WIDTH 16.6 % (11.5-14.5); WHITE BLOOD COUNT 5.7 K/uL (4.8-10.8)
[2018-05-05 06:36] LABS: ALT/SGPT 27 U/L (9-52); AST/SGOT 28 U/L (14-36); BLOOD UREA NITROGEN 13 mg/dL (7-17); CALCIUM 8.8 mg/dl (8.6-10.4); GFR NON-AFRICAN AMERICAN > 60
[2018-05-05] MEDS ORDERED: Propofol 10 mg/ml Inj (20 ML) ONE (08:03)
[2018-05-05] MEDS ORDERED: Midazolam 2 MG/2 ML VIAL ONE (08:03)
[2018-05-05] MEDS ORDERED: ceFAZolin IV 1 gm in Dextrose 2 GM/100 ML BAG IVPB ONE (08:20)
[2018-05-05] MEDS: Multiple Vitamins Tab PO SCH (10:00)
--- NOTE | 2018-05-05 10:21 | PCM.SURG1 ---
Surgeon's Initial Post Op Note - Surgeon's Notes Surgeon: Dr. Rola Hurley Proof Tester: Jens PGY-3, Marcy PGY-2, Mynor PGY-2, Chip PGY-2, Piper PGY-2 Type of Anesthesia: General Endo, Block Regional Anesthesia Administered By: Dr. Walsh Pre-Operative Diagnosis: right ankle pilon fracture Operative Findings: see dictation. M: Synthes delta frame large external fixator ankle bridge; 3-0 Nylon Post-Operative Diagnosis: same Operation Performed: right ankle reduction of pilon fracture with application of delta frame for staged procedure Specimen/Specimens Removed: none Estimated Blood Loss: EBL {In ML}: 5 Blood Products Given: N/A Drains Used: No Drains Post-Op Condition: Good Date of Surgery/Procedure: 05/05/18 Time of Surgery/Procedure: 10:20
[2018-05-05] MEDS ORDERED: Bupivacaine HCl 0.25% PF (30 ml) Inj ONE (10:24)
[2018-05-05] MEDS ORDERED: HYDROmorphone 0.5 mg/0.5 ml ISec IVP PRN (10:54)
--- NOTE | 2018-05-05 10:57 | PCM.ANESB2 ---
Popliteal Nerve Block - Popliteal Nerve Block Date of Procedure: 05/05/18 Procedure Performed: Popliteal Nerve Block Right - Procedure Popliteal Nerve Block: This procedure was explained to the patient that it is for post-operative pain management. Consent was obtained after a thorough discussion with the patient regarding the benefits and possible complications of local anesthetic block of the sciatic nerve at the popliteal level. The patient was brought to the operating room and standard monitors are applied. Time-out was held with the circulating nurse to confirm the correct surgery and the appropriate block. After applying oxygen by nasal cannula and administering IV Sedation, patient's operative leg was gently raised and supported and the groove in between the biceps femoris and vastus lateralis muscles was carefully palpated. The skin radha roximately 8cm above the popliteal crease was then marked. The ultrasound transducer was then applied to the posterior thigh approximately 8cm above the popliteal crease in the transverse plane and the sciatic nerve before its division was visualized lateral to the popliteal artery and in between the bicep femoris and semimembranosus/semitendinosus muscles. After identification, the lateral portion of the thigh was prepped with Betadine solution three times and Lidocaine 1% was injected subcutaneously for topical anesthesia. At this point, a # 21 gauge Stimuplex insulated 4 inch needle was inserted into pre-marked area and advanced in a perpendicular direction. The needle was inserted above the ultrasound transducer in-plane towards the sciatic nerve in a [id number] direction. After repeated negative aspiration, ___5__cc of __0.25_ % bupivicaine was injected and this was flowed with _15__cc of __0.25_ % bupivicaine. Under ultrasound guidance the local anesthetics were observed surrounding sciatic nerve . The needle was removed intact and sterile dressing was applied. The patient was awake and tolerated the popliteal nerve block well with stable vital signs, no paresthesias or pain during or after.
--- NOTE | 2018-05-05 14:15 | CP.PCM.PN ---
<Danial Stiles - Last Filed: 05/05/18 14:12> Subjective - Date & Time of Evaluation Date of Evaluation: 05/05/18 Time of Evaluation: 14:17 - Subjective Subjective: PGY3 Note for Dr. Fuentes Service Patient seen and examined at bedside s/p ORIF by podiatry; patient is resting comfortably in bed without any complaints; still somewhat sedated from anesthesia and is reporting no pain/complaints at site of surgery; denies fevers/chills, ALCANTAR, CP, SOb, abdominal pain, N/v/d, dysuria/freq/urg or lower extremity swelling on the left. Objective - Vital Signs/Intake and Output Vital Signs (last 24 hours): Temp Pulse Resp BP Pulse Ox 98.2 F 95 H 10 L 123/80 99 05/05/18 11:35 05/05/18 11:35 05/05/18 11:35 05/05/18 11:35 05/05/18 11:35 Intake and Output: 05/05/18 05/05/18 06:59 18:59 Intake Total 610 1300 Output Total 300 Balance 610 1000 - Medications Medications: Current Medications Acetaminophen (Tylenol 325mg Tab) 650 mg PO Q6 PRN PRN Reason: Pain, Mild (1-3) Last Admin: 05/04/18 15:01 Dose: 650 mg Albuterol/Ipratropium (Duoneb 3 Mg/0.5 Mg (3 Ml) Ud) 3 ml INH RQ6 PRN PRN Reason: Shortness of Breath Chlordiazepoxide (Librium) 25 mg PO Q8 PRN PRN Reason: Symptoms of alcohol withdrawl Last Admin: 05/05/18 00:09 Dose: 25 mg Folic Acid (Folic Acid) 1 mg PO DAILY [facility] Last Admin: 05/05/18 10:00 Dose: Not Given Hydromorphone HCl (Dilaudid) 0.5 mg IVP Q15M PRN PRN Reason: Pain, severe (8-10) Metoprolol Tartrate (Lopressor) 12.5 mg PO BIDCC [facility] Last Admin: 05/05/18 08:30 Dose: Not Given Morphine Sulfate (Morphine) 0.5 mg IVP Q6H PRN PRN Reason: Pain, moderate (4-7) Morphine Sulfate (Morphine) 1 mg IVP Q6H PRN PRN Reason: Pain, severe (8-10) Last Admin: 05/05/18 06:03 Dose: 1 mg Multivitamins (Hexavitamin) 1 tab PO DAILY [facility] Last Admin: 05/05/18 10:00 Dose: Not Given Ondansetron HCl (Zofran Inj) 4 mg IVP Q6H PRN PRN Reason: Nausea/Vomiting Last Admin: 05/01/18 11:06 Dose: 4 mg Thiamine HCl (Vitamin B1 Tab) 100 mg PO DAILY [facility] Last Admin: 05/05/18 10:00 Dose: Not Given Trazodone HCl (Desyrel) 25 mg PO HS [facility] Last Admin: 05/04/18 22:06 Dose: 25 mg - Labs Labs: 05/05/18 06:15 05/05/18 06:15 PT 11.4 SECONDS (9.7-12.2) 04/30/18 10:43 INR 1.0 04/30/18 10:43 APTT 30 SECONDS (21-34) 04/30/18 10:43 - Constitutional Appears: Well, Non-toxic - Head Exam Head Exam: ATRAUMATIC, NORMAL INSPECTION - Eye Exam Eye Exam: EOMI, Normal appearance, PERRL. absent: Scleral icterus - ENT Exam ENT Exam: Mucous Membranes Moist - Neck Exam Neck Exam: Full ROM. absent: Lymphadenopathy - Respiratory Exam Respiratory Exam: Clear to Ausculation Bilateral, NORMAL BREATHING PATTERN. absent: Rales, Rhonchi, Wheezes - Cardiovascular Exam Cardiovascular Exam: REGULAR RHYTHM, +S1, +S2 - GI/Abdominal Exam GI & Abdominal Exam: Soft, Normal Bowel Sounds. absent: Tenderness, Organomegaly - Extremities Exam Extremities Exam: absent: Calf Tenderness (patient has pins in place from surgery, right toes intact sensation and are warm to touch; left leg with no edema/pain) - Back Exam Back Exam: NORMAL INSPECTION. absent: CVA tenderness (L), CVA tenderness (R) - Neurological Exam Neurological Exam: Alert, Awake, Oriented x3 - Psychiatric Exam Psychiatric exam: Normal Affect - Skin Skin Exam: Warm Assessment and Plan - Assessment and Plan (Free Text) Assessment: 52yo F admitted for EtOH withdrawal and Right distal tibial fracture s/p fall 1) Right distal tibia/fibula fracture s/p ORIF * Podiatry (Dr. Hurley) on board-->help appreciated * Right Ankle Xray (04/30): Comminuted trimalleolar displaced fractures of the distal fibula. Disruption of the ankle mortise. Soft tissue swelling. * Right lower extremity CT (04/30): Markedly comminuted, distracted, and dislocated fracture deformity of the distal tibia with prominent intra- articular extension. A few prominent fracture fragments are noted at the anterolateral distal tibia measuring up to 3.4 centimeters with apparent anterior lateral distraction measuring 1.6 centimeters. Posterior subluxation of the remaining fracture fragment. Fracture deformities involve the medial and posterior malleolus. * Left lower extremity duplex 04/30: No evidence of deep or superficial vein thrombosis of the left lower extremity with excellent venous flow. Normal valve function noted of the left side. Normal venous flow noted in the right common femoral vein. * Head CT (04/30): No acute intracranial pathology identified. * CXR (04/30): No acute findings * Morphine 0.5mg Q6 PRN - Moderate pain * Dilaudid 0.5 as per Podiatry * Non-weight bearing. Fall precautions. f/u PT eval; patient will likely need MONISHA f/u podiatry recs 2) Hx of alcohol abuse and EtOH withdrawal; withdrawal resolved * Blood alcohol level 375 on admission on 04/30 * Librium taper; stopped 05/05; patient no longer in withdrawal * Folic acid 1mg PO daily * MV1 tab Po daily * Thiamine 100mg PO daily * Folate > 20, B12 - 427 3) Low Grade Fever; * Tmax 100.3 F (05/03 8:56AM) * Blood culture (05/01/18): no growth afrer 4 days X2 * Azithromycin 250mg PO daily (active since 04/22/18) * No evidence of DVT noted on US on 04/30/18 * will monitor 4) Normocytic anemia: * secondary to bone marrow suppression caused by alcohol * Monitor H/H * Advised type and cross 1 unit of PRBC prior to OR to podiatry resident * Will continue to monitor with daily CBC 5) Thrombocytopenia (resolved) * secondary to bone marrow suppression caused by alcohol * platelets have normalized 6) Transaminitis: * Likely 2/2 alcohol abuse * normalized 7) Hx of HTN: * Lopressor 12.5mg PO BID * Monitor vital signs 8) Hx of depression: * As per prior medical records-->Patient is not currently taking any medications * patient denies any HI/denies SI 9) Hx of schizophrenia: * As per prior medical records-->- Patient is not currently taking any medications 10)Hypocalcemia: * within normal limits 11) Hx of Asthma: * Patient is not in acute exacerbation * Chest xray: no active disease 12) PPx: * DVT: Heparin held for procedure bj * Fall precautions, non-weight bearing Disposition:patient is not in acute withdrawal from alcohol. Echo reviewed. Patient is low to intermediate risk prior to OR for noncardiac surgery. Surgery and anesthesia to discuss risk and benefits of procedure prior to OR respectiv aida. <Rosibel Winn V - Last Filed: 05/06/18 01:19> Objective - Vital Signs/Intake and Output Vital Signs (last 24 hours): Temp Pulse Resp BP Pulse Ox 98.8 F 99 H 20 111/72 100 05/05/18 15:00 05/05/18 15:00 05/05/18 15:00 05/05/18 15:00 05/05/18 15:00 Intake and Output: 05/05/18 05/06/18 18:59 06:59 Intake Total 1300 300 Output Total 300 Balance 1000 300 - Medications Medications: Current Medications Acetaminophen (Tylenol 325mg Tab) 650 mg PO Q6 PRN PRN Reason: Pain, Mild (1-3) Last Admin: 05/05/18 23:21 Dose: 650 mg Albuterol/Ipratropium (Duoneb 3 Mg/0.5 Mg (3 Ml) Ud) 3 ml INH RQ6 PRN PRN Reason: Shortness of Breath Benzocaine/Menthol (Cepacol Sore Throat) 1 sallie MT QID PRN PRN Reason: Pain, moderate (4-7) Folic Acid (Folic Acid) 1 mg PO DAILY [facility] Last Admin: 05/05/18 10:00 Dose: Not Given Hydromorphone HCl (Dilaudid) 0.5 mg IVP Q15M PRN PRN Reason: Pain, severe (8-10) Metoprolol Tartrate ([facility]) [facility] Last Admin: 05/05/18 18:12 Dose: 12.5 mg Morphine Sulfate (Morphine) 0.5 mg IVP Q6H PRN PRN Reason: Pain, moderate (4-7) Morphine Sulfate (Morphine) 1 mg IVP Q6H PRN PRN Reason: Pain, severe (8-10) Last Admin: 05/05/18 21:47 Dose: 1 mg Multivitamins (Hexavitamin) 1 tab PO DAILY [facility] Last Admin: 05/05/18 10:00 Dose: Not Given Ondansetron HCl (Zofran Inj) 4 mg IVP Q6H PRN PRN Reason: Nausea/Vomiting Last Admin: 05/01/18 11:06 Dose: 4 mg Thiamine HCl (Vitamin B1 Tab) 100 mg PO DAILY [facility] Last Admin: 05/05/18 10:00 Dose: Not Given Trazodone HCl (Desyrel) 25 mg PO HS [facility] Last Admin: 05/05/18 21:49 Dose: 25 mg - Labs Labs: 05/05/18 06:15 05/05/18 06:15 PT 11.4 SECONDS (9.7-12.2) 04/30/18 10:43 INR 1.0 04/30/18 10:43 APTT 30 SECONDS (21-34) 04/30/18 10:43 Attending/Attestation - Attestation I have personally seen and examined this patient.: Yes I have fully participated in the care of the patient.: Yes I have reviewed all pertinent clinical information, including history, physical exam and plan: Yes Notes (Text): This is late computer entry for 05/05/18. Patient seen, examined, and case discussed with day-time resident. Patient seen status post OR. Patient notes she is feeling great and very grateful and appreciative of the help we are providing her. 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 F/u with podiatry post procedure in regards to restart anticoagulation and direction of physical therapy Assessment/Plan 1) Right distal tibia/fibula fracture * Podiatry (Dr. Hurley) on board-->help appreciated * Right Ankle Xray (04/30): Comminuted trimalleolar displaced fractures of the distal fibula. Disruption of the ankle mortise. Soft tissue swelling. * Right lower extremity CT (04/30): Markedly comminuted, distracted, and dislocated fracture deformity of the distal tibia with prominent intra- articular extension. A few prominent fracture fragments are noted at the anterolateral distal tibia measuring up to 3.4 centimeters with apparent anterior lateral distraction measuring 1.6 centimeters. Posterior subluxation of the remaining fracture fragment. Fracture deformities involve the medial and posterior malleolus. * Left lower extremity duplex 04/30: No evidence of deep or superficial vein thrombosis of the left lower extremity with excellent venous flow. Normal valve function noted of the left side. Normal venous flow noted in the right common femoral vein. * Head CT (04/30): No acute intracranial pathology identified. * CXR (04/30): No acute findings * Morphine 0.5mg Q6 PRN - Moderate pain * Morphine 1mg Q6 PRN - Severe pain * Non-weight bearing. Fall precautions. * Repeat EKG: NSR * Prior EKG while patient was withdrawing from alcohol * Echocardiogram (05/04): normal size la, lv and ra and rv. normal lv wall motion, thickenss and systolic function w lvef ef 60-65%, lv diastolc dysfunction, normal arotic, mitral, tv, and pv, mild tr/pi mild pulm htn, normal size aortic root, no pericardial effusion 2) Hx of alcohol abuse: * Blood alcohol level 375 on admission on 04/30 * Librium taper discontinued * Librium 25mg PO Q8 PRN symptoms of alcohol withdrawal discontinued * Folic acid 1mg PO daily * MV1 tab Po daily * Thiamine 100mg PO daily * Folate > 20, B12 - 427 3) Pharygnitis * Tmax 100.3 F (05/03 8:56AM) * Blood culture (05/01/18): no growth after 4 days X2 * Azithromycin 250mg PO daily (active since 04/22/18) completed on Monday * No evidence of DVT noted on US on 04/30/18 4) Normocytic anemia: * secondary to bone marrow suppression caused by alcohol * Monitor H/H * Advised type and cross 1 unit of PRBC prior to OR to podiatry resident * Will continue to monitor with daily CBC 5) Thrombocytopenia (resolved) * secondary to bone marrow suppression caused by alcohol * platelets have normalized 6) Transaminitis: * Likely 2/2 alcohol abuse * normalized 7) Hx of HTN: * Lopressor 12.5mg PO BID * Monitor vital signs 8) Hx of depression: * As per prior medical records-->Patient is not currently taking any medications * patient denies any HI/denies SI 9) Hx of schizophrenia: * As per prior medical records-->- Patient is not currently taking any medications 10)Hypocalcemia: * within normal limits 11) Hx of Asthma: * Patient is not in acute exacerbation * Chest xray: no active disease 12) PPx: * DVT: Heparin held for procedure bj * Fall precautions, non-weight bearing Disposition: patient is not in acute withdrawal from alcohol. Patient is low to intermediate risk prior to OR for noncardiac surgery. Surgery and anesthesia to discuss risk and benefits of procedure prior to OR respectively. Postoperative management per podiatry. Anticoagulation to be restarted per podiatry discretion.
--- NOTE | 2018-05-05 19:48 | RAD ---
Date of service: 05/05/2018 PROCEDURE: Intraoperative Fluoroscopy. HISTORY: Fracture FINDINGS: Fluoroscopic assistance was provided for fracture repair. Please refer to the operative report from [facility].
--- NOTE | 2018-05-05 20:01 | RAD ---
Right ankle two views History: Delta frame placement. Comparison: None available. Findings: Delta frame placement. Pins and screws extending through the midshaft of the tibia, distal tibia, talus and calcaneus. Markedly comminuted and distracted intra-articular fracture deformity through the distal tibia. Multiple fracture fragments are noted. Persistent dislocation of the fibula posteriorly. Impression: Delta frame placement. Pins and screws extending through the midshaft of the tibia, distal tibia, talus and calcaneus. Markedly comminuted and distracted intra-articular fracture deformity through the distal tibia. Multiple fracture fragments are noted. Persistent dislocation of the fibula posteriorly.
--- NOTE | 2018-05-05 20:04 | RAD ---
Right tibia and fibula four views History: Delta frame placement. Comparison: 05/02/2018 FINDINGS: Delta frame placement. Pins and screws extending through the midshaft of the tibia, distal tibia, talus and calcaneus. Markedly comminuted and distracted intra-articular fracture deformity through the distal tibia. Multiple fracture fragments are noted. Persistent dislocation of the fibula posteriorly. Small ossific density seen adjacent to the proximal fibula. Impression: Delta frame placement. Pins and screws extending through the midshaft of the tibia, distal tibia, talus and calcaneus. Markedly comminuted and distracted intra-articular fracture deformity through the distal tibia. Multiple fracture fragments are noted. Persistent dislocation of the fibula posteriorly.
[2018-05-05] MEDS: traZODone 25 mg Tab PO SCH (21:49)
[2018-05-06 00:27] LABS: SQUAMOUS EPITHIAL 3 /hpf (0-5); URINE BILIRUBIN NEGATIVE (NEGATIVE); URINE BLOOD NEGATIVE (NEGATIVE); URINE CLARITY Clear (Clear); URINE COLOR Yellow (YELLOW); URINE GLUCOSE (UA) NORMAL (Normal); URINE LEUKOCYTE ESTERASE NEG Leu/uL (Negative); URINE PROTEIN NEGATIVE (NEGATIVE)
[2018-05-06] MEDS: Benzocaine/Menthol (Cepacol) Lozenge MT PRN ×2 (02:21→17:41)
--- NOTE | 2018-05-06 07:59 | RAD ---
Chest x-ray single frontal view HISTORY: Postoperative fever. Comparison: 04/30/2018 FINDINGS: Patchy increased markings in the right hilar region, nonspecific. Subtle infiltrate and or atelectasis can't be excluded. Clinical correlation. Mild venous congestion. Tortuous aorta. Top normal heart size. Degenerative changes in the spine. Impression: Patchy increased markings in the right hilar region, nonspecific. Subtle infiltrate and or atelectasis can't be excluded. Clinical correlation.
--- NOTE | 2018-05-06 08:45 | CP.PCM.PN ---
Subjective - Date & Time of Evaluation Date of Evaluation: 05/06/18 Time of Evaluation: 08:43 - Subjective Subjective: Patient seen and examined at bedside. She complains of canker sore on right side of her tongue. The lozenge x 1 cepacol helped yesterday. Otherwise patient doesn't have SOB, CP, palpitations. Patient also denies subjective fevers. She i s anxious to get home and go to rehab/PT. Objective - Vital Signs/Intake and Output Vital Signs (last 24 hours): Temp Pulse Resp BP Pulse Ox 98.9 F 89 20 101/65 96 05/06/18 04:00 05/06/18 04:00 05/06/18 04:00 05/06/18 04:00 05/06/18 04:00 Intake and Output: 05/06/18 05/06/18 06:59 18:59 Intake Total 420 Balance 420 - Medications Medications: Current Medications Acetaminophen (Tylenol 325mg Tab) 650 mg PO Q6 PRN PRN Reason: Pain, Mild (1-3) Last Admin: 05/06/18 05:57 Dose: 650 mg Albuterol/Ipratropium (Duoneb 3 Mg/0.5 Mg (3 Ml) Ud) 3 ml INH RQ6 PRN PRN Reason: Shortness of Breath Benzocaine/Menthol (Cepacol Sore Throat) 1 sallie MT QID PRN PRN Reason: Pain, moderate (4-7) Last Admin: 05/06/18 02:21 Dose: 1 sallie Folic Acid (Folic Acid) 1 mg PO DAILY [facility] Last Admin: 05/05/18 10:00 Dose: Not Given Hydromorphone HCl (Dilaudid) 0.5 mg IVP Q15M PRN PRN Reason: Pain, severe (8-10) Metoprolol [facility] ([facility]) [facility] Last Admin: 05/05/18 18:12 Dose: 12.5 mg Morphine Sulfate (Morphine) 0.5 mg IVP Q6H PRN PRN Reason: Pain, moderate (4-7) Morphine Sulfate (Morphine) 1 mg IVP Q6H PRN PRN Reason: Pain, severe (8-10) Last Admin: 05/06/18 03:40 Dose: 1 mg Multivitamins (Hexavitamin) 1 tab PO DAILY [facility] Last Admin: 05/05/18 10:00 Dose: Not Given Ondansetron HCl (Zofran Inj) 4 mg IVP Q6H PRN PRN Reason: Nausea/Vomiting Last Admin: 05/06/18 02:51 Dose: 4 mg Thiamine HCl (Vitamin B1 Tab) 100 mg PO DAILY [facility] Last Admin: 05/05/18 10:00 Dose: Not Given Trazodone HCl (Desyrel) 25 mg PO HS [facility] Last Admin: 05/05/18 21:49 Dose: 25 mg - Labs Labs: 05/05/18 06:15 05/05/18 06:15 PT 11.4 SECONDS (9.7-12.2) 04/30/18 10:43 INR 1.0 04/30/18 10:43 APTT 30 SECONDS (21-34) 04/30/18 10:43 Assessment and Plan - Assessment and Plan (Free Text) Assessment: 1) Right distal tibia/fibula fracture * Podiatry (Dr. Hurley) on board-->help appreciated * Right Ankle Xray (04/30): Comminuted trimalleolar displaced fractures of the distal fibula. Disruption of the ankle mortise. Soft tissue swelling. * Right lower extremity CT (04/30): Markedly comminuted, distracted, and dislocated fracture deformity of the distal tibia with prominent intra- articular extension. A few prominent fracture fragments are noted at the anterolateral distal tibia measuring up to 3.4 centimeters with apparent anterior lateral distraction measuring 1.6 centimeters. Posterior subluxation of the remaining fracture fragment. Fracture deformities involve the medial and posterior malleolus. * Left lower extremity duplex 04/30: No evidence of deep or superficial vein thrombosis of the left lower extremity with excellent venous flow. Normal valve function noted of the left side. Normal venous flow noted in the right common femoral vein. * Head CT (04/30): No acute intracranial pathology identified. * CXR (04/30): No acute findings * Morphine 0.5mg Q6 PRN - Moderate pain * Morphine 1mg Q6 PRN - Severe pain * Non-weight bearing. Fall precautions. * Repeat EKG: NSR * Prior EKG while patient was withdrawing from alcohol * Echocardiogram (05/04): normal size la, lv and ra and rv. normal lv wall motion, thickenss and systolic function w lvef ef 60-65%, lv diastolc dysfunction, normal arotic, mitral, tv, and pv, mild tr/pi mild pulm htn, normal size aortic root, no pericardial effusion 2) Hx of alcohol abuse: * Blood alcohol level 375 on admission on 04/30 * Librium taper discontinued * Librium 25mg PO Q8 PRN symptoms of alcohol withdrawal discontinued * Folic acid 1mg PO daily * MV1 tab Po daily * Thiamine 100mg PO daily * Folate > 20, B12 - 427 3) Pharygnitis * Tmax 100.3 F (05/03 8:56AM) * Blood culture (05/01/18): no growth after 4 days X2 * Azithromycin 250mg PO daily (active since 04/22/18) completed on Monday * No evidence of DVT noted on US on 04/30/18 4) Normocytic anemia: * secondary to bone marrow suppression caused by alcohol * Monitor H/H * Advised type and cross 1 unit of PRBC prior to OR to podiatry resident * Will continue to monitor with daily CBC 5) Thrombocytopenia (resolved) * secondary to bone marrow suppression caused by alcohol * platelets have normalized 6) Transaminitis: * Likely 2/2 alcohol abuse * normalized 7) Hx of HTN: * Lopressor 12.5mg PO BID * Monitor vital signs 8) Hx of depression: * As per prior medical records-->Patient is not currently taking any medications * patient denies any HI/denies SI 9) Hx of schizophrenia: * As per prior medical records-->- Patient is not currently taking any medications 10)Hypocalcemia: * within normal limits 11) Hx of Asthma: * Patient is not in acute exacerbation * Chest xray: no active disease 12) PPx: * DVT: Heparin held for procedure bj * Fall precautions, non-weight bearing
[2018-05-06] MEDS: Multiple Vitamins Tab PO SCH (09:56)
--- NOTE | 2018-05-06 13:05 | CT ---
CT left tibia and fibula and ankle HISTORY: Delta frame fixation. Tibial plafond fracture. COMPARISON: X-ray dated 05/05/2018 TECHNIQUE: Multiple contiguous axial images were performed through the left tibia and fibula and ankle without the use of intravenous contrast. Subsequently, sagittal and coronal reformatted images were obtained. This CT exam was performed using one or more of the following dose reduction techniques: Automated exposure control, adjustment of the mA and/or kV according to patient size, and/or use of iterative reconstruction technique. Findings: Delta frame in place. External fixator with rods traversing through the midshaft of the tibia, distal tibia at the site of the comminuted fracture, talus, and posterior calcaneus. Again identified is a markedly comminuted and distracted intra-articular fracture of the distal tibia with marked comminution of the fracture fragments. There is prominent anterior lateral distraction of a fracture fragment measuring approximately 2 centimeters. Again identified is a suggestion of posterior subluxation of the distal fibula. Diffuse subcutaneous swelling present. Impression: Delta frame in place. External fixator with rods traversing through the midshaft of the tibia, distal tibia at the site of the comminuted fracture, talus, and posterior calcaneus. Again identified is a markedly comminuted and distracted intra-articular fracture of the distal tibia with marked comminution of the fracture fragments. There is prominent anterior lateral distraction of a fracture fragment measuring approximately 2 centimeters. Again identified is a suggestion of posterior subluxation of the distal fibula. Diffuse subcutaneous swelling present. A preliminary report was generated at 8:23 p.m. on 05/05/[address] Darinel Garay from [employer]
--- NOTE | 2018-05-06 13:13 | CP.PCM.PN ---
Subjective - Date & Time of Evaluation Date of Evaluation: 05/06/18 Time of Evaluation: 13:10 - Subjective Subjective: Podiatry progress note for Dr. Hurley 52 yo female seen and evaluated POD 1 external fixation of right pilon fracture. States she was in pain all night and was not able to sleep however she is awake and does not complain of pain at present. States she was ready to leave overnight and try and walk on the ex fix. States that she wants PT so she can learn to walk with the device. Denies N/V/F/C/SOB/CP and has no other complaints today. Objective - Vital Signs/Intake and Output Vital Signs (last 24 hours): Temp Pulse Resp BP Pulse Ox 98.4 F 92 H 18 115/75 100 05/06/18 08:20 05/06/18 08:20 05/06/18 08:20 05/06/18 08:20 05/06/18 08:20 Intake and Output: 05/06/18 05/06/18 06:59 18:59 Intake Total 420 Balance 420 - Medications Medications: Current Medications Acetaminophen (Tylenol 325mg Tab) 650 mg PO Q6 PRN PRN Reason: Pain, Mild (1-3) Last Admin: 05/06/18 05:57 Dose: 650 mg Albuterol/Ipratropium (Duoneb 3 Mg/0.5 Mg (3 Ml) Ud) 3 ml INH RQ6 PRN PRN Reason: Shortness of Breath Benzocaine/Menthol (Cepacol Sore Throat) 1 sallie MT QID PRN PRN Reason: Pain, moderate (4-7) Last Admin: 05/06/18 02:21 Dose: 1 sallie Folic Acid (Folic Acid) 1 mg PO DAILY [facility] Last Admin: 05/06/18 09:56 Dose: 1 mg Hydromorphone HCl (Dilaudid) 0.5 mg IVP Q15M PRN PRN Reason: Pain, severe (8-10) Metoprolol [facility] Last Admin: 05/06/18 09:00 Dose: 12.5 mg Morphine Sulfate (Morphine) 0.5 mg IVP Q6H PRN PRN Reason: Pain, moderate (4-7) Morphine Sulfate (Morphine) 1 mg IVP Q6H PRN PRN Reason: Pain, severe (8-10) Last Admin: 05/06/18 10:03 Dose: 1 mg Multivitamins (Hexavitamin) 1 tab PO DAILY [facility] Last Admin: 05/06/18 09:56 Dose: 1 tab Ondansetron HCl (Zofran Inj) 4 mg IVP Q6H PRN PRN Reason: Nausea/Vomiting Last Admin: 05/06/18 02:51 Dose: 4 mg Thiamine HCl (Vitamin B1 Tab) 100 mg PO DAILY [facility] Last Admin: 05/06/18 09:57 Dose: 100 mg Trazodone HCl (Desyrel) 25 mg PO HS [facility] Last Admin: 05/05/18 21:49 Dose: 25 mg - Labs Labs: 05/05/18 06:15 05/05/18 06:15 PT 11.4 SECONDS (9.7-12.2) 04/30/18 10:43 INR 1.0 04/30/18 10:43 APTT 30 SECONDS (21-34) 04/30/18 10:43 - Constitutional Appears: Well, Non-toxic, No Acute Distress - Head Exam Head Exam: ATRAUMATIC, NORMOCEPHALIC - Extremities Exam Additional comments: Dressing to right surgical site and external fixator left on, appear clean dry and intact Cap refill <3 seconds to all digits Sensation grossly intact - Neurological Exam Neurological Exam: Alert, Awake, Oriented x3 - Psychiatric Exam Psychiatric exam: Normal Affect, Normal Mood Assessment and Plan - Assessment and Plan (Free Text) Assessment: 52 yo female POD 1 right external fixation of pilon fracture Plan: Patient seen and evaluated Discussed in detail with Dr. Hurley Dressing kept intact Instructed patient on course of fixation device and need to stay in hospital for management Discussed course of treatment and staged surgical plan, patient demonstrated understanding Continue pain management Post operative imaging Right x-ray - delta frame placement, persistent dislocation of the fibula posteriorly CT - Prominent anterolateral distraction of fracture fragment measuring approx 2 centimeters; posterior subluxation of distal fibula Podiatry will continue to follow while in house
[2018-05-06] MEDS: traZODone 25 mg Tab PO SCH (22:39)
[2018-05-07] MEDS: Multiple Vitamins Tab PO SCH (09:30)
--- NOTE | 2018-05-07 11:30 | CP.PCM.PN ---
Subjective - Date & Time of Evaluation Date of Evaluation: 05/07/18 Time of Evaluation: 11:28 - Subjective Subjective: Podiatry Progress Note for Dr. Hurley 52F seen two days s/p application of external fixator to RLE for displaced, comminuted distal tibia fracture. Patient is AAO x 3 and NAD, resting comfortably in room chair. Denies any acute overnight events and states that her pain is well controlled. Denies trying to walk on foot and inquires as to when she will have her next surgery. Denies any further pedal complaints at this time. Denies any recent N/V/F/C/CP/SOB/D Objective - Vital Signs/Intake and Output Vital Signs (last 24 hours): Temp Pulse Resp BP Pulse Ox 97.8 F 89 20 101/59 L 100 05/07/18 07:00 05/07/18 07:00 05/07/18 07:00 05/07/18 07:00 05/07/18 07:00 Intake and Output: 05/07/18 05/07/18 06:59 18:59 Intake Total 40 Balance 40 - Medications Medications: Current Medications Acetaminophen (Tylenol 325mg Tab) 650 mg PO Q6 PRN PRN Reason: Pain, Mild (1-3) Last Admin: 05/06/18 22:49 Dose: 650 mg Albuterol/Ipratropium (Duoneb 3 Mg/0.5 Mg (3 Ml) Ud) 3 ml INH RQ6 PRN PRN Reason: Shortness of Breath Benzocaine/Menthol (Cepacol Sore Throat) 1 sallie MT QID PRN PRN Reason: Pain, moderate (4-7) Last Admin: 05/06/18 17:41 Dose: 1 sallie Folic Acid (Folic Acid) 1 mg PO DAILY [facility] Last Admin: 05/06/18 09:56 Dose: 1 mg Hydromorphone HCl (Dilaudid) 0.5 mg IVP Q15M PRN PRN Reason: Pain, severe (8-10) Metoprolol Tartrate (Lopressor) 12.5 mg PO BIDCC [facility] Last Admin: 05/07/18 08:30 Dose: 12.5 mg Morphine Sulfate (Morphine) 0.5 mg IVP Q6H PRN PRN Reason: Pain, moderate (4-7) Morphine Sulfate (Morphine) 1 mg IVP Q6H PRN PRN Reason: Pain, severe (8-10) Last Admin: 05/07/18 06:36 Dose: 1 mg Multivitamins (Hexavitamin) 1 tab PO DAILY [facility] Last Admin: 05/06/18 09:56 Dose: 1 tab Ondansetron HCl (Zofran Inj) 4 mg IVP Q6H PRN PRN Reason: Nausea/Vomiting Last Admin: 05/06/18 02:51 Dose: 4 mg Thiamine HCl (Vitamin B1 Tab) 100 mg PO DAILY [facility] Last Admin: 05/06/18 09:57 Dose: 100 mg Trazodone HCl (Desyrel) 25 mg PO HS [facility] Last Admin: 05/06/18 22:39 Dose: 25 mg - Labs Labs: 05/05/18 06:15 05/05/18 06:15 PT 11.4 SECONDS (9.7-12.2) 04/30/18 10:43 INR 1.0 04/30/18 10:43 APTT 30 SECONDS (21-34) 04/30/18 10:43 - Constitutional Appears: Well, Non-toxic, No Acute Distress - Extremities Exam Additional comments: RLE focused exam Dressing left C/D/I Patient able to wiggle all toes without pain External fixator seen to be in proper place Will change patient dressing tomorrow - Neurological Exam Neurological Exam: Alert, Awake, Oriented x3 - Psychiatric Exam Psychiatric exam: Normal Affect, Normal Mood Assessment and Plan - Assessment and Plan (Free Text) Assessment: 52F seen two days s/p application of external fixator to RLE for displaced, comminuted distal tibia fracture Plan: Patient seen and evaluated Plan discussed with Dr. Xavi Hernandez Continue pain management per primary team Dressings left c/d/i Waiting on patient soft tissue edema to resolve so that ORIF can be completed Tentatively planning for ORIF on Friday 05/11 Podiatry will continue to follow while patient in house
[2018-05-07] MEDS: Benzocaine/Menthol (Cepacol) Lozenge MT PRN (12:57)
--- NOTE | 2018-05-07 15:15 | CP.PCM.PN ---
<Rey Schreiber - Last Filed: 05/07/18 15:20> Subjective - Date & Time of Evaluation Date of Evaluation: 05/07/18 Time of Evaluation: 15:12 - Subjective Subjective: Hospitalist Service Pt seen and examined at bedside. Pt complains of persistent soreness in the ankle but is able to wiggle toes and feel light touch. Pt denies abnormal sensation of warmth or swelling in the foot. Pt denies fc nf cp sob Objective - Vital Signs/Intake and Output Vital Signs (last 24 hours): Temp Pulse Resp BP Pulse Ox 97.8 F 89 20 101/59 L 100 05/07/18 07:00 05/07/18 07:00 05/07/18 07:00 05/07/18 07:00 05/07/18 07:00 Intake and Output: 05/07/18 05/07/18 06:59 18:59 Intake Total 40 Balance 40 - Medications Medications: Current Medications Acetaminophen (Tylenol 325mg Tab) 650 mg PO Q6 PRN PRN Reason: Pain, Mild (1-3) Last Admin: 05/06/18 22:49 Dose: 650 mg Albuterol/Ipratropium (Duoneb 3 Mg/0.5 Mg (3 Ml) Ud) 3 ml INH RQ6 PRN PRN Reason: Shortness of Breath Benzocaine/Menthol (Cepacol Sore Throat) 1 sallie MT QID PRN PRN Reason: Pain, moderate (4-7) Last Admin: 05/07/18 12:57 Dose: 1 sallie Folic Acid (Folic Acid) 1 mg PO DAILY [facility] Last Admin: 05/07/18 09:30 Dose: 1 mg Hydromorphone HCl (Dilaudid) 0.5 mg IVP Q15M PRN PRN Reason: Pain, severe (8-10) Metoprolol [facility]) [facility] Last Admin: 05/07/18 08:30 Dose: 12.5 mg Morphine Sulfate (Morphine) 0.5 mg IVP Q6H PRN PRN Reason: Pain, moderate (4-7) Morphine Sulfate (Morphine) 1 mg IVP Q6H PRN PRN Reason: Pain, severe (8-10) Last Admin: 05/07/18 12:57 Dose: 1 mg Multivitamins (Hexavitamin) 1 tab PO DAILY [facility] Last Admin: 05/07/18 09:30 Dose: 1 tab Ondansetron HCl (Zofran Inj) 4 mg IVP Q6H PRN PRN Reason: Nausea/Vomiting Last Admin: 05/06/18 02:51 Dose: 4 mg Thiamine HCl (Vitamin B1 Tab) 100 mg PO DAILY [facility] Last Admin: 05/07/18 09:30 Dose: 100 mg Trazodone HCl (Desyrel) 25 mg PO HS [facility] Last Admin: 05/06/18 22:39 Dose: 25 mg - Labs Labs: 05/05/18 06:15 05/05/18 06:15 PT 11.4 SECONDS (9.7-12.2) 04/30/18 10:43 INR 1.0 04/30/18 10:43 APTT 30 SECONDS (21-34) 04/30/18 10:43 Assessment and Plan - Assessment and Plan (Free Text) Assessment: 52F with R tibia/fibular frax s/p reduction, f/u ORIF tentatively monday. NWB until then Right distal tibia/fibula fracture * Podiatry (Dr. Hurley) on board-->help appreciated * surgery 05/04, ORIF f/u sx tentatively monday * Right Ankle Xray (04/30): Comminuted trimalleolar displaced fractures of the distal fibula. Disruption of the ankle mortise. Soft tissue swelling. * Right lower extremity CT (04/30): Markedly comminuted, distracted, and dislocated fracture deformity of the distal tibia with prominent intra- articular extension. A few prominent fracture fragments are noted at the anterolateral distal tibia measuring up to 3.4 centimeters with apparent anterior lateral distraction measuring 1.6 centimeters. Posterior subluxation of the remaining fracture fragment. Fracture deformities involve the medial and posterior malleolus. * Left lower extremity duplex 04/30: No evidence of deep or superficial vein thrombosis of the left lower extremity with excellent venous flow. Normal valve function noted of the left side. Normal venous flow noted in the right common femoral vein. * Head CT (04/30): No acute intracranial pathology identified. * CXR (04/30): No acute findings * Morphine 0.5mg Q6 PRN - Moderate pain * Morphine 1mg Q6 PRN - Severe pain * Non-weight bearing. Fall precautions. * Repeat EKG: NSR * Prior EKG while patient was withdrawing from alcohol * Echocardiogram (05/04): normal size la, lv and ra and rv. normal lv wall motion, thickenss and systolic function w lvef ef 60-65%, lv diastolc dysfunction, normal arotic, mitral, tv, and pv, mild tr/pi mild pulm htn, normal size aortic root, no pericardial effusion Hx of alcohol abuse: * Blood alcohol level 375 on admission on 04/30 * Librium taper discontinued * Librium 25mg PO Q8 PRN symptoms of alcohol withdrawal discontinued * Folic acid 1mg PO daily * MV1 tab Po daily * Thiamine 100mg PO daily * Folate > 20, B12 - 427 Pharygnitis * Tmax 101.8 monday night- likely post op fever * Blood culture (05/06) no growth 24hrs * No evidence of DVT noted on US on 04/30/18 Normocytic anemia: * secondary to bone marrow suppression caused by alcohol * Monitor H/H * Advised type and cross 1 unit of PRBC prior to OR to podiatry resident * Will continue to monitor with daily CBC Hx of HTN: * Lopressor 12.5mg PO BID * Monitor vital signs Hx of depression: * As per prior medical records-->Patient is not currently taking any medications * patient denies any HI/denies SI Hx of schizophrenia: * As per prior medical records-->- Patient is not currently taking any medications PPx: * DVT: Heparin held for procedure bj * Fall precautions, non-weight bearing Dispo: Waiting on patient soft tissue edema to resolve so that ORIF can be completed Tentatively planning for ORIF on Friday 05/11 Maryellen Schreiber PGY1 <Rosibel Winn V - Last Filed: 05/07/18 16:08> Objective - Vital Signs/Intake and Output Vital Signs (last 24 hours): Temp Pulse Resp BP Pulse Ox 97.8 F 89 20 101/59 L 100 05/07/18 07:00 05/07/18 07:00 05/07/18 07:00 05/07/18 07:00 05/07/18 07:00 Intake and Output: 05/07/18 05/07/18 06:59 18:59 Intake Total 40 Balance 40 - Medications Medications: Current Medications Acetaminophen (Tylenol 325mg Tab) 650 mg PO Q6 PRN PRN Reason: Pain, Mild (1-3) Last Admin: 05/06/18 22:49 Dose: 650 mg Albuterol/Ipratropium (Duoneb 3 Mg/0.5 Mg (3 Ml) Ud) 3 ml INH RQ6 PRN PRN Reason: Shortness of Breath Benzocaine/Menthol (Cepacol Sore Throat) 1 sallie MT QID PRN PRN Reason: Pain, moderate (4-7) Last Admin: 05/07/18 12:57 Dose: 1 sallie Folic Acid (Folic Acid) 1 mg PO DAILY [facility] Last Admin: 05/07/18 09:30 Dose: 1 mg Hydromorphone HCl (Dilaudid) 0.5 mg IVP Q15M PRN PRN Reason: Pain, severe (8-10) Metoprolol [facility]) [facility] Last Admin: 05/07/18 08:30 Dose: 12.5 mg Morphine Sulfate (Morphine) 0.5 mg IVP Q6H PRN PRN Reason: Pain, moderate (4-7) Morphine Sulfate (Morphine) 1 mg IVP Q6H PRN PRN Reason: Pain, severe (8-10) Last Admin: 05/07/18 12:57 Dose: 1 mg Multivitamins (Hexavitamin) 1 tab PO DAILY [facility] Last Admin: 05/07/18 09:30 Dose: 1 tab Ondansetron HCl (Zofran Inj) 4 mg IVP Q6H PRN PRN Reason: Nausea/Vomiting Last Admin: 05/06/18 02:51 Dose: 4 mg Thiamine HCl (Vitamin B1 Tab) 100 mg PO DAILY [facility] Last Admin: 05/07/18 09:30 Dose: 100 mg Trazodone HCl (Desyrel) 25 mg PO [facility] Last Admin: 05/06/18 22:39 Dose: 25 mg - Labs Labs: 05/05/18 06:15 05/05/18 06:15 PT 11.4 SECONDS (9.7-12.2) 04/30/18 10:43 INR 1.0 04/30/18 10:43 APTT 30 SECONDS (21-34) 04/30/18 10:43 Attending/Attestation - Attestation I have personally seen and examined this patient.: Yes I have fully participated in the care of the patient.: Yes I have reviewed all pertinent clinical information, including history, physical exam and plan: Yes Notes (Text): Patient seen, examined, case discussed with medical professionals. Patient is postoperative day 2 of right ankle reduction of omar on fracture with application delta frame for stage procedure. Tmax: 99.8 F. Patient completed Azithromycin 250mg PO daily (active since 04/22/18) completed on Saturday 05/05. Patient's blood cultures post operative are negative. Patient's repeat chest xray (05/06) patchy increased markings in the right hilar region, nonspecific. subtle infiltrate and or atelectasis cant be excluded. Patient encouraged to use her incentive spirometry since she is using it sparingly. UA negative. Urine culture received; result pending. Patient to remain nonweightbearing. Patient awaiting second podiatric procedure for Monday. Assessment/Plan 1) Right distal tibia/fibula fracture * Podiatry (Dr. Hurley) on board-->help appreciated * Right Ankle Xray (04/30): Comminuted trimalleolar displaced fractures of the distal fibula. Disruption of the ankle mortise. Soft tissue swelling. * Right lower extremity CT (04/30): Markedly comminuted, distracted, and dislocated fracture deformity of the distal tibia with prominent intra- articular extension. A few prominent fracture fragments are noted at the anterolateral distal tibia measuring up to 3.4 centimeters with apparent anterior lateral distraction measuring 1.6 centimeters. Posterior subluxation of the remaining fracture fragment. Fracture deformities involve the medial and posterior malleolus. * Left lower extremity duplex 04/30: No evidence of deep or superficial vein thrombosis of the left lower extremity with excellent venous flow. Normal valve function noted of the left side. Normal venous flow noted in the right common femoral vein. * s/p right ankle reduction of omar on fracture with application delta frame for stage procedure on 05/05/18 * Head CT (04/30): No acute intracranial pathology identified. * CXR (04/30): No acute findings * Morphine 0.5mg Q6 PRN - Moderate pain * Morphine 1mg Q6 PRN - Severe pain * Non-weight bearing. Fall precautions. * Repeat EKG: NSR * Prior EKG while patient was withdrawing from alcohol * Echocardiogram (05/04): normal size la, lv and ra and rv. normal lv wall motion, thickenss and systolic function w lvef ef 60-65%, lv diastolc dysfunction, normal arotic, mitral, tv, and pv, mild tr/pi mild pulm htn, normal size aortic root, no pericardial effusion 2) Hx of alcohol abuse: * Blood alcohol level 375 on admission on 04/30 * Librium taper discontinued * Librium 25mg PO Q8 PRN symptoms of alcohol withdrawal discontinued * Folic acid 1mg PO daily * MV1 tab Po daily * Thiamine 100mg PO daily * Folate > 20, B12 - 427 3) Pharygnitis * Blood culture (05/01/18): no growth after 5 days X2 * Azithromycin 250mg PO daily (active since 04/22/18) completed on Saturday 05/05 4) Postoperative Fever * Tmax: 99.8 F. Patient completed Azithromycin 250mg PO daily (active since 04/22/18) completed on Saturday 05/05. * Patient's blood cultures post operative are negative. * Patient's repeat chest xray (05/06) patchy increased markings in the right hilar region, nonspecific. subtle infiltrate and or atelectasis cant be excluded. * Patient encouraged to use her incentive spirometry since she is using it s paringly. * UA negative. Urine culture received; result pending. 5) Normocytic anemia: * secondary to bone marrow suppression caused by alcohol * Monitor H/H * Advised type and cross 1 unit of PRBC prior to OR to podiatry resident * Will continue to monitor with daily CBC 6) Thrombocytopenia (resolved) * secondary to bone marrow suppression caused by alcohol * platelets have normalized 7) Transaminitis: * Likely 2/2 alcohol abuse * normalized 8) Hx of HTN: * Lopressor 12.5mg PO BID * Monitor vital signs 9) Hx of depression: * As per prior medical records-->Patient is not currently taking any medications * patient denies any HI/denies SI 10) Hx of schizophrenia: * As per prior medical records-->- Patient is not currently taking any medicatio ns 11)Hypocalcemia: * within normal limits 12) Hx of Asthma: * Patient is not in acute exacerbation * Chest xray: no active disease 13) PPx: * DVT: Heparin held for procedure-->f/u with podiatry in regards to restarting dvt ppx * Fall precautions, non-weight bearing Disposition: Postoperative management per podiatry. Anticoagulation to be restarted per podiatry discretion. Patient to remain nonweight bearing for ORIF planned for Monday.
[2018-05-07] MEDS ORDERED: Heparin25000 units/250ml 1/2NS 25,000 UNITS/250 ML BAG IV PRN (16:56)
[2018-05-07] MEDS: Sodium Chloride 0.9% 1,000 ML IV SCH (19:09)
[2018-05-07] MEDS: traZODone 25 mg Tab PO SCH (22:23)
--- NOTE | 2018-05-07 23:10 | CARD ---
APPROVED REPORT Date of service: 05/05/2018 EKG Measurement Heart [id number] [id number] <Conclusion> Normal sinus rhythm Normal ECG
[2018-05-08] MEDS: Sodium Chloride 0.9% 1,000 ML IV SCH (05:22)
[2018-05-08] MEDS: Benzocaine/Menthol (Cepacol) Lozenge MT PRN (05:35)
--- NOTE | 2018-05-08 07:24 | CP.PCM.PN ---
<EnriquerodrigoRey - Last Filed: 05/08/18 15:13> Subjective - Date & Time of Evaluation Date of Evaluation: 05/08/18 Time of Evaluation: 07:21 - Subjective Subjective: Hospitalist Service Pt seen and examined at bedside. Pt reports good tolerance of physical therapy and is able to wiggle toes and feel light sensation, she denies any numbness tingling in the area, denies swelling or acute changes in temperature sensation. Pt denies fc nv cp sob Objective - Vital Signs/Intake and Output Vital Signs (last 24 hours): Temp Pulse Resp BP Pulse Ox 97.6 F 101 H 20 113/69 98 05/08/18 05:16 05/08/18 05:16 05/07/18 23:10 05/08/18 05:16 05/07/18 23:10 Intake and Output: 05/08/18 05/08/18 06:59 18:59 Intake Total 1000 Balance 1000 - Medications Medications: Current Medications Acetaminophen (Tylenol 325mg Tab) 650 mg PO Q6 PRN PRN Reason: Pain, Mild (1-3) Last Admin: 05/08/18 05:34 Dose: 650 mg Albuterol/Ipratropium (Duoneb 3 Mg/0.5 Mg (3 Ml) Ud) 3 ml INH RQ6 PRN PRN Reason: Shortness of Breath Benzocaine (Orajel 7.5%) 1 gm MM TID [facility] Benzocaine/Menthol (Cepacol Sore Throat) 1 sallie MT QID PRN PRN Reason: Pain, moderate (4-7) Last Admin: 05/08/18 05:35 Dose: 1 sallie Folic Acid (Folic Acid) 1 mg PO DAILY [facility] Last Admin: 05/07/18 09:30 Dose: 1 mg Heparin Sodium (Porcine) (Heparin) 5,000 units SC Q8 [facility] Last Admin: 05/08/18 05:22 Dose: 5,000 units Hydromorphone HCl (Dilaudid) 0.5 mg IVP Q15M PRN PRN Reason: Pain, severe (8-10) Sodium Chloride (Sodium Chloride 0.9%) 1,000 mls @ 100 mls/hr IV .Q10H [facility] Last Admin: 05/08/18 05:22 Dose: 100 mls/hr Metoprolol Tartrate (Lopressor) 12.5 mg PO BIDCC [facility] Last Admin: 05/07/18 17:23 Dose: Not Given Morphine Sulfate (Morphine) 0.5 mg IVP Q6H PRN PRN Reason: Pain, moderate (4-7) Morphine Sulfate (Morphine) 1 mg IVP Q6H PRN PRN Reason: Pain, severe (8-10) Last Admin: 05/08/18 01:53 Dose: 1 mg Multivitamins (Hexavitamin) 1 tab PO DAILY [facility] Last Admin: 05/07/18 09:30 Dose: 1 tab Ondansetron HCl (Zofran Inj) 4 mg IVP Q6H PRN PRN Reason: Nausea/Vomiting Last Admin: 05/06/18 02:51 Dose: 4 mg Thiamine HCl (Vitamin B1 Tab) 100 mg PO DAILY [facility] Last Admin: 05/07/18 09:30 Dose: 100 mg Trazodone HCl (Desyrel) 25 mg PO [facility] Last Admin: 05/07/18 22:23 Dose: 25 mg - Labs Labs: 05/05/18 06:15 05/05/18 06:15 PT 11.4 SECONDS (9.7-12.2) 04/30/18 10:43 INR 1.0 04/30/18 10:43 APTT 30 SECONDS (21-34) 04/30/18 10:43 - Constitutional Appears: Well, Non-toxic, No Acute Distress - Head Exam Head Exam: ATRAUMATIC, NORMAL INSPECTION - Eye Exam Eye Exam: EOMI, Normal appearance. absent: Scleral icterus Pupil Exam: NORMAL ACCOMODATION - ENT Exam Additional comments: Aphtopus stomatits mouth ulcers noted on right side of tongue - Respiratory Exam Respiratory Exam: Clear to Ausculation Bilateral, NORMAL BREATHING PATTERN. absent: Rales, Wheezes - Cardiovascular Exam Cardiovascular Exam: +S1, +S2. absent: Murmur - GI/Abdominal Exam GI & Abdominal Exam: Soft. absent: Tenderness - Extremities Exam Additional comments: Dressing to right surgical site and external fixator left on, appear clean dry and intact Gross motor function intact Sensation grossly intact - Neurological Exam Neurological Exam: Alert, Awake, Oriented x3 - Psychiatric Exam Psychiatric exam: Normal Affect, Normal Mood - Skin Skin Exam: Dry, Normal Color, Warm Assessment and Plan - Assessment and Plan (Free Text) Assessment: 52F with R tibia/fibular frax s/p reduction, f/u ORIF tentatively monday. NWB until then Right distal tibia/fibula fracture * Podiatry (Dr. Hurley) on board-->help appreciated * surgery 05/04, ORIF f/u sx tentatively monday * pending resolution of soft tissue edema * Right Ankle Xray (04/30): Comminuted trimalleolar displaced fractures of the distal fibula. Disruption of the ankle mortise. Soft tissue swelling. * Right lower extremity CT (04/30): Markedly comminuted, distracted, and dislocated fracture deformity of the distal tibia with prominent intra- articular extension. A few prominent fracture fragments are noted at the anterolateral distal tibia measuring up to 3.4 centimeters with apparent anterior lateral distraction measuring 1.6 centimeters. Posterior subluxation of the remaining fracture fragment. Fracture deformities involve the medial and posterior malleolus. * Left lower extremity duplex 04/30: No evidence of deep or superficial vein thrombosis of the left lower extremity with excellent venous flow. Normal valve function noted of the left side. Normal venous flow noted in the right common femoral vein. * Head CT (04/30): No acute intracranial pathology identified. * CXR (04/30): No acute findings * Morphine 0.5mg Q6 PRN - Moderate pain * Morphine 1mg Q6 PRN - Severe pain * Non-weight bearing. Fall precautions. * Repeat EKG: NSR * Prior EKG while patient was withdrawing from alcohol * Echocardiogram (05/04): normal size la, lv and ra and rv. normal lv wall motion, thickenss and systolic function w lvef ef 60-65%, lv diastolc dysfunction, normal arotic, mitral, tv, and pv, mild tr/pi mild pulm htn, normal size aortic root, no pericardial effusion HCAP * Vanco 1g q12 IVPB (rough AM) * Zosyn 3.375 q8 IVPB * Tmax 101.1 monday night * Pending repeat blood cultures * f/u sputum cultures * CXR 05/08 show RLL infiltrates * f/u repeat dopplers for possible LE DVT Hx of alcohol abuse: * Blood alcohol level 375 on admission on 04/30 * Librium taper discontinued * Librium 25mg PO Q8 PRN symptoms of alcohol withdrawal discontinued * Folic acid 1mg PO daily * MV1 tab Po daily * Thiamine 100mg PO daily * Folate > 20, B12 - 427 Apthous Stomatitis - Orajel TID - Valtrex 500mg BID PO Normocytic anemia: * secondary to bone marrow suppression caused by alcohol * Monitor H/H * Advised type and cross 1 unit of PRBC prior to OR to podiatry resident * Will continue to monitor with daily CBC Hx of HTN: * Lopressor 12.5mg PO BID * Monitor vital signs Hx of depression: * As per prior medical records-->Patient is not currently taking any medications * patient denies any HI/denies SI Hx of schizophrenia: * As per prior medical records-->- Patient is not currently taking any medications PPx: * DVT: Heparin 5000sc daily * Fall precautions, non-weight bearing Dispo: Waiting on patient soft tissue edema to resolve so that ORIF can be completed Tentatively planning for ORIF on Friday 05/11 <Rosibel Winn V - Last Filed: 05/08/18 20:57> Objective - Vital Signs/Intake and Output Vital Signs (last 24 hours): Temp Pulse Resp BP Pulse Ox 99.3 F 98 H 20 110/70 100 05/08/18 15:15 05/08/18 15:15 05/08/18 15:15 05/08/18 15:15 05/08/18 15:15 Intake and Output: 05/08/18 05/09/18 18:59 06:59 Intake Total 1400 Balance 1400 - Medications Medications: Current Medications Acetaminophen (Tylenol 325mg Tab) 650 mg PO Q6 PRN PRN Reason: Pain, Mild (1-3) Last Admin: 05/08/18 05:34 Dose: 650 mg Albuterol/Ipratropium (Duoneb 3 Mg/0.5 Mg (3 Ml) Ud) 3 ml INH RQ6 SHA Last Admin: 05/08/18 19:35 Dose: 3 ml Benzocaine (Orajel 7.5%) 1 gm MM TID [facility] Last Admin: 05/08/18 17:39 Dose: 1 gm Benzocaine/Menthol (Cepacol Sore Throat) 1 sallie MT QID PRN PRN Reason: Pain, moderate (4-7) Last Admin: 05/08/18 05:35 Dose: 1 sallie Folic Acid (Folic Acid) 1 mg PO DAILY [facility] Last Admin: 05/08/18 10:19 Dose: 1 mg Heparin Sodium (Porcine) (Heparin) 5,000 units SC Q8 [facility] Last Admin: 05/08/18 13:40 Dose: 5,000 units Hydromorphone HCl (Dilaudid) 0.5 mg IVP Q15M PRN PRN Reason: Pain, severe (8-10) Sodium Chloride (Sodium Chloride 0.9%) 1,000 mls @ 100 mls/hr IV .Q10H [facility] Last Admin: 05/08/18 05:22 Dose: 100 mls/hr Piperacillin Sod/Tazobactam (Sod 3.375 gm/ Sodium Chloride) 100 mls @ 200 mls/hr IVPB Q8H [facility]; Protocol Last Admin: 05/08/18 16:58 Dose: 200 mls/hr Vancomycin/Sodium Chloride (Vancomycin 1 Gm/Ns 200 Ml) 1 gm in 200 mls @ 166.6 mls/hr IVPB Q12H [facility]; Protocol Stop: 05/13/18 16:01 Last Admin: 05/08/18 17:00 Dose: 166.6 mls/hr [facility] Last Admin: 05/08/18 17:41 Dose: 12.5 mg Morphine Sulfate (Morphine) 0.5 mg IVP Q6H PRN PRN Reason: Pain, moderate (4-7) Morphine Sulfate (Morphine) 1 mg IVP Q6H PRN PRN Reason: Pain, severe (8-10) Last Admin: 05/08/18 19:53 Dose: 1 mg Multivitamins (Hexavitamin) 1 tab PO DAILY [facility] Last Admin: 05/08/18 10:19 Dose: 1 tab Ondansetron HCl (Zofran Inj) 4 mg IVP Q6H PRN PRN Reason: Nausea/Vomiting Last Admin: 05/06/18 02:51 Dose: 4 mg Thiamine HCl (Vitamin B1 Tab) 100 mg PO DAILY [facility] Last Admin: 05/08/18 10:19 Dose: 100 mg Trazodone HCl (Desyrel) 25 mg PO HS [facility] Last Admin: 05/07/18 22:23 Dose: 25 mg Valacyclovir HCl (Valtrex) 1,500 mg PO ONCE ONE; Protocol Stop: 05/08/18 21:01 Valacyclovir HCl (Valtrex) 2,000 mg PO ONCE ONE; Protocol Stop: 05/09/18 09:01 - Labs Labs: 05/08/18 07:56 05/08/18 07:56 PT 11.4 SECONDS (9.7-12.2) 04/30/18 10:43 INR 1.0 04/30/18 10:43 APTT 30 SECONDS (21-34) 04/30/18 10:43 Attending/Attestation - Attestation I have personally seen and examined this patient.: Yes I have fully participated in the care of the patient.: Yes I have reviewed all pertinent clinical information, including history, physical exam and plan: Yes Notes (Text): Patient seen, examined, case discussed with medical device sales representative. Patient is postoperative day 3 of right ankle reduction of omar on fracture with application delta frame for stage procedure. Patient reports she is walking on leg with physical therapy. Patient spiked a fever today. Repeat chest xray cannot exclude atelectasis vs pneumonia. Patient started on Zosyn and Vancomycin to cover for healthcare associated pneumonia. Patient had received Azithromycin to cover for pharyngitis. Patient noted to have aphtous ulcer over the tongue. We will give Valtrex 2000mg PO Q12H X 1 day to complete treatment. 3rd set of blood cultures are ordered in light of fever yesterday. Sputum culture collected Assessment/Plan 1) Right distal tibia/fibula fracture * Podiatry (Dr. Hurley) on board-->help appreciated * Right Ankle Xray (04/30): Comminuted trimalleolar displaced fractures of the distal fibula. Disruption of the ankle mortise. Soft tissue swelling. * Right lower extremity CT (04/30): Markedly comminuted, distracted, and dislocated fracture deformity of the distal tibia with prominent intra- articular extension. A few prominent fracture fragments are noted at the anterolateral distal tibia measuring up to 3.4 centimeters with apparent anterior lateral distraction measuring 1.6 centimeters. Posterior subluxation of the remaining fracture fragment. Fracture deformities involve the medial and posterior malleolus. * Left lower extremity duplex 04/30: No evidence of deep or superficial vein thrombosis of the left lower extremity with excellent venous flow. Normal valve function noted of the left side. Normal venous flow noted in the right common femoral vein. * s/p right ankle reduction of omar on fracture with application delta frame for stage procedure on 05/05/18 * Tentative plan is for OR on Monday * Head CT (04/30): No acute intracranial pathology identified. * CXR (04/30): No acute findings * Morphine 0.5mg Q6 PRN - Moderate pain * Morphine 1mg Q6 PRN - Severe pain * Non-weight bearing. Fall precautions. * Repeat EKG: NSR * Prior EKG while patient was withdrawing from alcohol * Echocardiogram (05/04): normal size la, lv and ra and rv. normal lv wall motion, thickenss and systolic function w lvef ef 60-65%, lv diastolc dysfunction, normal arotic, mitral, tv, and pv, mild tr/pi mild pulm htn, normal size aortic root, no pericardial effusion 2) Hx of alcohol abuse: * Blood alcohol level 375 on admission on 04/30 * Librium taper discontinued * Librium 25mg PO Q8 PRN symptoms of alcohol withdrawal discontinued * Folic acid 1mg PO daily * MV1 tab Po daily * Thiamine 100mg PO daily * Folate > 20, B12 - 427 3) Pharygnitis * Blood culture (05/01/18): no growth after 5 days X2 * Azithromycin 250mg PO daily (active since 04/22/18) completed on Saturday 05/05 4) Postoperative Fever * Tmax:101.F F. Patient completed Azithromycin 250mg PO daily (active since 04/22/18) completed on Saturday 05/05. * Patient's blood cultures (05/06) post operative are negative. * Blood cultures (05/08): pending * Patient's repeat chest xray (05/06) patchy increased markings in the right hilar region, nonspecific. subtle infiltrate and or atelectasis cant be excluded. * Patient encouraged to use her incentive spirometry since she is using it sparingly. * Chest xray (05/08) cannot exclude atelectasis vs pneumonia * Patient has not been using her incentive spirometry appropriately * UA negative. Urine culture received: no growth * Patient started on Zosyn and Vancomycin to cover to healthcare associated pn eum[place] * Patient ordered for Valtrex 2000mg PO Q12H X1 day for apthous ulcer over tongue 5) Normocytic anemia: * secondary to bone marrow suppression caused by alcohol * Monitor H/H * Advised type and cross 1 unit of PRBC prior to OR to podiatry resident * Will continue to monitor with daily CBC 6) Thrombocytopenia (resolved) * secondary to bone marrow suppression caused by alcohol * Platelets are reactive; monitor 7) Transaminitis: * Likely 2/2 alcohol abuse * normalized 8) Hx of HTN: * Lopressor 12.5mg PO BID * Monitor vital signs 9) Hx of depression: * As per prior medical records-->Patient is not currently taking any medications * patient denies any HI/denies SI 10) Hx of schizophrenia: * As per prior medical records-->- Patient is not currently taking any medications 11)Hypocalcemia: * within normal limits 12) Hx of Asthma: * Patient is not in acute exacerbation * Chest xray: no active disease 13) PPx: * DVT: Heparin 5000 units subq8H * Fall precautions, non-weight bearing Disposition: Postoperative management per podiatry. Patient spiked fever. Recultured. Started on Zosyn and Vancomycin. f/u repeat cultures. Patient ordered for venous doppler low suspicion for dvt however risk factor is recent fracture/surgery.
[2018-05-08 08:07] LABS: BASO # 0.1 K/uL (0.0-0.2); BASO % 1.9 % (0.0-2.0); EOS # 0.2 K/uL (0.0-0.7); EOS % 3.8 % (0.0-4.0); HEMOGLOBIN 8.2 g/dL (11.0-16.0); LYMPH # 1.1 K/uL (1.0-4.3); LYMPH % 28.4 % (20.0-40.0); MEAN CELL VOLUME 90.6 fL (81.0-99.0); MEAN CORPUSCULAR HEMOGLOBIN 30.5 pg (27.0-31.0); MEAN CORPUSCULAR HGB CONC 33.7 g/dL (33.0-37.0); MEAN PLATELET VOLUME 7.6 fL (7.2-11.7); MONO # 0.8 K/uL (0.0-0.8); MONO % 19.1 % (0.0-10.0); NEUT # 1.8 K/uL (1.8-7.0); NEUT % 46.8 % (50.0-75.0); RBC 2.7 Mil/uL (3.80-5.20); RED CELL DISTRIBUTION WIDTH 16.3 % (11.5-14.5); WHITE BLOOD COUNT 3.9 K/uL (4.8-10.8)
[2018-05-08 08:18] LABS: ALBUMIN 3.5 g/dL (3.5-5.0); ALT/SGPT 28 U/L (9-52); AST/SGOT 25 U/L (14-36); BLOOD UREA NITROGEN 12 mg/dL (7-17); CALCIUM 8.6 mg/dl (8.6-10.4); GFR NON-AFRICAN AMERICAN > 60
[2018-05-08] MEDS: Multiple Vitamins Tab PO SCH (10:19)
[2018-05-08] MEDS: Benzocaine 7.5% 5.1 GM TUBE MM SCH ×3 (10:20→17:39)
[2018-05-08] MEDS ORDERED: Albuterol-Ipratrop 3 mg / 0.5 (3 ml) UD INH SCH (11:42)
--- NOTE | 2018-05-08 15:10 | RAD ---
Date of service: 05/08/2018 HISTORY: Wrist for pneumonia. COMPARISON: No prior. FINDINGS: LUNGS: New right lower lobe infiltrate likely pneumonia. PLEURA: No significant pleural effusion identified, no pneumothorax apparent. CARDIOVASCULAR: No atherosclerotic calcification present No radiographic findings to suggest acute or significant cardiovascular disease. OSSEOUS STRUCTURES: No significant abnormalities. VISUALIZED UPPER ABDOMEN: Normal. OTHER FINDINGS: None. IMPRESSION: Right lower lobe infiltrate a new finding compared to the prior study.
[2018-05-08] MEDS ORDERED: Vancomycin 1 GM 1 GM/250 ML BAG IVPB SCH (16:00)
[2018-05-08] MEDS: Piperacillin/Tazobact 3.375 GM in Sodium Chloride 100 ML IVPB SCH (16:58)
[2018-05-08] MEDS: Vancomycin 1 gm/NS 200 ml 1 GM/200 ML BAG IVPB SCH (17:00)
--- NOTE | 2018-05-08 18:00 | CP.PCM.PN ---
Subjective - Date & Time of Evaluation Date of Evaluation: 05/08/18 Time of Evaluation: 17:56 - Subjective Subjective: Podiatry Progress Note for Dr. Hurley 52F seen three days s/p application of external fixator to RLE for displaced, comminuted distal tibia fracture. Patient is AAO x 3 and NAD, resting comfortably in room chair. Denies any acute overnight events and states that she has no pain. Also states that she has been working with physical therapy. Denies trying to walk on foot. Denies any further pedal complaints at this time. Denies any recent N/V/F/C/CP/SOB/D Objective - Vital Signs/Intake and Output Vital Signs (last 24 hours): Temp Pulse Resp BP Pulse Ox 99.3 F 98 H 20 110/70 100 05/08/18 15:15 05/08/18 15:15 05/08/18 15:15 05/08/18 15:15 05/08/18 15:15 Intake and Output: 05/08/18 05/08/18 06:59 18:59 Intake Total 1000 1400 Balance 1000 1400 - Medications Medications: Current Medications Acetaminophen (Tylenol 325mg Tab) 650 mg PO Q6 PRN PRN Reason: Pain, Mild (1-3) Last Admin: 05/08/18 05:34 Dose: 650 mg Albuterol/Ipratropium (Duoneb 3 Mg/0.5 Mg (3 Ml) Ud) 3 ml INH RQ6 SHA Benzocaine (Orajel 7.5%) 1 gm MM TID [facility] Last Admin: 05/08/18 17:39 Dose: 1 gm Benzocaine/Menthol (Cepacol Sore Throat) 1 sallie MT QID PRN PRN Reason: Pain, moderate (4-7) Last Admin: 05/08/18 05:35 Dose: 1 sallie Folic Acid (Folic Acid) 1 mg PO DAILY [facility] Last Admin: 05/08/18 10:19 Dose: 1 mg Heparin Sodium (Porcine) (Heparin) 5,000 units SC Q8 [facility] Last Admin: 05/08/18 13:40 Dose: 5,000 units Hydromorphone HCl (Dilaudid) 0.5 mg IVP Q15M PRN PRN Reason: Pain, severe (8-10) Sodium Chloride (Sodium Chloride 0.9%) 1,000 mls @ 100 mls/hr IV .Q10H [facility] Last Admin: 05/08/18 05:22 Dose: 100 mls/hr Piperacillin Sod/Tazobactam (Sod 3.375 gm/ Sodium Chloride) 100 mls @ 200 mls/hr IVPB Q8H [facility]; Protocol Last Admin: 05/08/18 16:58 Dose: 200 mls/hr Vancomycin/Sodium Chloride (Vancomycin 1 Gm/Ns 200 Ml) 1 gm in 200 mls @ 166.6 mls/hr IVPB Q12H [facility]; Protocol Stop: 05/13/18 16:01 Last Admin: 05/08/18 17:00 Dose: 166.6 mls/hr [facility]oprolol [facility]) [facility] Last Admin: 05/08/18 17:41 Dose: 12.5 mg Morphine Sulfate (Morphine) 0.5 mg IVP Q6H PRN PRN Reason: Pain, moderate (4-7) Morphine Sulfate (Morphine) 1 mg IVP Q6H PRN PRN Reason: Pain, severe (8-10) Last Admin: 05/08/18 13:41 Dose: 1 mg Multivitamins (Hexavitamin) 1 tab PO DAILY [facility] Last Admin: 05/08/18 10:19 Dose: 1 tab Ondansetron HCl (Zofran Inj) 4 mg IVP Q6H PRN PRN Reason: Nausea/Vomiting Last Admin: 05/06/18 02:51 Dose: 4 mg Thiamine HCl (Vitamin B1 Tab) 100 mg PO DAILY [facility] Last Admin: 05/08/18 10:19 Dose: 100 mg Trazodone HCl (Desyrel) [address] [facility] Last Admin: 05/07/18 22:23 Dose: 25 mg Valacyclovir HCl (Valtrex) 500 mg PO BID [facility]; Protocol Last Admin: 05/08/18 17:39 Dose: 500 mg - Labs Labs: 05/08/18 07:56 05/08/18 07:56 PT 11.4 SECONDS (9.7-12.2) 04/30/18 10:43 INR 1.0 04/30/18 10:43 APTT 30 SECONDS (21-34) 04/30/18 10:43 - Constitutional Appears: Well, Non-toxic, No Acute Distress - Extremities Exam Additional comments: RLE focused exam: Vasc: DP/PT pulses non-palpable secondary to 2+ non-pitting edema. CFT < 3 seconds to all digits. Skin temperature warm to warm from proximal to distal WNL. Negative wrinkle test appreciated due to swelling Neuro: Epicritic and protective sensation grossly intact b/l Derm: Delta frame noted to be in appropriate placement with no evidence of pin tract infection. No other open lesions, wounds, maceration, xerosis, abnormal pigmentation or abnormal growths noted MSK: Unable to assess ROM due to external fixator. - Neurological Exam Neurological Exam: Alert, Awake, Oriented x3 - Psychiatric Exam Psychiatric exam: Normal Affect, Normal Mood Assessment and Plan - Assessment and Plan (Free Text) Assessment: 52F seen three days s/p application of external fixator to RLE for displaced, comminuted distal tibia fracture. Plan: Patient seen and evaluated Plan discussed with Dr. Hurley Afebrile, absent leukocytosis Patient to return to OR on 05/11 for removal of external fixator and ORIF of distal tibia pilon fracture Right leg dressed with xeroform and gauze to pin sites, Arnold compression to leg Patient to remain strict NWB Podiatry will continue to follow while patient in house
[2018-05-08 18:40] LABS: SQUAMOUS EPITHIAL 1 /hpf (0-5); URINE BACTERIA RARE (<OCC); URINE BILIRUBIN NEGATIVE (NEGATIVE); URINE BLOOD NEGATIVE (NEGATIVE); URINE CLARITY Clear (Clear); URINE COLOR Yellow (YELLOW); URINE GLUCOSE (UA) NORMAL (Normal); URINE LEUKOCYTE ESTERASE NEG Leu/uL (Negative); URINE PROTEIN NEGATIVE (NEGATIVE)
[2018-05-08] MEDS: Albuterol-Ipratrop 3 mg / 0.5 (3 ml) UD INH SCH ×2 (19:35)
[2018-05-08] MEDS: traZODone 25 mg Tab PO SCH (22:00)
[2018-05-09] MEDS: Piperacillin/Tazobact 3.375 GM in Sodium Chloride 100 ML IVPB SCH ×3 (00:57→17:28)
[2018-05-09] MEDS: Albuterol-Ipratrop 3 mg / 0.5 (3 ml) UD INH SCH ×4 (01:30→19:38)
[2018-05-09] MEDS: Vancomycin 1 gm/NS 200 ml 1 GM/200 ML BAG IVPB SCH ×2 (03:38→17:00)
[2018-05-09] MEDS: Benzocaine/Menthol (Cepacol) Lozenge MT PRN (04:51)
[2018-05-09] MEDS: Sodium Chloride 0.9% 1,000 ML IV SCH ×3 (06:20→21:38)
[2018-05-09 07:22] LABS: ALB/GLOB RATIO 0.9 (1.0-2.1); ALBUMIN 3.4 g/dL (3.5-5.0); ALT/SGPT 28 U/L (9-52); AST/SGOT 28 U/L (14-36); BLOOD UREA NITROGEN 10 mg/dL (7-17); CALCIUM 8.6 mg/dl (8.6-10.4); GFR NON-AFRICAN AMERICAN > 60
[2018-05-09 07:35] LABS: BASO # 0.1 K/uL (0.0-0.2); BASO % 1.5 % (0.0-2.0); EOS # 0.2 K/uL (0.0-0.7); EOS % 3.6 % (0.0-4.0); HEMOGLOBIN 8.3 g/dL (11.0-16.0); LYMPH # 1.2 K/uL (1.0-4.3); LYMPH % 26.6 % (20.0-40.0); MEAN CELL VOLUME 90.4 fL (81.0-99.0); MEAN CORPUSCULAR HEMOGLOBIN 30.3 pg (27.0-31.0); MEAN CORPUSCULAR HGB CONC 33.6 g/dL (33.0-37.0); MEAN PLATELET VOLUME 7.4 fL (7.2-11.7); MONO # 0.7 K/uL (0.0-0.8); MONO % 15.8 % (0.0-10.0); NEUT # 2.3 K/uL (1.8-7.0); NEUT % 52.5 % (50.0-75.0); RBC 2.73 Mil/uL (3.80-5.20); RED CELL DISTRIBUTION WIDTH 16.5 % (11.5-14.5); WHITE BLOOD COUNT 4.4 K/uL (4.8-10.8)
--- NOTE | 2018-05-09 07:56 | CP.PCM.PN ---
<Rey Schreiber - Last Filed: 05/09/18 14:42> Subjective - Date & Time of Evaluation Date of Evaluation: 05/09/18 Time of Evaluation: 07:56 - Subjective Subjective: Hospitalist Service Pt seen and examined at bedside. No acute events overnight. Pt tolerating PT, no symptoms of ototoxicity, diarrhea or rashes seen. She denies cp fc nv sob Objective - Vital Signs/Intake and Output Vital Signs (last 24 hours): Temp Pulse Resp BP Pulse Ox 98.7 F 97 H 20 120/78 100 05/09/18 04:43 05/09/18 04:43 05/08/18 15:15 05/09/18 04:43 05/08/18 15:15 - Medications Medications: Current Medications Acetaminophen (Tylenol 325mg Tab) 650 mg PO Q6 PRN PRN Reason: Pain, Mild (1-3) Last Admin: 05/09/18 04:51 Dose: 650 mg Albuterol/Ipratropium (Duoneb 3 Mg/0.5 Mg (3 Ml) Ud) 3 ml INH RQ6 [facility] Last Admin: 05/09/18 01:30 Dose: 3 ml Benzocaine (Orajel 7.5%) 1 gm MM TID [facility] Last Admin: 05/08/18 17:39 Dose: 1 gm Benzocaine/Menthol (Cepacol Sore Throat) 1 sallie MT QID PRN PRN Reason: Pain, moderate (4-7) Last Admin: 05/09/18 04:51 Dose: 1 sallie Folic Acid (Folic Acid) 1 mg PO DAILY [facility] Last Admin: 05/08/18 10:19 Dose: 1 mg Heparin Sodium (Porcine) (Heparin) 5,000 units SC Q8 [facility] Last Admin: 05/09/18 05:01 Dose: 5,000 units Hydromorphone HCl (Dilaudid) 0.5 mg IVP Q15M PRN PRN Reason: Pain, severe (8-10) Sodium Chloride (Sodium Chloride 0.9%) 1,000 mls @ 100 mls/hr IV .Q10H SHA Last Admin: 05/09/18 06:20 Dose: 100 mls/hr Piperacillin Sod/Tazobactam (Sod 3.375 gm/ Sodium Chloride) 100 mls @ 200 mls/hr IVPB Q8H [facility]; Protocol Last Admin: 05/09/18 00:57 Dose: 200 mls/hr Vancomycin/Sodium Chloride (Vancomycin 1 Gm/Ns 200 Ml) 1 gm in 200 mls @ 166.6 mls/hr IVPB Q12H [facility]; Protocol Stop: 05/13/18 16:01 Last Admin: 05/09/18 03:38 Dose: 166.6 mls/hr Metoprolol Tartrate (Lopressor) 12.5 mg PO BIDCC [facility] Last Admin: 05/08/18 17:41 Dose: 12.5 mg Morphine Sulfate (Morphine) 0.5 mg IVP Q6H PRN PRN Reason: Pain, moderate (4-7) Morphine Sulfate (Morphine) 1 mg IVP Q6H PRN PRN Reason: Pain, severe (8-10) Last Admin: 05/09/18 04:45 Dose: 1 mg Multivitamins (Hexavitamin) 1 tab PO DAILY [facility] Last Admin: 05/08/18 10:19 Dose: 1 tab Ondansetron HCl (Zofran Inj) 4 mg IVP Q6H PRN PRN Reason: Nausea/Vomiting Last Admin: 05/09/18 04:52 Dose: 4 mg Thiamine HCl (Vitamin B1 Tab) 100 mg PO DAILY [facility] Last Admin: 05/08/18 10:19 Dose: 100 mg Trazodone HCl (Desyrel) 25 mg PO HS [facility] Last Admin: 05/08/18 22:00 Dose: 25 mg Valacyclovir HCl (Valtrex) 2,000 mg PO ONCE ONE; Protocol Stop: 05/09/18 09:01 - Labs Labs: 05/09/18 07:03 05/09/18 07:03 PT 11.4 SECONDS (9.7-12.2) 04/30/18 10:43 INR 1.0 04/30/18 10:43 APTT 30 SECONDS (21-34) 04/30/18 10:43 - Additional Findings Additional findings: - Constitutional Appears: Well, Non-toxic, No Acute Distress - Head Exam Head Exam: ATRAUMATIC, NORMAL INSPECTION - Eye Exam Eye Exam: EOMI, Normal appearance. absent: Scleral icterus Pupil Exam: NORMAL ACCOMODATION - ENT Exam Additional comments: Aphtopus stomatits mouth ulcers noted on right side of tongue - Respiratory Exam Respiratory Exam: Clear to Ausculation Bilateral, NORMAL BREATHING PATTERN. absent: Rales, Wheezes - Cardiovascular Exam Cardiovascular Exam: +S1, +S2. absent: Murmur - GI/Abdominal Exam GI & Abdominal Exam: Soft. absent: Tenderness - Extremities Exam Additional comments: Dressing to right surgical site and external fixator left on, appear clean dry and intact Gross motor function intact Sensation grossly intact - Neurological Exam Neurological Exam: Alert, Awake, Oriented x3 - Psychiatric Exam Psychiatric exam: Normal Affect, Normal Mood - Skin Skin Exam: Dry, Normal Color, Warm Assessment and Plan - Assessment and Plan (Free Text) Assessment: 52F with R tibia/fibular frax s/p reduction, f/u ORIF tentatively monday. NWB until then Right distal tibia/fibula fracture * Podiatry (Dr. Hurley) on board-->help appreciated * surgery 05/04, ORIF f/u sx tentatively monday * pending resolution of soft tissue edema * Right Ankle Xray (04/30): Comminuted trimalleolar displaced fractures of the distal fibula. Disruption of the ankle mortise. Soft tissue swelling. * Right lower extremity CT (04/30): Markedly comminuted, distracted, and dislocated fracture deformity of the distal tibia with prominent intra- articular extension. A few prominent fracture fragments are noted at the anterolateral distal tibia measuring up to 3.4 centimeters with apparent anterior lateral distraction measuring 1.6 centimeters. Posterior subluxation of the remaining fracture fragment. Fracture deformities involve the medial and posterior malleolus. * Left lower extremity duplex 04/30: No evidence of deep or superficial vein thrombosis of the left lower extremity with excellent venous flow. Normal valve function noted of the left side. Normal venous flow noted in the right common femoral vein. * Head CT (04/30): No acute intracranial pathology identified. * CXR (04/30): No acute findings * Morphine 0.5mg Q6 PRN - Moderate pain * Morphine 1mg Q6 PRN - Severe pain * Non-weight bearing. Fall precautions. * Repeat EKG: NSR * Prior EKG while patient was withdrawing from alcohol * Echocardiogram (05/04): normal size la, lv and ra and rv. normal lv wall motion, thickenss and systolic function w lvef ef 60-65%, lv diastolc dysfunction, normal arotic, mitral, tv, and pv, mild tr/pi mild pulm htn, normal size aortic root, no pericardial effusion HCAP * Vanco 1g q12 IVPB (rough thurs AM) * Zosyn 3.375 q8 IVPB * Tmax 101.1 monday night, afebrile last night * Pending repeat blood cultures * f/u sputum cultures * CXR 05/08 show RLL infiltrates * f/u repeat dopplers for possible LE DVT Hx of alcohol abuse: * Blood alcohol level 375 on admission on 04/30 * Librium taper discontinued * Librium 25mg PO Q8 PRN symptoms of alcohol withdrawal discontinued * Folic acid 1mg PO daily * MV1 tab Po daily * Thiamine 100mg PO daily * Folate > 20, B12 - 427 Apthous Stomatitis - Orajel TID - Valtrex 500mg BID PO Normocytic anemia: * secondary to bone marrow suppression caused by alcohol * Monitor H/H * Advised type and cross 1 unit of PRBC prior to OR to podiatry resident * Will continue to monitor with daily CBC Hx of HTN: * Lopressor 12.5mg PO BID * Monitor vital signs Hx of depression: * As per prior medical records-->Patient is not currently taking any medications * patient denies any HI/denies SI Hx of schizophrenia: * As per prior medical records-->- Patient is not currently taking any medications * refused haldol * Dr Todd consulted f/u recs * Ativan 1mg PRN q6 * Haldol 0.5mg PRN q6 PPx: * DVT: Heparin 5000sc daily * Fall precautions, non-weight bearing Dispo: Waiting on patient soft tissue edema to resolve so that ORIF can be completed Tentatively planning for ORIF on Friday 05/11 <Rosibel Winn V - Last Filed: 05/09/18 23:40> Objective - Vital Signs/Intake and Output Vital Signs (last 24 hours): Temp Pulse Resp BP Pulse Ox 98.9 F 100 H 20 114/62 98 05/09/18 15:00 05/09/18 15:00 05/09/18 15:00 05/09/18 15:00 05/09/18 15:00 Intake and Output: 05/09/18 05/10/18 18:59 06:59 Intake Total 1400 Balance 1400 - Medications Medications: Current Medications Acetaminophen (Tylenol 325mg Tab) 650 mg PO Q6 PRN PRN Reason: Pain, Mild (1-3) Last Admin: 05/09/18 04:51 Dose: 650 mg Albuterol/Ipratropium (Duoneb 3 Mg/0.5 Mg (3 Ml) Ud) 3 ml INH RQ6 [facility] Last Admin: 05/09/18 19:38 Dose: 3 ml Benzocaine (Orajel 7.5%) 1 gm MM TID [facility] Last Admin: 05/09/18 17:31 Dose: 1 gm Benzocaine/Menthol (Cepacol Sore Throat) 1 sallie MT QID PRN PRN Reason: Pain, moderate (4-7) Last Admin: 05/09/18 04:51 Dose: 1 sallie Folic Acid (Folic Acid) 1 mg PO DAILY [facility] Last Admin: 05/09/18 10:28 Dose: 1 mg Heparin Sodium (Porcine) (Heparin) 5,000 units SC Q8 [facility] Last Admin: 05/09/18 21:31 Dose: 5,000 units Sodium Chloride (Sodium Chloride 0.9%) 1,000 mls @ 100 mls/hr IV .Q10H [facility] Last Admin: 05/09/18 21:38 Dose: 100 mls/hr Piperacillin Sod/Tazobactam (Sod 3.375 gm/ Sodium Chloride) 100 mls @ 200 mls/hr IVPB Q8H [facility]; Protocol Last Admin: 05/09/18 17:28 Dose: 200 mls/hr Vancomycin/Sodium Chloride (Vancomycin 1 Gm/Ns 200 Ml) 1 gm in 200 mls @ 166.6 mls/hr IVPB Q12H [facility]; Protocol Stop: 05/13/18 16:01 Last Admin: 05/09/18 17:00 Dose: 166.6 mls/hr Lorazepam (Ativan) 1 mg PO Q6 PRN PRN Reason: Anxiety Metoprolol Tartrate (Lopressor) 12.5 mg PO BIDCC [facility] Last Admin: 05/09/18 17:35 Dose: Not Given Morphine Sulfate (Morphine) 0.5 mg IVP Q6H PRN PRN Reason: Pain, moderate (4-7) Last Admin: 05/09/18 22:08 Dose: 0.5 mg Morphine Sulfate (Morphine) 1 mg IVP Q6H PRN PRN Reason: Pain, severe (8-10) Last Admin: 05/09/18 17:27 Dose: 1 mg Multivitamins (Hexavitamin) 1 tab PO DAILY [facility] Last Admin: 05/09/18 10:28 Dose: 1 tab Ondansetron HCl (Zofran Inj) 4 mg IVP Q6H PRN PRN Reason: Nausea/Vomiting Last Admin: 05/09/18 04:52 Dose: 4 mg Thiamine HCl (Vitamin B1 Tab) 100 mg PO DAILY [facility] Last Admin: 05/09/18 10:28 Dose: 100 mg Trazodone HCl (Desyrel) 25 mg PO HS [facility] Last Admin: 05/09/18 21:31 Dose: 25 mg - Labs Labs: 05/09/18 07:03 05/09/18 07:03 PT 11.4 SECONDS (9.7-12.2) 04/30/18 10:43 INR 1.0 04/30/18 10:43 APTT 30 SECONDS (21-34) 04/30/18 10:43 Attending/Attestation - Attestation I have personally seen and examined this patient.: Yes I have fully participated in the care of the patient.: Yes I have reviewed all pertinent clinical information, including history, physical exam and plan: Yes Notes (Text): Patient seen, examined, case discussed with medical instrument technician. Patient is postoperative day 4 of right ankle reduction of omar on fracture with application delta frame for stage procedure. Patient reports she is walking on leg with physical therapy. I did speak with patient with podiatry Resident Marcy, patient is supposed to be nonweightbearing. Patient did not like being confronted on this but reports she did not know. Patient visually upset at bedside; reported she had a phone call from a daughter, she is upset she is at the hospital the day before thanks. 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 Patient completed Valtrex for completion for aphthous ulcer. We need to monitor cultures and see if patient is without fever prior to OR on Monday for optimization. Patient noted with night resident for possible rash, we have held Zosyn, given dose of Benadryl/Solumedrol/Pepcid to cover for allergic reaction. Psych reconsulted in light of liable mod given psychiatric conditions, as well as pastoral care for support during this tough time. Assessment/Plan 1) Right distal tibia/fibula fracture * Podiatry (Dr. Hurley) on board-->help appreciated * Right Ankle Xray (04/30): Comminuted trimalleolar displaced fractures of the distal fibula. Disruption of the ankle mortise. Soft tissue swelling. * Right lower extremity CT (04/30): Markedly comminuted, distracted, and dislocated fracture deformity of the distal tibia with prominent intra- articular extension. A few prominent fracture fragments are noted at the anterolateral distal tibia measuring up to 3.4 centimeters with apparent anterior lateral distraction measuring 1.6 centimeters. Posterior subluxation of the remaining fracture fragment. Fracture deformities involve the medial and posterior malleolus. * Left lower extremity duplex 04/30: No evidence of deep or superficial vein thrombosis of the left lower extremity with excellent venous flow. Normal valve function noted of the left side. Normal venous flow noted in the right common femoral vein. * s/p right ankle reduction of omar on fracture with application delta frame for stage procedure on 05/05/18 * Tentative plan is for OR on Monday * Head CT (04/30): No acute intracranial pathology identified. * CXR (04/30): No acute findings * Morphine 0.5mg Q6 PRN - Moderate pain * Morphine 1mg Q6 PRN - Severe pain * Non-weight bearing. Fall precautions. * Repeat EKG: NSR * Prior EKG while patient was withdrawing from alcohol * Echocardiogram (05/04): normal size la, lv and ra and rv. normal lv wall motion, thickenss and systolic function w lvef ef 60-65%, lv diastolc dysfunction, normal arotic, mitral, tv, and pv, mild tr/pi mild pulm htn, normal size aortic root, no pericardial effusion 2) Hx of alcohol abuse: * Blood alcohol level 375 on admission on 04/30 * Librium taper discontinued * Librium 25mg PO Q8 PRN symptoms of alcohol withdrawal discontinued * Folic acid 1mg PO daily * MV1 tab Po daily * Thiamine 100mg PO daily * Folate > 20, B12 - 427 3) Pharygnitis * Blood culture (05/01/18): no growth after 5 days X2 * Azithromycin 250mg PO daily (active since 04/22/18) completed on Saturday 05/05 4) Postoperative Fever * Tmax:101.F F. Patient completed Azithromycin 250mg PO daily (active since 04/22/18) completed on Saturday 05/05. * Patient's blood cultures (05/06) post operative are negative. * Blood cultures (05/08): negative * Patient's repeat chest xray (05/06) patchy increased markings in the right hilar region, nonspecific. subtle infiltrate and or atelectasis cant be excluded. * Patient encouraged to use her incentive spirometry since she is using it sparingly. * Chest xray (05/08) cannot exclude atelectasis vs pneumonia * Patient has not been using her incentive spirometry appropriately * UA negative. Urine culture received: no growth * Patient started on Zosyn and Vancomycin to cover to healthcare associated pneumonia * Held zosyn due possible allergic reaction * Patient ordered for Valtrex 2000mg PO Q12H X1 day for apthous ulcer over tongue 05/08/18 5) Normocytic anemia: * secondary to bone marrow suppression caused by alcohol * Monitor H/H * Advised type and cross 1 unit of PRBC prior to OR to podiatry resident * Will continue to monitor with daily CBC 6) Thrombocytopenia (resolved) * secondary to bone marrow suppression caused by alcohol * Platelets are reactive; monitor 7) Transaminitis: * Likely 2/2 alcohol abuse * normalized 8) Hx of HTN: * Lopressor 12.5mg PO BID * Monitor vital signs 9) Hx of depression: * As per prior medical records-->Patient is not currently taking any medications * patient denies any HI/denies SI 10) Hx of schizophrenia: * As per prior medical records-->- Patient is not currently taking any medications 11)Hypocalcemia: * within normal limits 12) Hx of Asthma: * Patient is not in acute exacerbation * Chest xray: no active disease 13) PPx: * DVT: Heparin 5000 units subq8H * Fall precautions, non-weight bearing Disposition: Postoperative management per podiatry. Patient spiked fever yesterday. Repeat cultures so far are negative. Zosyn held secondary to allergic reaction. Psych and pastoral care reconsulted in light of liable mood with co- morbid conditions.
[2018-05-09] MEDS: Multiple Vitamins Tab PO SCH (10:28)
[2018-05-09] MEDS: Benzocaine 7.5% 5.1 GM TUBE MM SCH ×3 (10:30→17:31)
--- NOTE | 2018-05-09 15:00 | PCM.PSYCH ---
Initial Psychiatric Evaluation - Initial Psychiatric Evaluation Type of Admission: Voluntary Legal Status: Capacity Chief Complaint (in patient's own words): "I'm fine. I don't need psych consult" History of Present Illness and Precipitating Events: The patient is seen, chart reviewed and case discussed. Consultation was requested because of patient's psych sxs, agitation She is known to the board writer from previous consults. This is a 52-year-old female, single with children, unemployed and living in half-way in [place]. She frequently the visits ERs in both [facility] and [facility] She admits to being noncompliant with outpatient follow-ups or medications. 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 She has alcoholism but wouldn't answer questions about her drinking Past psych hx: Alcohol-related depression Family psych: Depression Medical; Asthma Current Medications: Active Medications Generic Name Dose Route Start Last Admin Trade Name Freq PRN Reason Stop Dose Admin Acetaminophen 650 mg 05/02/18 11:36 05/09/18 04:51 Tylenol 325mg Tab PO 650 mg Q6 PRN Administration Pain, Mild (1-3) Albuterol/Ipratropium 3 ml 05/08/18 18:00 05/09/18 14:00 Duoneb 3 Mg/0.5 Mg (3 Ml) Ud INH 3 ml RQ6 [facility] Administration Benzocaine 1 gm 05/08/18 10:00 05/09/18 13:49 Orajel 7.5% MM 1 gm TID SHA Administration Benzocaine/Menthol 1 sallie 05/05/18 22:54 05/09/18 04:51 Cepacol Sore Throat MT 1 sallie QID PRN Administration Pain, moderate (4-7) Folic Acid 1 mg 05/05/18 10:00 05/09/18 10:28 Folic Acid PO 1 mg DAILY [facility] Administration Heparin Sodium (Porcine) 5,000 units 05/07/18 22:00 05/09/18 13:49 Heparin SC 5,000 units Q8 SHA Administration Sodium Chloride 1,000 mls @ 100 mls/hr 05/07/18 18:00 05/09/18 10:31 Sodium Chloride 0.9% IV Not Given .Q10H [facility] Piperacillin Sod/Tazobactam 100 mls @ 200 mls/hr 05/08/18 16:00 05/09/18 08:27 Sod 3.375 gm/ Sodium Chloride IVPB 200 mls/hr Q8H [facility] Administration Protocol Vancomycin/Sodium Chloride 1 gm in 200 mls @ 166.6 mls/hr 05/08/18 16:00 05/09/18 03:38 Vancomycin 1 Gm/Ns 200 Ml IVPB 05/13/18 16:01 166.6 mls/hr Q12H [facility] Administration Protocol Lorazepam 1 mg 05/09/18 14:55 Ativan PO Q6 PRN Anxiety Metoprolol Tartrate 12.5 mg 05/02/18 11:30 05/09/18 08:28 Lopressor PO 12.5 mg BIDCC [facility] Administration Morphine Sulfate 0.5 mg 04/30/18 15:45 Morphine IVP Q6H PRN Pain, moderate (4-7) Morphine Sulfate 1 mg 04/30/18 15:45 05/09/18 04:45 Morphine IVP 1 mg Q6H PRN Administration Pain, severe (8-10) Multivitamins 1 tab 05/05/18 10:00 05/09/18 10:28 Hexavitamin PO 1 tab DAILY [facility] Administration Ondansetron HCl 4 mg 05/01/18 10:14 05/09/18 04:52 Zofran Inj IVP 4 mg Q6H PRN Administration Nausea/Vomiting Thiamine HCl 100 mg 05/05/18 10:00 05/09/18 10:28 Vitamin B1 Tab PO 100 mg DAILY [facility] Administration Trazodone HCl 25 mg 05/03/18 22:00 05/08/18 22:00 Desyrel PO 25 mg HS [facility] Administration Past Psychiatric History - Past Psychiatric History Previous Treatment History: Inpatient Pertinent Medical Hx (Current Medical&Sleep Prob, Allergies): Allergies Allergy/AdvReac Type Severity Reaction Status Date / Time shellfish derived Allergy Severe SWELLING Verified 04/30/18 07:53 No Known Home Med 04/19/18 Review of Systems - Review of Systems Systems not reviewed;Unavailable: Psychotic Mental Status Examination - Personal Presentation Personal Presentation: Looks stated age - Affect Affect: Other (intense) - Motor Activity Motor Activity: Psychomotor Agitation, Other - Reliability in Providing Information Reliability in Providing Information: Fair - Speech Speech: Organized - Mood Mood: Other (irate) - Formal Thought Process Formal Thought Process: Paranoia - Cognitive Functions Orientation: Person, Place, Situation, Time Sensorium: Alert Attention/Concentration: Easily distracted Estimate of Intelligence: Below average Judgement: Imparied, as evidence by: Poor judgement Memory: Recent impaired, as evidence by: Inability to recall events of the day, Remote impaired as evidenced by: Inability to recall sig life events - Risk Risk: Diminished functioning DSM 5 DX - DSM 5 DSM 5 Diagnosis: Borderline personality d/o Schizoaffective d/o Alcohol use d/o - severe - Recommended/Plan of Treatment Treatment Recommendations and Plan of Treatment: Refusing psych meds, except for sleeping pills prn meds for agitation Support given Psych will sign off 33 min
--- NOTE | 2018-05-09 18:39 | CP.PCM.PN ---
Subjective - Date & Time of Evaluation Date of Evaluation: 05/09/18 Time of Evaluation: 18:37 - Subjective Subjective: Podiatry Progress Note for Dr. Hurley 52F seen four days s/p application of external fixator to RLE for displaced, comminuted distal tibia fracture. Patient is AAO x 3 and NAD, resting comfortably in room chair. Denies any acute overnight events and states that she has no pain. Also states that she continuess to work with physical therapy. Denies trying to walk on foot. Denies any further pedal complaints at this time. Denies any recent N/V/F/C/CP/SOB/D Objective - Vital Signs/Intake and Output Vital Signs (last 24 hours): Temp Pulse Resp BP Pulse Ox 98.9 F 100 H 20 114/62 98 05/09/18 15:00 05/09/18 15:00 05/09/18 15:00 05/09/18 15:00 05/09/18 15:00 Intake and Output: 05/09/18 05/09/18 06:59 18:59 Intake Total 1400 Balance 1400 - Medications Medications: Current Medications Acetaminophen (Tylenol 325mg Tab) 650 mg PO Q6 PRN PRN Reason: Pain, Mild (1-3) Last Admin: 05/09/18 04:51 Dose: 650 mg Albuterol/Ipratropium (Duoneb 3 Mg/0.5 Mg (3 Ml) Ud) 3 ml INH RQ6 [facility] Last Admin: 05/09/18 14:00 Dose: 3 ml Benzocaine (Orajel 7.5%) 1 gm MM TID [facility] Last Admin: 05/09/18 17:31 Dose: 1 gm Benzocaine/Menthol (Cepacol Sore Throat) 1 sallie MT QID PRN PRN Reason: Pain, moderate (4-7) Last Admin: 05/09/18 04:51 Dose: 1 sallie Folic Acid (Folic Acid) 1 mg PO DAILY [facility] Last Admin: 05/09/18 10:28 Dose: 1 mg Heparin Sodium (Porcine) (Heparin) 5,000 units SC Q8 [facility] Last Admin: 05/09/18 13:49 Dose: 5,000 units Sodium Chloride (Sodium Chloride 0.9%) 1,000 mls @ 100 mls/hr IV .Q10H [facility] Last Admin: 05/09/18 10:31 Dose: Not Given Piperacillin Sod/Tazobactam (Sod 3.375 gm/ Sodium Chloride) 100 mls @ 200 mls/hr IVPB Q8H [facility]; Protocol Last Admin: 05/09/18 17:28 Dose: 200 mls/hr Vancomycin/Sodium Chloride (Vancomycin 1 Gm/Ns 200 Ml) 1 gm in 200 mls @ 166.6 mls/hr IVPB Q12H [facility]; Protocol Stop: 05/13/18 16:01 Last Admin: 05/09/18 17:00 Dose: 166.6 mls/hr Lorazepam (Ativan) 1 mg PO Q6 PRN PRN Reason: Anxiety [facility] Last Admin: 05/09/18 17:35 Dose: Not Given Morphine Sulfate (Morphine) 0.5 mg IVP Q6H PRN PRN Reason: Pain, moderate (4-7) Morphine Sulfate (Morphine) 1 mg IVP Q6H PRN PRN Reason: Pain, severe (8-10) Last Admin: 05/09/18 17:27 Dose: 1 mg Multivitamins (Hexavitamin) 1 tab PO DAILY [facility] Last Admin: 05/09/18 10:28 Dose: 1 tab Ondansetron HCl (Zofran Inj) 4 mg IVP Q6H PRN PRN Reason: Nausea/Vomiting Last Admin: 05/09/18 04:52 Dose: 4 mg Thiamine HCl (Vitamin B1 Tab) 100 mg PO DAILY [facility] Last Admin: 05/09/18 10:28 Dose: 100 mg Trazodone HCl (Desyrel) 25 mg PO [facility] Last Admin: 05/08/18 22:00 Dose: 25 mg - Labs Labs: 05/09/18 07:03 05/09/18 07:03 PT 11.4 SECONDS (9.7-12.2) 04/30/18 10:43 INR 1.0 04/30/18 10:43 APTT 30 SECONDS (21-34) 04/30/18 10:43 - Constitutional Appears: Well, Non-toxic, No Acute Distress - Extremities Exam Additional comments: Dressings left C/D/I Patient able to wiggle all toes freely CFT < 3 seconds to all digits - Neurological Exam Neurological Exam: Alert, Awake, Oriented x3 - Psychiatric Exam Psychiatric exam: Normal Affect, Normal Mood Assessment and Plan - Assessment and Plan (Free Text) Assessment: 52F seen four days s/p application of external fixator to RLE for displaced, comminuted distal tibia fracture Plan: Patient seen and evaluated Plan discussed with Dr. Hurley Afebrile, absent leukocytosis Patient to return to OR on 05/11 for removal of external fixator and ORIF of distal tibia pilon fracture pending clearance from medical team Right leg dressings left in place Patient to remain strict NWB Podiatry will continue to follow while patient in house
[2018-05-09] MEDS: traZODone 25 mg Tab PO SCH (21:31)
[2018-05-09] MEDS ORDERED: MethylPREDNISolone 40 mg Vial IVP STA (21:48)
[2018-05-10] MEDS: Albuterol-Ipratrop 3 mg / 0.5 (3 ml) UD INH SCH ×4 (02:45→19:35)
[2018-05-10] MEDS: Vancomycin 1 gm/NS 200 ml 1 GM/200 ML BAG IVPB SCH ×2 (04:41→16:49)
[2018-05-10] MEDS: Benzocaine/Menthol (Cepacol) Lozenge MT PRN ×2 (04:57→17:43)
--- NOTE | 2018-05-10 07:28 | CP.PCM.PN ---
<Al Dueñas M - Last Filed: 05/10/18 18:25> Subjective - Date & Time of Evaluation Date of Evaluation: 05/10/18 Time of Evaluation: 12:00 - Subjective Subjective: PGY 1 Medicine Progress Note for Hospitalist Dr. Winn. Patient seen and examined at bedside. Overnight patient had an allergic reaction, possibly to abx zosyn. Zosyn held and solumedrol, pepcid, and benadryl given. Patient states she felt much better after that. Patient states her R foot was hurting s/p fall in home, but aside from that she has no medical comp laints. Pt R foot is currently immobilized by podiatry 2/ to fracture. Currently patient states her pain is much improved. Patient denies SOB, chest pain, nausea, vomiting, diarrhea, constipation, dyurisa, cough, fevers, chills. Patient states she is very agitated and angry with yesterdays staff. Objective - Vital Signs/Intake and Output Vital Signs (last 24 hours): Temp Pulse Resp BP Pulse Ox 98.3 F 103 H 20 135/99 H 95 05/09/18 23:15 05/09/18 23:15 05/09/18 23:15 05/09/18 23:15 05/09/18 23:15 - Medications Medications: Current Medications Acetaminophen (Tylenol 325mg Tab) 650 mg PO Q6 PRN PRN Reason: Pain, Mild (1-3) Last Admin: 05/10/18 04:57 Dose: 650 mg Albuterol/Ipratropium (Duoneb 3 Mg/0.5 Mg (3 Ml) Ud) 3 ml INH RQ6 SHA Last Admin: 05/10/18 02:45 Dose: 3 ml Benzocaine (Orajel 7.5%) 1 gm MM TID SHA Last Admin: 05/09/18 17:31 Dose: 1 gm Benzocaine/Menthol (Cepacol Sore Throat) 1 sallie MT QID PRN PRN Reason: Pain, moderate (4-7) Last Admin: 05/10/18 04:57 Dose: 1 sallie Folic Acid (Folic Acid) 1 mg PO DAILY [facility] Last Admin: 05/09/18 10:28 Dose: 1 mg Heparin Sodium (Porcine) (Heparin) 5,000 units SC Q8 [facility] Last Admin: 05/10/18 06:45 Dose: 5,000 units Sodium Chloride (Sodium Chloride 0.9%) 1,000 mls @ 100 mls/hr IV .Q10H [facility] Last Admin: 05/09/18 21:38 Dose: 100 mls/hr Piperacillin Sod/Tazobactam (Sod 3.375 gm/ Sodium Chloride) 100 mls @ 200 mls/hr IVPB Q8H [facility]; Protocol Last Admin: 05/09/18 17:28 Dose: 200 mls/hr Vancomycin/Sodium Chloride (Vancomycin 1 Gm/Ns 200 Ml) 1 gm in 200 mls @ 166.6 mls/hr IVPB Q12H [facility]; Protocol Stop: 05/13/18 16:01 Last Admin: 05/10/18 04:41 Dose: 166.6 mls/hr Lorazepam (Ativan) 1 mg PO Q6 PRN PRN Reason: Anxiety Metoprolol Tartrate (Lopressor) 12.5 mg PO BIDCC [facility] Last Admin: 05/09/18 17:35 Dose: Not Given Morphine Sulfate (Morphine) 0.5 mg IVP Q6H PRN PRN Reason: Pain, moderate (4-7) Last Admin: 05/09/18 22:08 Dose: 0.5 mg Morphine Sulfate (Morphine) 1 mg IVP Q6H PRN PRN Reason: Pain, severe (8-10) Last Admin: 05/10/18 04:58 Dose: 1 mg Multivitamins (Hexavitamin) 1 tab PO DAILY [facility] Last Admin: 05/09/18 10:28 Dose: 1 tab Ondansetron HCl (Zofran Inj) 4 mg IVP Q6H PRN PRN Reason: Nausea/Vomiting Last Admin: 05/09/18 04:52 Dose: 4 mg Thiamine HCl (Vitamin B1 Tab) 100 mg PO DAILY [facility] Last Admin: 05/09/18 10:28 Dose: 100 mg Trazodone HCl (Desyrel) 25 mg PO HS [facility] Last Admin: 05/09/18 21:31 Dose: 25 mg - Labs Labs: 05/09/18 07:03 05/09/18 07:03 PT 11.4 SECONDS (9.7-12.2) 04/30/18 10:43 INR 1.0 04/30/18 10:43 APTT 30 SECONDS (21-34) 04/30/18 10:43 - Constitutional Appears: Non-toxic, No Acute Distress - Head Exam Head Exam: NORMAL INSPECTION - Eye Exam Eye Exam: Normal appearance - ENT Exam ENT Exam: Mucous Membranes Moist - Respiratory Exam Respiratory Exam: Clear to Ausculation Bilateral, NORMAL BREATHING PATTERN. absent: Rales, Rhonchi, Wheezes - Cardiovascular Exam Cardiovascular Exam: +S1, +S2 - GI/Abdominal Exam GI & Abdominal Exam: Soft, Normal Bowel Sounds - Extremities Exam Extremities Exam: Full ROM. absent: Pedal Edema, Tenderness Additional comments: R foot in external fixation device per podiatry Patient has sensation & motor in digits of foot, no discoloration - Back Exam Back Exam: absent: CVA tenderness (L), CVA tenderness (R) - Neurological Exam Neurological Exam: Alert, Awake, Oriented x3 - Psychiatric Exam Psychiatric exam: Agitated, Normal Mood - Skin Skin Exam: Dry, Intact, Normal Color, Warm Assessment and Plan - Assessment and Plan (Free Text) Assessment: 52F with R tibia/fibular frax s/p reduction, f/u ORIF tentatively monday. NWB until then Right distal tibia/fibula fracture * Podiatry (Dr. Hurley) on board-->help appreciated * surgery 05/04, ORIF f/u sx tentatively monday * pending resolution of soft tissue edema * Right Ankle Xray (04/30): Comminuted trimalleolar displaced fractures of the distal fibula. Disruption of the ankle mortise. Soft tissue swelling. * Right lower extremity CT (04/30): Markedly comminuted, distracted, and dislocated fracture deformity of the distal tibia with prominent intra- articular extension. A few prominent fracture fragments are noted at the anterolateral distal tibia measuring up to 3.4 centimeters with apparent anterior lateral distraction measuring 1.6 centimeters. Posterior subluxation of the remaining fracture fragment. Fracture deformities involve the medial and posterior malleolus. * Left lower extremity duplex 04/30: No evidence of deep or superficial vein thrombosis of the left lower extremity with excellent venous flow. Normal valve function noted of the left side. Normal venous flow noted in the right common femoral vein. * Head CT (04/30): No acute intracranial pathology identified. * CXR (04/30): No acute findings * Morphine 0.5mg Q6 PRN - Moderate pain * Morphine 1mg Q6 PRN - Severe pain * Non-weight bearing. Fall precautions. * Repeat EKG: NSR * Prior EKG while patient was withdrawing from alcohol * Echocardiogram (05/04): normal size la, lv and ra and rv. normal lv wall motion, thickenss and systolic function w lvef ef 60-65%, lv diastolc dysfunction, normal arotic, mitral, tv, and pv, mild tr/pi mild pulm htn, normal size aortic root, no pericardial effusion HCAP * Vanco 1g q12 IVPB - discontinued * Zosyn 3.375 q8 IVPB - discontinued since allergic reaction * Ciprofloxacin 500 mg PO Q12 05/11/18 * Tmax 101.1 monday night, afebrile last night * Pending repeat blood cultures * f/u sputum cultures * CXR 05/08 show RLL infiltrates * dopplers for possible DVt - negatuve Hx of alcohol abuse: * Blood alcohol level 375 on admission on 04/30 * Librium taper discontinued * Librium 25mg PO Q8 PRN symptoms of alcohol withdrawal discontinued * Folic acid 1mg PO daily * MV1 tab Po daily * Thiamine 100mg PO daily * Folate > 20, B12 - 427 Apthous Stomatitis - Orajel TID - Valtrex 500mg BID PO Normocytic anemia * secondary to bone marrow suppression caused by alcohol * Monitor H/H * Advised type and cross 1 unit of PRBC prior to OR to podiatry resident * Will continue to monitor with daily CBC Hx of HTN: * Lopressor 12.5mg PO BID * Monitor vital signs Hx of depression * As per prior medical records-->Patient is not currently taking any medications * patient denies any HI/denies SI Hx of schizophrenia: * As per prior medical records-->- Patient is not currently taking any medications * refused haldol * Dr Todd consulted f/u recs * Ativan 1mg PRN q6 * Haldol 0.5mg PRN q6 * sign off PPx: * DVT: Heparin 5000sc daily * Fall precautions, non-weight bearing Dispo: Tentatively planning for ORIF on Friday 05/11. Patient has been afebrile >72 hours, with cultures negative 48 hours. Normal EKG, patient is medically optimized and cleared for surgery. Detsky Cardiac Risk Score = 0; 6% risk of cardiovascular complications after non cardiac surgery. <Rosibel Winn V - Last Filed: 05/13/18 20:52> Objective - Vital Signs/Intake and Output Vital Signs (last 24 hours): Temp Pulse Resp BP Pulse Ox 99.8 F H 88 20 108/70 96 05/13/18 20:41 05/13/18 20:41 05/13/18 20:41 05/13/18 20:41 05/13/18 16:00 Intake and Output: 05/13/18 05/14/18 18:59 06:59 Intake Total 760 325 Balance 760 325 - Medications Medications: Current Medications Acetaminophen (Tylenol 325mg Tab) 650 mg PO Q6 PRN PRN Reason: Pain, Mild (1-3) Last Admin: 05/13/18 19:43 Dose: 650 mg Benzocaine (Orajel 7.5%) 1 gm MM TID [facility] Last Admin: 05/13/18 17:57 Dose: 1 gm Ciprofloxacin (Cipro) 500 mg PO BID [facility]; Protocol Stop: 05/16/18 10:01 Last Admin: 05/13/18 17:56 Dose: 500 mg Diphenhydramine HCl (Benadryl) 25 mg PO Q6 PRN PRN Reason: Itching / Pruritus Last Admin: 05/13/18 17:56 Dose: 25 mg Folic Acid (Folic Acid) 1 mg PO DAILY [facility] Last Admin: 05/13/18 09:33 Dose: 1 mg Heparin Sodium (Porcine) (Heparin) 5,000 units SC Q8 [facility] Last Admin: 05/13/18 14:05 Dose: 5,000 units Sodium Chloride (Sodium Chloride 0.9%) 1,000 mls @ 100 mls/hr IV .Q10H [facility] Last Admin: 05/13/18 09:50 Dose: 100 mls/hr Morphine Sulfate (Morphine) 0.5 mg IVP Q6H PRN PRN Reason: Pain, moderate (4-7) Last Admin: 05/12/18 18:37 Dose: 0.5 mg Multivitamins (Hexavitamin) 1 tab PO DAILY [facility] Last Admin: 05/13/18 09:33 Dose: 1 tab Ondansetron HCl (Zofran Inj) 4 mg IVP Q6H PRN PRN Reason: Nausea/Vomiting Last Admin: 05/09/18 04:52 Dose: 4 mg Oxycodone/Acetaminophen (Percocet 5/325 Mg Tab) 1 tab PO Q6H PRN PRN Reason: Pain, moderate (4-7) Stop: 05/14/18 15:21 Oxycodone/Acetaminophen (Percocet 5/325 Mg Tab) 2 tab PO Q6H PRN PRN Reason: Pain, severe (8-10) Stop: 05/14/18 15:21 Last Admin: 05/13/18 07:53 Dose: 2 tab Thiamine HCl (Vitamin B1 Tab) 100 mg PO DAILY [facility] Last Admin: 05/13/18 09:33 Dose: 100 mg Trazodone HCl (Desyrel) 25 mg PO HS [facility] Last Admin: 05/12/18 22:11 Dose: 25 mg Zinc Acetate/Diphenhydramine (Benadryl 1% Zinc Acetate -0.1%) 0 cre TOP TID [facility] Last Admin: 05/13/18 17:57 Dose: Not Given - Labs Labs: 05/13/18 09:21 05/13/18 09:21 PT 11.4 SECONDS (9.7-12.2) 04/30/18 10:43 INR 1.0 04/30/18 10:43 APTT 30 SECONDS (21-34) 04/30/18 10:43 Attending/Attestation - Attestation I have personally seen and examined this patient.: Yes I have fully participated in the care of the patient.: Yes I have reviewed all pertinent clinical information, including history, physical exam and plan: Yes Notes (Text): This is late computer entry for 05/10/18. Patient seen, examined and case discussed with medical sales specialist. Patient seen in the afternoon with the resident at bedside. Patient is upset with the events from yesterday. We had a heart to heart conversation regarding the situation explained to her that when she is upset that people will intrepet her anger as agitation and the medications being offered as needed and that no one is forcing her to take any medications that she does not need. 52F with R tibia/fibular frax s/p reduction, f/u ORIF tentatively monday. NWB until then Antibiotics held for possible allergic reaction but I do doubt she is allergic. She reports she used to sleep on streets. Patient has been afebrile >72 hours, with cultures negative 48 hours. Normal EKG, patient is medically optimized and cleared for surgery. Detsky Cardiac Risk Score = 0; 6% risk of cardiovascular complications after non cardiac surgery. Will continue to monitor. Discussed with podiatry resident.
[2018-05-10 08:20] LABS: BASO # 0.1 K/uL (0.0-0.2); BASO % 1.5 % (0.0-2.0); EOS % 0.1 % (0.0-4.0); HEMOGLOBIN 8.8 g/dL (11.0-16.0); LYMPH % 24.3 % (20.0-40.0); MEAN CELL VOLUME 90.8 fL (81.0-99.0); MEAN CORPUSCULAR HEMOGLOBIN 30.1 pg (27.0-31.0); MEAN CORPUSCULAR HGB CONC 33.1 g/dL (33.0-37.0); MEAN PLATELET VOLUME 7.4 fL (7.2-11.7); MONO # 0.3 K/uL (0.0-0.8); MONO % 6.3 % (0.0-10.0); NEUT # 2.9 K/uL (1.8-7.0); NEUT % 67.8 % (50.0-75.0); RBC 2.92 Mil/uL (3.80-5.20); RED CELL DISTRIBUTION WIDTH 16.8 % (11.5-14.5); WHITE BLOOD COUNT 4.3 K/uL (4.8-10.8)
[2018-05-10 08:47] LABS: ALBUMIN 3.8 g/dL (3.5-5.0); ALT/SGPT 23 U/L (9-52); AST/SGOT 28 U/L (14-36); BLOOD UREA NITROGEN 12 mg/dL (7-17); CALCIUM 9.2 mg/dl (8.6-10.4); GFR NON-AFRICAN AMERICAN > 60
[2018-05-10] MEDS: Multiple Vitamins Tab PO SCH (10:22)
[2018-05-10] MEDS: Benzocaine 7.5% 5.1 GM TUBE MM SCH ×3 (10:27→17:36)
[2018-05-10] MEDS: Sodium Chloride 0.9% 1,000 ML IV SCH ×3 (10:30→21:45)
--- NOTE | 2018-05-10 11:02 | CP.PCM.PN ---
Subjective - Date & Time of Evaluation Date of Evaluation: 05/10/18 Time of Evaluation: 11:01 - Subjective Subjective: Podiatry Progress Note for Dr. Hurley 52F seen five days s/p application of external fixator to RLE for displaced, comminuted distal tibia fracture. Patient is AAO x 3 and NAD, resting comfortably in room chair. Denies any acute overnight events and states that she has no pain. Also states that she continuess to work with physical therapy. Denies trying to walk on foot. Denies any further pedal complaints at this time. states she would like to be taken into the OR for fixation and removal of the external fixator. Denies any recent N/V/F/C/CP/SOB/D Objective - Vital Signs/Intake and Output Vital Signs (last 24 hours): Temp Pulse Resp BP Pulse Ox 99.9 F H 80 18 100/62 100 05/10/18 09:43 05/10/18 09:43 05/10/18 09:43 05/10/18 09:43 05/10/18 09:43 - Medications Medications: Current Medications Acetaminophen (Tylenol 325mg Tab) 650 mg PO Q6 PRN PRN Reason: Pain, Mild (1-3) Last Admin: 05/10/18 04:57 Dose: 650 mg Albuterol/Ipratropium (Duoneb 3 Mg/0.5 Mg (3 Ml) Ud) 3 ml INH RQ6 SHA Last Admin: 05/10/18 07:38 Dose: Not Given Benzocaine (Orajel 7.5%) 1 gm MM TID [facility] Last Admin: 05/10/18 10:27 Dose: 1 gm Benzocaine/Menthol (Cepacol Sore Throat) 1 sallie MT QID PRN PRN Reason: Pain, moderate (4-7) Last Admin: 05/10/18 04:57 Dose: 1 sallie Folic Acid (Folic Acid) 1 mg PO DAILY [facility] Last Admin: 05/10/18 10:22 Dose: 1 mg Heparin Sodium (Porcine) (Heparin) 5,000 units SC Q8 [facility] Last Admin: 05/10/18 06:45 Dose: 5,000 units Sodium Chloride (Sodium Chloride 0.9%) 1,000 mls @ 100 mls/hr IV .Q10H [facility] Last Admin: 05/10/18 10:30 Dose: 100 mls/hr Piperacillin Sod/Tazobactam (Sod 3.375 gm/ Sodium Chloride) 100 mls @ 200 mls/hr IVPB Q8H [facility]; Protocol Last Admin: 05/09/18 17:28 Dose: 200 mls/hr Vancomycin/Sodium Chloride (Vancomycin 1 Gm/Ns 200 Ml) 1 gm in 200 mls @ 166.6 mls/hr IVPB Q12H [facility]; Protocol Stop: 05/13/18 16:01 Last Admin: 05/10/18 04:41 Dose: 166.6 mls/hr Lorazepam (Ativan) 1 mg PO Q6 PRN PRN Reason: Anxiety Last Admin: 05/10/18 10:40 Dose: 1 mg Metoprolol Tartrate (Lopressor) 12.5 mg PO BIDCC [facility] Last Admin: 05/10/18 10:27 Dose: 12.5 mg Morphine Sulfate (Morphine) 0.5 mg IVP Q6H PRN PRN Reason: Pain, moderate (4-7) Last Admin: 05/10/18 10:17 Dose: 0.5 mg Morphine Sulfate (Morphine) 1 mg IVP Q6H PRN PRN Reason: Pain, severe (8-10) Last Admin: 05/10/18 04:58 Dose: 1 mg Multivitamins (Hexavitamin) 1 tab PO DAILY [facility] Last Admin: 05/10/18 10:22 Dose: 1 tab Ondansetron HCl (Zofran Inj) 4 mg IVP Q6H PRN PRN Reason: Nausea/Vomiting Last Admin: 05/09/18 04:52 Dose: 4 mg Thiamine HCl (Vitamin B1 Tab) 100 mg PO DAILY [facility] Last Admin: 05/10/18 10:24 Dose: 100 mg Trazodone HCl (Desyrel) 25 mg PO HS [facility] Last Admin: 05/09/18 21:31 Dose: 25 mg - Labs Labs: 05/10/18 07:54 05/10/18 07:54 PT 11.4 SECONDS (9.7-12.2) 04/30/18 10:43 INR 1.0 04/30/18 10:43 APTT 30 SECONDS (21-34) 04/30/18 10:43 - Constitutional Appears: Well, Non-toxic - Head Exam Head Exam: ATRAUMATIC - Extremities Exam Additional comments: RLE focused exam: Vasc: DP/PT pulses non-palpable secondary to 2+ non-pitting edema. CFT < 3 seconds to all digits. Skin temperature warm to warm from proximal to distal WNL. Neuro: Epicritic and protective sensation grossly intact b/l Derm: Delta frame noted to be in appropriate placement with no evidence of pin tract infection. No other open lesions, wounds, maceration, xerosis, abnormal pigmentation or abnormal growths noted MSK: Unable to assess ROM due to external fixator. - Neurological Exam Neurological Exam: Alert, Awake, Oriented x3 - Psychiatric Exam Psychiatric exam: Normal Affect Assessment and Plan - Assessment and Plan (Free Text) Assessment: 52F seen four days s/p application of external fixator to RLE for displaced, comminuted distal tibia fracture Plan: Patient seen and evaluated Plan discussed with Dr. Hurley Afebrile, absent leukocytosis Patient to return to OR on 05/11 for removal of external fixator and ORIF of distal tibia pilon fracture pending clearance from medical team Spoke to Dr. Winn, patient will be cleared for surgery tomorrow. Right leg dressed changes, pin sites cleansed with saline and xeroform DSD with ROLO applied. Patient to remain strict NWB Podiatry will continue to follow while patient in house
[2018-05-10] MEDS ORDERED: DiphenhydrAMINE 50 mg/ml Inj IVP ONE (21:25)
[2018-05-10] MEDS: traZODone 25 mg Tab PO SCH (21:45)
[2018-05-11] MEDS: Sodium Chloride 0.9% 1,000 ML IV SCH ×3 (02:00→07:24)
[2018-05-11] MEDS: Albuterol-Ipratrop 3 mg / 0.5 (3 ml) UD INH SCH ×4 (02:14→19:50)
--- NOTE | 2018-05-11 07:25 | CP.PCM.PN ---
<Rey Schreiber - Last Filed: 05/11/18 15:41> Subjective - Date & Time of Evaluation Date of Evaluation: 05/11/18 Time of Evaluation: 07:25 - Subjective Subjective: Hospitalist Service Pt seen and examined at bedside. Pt reports pain in foor improved greatly, agrees to follow-up ORIF today. Denies CP/SOB/FC/NV Objective - Vital Signs/Intake and Output Vital Signs (last 24 hours): Temp Pulse Resp BP Pulse Ox 98.5 F 77 20 131/88 99 05/11/18 05:30 05/11/18 05:30 05/11/18 05:30 05/11/18 05:30 05/11/18 05:30 Intake and Output: 05/11/18 05/11/18 06:59 18:59 Intake Total 1150 Balance 1150 - Medications Medications: Current Medications Acetaminophen (Tylenol 325mg Tab) 650 mg PO Q6 PRN PRN Reason: Pain, Mild (1-3) Last Admin: 05/10/18 14:06 Dose: 650 mg Albuterol/Ipratropium (Duoneb 3 Mg/0.5 Mg (3 Ml) Ud) 3 ml INH RQ6 [facility] Last Admin: 05/11/18 02:14 Dose: Not Given Benzocaine (Orajel 7.5%) 1 gm MM TID [facility] Last Admin: 05/10/18 17:36 Dose: 1 gm Benzocaine/Menthol (Cepacol Sore Throat) 1 sallie MT QID PRN PRN Reason: Pain, moderate (4-7) Last Admin: 05/10/18 17:43 Dose: 1 sallie Ciprofloxacin (Cipro) 500 mg PO BID [facility]; Protocol Stop: 05/16/18 10:01 Folic Acid (Folic Acid) 1 mg PO DAILY [facility] Last Admin: 05/10/18 10:22 Dose: 1 mg Heparin Sodium (Porcine) (Heparin) 5,000 units SC Q8 [facility] Last Admin: 05/10/18 14:03 Dose: 5,000 units Sodium Chloride (Sodium Chloride 0.9%) 1,000 mls @ 100 mls/hr IV .Q10H [facility] Last Admin: 05/10/18 21:45 Dose: 100 mls/hr Piperacillin Sod/Tazobactam (Sod 3.375 gm/ Sodium Chloride) 100 mls @ 200 mls/hr IVPB Q8H [facility]; Protocol Last Admin: 05/09/18 17:28 Dose: 200 mls/hr Lorazepam (Ativan) 1 mg PO Q6 PRN PRN Reason: Anxiety Metoprolol Tartrate (Lopressor) 12.5 mg PO BIDCC [facility] Last Admin: 05/10/18 17:37 Dose: 12.5 mg Morphine Sulfate (Morphine) 0.5 mg IVP Q6H PRN PRN Reason: Pain, moderate (4-7) Last Admin: 05/10/18 10:17 Dose: 0.5 mg Morphine Sulfate (Morphine) 1 mg IVP Q6H PRN PRN Reason: Pain, severe (8-10) Last Admin: 05/10/18 23:05 Dose: 1 mg Multivitamins (Hexavitamin) 1 tab PO DAILY [facility] Last Admin: 05/10/18 10:22 Dose: 1 tab Ondansetron HCl (Zofran Inj) 4 mg IVP Q6H PRN PRN Reason: Nausea/Vomiting Last Admin: 05/09/18 04:52 Dose: 4 mg Thiamine HCl (Vitamin B1 Tab) 100 mg PO DAILY [facility] Last Admin: 05/10/18 10:24 Dose: 100 mg Trazodone HCl (Desyrel) 25 mg PO [facility] Last Admin: 05/10/18 21:45 Dose: 25 mg - Labs Labs: 05/10/18 07:54 05/10/18 07:54 PT 11.4 SECONDS (9.7-12.2) 04/30/18 10:43 INR 1.0 04/30/18 10:43 APTT 30 SECONDS (21-34) 04/30/18 10:43 - Additional Findings Additional findings: - Constitutional Appears: Non-toxic, No Acute Distress - Head Exam Head Exam: NORMAL INSPECTION - Eye Exam Eye Exam: Normal appearance - ENT Exam ENT Exam: Mucous Membranes Moist - Respiratory Exam Respiratory Exam: Clear to Ausculation Bilateral, NORMAL BREATHING PATTERN. absent: Rales, Rhonchi, Wheezes - Cardiovascular Exam Cardiovascular Exam: +S1, +S2 - GI/Abdominal Exam GI & Abdominal Exam: Soft, Normal Bowel Sounds - Extremities Exam Extremities Exam: Full ROM. absent: Pedal Edema, Tenderness Additional comments: R foot in external fixation device per podiatry Patient has sensation & motor in digits of foot, no discoloration - Back Exam Back Exam: absent: CVA tenderness (L), CVA tenderness (R) - Neurological Exam Neurological Exam: Alert, Awake, Oriented x3 - Psychiatric Exam Psychiatric exam: Agitated, Normal Mood - Skin Skin Exam: Dry, Intact, Normal Color, Warm Assessment and Plan - Assessment and Plan (Free Text) Assessment: 52F with R tibia/fibular frax s/p reduction,ORIF TODAY 05/11. NWB Right distal tibia/fibula fracture * Podiatry (Dr. Hurley) on board-->help appreciated * surgery 05/04, ORIF f/u sx 05/11 * pending resolution of soft tissue edema * Right Ankle Xray (04/30): Comminuted trimalleolar displaced fractures of the distal fibula. Disruption of the ankle mortise. Soft tissue swelling. * Right lower extremity CT (04/30): Markedly comminuted, distracted, and disloc ated fracture deformity of the distal tibia with prominent intra-articular extension. A few prominent fracture fragments are noted at the anterolateral distal tibia measuring up to 3.4 centimeters with apparent anterior lateral distraction measuring 1.6 centimeters. Posterior subluxation of the remaining fracture fragment. Fracture deformities involve the medial and posterior malleolus. * Left lower extremity duplex 04/30: No evidence of deep or superficial vein thrombosis of the left lower extremity with excellent venous flow. Normal valve function noted of the left side. Normal venous flow noted in the right common femoral vein. * Head CT (04/30): No acute intracranial pathology identified. * CXR (04/30): No acute findings * Morphine 0.5mg Q6 PRN - Moderate pain * Morphine 1mg Q6 PRN - Severe pain * Non-weight bearing. Fall precautions. * Repeat EKG: NSR * Prior EKG while patient was withdrawing from alcohol * Echocardiogram (05/04): normal size la, lv and ra and rv. normal lv wall motion, thickenss and systolic function w lvef ef 60-65%, lv diastolc dysfunction, normal arotic, mitral, tv, and pv, mild tr/pi mild pulm htn, normal size aortic root, no pericardial effusion HCAP * Ciprofloxacin 500 mg PO Q12 05/11/18 * Tmax 101.1 monday night, afebrile last night * Neg repeat blood cultures * normal allison sputum cultures * CXR 05/08 show RLL infiltrates * dopplers for possible DVt - negative Hx of alcohol abuse: * Blood alcohol level 375 on admission on 04/30 * Librium taper discontinued * Librium 25mg PO Q8 PRN symptoms of alcohol withdrawal discontinued * Folic acid 1mg PO daily * MV1 tab Po daily * Thiamine 100mg PO daily * Folate > 20, B12 - 427 Apthous Stomatitis - Orajel TID - Valtrex 500mg BID PO Normocytic anemia * secondary to bone marrow suppression caused by alcohol * Monitor H/H * Advised type and cross 1 unit of PRBC prior to OR to podiatry resident * Will continue to monitor with daily CBC Hx of HTN: * Lopressor 12.5mg PO BID * Monitor vital signs Hx of depression * As per prior medical records-->Patient is not currently taking any medications * patient denies any HI/denies SI Hx of schizophrenia: * As per prior medical records-->- Patient is not currently taking any medications * refused haldol * Dr Todd consulted * Benadryl 25 PRN HS PPx: * DVT: Heparin 5000sc daily * Fall precautions, non-weight bearing Dispo: ORIF on Friday 05/11. Patient has been afebrile >96 hours, with repeat cultures negative 24 hours. <Rosibel Winn V - Last Filed: 05/12/18 13:03> Objective - Vital Signs/Intake and Output Vital Signs (last 24 hours): Temp Pulse Resp BP Pulse Ox 98.6 F 109 H 20 102/58 L 98 05/12/18 07:00 05/12/18 07:26 05/12/18 07:00 05/12/18 07:26 05/12/18 07:00 Intake and Output: 05/12/18 05/12/18 06:59 18:59 Intake Total 950 Output Total 1650 Balance -700 - Medications Medications: Current Medications Acetaminophen (Tylenol 325mg Tab) 650 mg PO Q6 PRN PRN Reason: Pain, Mild (1-3) Last Admin: 05/10/18 14:06 Dose: 650 mg Albuterol/Ipratropium (Duoneb 3 Mg/0.5 Mg (3 Ml) Ud) 3 ml INH RQ6 [facility] Last Admin: 05/12/18 07:39 Dose: 3 ml Benzocaine (Orajel 7.5%) 1 gm MM TID [facility] Last Admin: 05/12/18 09:37 Dose: 1 gm Ciprofloxacin (Cipro) 500 mg PO BID [facility]; Protocol Stop: 05/16/18 10:01 Last Admin: 05/12/18 09:31 Dose: 500 mg Folic Acid (Folic Acid) 1 mg PO DAILY [facility] Last Admin: 05/12/18 09:30 Dose: 1 mg Heparin Sodium (Porcine) (Heparin) 5,000 units SC Q8 [facility] Last Admin: 05/10/18 14:03 Dose: 5,000 units Sodium Chloride (Sodium Chloride 0.9%) 1,000 mls @ 100 mls/hr IV .Q10H [facility] Last Admin: 05/11/18 07:24 Dose: 100 mls/hr Morphine Sulfate (Morphine) 0.5 mg IVP Q6H PRN PRN Reason: Pain, moderate (4-7) Last Admin: 05/12/18 12:19 Dose: 0.5 mg Multivitamins (Hexavitamin) 1 tab PO DAILY [facility] Last Admin: 05/12/18 09:31 Dose: 1 tab Ondansetron HCl (Zofran Inj) 4 mg IVP Q6H PRN PRN Reason: Nausea/Vomiting Last Admin: 05/09/18 04:52 Dose: 4 mg Oxycodone/Acetaminophen (Percocet 5/325 Mg Tab) 1 tab PO Q6H PRN PRN Reason: Pain, moderate (4-7) Stop: 05/14/18 15:21 Oxycodone/Acetaminophen (Percocet 5/325 Mg Tab) 2 tab PO Q6H PRN PRN Reason: Pain, severe (8-10) Stop: 05/14/18 15:21 Last Admin: 05/12/18 07:25 Dose: 2 tab Thiamine HCl (Vitamin B1 Tab) 100 mg PO DAILY [facility] Last Admin: 05/12/18 09:30 Dose: 100 mg Trazodone HCl (Desyrel) 25 mg PO HS [facility] Last Admin: 05/11/18 22:28 Dose: 25 mg Zinc Acetate/Diphenhydramine (Benadryl 1% Zinc Acetate -0.1%) 0 cre TOP TID [facility] - Labs Labs: 05/12/18 07:14 05/12/18 07:14 PT 11.4 SECONDS (9.7-12.2) 04/30/18 10:43 INR 1.0 04/30/18 10:43 APTT 30 SECONDS (21-34) 04/30/18 10:43 Attending/Attestation - Attestation I have personally seen and examined this patient.: Yes I have fully participated in the care of the patient.: Yes I have reviewed all pertinent clinical information, including history, physical exam and plan: Yes Notes (Text): This is late computer entry for 05/11/18. Patient case discussed with day-time resident. Patient is in the OR for ORIF of the right ankle during my during rounds.
[2018-05-11 07:37] LABS: BASO % 0.4 % (0.0-2.0); EOS # 0.2 K/uL (0.0-0.7); EOS % 4.7 % (0.0-4.0); HEMOGLOBIN 8.5 g/dL (11.0-16.0); LYMPH # 1.8 K/uL (1.0-4.3); LYMPH % 38.9 % (20.0-40.0); MEAN CELL VOLUME 90.4 fL (81.0-99.0); MEAN CORPUSCULAR HEMOGLOBIN 30.3 pg (27.0-31.0); MEAN CORPUSCULAR HGB CONC 33.5 g/dL (33.0-37.0); MONO # 0.6 K/uL (0.0-0.8); NRBC % 0.1 % (0.0-2.0); RBC 2.8 Mil/uL (3.80-5.20); WHITE BLOOD COUNT 4.6 K/uL (4.8-10.8)
[2018-05-11 08:08] LABS: ALB/GLOB RATIO 0.8 (1.0-2.1); ALBUMIN 3.3 g/dL (3.5-5.0); ALT/SGPT 24 U/L (9-52); AST/SGOT 29 U/L (14-36); BLOOD UREA NITROGEN 11 mg/dL (7-17); CALCIUM 8.9 mg/dl (8.6-10.4); GFR NON-AFRICAN AMERICAN > 60
[2018-05-11] MEDS: Benzocaine 7.5% 5.1 GM TUBE MM SCH ×3 (09:40→18:31)
[2018-05-11] MEDS ORDERED: ceFAZolin IV 1 gm in Dextrose 0 GM/0 ML BAG IVPB ONE (10:23)
[2018-05-11] MEDS ORDERED: Bupivacaine HCl 0.5% PF (30 ml) Inj ONE (10:23)
[2018-05-11] MEDS ORDERED: Lidocaine Hydrochloride 0 ML INJ ONE (10:23)
[2018-05-11] MEDS ORDERED: Midazolam 2 MG/2 ML VIAL ONE (10:42)
[2018-05-11] MEDS ORDERED: Propofol 10 mg/ml Inj (20 ML) ONE (10:42)
[2018-05-11] MEDS: Multiple Vitamins Tab PO SCH (12:43)
[2018-05-11] MEDS ORDERED: Bupivacaine 0.25% 20 ML INJ IJ ONE (15:11)
[2018-05-11] MEDS ORDERED: LIDOCAINE 2% PF (2ML) ONE (15:13)
--- NOTE | 2018-05-11 15:18 | PCM.SURG1 ---
Surgeon's Initial Post Op Note - Surgeon's Notes Surgeon: Dr. Hurley Insurance Coordinator: Sharron Colindres PGY3, Kriss Smith PGY2 Type of Anesthesia: General LMA Anesthesia Administered By: Dr. Crowley Pre-Operative Diagnosis: right ankle pilon fracture Operative Findings: see dictation. materials: Synthes anterolateral tibial plate, Synthes Norian graft, 2-0 vicryl, 3-0 vicryl, 4-0 vicryl, 3-0 nylon, 2-0 prolene Post-Operative Diagnosis: same Operation Performed: right ankle pilon fracture ORIF Specimen/Specimens Removed: n/a Estimated Blood Loss: EBL {In ML}: 50 Blood Products Given: N/A Drains Used: Wound Vac (ELIZABETH dressing) Post-Op Condition: Good Date of Surgery/Procedure: 05/11/18 Time of Surgery/Procedure: 15:19
[2018-05-11] MEDS ORDERED: Oxycodone/Acetaminophen 5/325 mg Tab PO PRN (15:20)
[2018-05-11] MEDS: HYDROmorphone 0.5 mg/0.5 ml ISec IVP PRN ×2 (15:31→16:01)
[2018-05-11 15:42] LABS: HEMOGLOBIN 8.2 g/dL (11.0-16.0)
--- NOTE | 2018-05-11 15:59 | PCM.ANESB2 ---
Popliteal Nerve Block - Popliteal Nerve Block Date of Procedure: 05/11/18 Anesthesiologist: Bella Pre-Procedure Diagnosis: s/p right ankle ORIF Post-Procedure Diagnosis: same Procedure Performed: Popliteal Nerve Block Right - Procedure Popliteal Nerve Block: This procedure was explained to the patient that it is for post-operative pain management. Consent was obtained after a thorough discussion with the patient regarding the benefits and possible complications of local anesthetic block of the sciatic nerve at the popliteal level. The patient lying supine with monitors on. Time-out was held with the PACU nurse to confirm the correct surgery and the appropriate block. After placing patient on left lateral decubitus position, patient's operative leg was gently raised and supported and the groove in between the biceps femoris and vastus lateralis muscles was carefully palpated. The skin approximately 8cm above the popliteal crease was then marked. The ultrasound transducer was then applied to the posterior thigh approximately 8cm above the popliteal crease in the transverse plane and the sciatic nerve before its division was visualized lateral to the popliteal artery and in between the bicep femoris and semimembranosus/semitendinosus muscles. After identification, the lateral portion of the thigh was prepped with chloraprep and 2mL of Lidocaine 1% was injected subcutaneously for topical anesthesia. At this point, a # 21 gauge Stimuplex insulated 4 inch needle was inserted into pre-marked area and advanced in a perpendicular direction. The needle was insert ed above the ultrasound transducer in-plane towards the sciatic nerve in a [id number] direction. Needle advancement was performed carefully under direct ultrasound visualization. Nerve stimulator was used and dorsiflexion of the right foot was elicited at a current of 0.5MA. After repeated negative aspiration, 2cc of 0.25% Bupivacaine was injected and this was followed with 28cc of 0.25% Bupivacaine. Under ultrasound guidance the local anesthetics were observed surrounding sciatic nerve . The needle was removed intact and sterile dressing was applied. The patient tolerated the popliteal nerve block well with stable vital signs.
--- NOTE | 2018-05-11 16:05 | RAD ---
Date of service: 05/11/2018 PROCEDURE: Intraoperative Fluoroscopy. HISTORY: RT ANKLE COMMINUTED FX FINDINGS: Fluoroscopic assistance was provided. Fluoroscopy time = 123.5 sec. Radiation dose = 1.6 mGy. Please refer to the operative report from [facility].
[2018-05-11] MEDS ORDERED: DiphenhydrAMINE 50 mg/ml Inj IVP ONE (17:47)
--- NOTE | 2018-05-11 17:53 | RAD ---
Date of service: 05/11/2018 PROCEDURE: Right Ankle Radiographs. HISTORY: s/p right ankle ORIF COMPARISON: Right ankle radiographs 05/05/2018. FINDINGS: BONES: External fixators have been removed. Patient ostomy status post ORIF with compression plate and multiple screws reducing distal tibial fractures including a solitary independent medial malleolar screw. JOINTS: Normal. No osteoarthritis. Ankle mortise maintained. Talar dome intact SOFT TISSUES: Postoperative edema identified. OTHER FINDINGS: None. IMPRESSION: Status post ORIF distal tibial fractures with removal of external fixators from the right ankle. Please see discussion above.
[2018-05-11] MEDS: Oxycodone/Acetaminophen 5/325 mg Tab PO PRN (18:46)
[2018-05-11] MEDS: traZODone 25 mg Tab PO SCH (22:28)
[2018-05-12] MEDS: Albuterol-Ipratrop 3 mg / 0.5 (3 ml) UD INH SCH ×4 (01:10→19:57)
[2018-05-12] MEDS: Oxycodone/Acetaminophen 5/325 mg Tab PO PRN ×2 (01:27→07:25)
[2018-05-12 07:27] LABS: BASO # 0.1 K/uL (0.0-0.2); BASO % 0.6 % (0.0-2.0); EOS % 0.4 % (0.0-4.0); HEMOGLOBIN 7.3 g/dL (11.0-16.0); LYMPH # 1.3 K/uL (1.0-4.3); MEAN CELL VOLUME 90.5 fL (81.0-99.0); MEAN CORPUSCULAR HEMOGLOBIN 30.5 pg (27.0-31.0); MEAN CORPUSCULAR HGB CONC 33.7 g/dL (33.0-37.0); MEAN PLATELET VOLUME 6.9 fL (7.2-11.7); MONO # 1.3 K/uL (0.0-0.8); NEUT # 6.1 K/uL (1.8-7.0); RBC 2.38 Mil/uL (3.80-5.20)
[2018-05-12 07:31] LABS: WHITE BLOOD COUNT 8.8 K/uL (4.8-10.8)
[2018-05-12 07:33] LABS: ALB/GLOB RATIO 0.9 (1.0-2.1); ALBUMIN 3.2 g/dL (3.5-5.0); ALT/SGPT 25 U/L (9-52); AST/SGOT 32 U/L (14-36); BLOOD UREA NITROGEN 9 mg/dL (7-17); CALCIUM 8.2 mg/dl (8.6-10.4); GFR NON-AFRICAN AMERICAN > 60
[2018-05-12] MEDS: Multiple Vitamins Tab PO SCH (09:31)
[2018-05-12] MEDS: Benzocaine 7.5% 5.1 GM TUBE MM SCH ×3 (09:37→18:38)
--- NOTE | 2018-05-12 11:00 | CP.PCM.PN ---
Subjective - Date & Time of Evaluation Date of Evaluation: 05/12/18 Time of Evaluation: 10:58 - Subjective Subjective: Podiatry Progress Note for Dr. Hurley 52F seen one s/p ORIF of pilon fracture Patient is AAO x 3 and NAD, resting comfortably in room chair. Denies any acute overnight events and admits to severe pain to distal 1/3rd of the right leg. Denies elevating extremity. Denies trying to walk on foot. Denies any further pedal complaints at this time. Denies any recent N/V/F/C/CP/SOB/D Objective - Vital Signs/Intake and Output Vital Signs (last 24 hours): Temp Pulse Resp BP Pulse Ox 98.6 F 109 H 20 102/58 L 98 05/12/18 07:00 05/12/18 07:26 05/12/18 07:00 05/12/18 07:26 05/12/18 07:00 Intake and Output: 05/12/18 05/12/18 06:59 18:59 Intake Total 950 Output Total 1650 Balance -700 - Medications Medications: Current Medications Acetaminophen (Tylenol 325mg Tab) 650 mg PO Q6 PRN PRN Reason: Pain, Mild (1-3) Last Admin: 05/10/18 14:06 Dose: 650 mg Albuterol/Ipratropium (Duoneb 3 Mg/0.5 Mg (3 Ml) Ud) 3 ml INH RQ6 [facility] Last Admin: 05/12/18 07:39 Dose: 3 ml Benzocaine (Orajel 7.5%) 1 gm MM TID [facility] Last Admin: 05/12/18 09:37 Dose: 1 gm Benzocaine/Menthol (Cepacol Sore Throat) 1 sallie MT QID PRN PRN Reason: Pain, moderate (4-7) Last Admin: 05/10/18 17:43 Dose: 1 sallie Ciprofloxacin (Cipro) 500 mg PO BID [facility]; Protocol Stop: 05/16/18 10:01 Last Admin: 05/12/18 09:31 Dose: 500 mg Diphenhydramine HCl (Benadryl) 25 mg PO Q6H PRN PRN Reason: Allergy symptoms Last Admin: 05/12/18 09:30 Dose: 25 mg Folic Acid (Folic Acid) 1 mg PO DAILY [facility] Last Admin: 05/12/18 09:30 Dose: 1 mg Heparin Sodium (Porcine) (Heparin) 5,000 units SC Q8 [facility] Last Admin: 05/10/18 14:03 Dose: 5,000 units Sodium Chloride (Sodium Chloride 0.9%) 1,000 mls @ 100 mls/hr IV .Q10H [facility] Last Admin: 05/11/18 07:24 Dose: 100 mls/hr Lorazepam (Ativan) 1 mg PO Q6 PRN PRN Reason: Anxiety Metoprolol Tartrate (Lopressor) 12.5 mg PO BIDCC [facility] Last Admin: 05/12/18 09:36 Dose: 12.5 mg Morphine Sulfate (Morphine) 0.5 mg IVP Q6H PRN PRN Reason: Pain, moderate (4-7) Last Admin: 05/12/18 05:54 Dose: 0.5 mg Multivitamins (Hexavitamin) 1 tab PO DAILY [facility] Last Admin: 05/12/18 09:31 Dose: 1 tab Ondansetron HCl (Zofran Inj) 4 mg IVP Q6H PRN PRN Reason: Nausea/Vomiting Last Admin: 05/09/18 04:52 Dose: 4 mg Oxycodone/Acetaminophen (Percocet 5/325 Mg Tab) 1 tab PO Q6H PRN PRN Reason: Pain, moderate (4-7) Stop: 05/14/18 15:21 Oxycodone/Acetaminophen (Percocet 5/325 Mg Tab) 2 tab PO Q6H PRN PRN Reason: Pain, severe (8-10) Stop: 05/14/18 15:21 Last Admin: 05/12/18 07:25 Dose: 2 tab Thiamine HCl (Vitamin B1 Tab) 100 mg PO DAILY [facility] Last Admin: 05/12/18 09:30 Dose: 100 mg Trazodone HCl (Desyrel) 25 mg PO HS [facility] Last Admin: 05/11/18 22:28 Dose: 25 mg - Labs Labs: 05/12/18 07:14 05/12/18 07:14 PT 11.4 SECONDS (9.7-12.2) 04/30/18 10:43 INR 1.0 04/30/18 10:43 APTT 30 SECONDS (21-34) 04/30/18 10:43 - Constitutional Appears: Well, Non-toxic - Head Exam Head Exam: ATRAUMATIC - Extremities Exam Additional comments: dressing clean dry and intact patient able to wiggle her toes cft <3 secs x 5 - Neurological Exam Neurological Exam: Alert, Awake, Oriented x3 Assessment and Plan - Assessment and Plan (Free Text) Assessment: 52F seen one day s/p ORIF of comminuted distal tibia fracture Plan: Patient seen and evaluated Plan discussed with Dr. Hurley Afebrile, absent leukocytosis Patient to remain strict NWB Patient will remain in house until pain controlled with PO pain medications Patient is currently getting alternating doses of percocet and morphine Advised to elevate and ice as much as possible. Dressing clean dry and intact. Podiatry will continue to follow while patient in house
[2018-05-12] MEDS ORDERED: Sodium Chloride 0.9% 1,000 ML IV ONE (11:07)
[2018-05-12] MEDS ORDERED: Glucagon Recombinant 1 mg Inj IV STA ×2 (11:14→12:44)
--- NOTE | 2018-05-12 11:28 | CP.PCM.PN ---
Subjective - Date & Time of Evaluation Date of Evaluation: 05/12/18 Time of Evaluation: 11:10 - Subjective Subjective: Medical Attending Note: patient seen and examined this morning. Patient reporting she is in pain and asking for pain medication. Patient denies headache, denies chest pain, denies dizziness, denies abdominal pain, denies nausea, denies vomitting, and reports she had a bowel movement yesterday. Objective - Vital Signs/Intake and Output Vital Signs (last 24 hours): Temp Pulse Resp BP Pulse Ox 98.6 F 109 H 20 102/58 L 98 05/12/18 07:00 05/12/18 07:26 05/12/18 07:00 05/12/18 07:26 05/12/18 07:00 Intake and Output: 05/12/18 05/12/18 06:59 18:59 Intake Total 950 Output Total 1650 Balance -700 - Medications Medications: Current Medications Acetaminophen (Tylenol 325mg Tab) 650 mg PO Q6 PRN PRN Reason: Pain, Mild (1-3) Last Admin: 05/10/18 14:06 Dose: 650 mg Albuterol/Ipratropium (Duoneb 3 Mg/0.5 Mg (3 Ml) Ud) 3 ml INH RQ6 [facility] Last Admin: 05/12/18 07:39 Dose: 3 ml Benzocaine (Orajel 7.5%) 1 gm MM TID [facility] Last Admin: 05/12/18 09:37 Dose: 1 gm Ciprofloxacin (Cipro) 500 mg PO BID [facility]; Protocol Stop: 05/16/18 10:01 Last Admin: 05/12/18 09:31 Dose: 500 mg Diphenhydramine HCl (Benadryl) 25 mg PO Q6H PRN PRN Reason: Allergy symptoms Last Admin: 05/12/18 09:30 Dose: 25 mg Folic Acid (Folic Acid) 1 mg PO DAILY [facility] Last Admin: 05/12/18 09:30 Dose: 1 mg Heparin Sodium (Porcine) (Heparin) 5,000 units SC Q8 [facility] Last Admin: 05/10/18 14:03 Dose: 5,000 units Sodium Chloride (Sodium Chloride 0.9%) 1,000 mls @ 100 mls/hr IV .Q10H [facility] Last Admin: 05/11/18 07:24 Dose: 100 mls/hr Sodium Chloride (Sodium Chloride 0.9%) 1,000 mls @ 1,000 mls/hr IV .Q1H [facility] Stop: 05/12/18 12:06 Morphine Sulfate (Morphine) 0.5 mg IVP Q6H PRN PRN Reason: Pain, moderate (4-7) Last Admin: 05/12/18 05:54 Dose: 0.5 mg Multivitamins (Hexavitamin) 1 tab PO DAILY [facility] Last Admin: 05/12/18 09:31 Dose: 1 tab Ondansetron HCl (Zofran Inj) 4 mg IVP Q6H PRN PRN Reason: Nausea/Vomiting Last Admin: 05/09/18 04:52 Dose: 4 mg Oxycodone/Acetaminophen (Percocet 5/325 Mg Tab) 1 tab PO Q6H PRN PRN Reason: Pain, moderate (4-7) Stop: 05/14/18 15:21 Oxycodone/Acetaminophen (Percocet 5/325 Mg Tab) 2 tab PO Q6H PRN PRN Reason: Pain, severe (8-10) Stop: 05/14/18 15:21 Last Admin: 05/12/18 07:25 Dose: 2 tab Thiamine HCl (Vitamin B1 Tab) 100 mg PO DAILY [facility] Last Admin: 05/12/18 09:30 Dose: 100 mg Trazodone HCl (Desyrel) 25 mg PO [facility] Last Admin: 05/11/18 22:28 Dose: 25 mg - Labs Labs: 05/12/18 07:14 05/12/18 07:14 PT 11.4 SECONDS (9.7-12.2) 04/30/18 10:43 INR 1.0 04/30/18 10:43 APTT 30 SECONDS (21-34) 04/30/18 10:43 - Constitutional Appears: Non-toxic, No Acute Distress - Head Exam Head Exam: NORMAL INSPECTION - Eye Exam Eye Exam: EOMI - ENT Exam ENT Exam: Mucous Membranes Moist - Respiratory Exam Respiratory Exam: Clear to Ausculation Bilateral, NORMAL BREATHING PATTERN. absent: Rales, Rhonchi, Wheezes - Cardiovascular Exam Cardiovascular Exam: REGULAR RHYTHM, +S1, +S2 - GI/Abdominal Exam GI & Abdominal Exam: Soft, Normal Bowel Sounds. absent: Distended, Firm, Guarding, Rigid, Rebound - Neurological Exam Neurological Exam: Alert, Awake, Oriented x3 Attending/Attestation - Attestation I have personally seen and examined this patient.: Yes I have fully participated in the care of the patient.: Yes I have reviewed all pertinent clinical information, including history, physical exam and plan: Yes Notes (Text): Patient seen, examined, case discussed with medical technologist hematology. Patient is postoperative day 7 of right ankle reduction of omar on fracture with application delta frame for stage procedure and s/p OR for.right ankle fracture ORIF POD1 patient's main complaint is pain. Patient's blood pressure is low. Discontinue beta-binta. Given dose of glucagon to reverse beta binta. Given fluid bolus. Patient has pain prn as prescribed by podiatry team. Patient's hemoglobin 7.3. Will type and cross 1 unit PRBC and if transfuse if below 7. patient is on Cipro PO to cover for pneumonia. Assessment/Plan 1) Right distal tibia/fibula fracture * Podiatry (Dr. Hurley) on board-->help appreciated * Right Ankle Xray (04/30): Comminuted trimalleolar displaced fractures of the distal fibula. Disruption of the ankle mortise. Soft tissue swelling. * Right lower extremity CT (04/30): Markedly comminuted, distracted, and dislocated fracture deformity of the distal tibia with prominent intra- articular extension. A few prominent fracture fragments are noted at the anterolateral distal tibia measuring up to 3.4 centimeters with apparent anterior lateral distraction measuring 1.6 centimeters. Posterior subluxation of the remaining fracture fragment. Fracture deformities involve the medial and posterior malleolus. * Left lower extremity duplex 04/30: No evidence of deep or superficial vein thrombosis of the left lower extremity with excellent venous flow. Normal valve function noted of the left side. Normal venous flow noted in the right common femoral vein. * s/p right ankle reduction of omar on fracture with application delta frame for stage procedure on 05/05/18 * s/p right ankle pilcon ORIF 05/11/18 * Head CT (04/30): No acute intracranial pathology identified. * CXR (04/30): No acute findings * Pain as needed medications * Non-weight bearing. Fall precautions. * Repeat EKG: NSR * Prior EKG while patient was withdrawing from alcohol * Echocardiogram (05/04): normal size la, lv and ra and rv. normal lv wall motion, thickenss and systolic function w lvef ef 60-65%, lv diastolc dysfunction, normal arotic, mitral, tv, and pv, mild tr/pi mild pulm htn, normal size aortic root, no pericardial effusion 2) Hx of alcohol abuse: * Blood alcohol level 375 on admission on 04/30 * Librium taper discontinued * Librium 25mg PO Q8 PRN symptoms of alcohol withdrawal discontinued * Folic acid 1mg PO daily * MV1 tab Po daily * Thiamine 100mg PO daily * Folate > 20, B12 - 427 3) Pharygnitis * Blood culture (05/01/18): no growth after 5 days X2 * Azithromycin 250mg PO daily (active since 04/22/18) completed on Saturday 05/05 4) Postoperative Fever * Tmax:101.F F. Patient completed Azithromycin 250mg PO daily (active since 04/22/18) completed on Saturday 05/05. * Without fever since 05/07/18 * Patient's blood cultures (05/06) post operative are negative. * Blood cultures (05/08): negative * Patient's repeat chest xray (05/06) patchy increased markings in the right hilar region, nonspecific. subtle infiltrate and or atelectasis cant be excluded. * Patient encouraged to use her incentive spirometry since she is using it sparingly. * Chest xray (05/08) cannot exclude atelectasis vs pneumonia * Patient has not been using her incentive spirometry appropriately * UA negative. Urine culture received: no growth * Patient started on Zosyn and Vancomycin to cover to healthcare associated pneumonia * Held zosyn and vancomycin due possible allergic reaction 05/10 (rash over back) * Patient ordered for Valtrex 2000mg PO Q12H X1 day for apthous ulcer over tongue 05/08/18 5) Normocytic anemia: * secondary to bone marrow suppression caused by alcohol * Monitor H/H * Advised type and cross 1 unit of PRBC given hgb 7.3 * Will continue to monitor with daily CBC 6) Thrombocytosis, Reactive 7) Transaminitis: * Likely 2/2 alcohol abuse * normalized 8) Hx of HTN: * d/c Lopressor 12.5mg PO BID given hypotension * Monitor vital signs 9) Hx of depression: * As per prior medical records-->Patient is not currently taking any medications * patient denies any HI/denies SI 10) Hx of schizophrenia: * As per prior medical records-->- Patient is not currently taking any medications 11)Hypocalcemia: * within normal limits 12) Hx of Asthma: * Patient is not in acute exacerbation * Chest xray: no active disease 13) PPx: * DVT: continue to hold Heparin 5000 units subq8H * Fall precautions, non-weight bearing Disposition: Postoperative management per podiatry. Repeat cultures so far are negative. Discontinue beta-binta. Given IV fluids. Type and cross 1 unit of PRBC to be ready if patient's hgb falls below 7.0
[2018-05-12] MEDS: Sodium Chloride 0.9% 1,000 ML IV SCH ×2 (13:30→18:39)
[2018-05-12] MEDS: Diphenhydramine 1% Cream (1 oz) TOP SCH ×2 (15:00→18:40)
[2018-05-12] MEDS: traZODone 25 mg Tab PO SCH (22:11)
[2018-05-13] MEDS: Albuterol-Ipratrop 3 mg / 0.5 (3 ml) UD INH SCH ×3 (01:10→15:21)
[2018-05-13] MEDS: Oxycodone/Acetaminophen 5/325 mg Tab PO PRN ×2 (01:29→07:53)
[2018-05-13] MEDS: Sodium Chloride 0.9% 1,000 ML IV SCH ×2 (04:02→09:50)
--- NOTE | 2018-05-13 08:09 | CP.PCM.PN ---
Subjective - Date & Time of Evaluation Date of Evaluation: 05/13/18 Time of Evaluation: 08:05 - Subjective Subjective: Medical Attending Note: Patient seen and examined. Patient reports she is feeling alot better compared to yesterday. Patient denies fever, denies chills, denies chest pain, denies shortness of breathe, denies abdominal pain, denies nausea, reports constipation, reports the pain over her splint is less compared to yesterday. Patient reports itchiness which is improved with benadryl. Will f/u bloodwork today; may need 1 unit of PRBC if hgb is low. Objective - Vital Signs/Intake and Output Vital Signs (last 24 hours): Temp Pulse Resp BP Pulse Ox 98.6 F 80 18 102/64 100 05/13/18 07:00 05/13/18 07:00 05/13/18 07:00 05/13/18 07:00 05/13/18 07:00 Intake and Output: 05/13/18 05/13/18 06:59 18:59 Intake Total 2039 Balance 2039 - Medications Medications: Current Medications Acetaminophen (Tylenol 325mg Tab) 650 mg PO Q6 PRN PRN Reason: Pain, Mild (1-3) Last Admin: 05/10/18 14:06 Dose: 650 mg Albuterol/Ipratropium (Duoneb 3 Mg/0.5 Mg (3 Ml) Ud) 3 ml INH RQ6 [facility] Last Admin: 05/13/18 01:10 Dose: 3 ml Benzocaine (Orajel 7.5%) 1 gm MM TID [facility] Last Admin: 05/12/18 18:38 Dose: 1 gm Ciprofloxacin (Cipro) 500 mg PO BID [facility]; Protocol Stop: 05/16/18 10:01 Last Admin: 05/12/18 18:40 Dose: 500 mg Diphenhydramine HCl (Benadryl) 25 mg PO Q6 PRN PRN Reason: Itching / Pruritus Last Admin: 05/13/18 06:14 Dose: 25 mg Folic Acid (Folic Acid) 1 mg PO DAILY [facility] Last Admin: 05/12/18 09:30 Dose: 1 mg Heparin Sodium (Porcine) (Heparin) 5,000 units SC Q8 [facility] Last Admin: 05/13/18 05:47 Dose: 5,000 units Sodium Chloride (Sodium Chloride 0.9%) 1,000 mls @ 100 mls/hr IV .Q10H [facility] Last Admin: 05/13/18 04:02 Dose: Not Given Morphine Sulfate (Morphine) 0.5 mg IVP Q6H PRN PRN Reason: Pain, moderate (4-7) Last Admin: 05/12/18 18:37 Dose: 0.5 mg Multivitamins (Hexavitamin) 1 tab PO DAILY [facility] Last Admin: 05/12/18 09:31 Dose: 1 tab Ondansetron HCl (Zofran Inj) 4 mg IVP Q6H PRN PRN Reason: Nausea/Vomiting Last Admin: 05/09/18 04:52 Dose: 4 mg Oxycodone/Acetaminophen (Percocet 5/325 Mg Tab) 1 tab PO Q6H PRN PRN Reason: Pain, moderate (4-7) Stop: 05/14/18 15:21 Oxycodone/Acetaminophen (Percocet 5/325 Mg Tab) 2 tab PO Q6H PRN PRN Reason: Pain, severe (8-10) Stop: 05/14/18 15:21 Last Admin: 05/13/18 07:53 Dose: 2 tab Thiamine HCl (Vitamin B1 Tab) 100 mg PO DAILY [facility] Last Admin: 05/12/18 09:30 Dose: 100 mg Trazodone HCl (Desyrel) 25 mg PO HS [facility] Last Admin: 05/12/18 22:11 Dose: 25 mg Zinc Acetate/Diphenhydramine (Benadryl 1% Zinc Acetate -0.1%) 0 cre TOP TID [facility] Last Admin: 05/12/18 18:40 Dose: 1 gm - Labs Labs: 05/12/18 07:14 05/12/18 07:14 PT 11.4 SECONDS (9.7-12.2) 04/30/18 10:43 INR 1.0 04/30/18 10:43 APTT 30 SECONDS (21-34) 04/30/18 10:43 - Constitutional Appears: Non-toxic, In Acute Distress - Head Exam Head Exam: NORMAL INSPECTION - Eye Exam Eye Exam: EOMI - ENT Exam ENT Exam: Mucous Membranes Moist - Respiratory Exam Respiratory Exam: Clear to Ausculation Bilateral. absent: Rales, Rhonchi - Cardiovascular Exam Cardiovascular Exam: REGULAR RHYTHM, +S1, +S2 - GI/Abdominal Exam GI & Abdominal Exam: Soft, Normal Bowel Sounds. absent: Distended, Firm, Guarding, Tenderness, Mass - Extremities Exam Additional comments: right lower extremity splint; able to wiggle toes, sensation intact left lower extremity: scratch - Back Exam Back Exam: absent: CVA tenderness (L), CVA tenderness (R) - Neurological Exam Neurological Exam: Alert, Awake - Skin Skin Exam: Dry, Normal Color, Warm Additional comments: scratches over the back and left lower extremity Attending/Attestation - Attestation I have personally seen and examined this patient.: Yes I have fully participated in the care of the patient.: Yes I have reviewed all pertinent clinical information, including history, physical exam and plan: Yes Notes (Text): Patient seen, examined, case discussed with medical insurance coder. Patient is postoperative day 8 of right ankle reduction of omar on fracture with application delta frame for stage procedure and s/p OR for.right ankle fracture ORIF POD2. patient's pain is better controlled. Patient's blood pressure is borderline low. Discontinue beta-binta yesterday. Patient has pain prn as prescribed by podiatry team. Awaiting blood work for this morning. patient is on Cipro PO to cover for pneumonia. Assessment/Plan 1) Right distal tibia/fibula fracture * Podiatry (Dr. Hurley) on board-->help appreciated * Right Ankle Xray (04/30): Comminuted trimalleolar displaced fractures of the distal fibula. Disruption of the ankle mortise. Soft tissue swelling. * Right lower extremity CT (04/30): Markedly comminuted, distracted, and dislocated fracture deformity of the distal tibia with prominent intra- articular extension. A few prominent fracture fragments are noted at the anterolateral distal tibia measuring up to 3.4 centimeters with apparent anterior lateral distraction measuring 1.6 centimeters. Posterior subluxation of the remaining fracture fragment. Fracture deformities involve the medial and posterior malleolus. * Left lower extremity duplex 04/30: No evidence of deep or superficial vein thrombosis of the left lower extremity with excellent venous flow. Normal valve function noted of the left side. Normal venous flow noted in the right common femoral vein. * s/p right ankle reduction of omar on fracture with application delta frame for stage procedure on 05/05/18 * s/p right ankle pilcon ORIF 05/11/18 * Head CT (04/30): No acute intracranial pathology identified. * CXR (04/30): No acute findings * Pain as needed medications * Non-weight bearing. Fall precautions. * Repeat EKG: NSR * Prior EKG while patient was withdrawing from alcohol * Echocardiogram (05/04): normal size la, lv and ra and rv. normal lv wall motion, thickenss and systolic function w lvef ef 60-65%, lv diastolc dysfunction, normal arotic, mitral, tv, and pv, mild tr/pi mild pulm htn, normal size aortic root, no pericardial effusion 2) Hx of alcohol abuse: * Blood alcohol level 375 on admission on 04/30 * Librium taper discontinued * Librium 25mg PO Q8 PRN symptoms of alcohol withdrawal discontinued * Folic acid 1mg PO daily * MV1 tab Po daily * Thiamine 100mg PO daily * Folate > 20, B12 - 427 3) Pharygnitis * Blood culture (05/01/18): no growth after 5 days X2 * Azithromycin 250mg PO daily (active since 04/22/18) completed on Saturday 05/05 4) Postoperative Fever * Tmax:101.F F. Patient completed Azithromycin 250mg PO daily (active since 04/22/18) completed on Saturday 05/05. * Without fever since 05/07/18 * Patient's blood cultures (05/06) post operative are negative. * Blood cultures (05/08): negative * Patient's repeat chest xray (05/06) patchy increased markings in the right hilar region, nonspecific. subtle infiltrate and or atelectasis cant be excluded. * Patient encouraged to use her incentive spirometry since she is using it sparingly. * Chest xray (05/08) cannot exclude atelectasis vs pneumonia * Patient has not been using her incentive spirometry appropriately * UA negative. Urine culture received: no growth * Patient started on Zosyn and Vancomycin to cover to healthcare associated pneumonia * Held zosyn and vancomycin due possible allergic reaction 05/10 (rash over back) * Patient ordered for Valtrex 2000mg PO Q12H X1 day for apthous ulcer over tongue 05/08/18 5) Normocytic anemia: * secondary to bone marrow suppression caused by alcohol * Monitor H/H * Advised type and cross 1 unit of PRBC given hgb 7.3 * Will continue to monitor with daily CBC 6) Thrombocytosis, Reactive 7) Transaminitis: * Likely 2/2 alcohol abuse * normalized 8) Hx of HTN: * d/c Lopressor 12.5mg PO BID given hypotension * Monitor vital signs 9) Hx of depression: * As per prior medical records-->Patient is not currently taking any medications * patient denies any HI/denies SI 10) Hx of schizophrenia: * As per prior medical records-->- Patient is not currently taking any medications 11)Hypocalcemia: * within normal limits 12) Hx of Asthma: * Patient is not in acute exacerbation * Chest xray: no active disease 13) PPx: * DVT: continue to hold Heparin 5000 units subq8H * Fall precautions, non-weight bearing Disposition: Postoperative management per podiatry. Repeat cultures so far are negative. Awaiting bloodwork for this morning for possible blood transfusion.
[2018-05-13 09:30] LABS: BASO # 0.1 K/uL (0.0-0.2); EOS # 0.1 K/uL (0.0-0.7); EOS % 1.3 % (0.0-4.0); LYMPH # 1.2 K/uL (1.0-4.3); LYMPH % 15.5 % (20.0-40.0); MEAN CELL VOLUME 90.3 fL (81.0-99.0); MEAN CORPUSCULAR HGB CONC 33.2 g/dL (33.0-37.0); MONO # 1.1 K/uL (0.0-0.8); MONO % 13.6 % (0.0-10.0); NEUT # 5.3 K/uL (1.8-7.0); NEUT % 68.6 % (50.0-75.0); RBC 2.32 Mil/uL (3.80-5.20); RED CELL DISTRIBUTION WIDTH 16.7 % (11.5-14.5); WHITE BLOOD COUNT 7.7 K/uL (4.8-10.8)
[2018-05-13] MEDS: Multiple Vitamins Tab PO SCH (09:33)
[2018-05-13] MEDS: Benzocaine 7.5% 5.1 GM TUBE MM SCH ×3 (09:34→17:57)
[2018-05-13] MEDS: Diphenhydramine 1% Cream (1 oz) TOP SCH ×2 (09:35→17:57)
[2018-05-13 10:02] LABS: ALB/GLOB RATIO 0.9 (1.0-2.1); ALBUMIN 3.2 g/dL (3.5-5.0); ALT/SGPT 19 U/L (9-52); AST/SGOT 34 U/L (14-36); BLOOD UREA NITROGEN 8 mg/dL (7-17); CALCIUM 8.8 mg/dl (8.6-10.4); GFR NON-AFRICAN AMERICAN > 60
--- NOTE | 2018-05-13 11:42 | CP.PCM.PN ---
Subjective - Date & Time of Evaluation Date of Evaluation: 05/13/18 Time of Evaluation: 11:40 - Subjective Subjective: Podiatry Progress Note for Dr. Hurley 52F seen Two days s/p ORIF of pilon fracture Patient is AAO x 3 and NAD, resting comfortably in bed with her right leg elevated. Denies any acute overnight events. Patient states shes feeling a lot better from yesterday, rates her pain 5/10. Very well controlled with oral pain medications. Denies trying to walk on foot. Denies any further pedal complaints at this time. Denies any recent N/V/F/C/CP/SOB/D Objective - Vital Signs/Intake and Output Vital Signs (last 24 hours): Temp Pulse Resp BP Pulse Ox 98.6 F 80 18 102/64 100 05/13/18 07:00 05/13/18 07:00 05/13/18 07:00 05/13/18 07:00 05/13/18 07:00 Intake and Output: 05/13/18 05/13/18 06:59 18:59 Intake Total 2039 Balance 2039 - Medications Medications: Current Medications Acetaminophen (Tylenol 325mg Tab) 650 mg PO Q6 PRN PRN Reason: Pain, Mild (1-3) Last Admin: 05/10/18 14:06 Dose: 650 mg Albuterol/Ipratropium (Duoneb 3 Mg/0.5 Mg (3 Ml) Ud) 3 ml INH RQ6 [facility] Last Admin: 05/13/18 09:16 Dose: 3 ml Benzocaine (Orajel 7.5%) 1 gm MM TID [facility] Last Admin: 05/13/18 09:34 Dose: 1 gm Ciprofloxacin (Cipro) 500 mg PO BID [facility]; Protocol Stop: 05/16/18 10:01 Last Admin: 05/13/18 09:33 Dose: 500 mg Diphenhydramine HCl (Benadryl) 25 mg PO Q6 PRN PRN Reason: Itching / Pruritus Last Admin: 05/13/18 06:14 Dose: 25 mg Folic Acid (Folic Acid) 1 mg PO DAILY [facility] Last Admin: 05/13/18 09:33 Dose: 1 mg Heparin Sodium (Porcine) (Heparin) 5,000 units SC Q8 [facility] Last Admin: 05/13/18 05:47 Dose: 5,000 units Sodium Chloride (Sodium Chloride 0.9%) 1,000 mls @ 100 mls/hr IV .Q10H [facility] Last Admin: 05/13/18 09:50 Dose: 100 mls/hr Morphine Sulfate (Morphine) 0.5 mg IVP Q6H PRN PRN Reason: Pain, moderate (4-7) Last Admin: 05/12/18 18:37 Dose: 0.5 mg Multivitamins (Hexavitamin) 1 tab PO DAILY [facility] Last Admin: 05/13/18 09:33 Dose: 1 tab Ondansetron HCl (Zofran Inj) 4 mg IVP Q6H PRN PRN Reason: Nausea/Vomiting Last Admin: 05/09/18 04:52 Dose: 4 mg Oxycodone/Acetaminophen (Percocet 5/325 Mg Tab) 1 tab PO Q6H PRN PRN Reason: Pain, moderate (4-7) Stop: 05/14/18 15:21 Oxycodone/Acetaminophen (Percocet 5/325 Mg Tab) 2 tab PO Q6H PRN PRN Reason: Pain, severe (8-10) Stop: 05/14/18 15:21 Last Admin: 05/13/18 07:53 Dose: 2 tab Thiamine HCl (Vitamin B1 Tab) 100 mg PO DAILY [facility] Last Admin: 05/13/18 09:33 Dose: 100 mg Trazodone HCl (Desyrel) 25 mg PO HS [facility] Last Admin: 05/12/18 22:11 Dose: 25 mg Zinc Acetate/Diphenhydramine (Benadryl 1% Zinc Acetate -0.1%) 0 cre TOP TID [facility] Last Admin: 05/13/18 09:35 Dose: 1 applic - Labs Labs: 05/13/18 09:21 05/13/18 09:21 PT 11.4 SECONDS (9.7-12.2) 04/30/18 10:43 INR 1.0 04/30/18 10:43 APTT 30 SECONDS (21-34) 04/30/18 10:43 - Constitutional Appears: Well, Non-toxic - Head Exam Head Exam: ATRAUMATIC - Extremities Exam Additional comments: dressing clean dry and intact patient able to wiggle her toes cft <3 secs x 5 Vascular: DP/PT pulses palpable, CFT <3 secs x 5, TG warm to warm, edema and erythema noted to the distal half of the leg derm: surgical incision noted to the anterior aspect of the leg, and medial aspect of her distal 1/3rd leg. No active sanguinous drainage, sutures intact, edema noted, no malodor, no wound dehiscence, no clinical signs of infection ortho: pain on palpation to the leg neuro: protective sensation intact via ipswich 09/20 - Neurological Exam Neurological Exam: Alert, Awake - Psychiatric Exam Psychiatric exam: Normal Affect Assessment and Plan - Assessment and Plan (Free Text) Assessment: 52F seen two day s/p ORIF of comminuted distal tibia fracture Plan: Patient seen and evaluated Plan discussed with Dr. Hurley Afebrile, absent leukocytosis Patient to remain strict NWB with the use of crutches Dressing removed; ELIZABETH vac removed. Leg dressed with adaptic/gauze soaked with betadine, DSD, campbell compression and wellpadded AO splint Patient stable for discharge from podiatry point of view with PO percocet Advised to elevate and ice as much as possible. Podiatry will continue to follow while patient in [facility]
[2018-05-13 15:23] VITALS: RESP 20
--- NOTE | 2018-05-13 19:53 | PCM.OP ---
Operative Report - Operative Report Date of Surgery/Procedure: 05/05/18 Time of Surgery/Procedure: 08:00 Surgeon: Dr. Hurley Neuro Intensivist Physician: Dr. Barbara Colindres PGY3, Dr. Lowe, Dr. Saudners, Dr. Saldaña, Dr. Vidal Anesthesia/Sedation: General Endo, Regional popliteal block Pre-Operative Diagnosis: 1) Right ankle closed Pilon fracture with severe comminution and displacement Post-Operative Diagnosis: same Indication for Surgery: Indications: The patient is a 52 year-old female with the above diagnoses. Patient have exhausted conservative treatment at this point and now requests surgical intervention. The patient signed the consent after careful explanation of risks, benefits, complication and alternatives for surgical procedure. No guarantees were given nor implied. 2 grams of Ancef IV were given to the patient hour prior to the procedure. NPO status was confirmed prior to taking patient to the OR. Operative Findings: Preparation: The patient was brought to the operating room and placed on the operating room table in supine position. A well-padded pneumatic Thigh tourniquet was placed to the patient's Right Thigh. Once general anesthesia was achieved, the Right Lower extremity was then prepped and draped up to the knee in usual sterile manner. Esmarch was utilized to exsanguinate the patient's Right lower extremity. Pneumatic Thigh tourniquet was then inflated to 350 mmHg and procedure began. Procedure/Operation Description: PROCEDURE #1: Right lower extremity application of External fixator (Synthes Delta Frame) Attention was direct to the anterior aspect of Right lower extremity. Sterile bump was applied underneath the right leg to hold the right lower extremity in correct level within the frame. Safe zone of the leg was carefully determined and the pin placement sites were marked accordingly utilizing intra- operative Xray. Next, attention was directed to the Right heel. Utilizing a #11 blade, a small stab incision was made medial to calcaneal tuberosity. A 5.0mm centrally threaded Steinmann pin was inserted into the calcaneus from medla to lateral direction. Centered position of the pin was confirmed with the intra-operative Xray. Next, open adjustable clamps were attached to either sides of the Steinmann pin. Next, attention was directed to anterior aspect of right leg. Utilizing a #11 blade, a small stab incision was made 1cm medial to the crest of tibia, and approximately 20cm proximal to the ankle joint. Utilizing the large clamp assembled with guide towers as a guide, two 5.0mm Schanz screw was inserted into the tibia from anterior to posterior direction approximately 5cm apart from each other. Next, the two guide towers were removed, and the large pin clamp was tightened. Then an outrigger with two arms was attached and tightened to the large pin clamp. Next, a combination clamp was attached to each arm of the outrigger. Next, two 25cm carbon fiber rods were attached to the large pin clamps proximally and the open adjustable clamps distally.. Next, while the clamps were not tightened, the Steinmann pin on calcaneus was pulled distally so as to achieve reduction of the comminuted tibial fragments. All clamps were tightened at this point so as to hold reduced the position. Excellent reduction and lengthening of the tibia was confirmed utilizing intra- operative Xray. Next, attention was directed to the anterior aspect of the right ankle. Utilizing an intra-operatice Xray, an appropriate pin site into talar body was determined and marked. Utilizing a #11 blade, a small stab incision was made medial to the ankle joint at the level of the talus. Next, a 5.0mm Schanz screw was inserted into the body of talus from franco-medial to postero-lateral direction. Excellent position of the Schanz screw was confirmed with intra- operative Xray. This pin was then securely tightened to the medial carbon fiber elizabeth with combination pin clamps. Next, utilizing a wrench, all clamps and nuts were checked carefully for maximum tightness. Right lower extremity was then dressed with small strips of Xeroform around the pin insertions, 4x4, Kerlix and ROLO bandages. The attending was present during the entire case. Estimated Blood Loss: Less than 5 mL Complications: none Discharge & Condition: Postoperative Condition: The patient tolerated the anesthesia and procedure well and was escorted to the recovery room with vital signs stable and neurovascular status intact to the Right foot. This patient will stay in-house under care of Dr. hurley. The patient will have further definitive surgery within 1 week of time.
--- NOTE | 2018-05-13 19:57 | PCM.OP ---
Operative Report - Operative Report Date of Surgery/Procedure: 05/11/18 Time of Surgery/Procedure: 10:00 Surgeon: Dr. Hurley Residential Specialist: Dr. Barbara Colindres, Dr. Smith Anesthesia/Sedation: General Endo, Regional popliteal block Pre-Operative Diagnosis: 1) Right ankle closed Pilon fracture with severe comminution and displacement Post-Operative Diagnosis: same Indication for Surgery: Indications: The patient is a 52 year-old female with the above diagnoses. Patient have received first step of two-staged procedure to treat Pilon fracture of right ankle, and now surgical intervention for definitive fixation is required. The patient signed the consent after careful explanation of risks, benefits, complication and alternatives for surgical procedure. No guarantees were given nor implied. 2 grams of Ancef IV were given to the patient hour prior to the procedure. NPO status was confirmed prior to taking patient to the OR. Operative Findings: Preparation: The patient was brought to the operating room and placed on the operating room table in supine position. A well-padded pneumatic Thigh tourniquet was placed to the patient's Right Thigh. Once general anesthesia was achieved, the Right Lower extremity was then prepped and draped up to the knee in usual sterile manner. All parts of the external fixator was prepped with multiple Betadine scrubs and chlorohexidine sticks. Pneumatic Thigh tourniquet was then inflated to 350 mmHg and procedure began. Procedure/Operation Description: Name of Procedure: 1) Right lower extremity removal of External fixators 2) Right ankle ORIF PROCEDURE #1: Right lower extremity removal of External fixators Attention was directed to the patients right lower extremity where Synthes Delta frame was applied from the prior surgery. Utilizing sterile equipment from the Synthes external fixation set, the entire external fixator was disassembled. Next, the Schanz screw from talus was removed. Next, two Schanz screws from Tibia were removed. All screw sites were flushed with copious amount of sterile saline. After procedure #1, only 5.0mm Steinmann pin across calcaneal tuberosity remained. PROCEDURE #2: Right ankle open reduction and internal fixation Attention was directed to the anterior aspect of right ankle and the fracture site was confirmed under the interaoperative fluoroscopy. An approximately 15 cm linear longitudinal incision was made overlying anterior aspect of ankle staying between tibia and fibula. At this time, the incision was carried deep using sharp and blunt dissection, taking care to retract all vital neurovascular structures. All bleeders were cauterized and ligated as necessary. At the level of the periosteum, a sharp periosteal incision was made overlying the distal tibia to allow exposure to the fracture site. The periosteum was reflected with a sharp periosteal elevator to allow for visualization of the fracture site. At this time, severely comminuted tibial ankle mortise was visualized with significant amount of defect medially. Utilizing multiple bone clamps, the fracture site was reduced to the best of surgeons ability to bring the distal tibia back out to length and restor articular surface of ankle mortise. At this time, total of four 0.062 K-wire was utilized to fixate the fracture fragments in their anatomical alignment. Excellent alignment of posterior tibial fragment, and the medial malleolus was noted utilizing intra-operative fluoroscopy. At this time, a Synthes 3.5 LCP anterolateral Tibial plate was placed over the fracture site. Utilizing standard AO tachniques and principles, holes were filled with 3.5 locking screws and 3.5 cortex screws. All temporary K-wires were removed. At this time, multiple irrigations were performed at the surgical site. All screw locations were confirmed to be excellent under the intra operative fluoroscopy. Attention was re-directed to the medial aspect of the distal tibia of the right lower extremity. Utilizing #15 blade an approximately 3 cm curved incision was made overlying the medial malleolus staying central over the bone. At this time, the incision was carried deep using sharp and blunt dissection, taking care to retract all vital neurovascular structures. All bleeders were cauterized and ligated as necessary. At the level of the periosteum, a sharp periosteal incision was made overlying the distal tibia to allow exposure to the fracture site. The periosteum was reflected with a sharp periosteal elevator. At this time, utilizing bone clamp, the fracture site was reduced brining the distal medial malleolus back out to length and was temporary fixated with one k-wire. Next, based on AO technique and principles, the fracture site was fixed with one 4.0 mm cancellous screw. Next, temporary fixated k-wires were removed. The screw location was confirmed under intraoperative fluoroscopy. The surgical site was irrigated with copious amount of normal sterile saline. Next, Synthes Norian calcium phosphate was prepared in a syringe and was injected into the medial aspect of tibia to fill in the defect. Adequate amount was carefully injected so as to not violate the ankle joint with the injection. Deep soft tissues of right ankle were reapproximated with #2-0, #3-0 and #4-0 Vicryl and Skin was reapproximated with #3-0 Nylon in horizontal mattress suture technique. Anterior incision site was then covered with Pitts [employer]hew ELIZABETH negatice pressure wound therapy dressing. Right lower extremity was dressed with adaptic, 4x4, Kerlix and posterior splint. The attending was present during the entire case. Estimated Blood Loss: Less than 100 mL Complications: none Discharge & Condition: Postoperative Condition: The patient tolerated the anesthesia and procedure well and was escorted to the recovery room with vital signs stable and neurovascular status intact to the Right foot. The patient received regional popliteal block by the anesthesiologist after the case was over. This patient must stay non-weight bearing and will follow up with Dr. Hurley.
[2018-05-13] MEDS: traZODone 25 mg Tab PO SCH (21:52)
[2018-05-14] MEDS: Sodium Chloride 0.9% 1,000 ML IV SCH ×2 (04:05→10:13)
[2018-05-14] MEDS: Oxycodone/Acetaminophen 5/325 mg Tab PO PRN ×3 (04:06→17:21)
[2018-05-14 06:33] LABS: BASO % 0.6 % (0.0-2.0); EOS # 0.2 K/uL (0.0-0.7); EOS % 3.1 % (0.0-4.0); HEMOGLOBIN 8.8 g/dL (11.0-16.0); LYMPH # 1.2 K/uL (1.0-4.3); LYMPH % 18.8 % (20.0-40.0); MEAN CELL VOLUME 88.9 fL (81.0-99.0); MEAN CORPUSCULAR HEMOGLOBIN 29.6 pg (27.0-31.0); MEAN CORPUSCULAR HGB CONC 33.3 g/dL (33.0-37.0); MEAN PLATELET VOLUME 6.9 fL (7.2-11.7); MONO # 0.7 K/uL (0.0-0.8); MONO % 10.9 % (0.0-10.0); NEUT # 4.4 K/uL (1.8-7.0); NEUT % 66.6 % (50.0-75.0); RBC 2.98 Mil/uL (3.80-5.20); RED CELL DISTRIBUTION WIDTH 15.9 % (11.5-14.5); WHITE BLOOD COUNT 6.6 K/uL (4.8-10.8)
[2018-05-14 06:52] LABS: ALB/GLOB RATIO 0.9 (1.0-2.1); ALBUMIN 3.2 g/dL (3.5-5.0); ALT/SGPT 22 U/L (9-52); AST/SGOT 22 U/L (14-36); BLOOD UREA NITROGEN 12 mg/dL (7-17); CALCIUM 8.5 mg/dl (8.6-10.4); GFR NON-AFRICAN AMERICAN > 60
[2018-05-14] MEDS: Diphenhydramine 1% Cream (1 oz) TOP SCH ×3 (10:11→17:10)
[2018-05-14] MEDS: Multiple Vitamins Tab PO SCH (10:11)
[2018-05-14] MEDS: Benzocaine 7.5% 5.1 GM TUBE MM SCH ×3 (10:12→17:10)
--- NOTE | 2018-05-14 15:10 | CP.PCM.PN ---
Subjective - Date & Time of Evaluation Date of Evaluation: 05/14/18 Time of Evaluation: 15:04 - Subjective Subjective: Hospitalist Service Pt seen and examined at bedside. Pt denies any acute events overnight, t says her itchiness is still persisting. Pt denies cp sob fc nv. Pt feels less fatigued after transfusion Objective - Vital Signs/Intake and Output Vital Signs (last 24 hours): Temp Pulse Resp BP Pulse Ox 98.1 F 79 20 104/63 97 05/14/18 07:35 05/14/18 07:35 05/14/18 07:35 05/14/18 07:35 05/14/18 07:35 Intake and Output: 05/14/18 05/14/18 06:59 18:59 Intake Total 2335 Balance 2335 - Medications Medications: Current Medications Acetaminophen (Tylenol 325mg Tab) 650 mg PO Q6 PRN PRN Reason: Pain, Mild (1-3) Last Admin: 05/13/18 19:43 Dose: 650 mg Benzocaine (Orajel 7.5%) 1 gm MM TID [facility] Last Admin: 05/14/18 13:59 Dose: 1 gm Ciprofloxacin (Cipro) 500 mg PO BID [facility]; Protocol Stop: 05/16/18 10:01 Last Admin: 05/14/18 10:11 Dose: 500 mg Diphenhydramine HCl (Benadryl) 25 mg PO Q6 PRN PRN Reason: Itching / Pruritus Last Admin: 05/14/18 11:45 Dose: 25 mg Docusate Sodium (Colace) 100 mg PO BID [facility] Folic Acid (Folic Acid) 1 mg PO DAILY [facility] Last Admin: 05/14/18 10:11 Dose: 1 mg Hydroxyzine HCl (Atarax) 50 mg PO Q12 PRN PRN Reason: Itching / Pruritus Lactobacillus Acidophilus (Bacid Acidophilus) 1 cap PO BID [facility] Multivitamins (Hexavitamin) 1 tab PO DAILY [facility] Last Admin: 05/14/18 10:11 Dose: 1 tab Ondansetron HCl (Zofran Inj) 4 mg IVP Q6H PRN PRN Reason: Nausea/Vomiting Last Admin: 05/09/18 04:52 Dose: 4 mg Oxycodone/Acetaminophen (Percocet 5/325 Mg Tab) 1 tab PO Q6H PRN PRN Reason: Pain, moderate (4-7) Stop: 05/14/18 15:21 Last Admin: 05/13/18 20:53 Dose: 1 tab Oxycodone/Acetaminophen (Percocet 5/325 Mg Tab) 2 tab PO Q6H PRN PRN Reason: Pain, severe (8-10) Stop: 05/14/18 15:21 Last Admin: 05/14/18 10:12 Dose: 2 tab Oxycodone/Acetaminophen (Percocet 5/325 Mg Tab) 2 tab PO Q6H PRN PRN Reason: Pain, severe (8-10) Stop: 05/17/18 13:43 Thiamine HCl (Vitamin B1 Tab) 100 mg PO DAILY [facility] Last Admin: 05/14/18 10:13 Dose: 100 mg Trazodone HCl (Desyrel) 25 mg PO HS [facility] Last Admin: 05/13/18 21:52 Dose: 25 mg Zinc Acetate/Diphenhydramine (Benadryl 1% Zinc Acetate -0.1%) 0 cre TOP TID [facility] Last Admin: 05/14/18 14:00 Dose: 1 applic - Labs Labs: 05/14/18 06:27 05/14/18 06:27 PT 11.4 SECONDS (9.7-12.2) 04/30/18 10:43 INR 1.0 04/30/18 10:43 APTT 30 SECONDS (21-34) 04/30/18 10:43 - Additional Findings Additional findings: - Constitutional Appears: Non-toxic, In Acute Distress - Head Exam Head Exam: NORMAL INSPECTION - Eye Exam Eye Exam: EOMI - ENT Exam ENT Exam: Mucous Membranes Moist - Respiratory Exam Respiratory Exam: Clear to Ausculation Bilateral. absent: Rales, Rhonchi - Cardiovascular Exam Cardiovascular Exam: REGULAR RHYTHM, +S1, +S2 - GI/Abdominal Exam GI & Abdominal Exam: Soft, Normal Bowel Sounds. absent: Distended, Firm, Guarding, Tenderness, Mass - Extremities Exam Additional comments: right lower extremity splint; able to wiggle toes, sensation intact left lower extremity: scratch - Back Exam Back Exam: absent: CVA tenderness (L), CVA tenderness (R) - Neurological Exam Neurological Exam: Alert, Awake - Skin Skin Exam: Dry, Normal Color, Warm Additional comments: scratches over the back, bilateral upper and lower extremity, scratches in groin and inguinal area Assessment and Plan - Assessment and Plan (Free Text) Assessment: Assessment Right distal tibia/fibula fracture * Podiatry (Dr. Hurley) on board-->help appreciated * Right Ankle Xray (04/30): Comminuted trimalleolar displaced fractures of the distal fibula. Disruption of the ankle mortise. Soft tissue swelling. * Right lower extremity CT (04/30): Markedly comminuted, distracted, and dislocated fracture deformity of the distal tibia with prominent intra- articular extension. A few prominent fracture fragments are noted at the anterolateral distal tibia measuring up to 3.4 centimeters with apparent anterior lateral distraction measuring 1.6 centimeters. Posterior subluxation of the remaining fracture fragment. Fracture deformities involve the medial and posterior malleolus. * Left lower extremity duplex 04/30: No evidence of deep or superficial vein thrombosis of the left lower extremity with excellent venous flow. Normal valve function noted of the left side. Normal venous flow noted in the right common femoral vein. * s/p right ankle reduction of omar on fracture with application delta frame for stage procedure on 05/05/18 * s/p right ankle pilcon ORIF 05/11/18 * Head CT (04/30): No acute intracranial pathology identified. * CXR (04/30): No acute findings * Pain as needed medications * Non-weight bearing. Fall precautions. * Repeat EKG: NSR * Prior EKG while patient was withdrawing from alcohol * Echocardiogram (05/04): normal size la, lv and ra and rv. normal lv wall motion, thickenss and systolic function w lvef ef 60-65%, lv diastolc dysfunction, normal arotic, mitral, tv, and pv, mild tr/pi mild pulm htn, normal size aortic root, no pericardial effusion d/c tmrw f/u in office w/ Dr Molina on Monday 05/21 2) Hx of alcohol abuse: * Likely cause of pruritis * Atarax 50mg po q12 PRN * Blood alcohol level 375 on admission on 04/30 * Librium taper discontinued * Librium 25mg PO Q8 PRN symptoms of alcohol withdrawal discontinued * Folic acid 1mg PO daily * MV1 tab Po daily * Thiamine 100mg PO daily * Folate > 20, B12 - 427 3) Pharygnitis * Blood culture (05/01/18): no growth after 5 days X2 * Azithromycin 250mg PO daily (active since 04/22/18) completed on Saturday 05/05 4) Postoperative Fever * Tmax:101.F F. Patient completed Azithromycin 250mg PO daily (active since 04/22/18) completed on Saturday 05/05. * Without fever since 05/07/18 * Patient's blood cultures (05/06) post operative are negative. * Blood cultures (05/08): negative * Patient's repeat chest xray (05/06) patchy increased markings in the right hilar region, nonspecific. subtle infiltrate and or atelectasis cant be excluded. * Patient encouraged to use her incentive spirometry since she is using it sparingly. * Chest xray (05/08) cannot exclude atelectasis vs pneumonia * Patient has not been using her incentive spirometry appropriately * UA negative. Urine culture received: no growth * Patient started on Zosyn and Vancomycin to cover to healthcare associated pne umonia * Held zosyn and vancomycin due possible allergic reaction 05/10 (rash over back) * Patient ordered for Valtrex 2000mg PO Q12H X1 day for apthous ulcer over tongue 05/08/18 5) Normocytic anemia: * secondary to bone marrow suppression caused by alcohol * Monitor H/H * Advised type and cross 1 unit of PRBC given hgb 7.3 * Will continue to monitor with daily CBC 6) Thrombocytosis, Reactive 7) Transaminitis: * Likely 2/2 alcohol abuse * normalized 8) Hx of HTN: * d/c Lopressor 12.5mg PO BID given hypotension * Monitor vital signs 9) Hx of depression: * As per prior medical records-->Patient is not currently taking any medications * patient denies any HI/denies SI 10) Hx of schizophrenia: * As per prior medical records-->- Patient is not currently taking any medi cations 11)Hypocalcemia: * within normal limits 12) Hx of Asthma: * Patient is not in acute exacerbation * Chest xray: no active disease 13) PPx: * DVT: continue to hold Heparin 5000 units subq8H * Fall precautions, non-weight bearing Disposition: Postoperative management per podiatry. Repeat cultures so far are negative. Awaiting stable H&H for d/c tmrw
--- NOTE | 2018-05-14 16:33 | CP.PCM.PN ---
Subjective - Date & Time of Evaluation Date of Evaluation: 05/14/18 Time of Evaluation: 10:10 - Subjective Subjective: Podiatry Progress Note: Dr. Hurley 52 year old female evaluated 3 days s/p ORIF of pilon fracture Patient is AAOx3 and NAD, resting comfortably in bed with her right leg elevated. Patient states shes feeling a lot better from yesterday, denies of any pain today. Denies any acute overnight events. Denies trying to walk on foot. Denies any further pedal complaints at this time. Denies any recent N/V/F/C/CP/SOB Objective - Vital Signs/Intake and Output Vital Signs (last 24 hours): Temp Pulse Resp BP Pulse Ox 98.1 F 79 20 104/63 97 05/14/18 07:35 05/14/18 07:35 05/14/18 07:35 05/14/18 07:35 05/14/18 07:35 Intake and Output: 05/14/18 05/14/18 06:59 18:59 Intake Total 2335 Balance 2335 - Medications Medications: Current Medications Acetaminophen (Tylenol 325mg Tab) 650 mg PO Q6 PRN PRN Reason: Pain, Mild (1-3) Last Admin: 05/13/18 19:43 Dose: 650 mg Benzocaine (Orajel 7.5%) 1 gm MM TID [facility] Last Admin: 05/14/18 13:59 Dose: 1 gm Ciprofloxacin (Cipro) 500 mg PO BID [facility]; Protocol Stop: 05/16/18 10:01 Last Admin: 05/14/18 10:11 Dose: 500 mg Diphenhydramine HCl (Benadryl) 25 mg PO Q6 PRN PRN Reason: Itching / Pruritus Last Admin: 05/14/18 11:45 Dose: 25 mg Docusate Sodium (Colace) 100 mg PO BID [facility] Folic Acid (Folic Acid) 1 mg PO DAILY [facility] Last Admin: 05/14/18 10:11 Dose: 1 mg Hydroxyzine HCl (Atarax) 50 mg PO Q12 PRN PRN Reason: Itching / Pruritus Lactobacillus Acidophilus (Bacid Acidophilus) 1 cap PO BID [facility] Multivitamins (Hexavitamin) 1 tab PO DAILY [facility] Last Admin: 05/14/18 10:11 Dose: 1 tab Ondansetron HCl (Zofran Inj) 4 mg IVP Q6H PRN PRN Reason: Nausea/Vomiting Last Admin: 05/09/18 04:52 Dose: 4 mg Oxycodone/Acetaminophen (Percocet 5/325 Mg Tab) 2 tab PO Q6H PRN PRN Reason: Pain, severe (8-10) Stop: 05/17/18 13:43 Thiamine HCl (Vitamin B1 Tab) 100 mg PO DAILY [facility] Last Admin: 05/14/18 10:13 Dose: 100 mg Trazodone HCl (Desyrel) 25 mg PO HS [facility] Last Admin: 05/13/18 21:52 Dose: 25 mg Zinc Acetate/Diphenhydramine (Benadryl 1% Zinc Acetate -0.1%) 0 cre TOP TID [facility] Last Admin: 05/14/18 14:00 Dose: 1 applic - Labs Labs: 05/14/18 06:27 05/14/18 06:27 PT 11.4 SECONDS (9.7-12.2) 04/30/18 10:43 INR 1.0 04/30/18 10:43 APTT 30 SECONDS (21-34) 04/30/18 10:43 - Constitutional Appears: Well, Non-toxic, No Acute Distress - Extremities Exam Additional comments: dressing clean dry and intact patient able to wiggle her toes CFT <3 secs x 5 - Neurological Exam Neurological Exam: Alert, Awake, Oriented x3 - Psychiatric Exam Psychiatric exam: Normal Affect, Normal Mood Assessment and Plan - Assessment and Plan (Free Text) Assessment: 52 year old female evaluated 3 days s/p ORIF of comminuted distal tibia fracture Plan: Patient seen and evaluated Plan discussed with Dr. Xavi Hernandez, absent leukocytosis Patient to remain strict NWB with the use of crutches Keep dressing clean, dry and intact until seen in the podiatry clinic Patient stable for discharge from podiatry standpoint Advised to elevate and ice as much as possible. Podiatry will continue to follow while patient in house
[2018-05-14] MEDS: Lactobacillus Acidophilus 500 MU Cap PO SCH (17:08)
[2018-05-14] MEDS: traZODone 25 mg Tab PO SCH (22:20)
[2018-05-15] MEDS: Oxycodone/Acetaminophen 5/325 mg Tab PO PRN (05:28)
[2018-05-15 05:33] VITALS: BP 115/70; PULSE 83; TEMP 98.7; O2SAT 100
[2018-05-15] MEDS ORDERED: Benzocaine/Menthol (Cepacol) Lozenge MT ONE (05:37)
[2018-05-15 08:12] LABS: BASO # 0.1 K/uL (0.0-0.2); BASO % 1.5 % (0.0-2.0); EOS # 0.3 K/uL (0.0-0.7); EOS % 4.8 % (0.0-4.0); HEMOGLOBIN 9.7 g/dL (11.0-16.0); LYMPH # 1.7 K/uL (1.0-4.3); LYMPH % 27.6 % (20.0-40.0); MEAN CELL VOLUME 88.6 fL (81.0-99.0); MEAN CORPUSCULAR HEMOGLOBIN 30.5 pg (27.0-31.0); MEAN CORPUSCULAR HGB CONC 34.5 g/dL (33.0-37.0); MONO # 0.6 K/uL (0.0-0.8); MONO % 9.8 % (0.0-10.0); NEUT # 3.5 K/uL (1.8-7.0); NEUT % 56.3 % (50.0-75.0); NRBC % 0.1 % (0.0-2.0); RBC 3.17 Mil/uL (3.80-5.20); RED CELL DISTRIBUTION WIDTH 16.5 % (11.5-14.5); WHITE BLOOD COUNT 6.2 K/uL (4.8-10.8)
[2018-05-15 08:31] LABS: ALB/GLOB RATIO 0.9 (1.0-2.1); ALBUMIN 3.8 g/dL (3.5-5.0); ALT/SGPT 17 U/L (9-52); AST/SGOT 29 U/L (14-36); BLOOD UREA NITROGEN 11 mg/dL (7-17); GFR NON-AFRICAN AMERICAN > 60
[2018-05-15] MEDS: Lactobacillus Acidophilus 500 MU Cap PO SCH (09:39)
[2018-05-15] MEDS: Diphenhydramine 1% Cream (1 oz) TOP SCH (09:39)
[2018-05-15] MEDS: Multiple Vitamins Tab PO SCH (09:40)
--- NOTE | 2018-05-15 09:46 | CP.PCM.DIS ---
Provider - Provider Date of Admission: 04/30/18 12:34 Attending physician: Rosibel Winn DO Time Spent in preparation of Discharge (in minutes): 45 Diagnosis - Discharge Diagnosis (1) Schizophrenia Status: Chronic (2) Trimalleolar fracture of ankle, closed Status: Acute (3) Homelessness Status: Chronic (4) Pneumonia Status: Resolved (5) Skin irritation Status: Chronic (6) Alcohol dependence Status: Chronic Priority: Medium Hospital Course - Lab Results Lab Results: Micro Results 05/08/18 16:00 Blood Blood Culture - Final NO GROWTH AFTER 5 DAYS 05/08/18 16:00 Blood Gram Stain - Final TEST NOT PERFORMED 05/08/18 15:30 Blood Blood Culture - Final NO GROWTH AFTER 5 DAYS 05/08/18 15:30 Blood Gram Stain - Final TEST NOT PERFORMED 05/06/18 03:30 Blood Blood Culture - Final NO GROWTH AFTER 5 DAYS 05/06/18 03:30 Blood Blood Culture - Final NO GROWTH AFTER 5 DAYS 05/06/18 03:30 Blood Gram Stain - Final TEST NOT PERFORMED 05/08/18 16:00 Sputum Gram Stain - Final 05/08/18 16:00 Sputum Sputum Culture - Final NORMAL ORAL MIKAELA 05/08/18 18:24 Urine Urine Culture - Final No Growth (<1,000 CFU/ML) 05/06/18 Unknown Urine,Clean Catch Urine Culture - Final No Growth (<1,000 CFU/ML) 05/01/18 12:03 Blood-Venous Blood Culture - Final NO GROWTH AFTER 5 DAYS 05/01/18 12:03 Blood-Venous Gram Stain - Final TEST NOT PERFORMED 05/01/18 11:55 Blood-Venous Blood Culture - Final NO GROWTH AFTER 5 DAYS 05/01/18 11:55 Blood-Venous Gram Stain - Final TEST NOT PERFORMED Most Recent Lab Values WBC 6.2 K/uL (4.8-10.8) 05/15/18 07:59 RBC 3.17 Mil/uL (3.80-5.20) L 05/15/18 07:59 Hgb 9.7 g/dL (11.0-16.0) L 05/15/18 07:59 Hct 28.1 % (34.0-47.0) L 05/15/18 07:59 MCV 88.6 fL (81.0-99.0) 05/15/18 07:59 MCH 30.5 pg (27.0-31.0) 05/15/18 07:59 MCHC 34.5 g/dL (33.0-37.0) 05/15/18 07:59 RDW 16.5 % (11.5-14.5) H 05/15/18 07:59 Plt Count 781 K/uL (130-400) H D 05/15/18 07:59 MPV 7.0 fL (7.2-11.7) L 05/15/18 07:59 Neut % (Auto) 56.3 % (50.0-75.0) 05/15/18 07:59 Lymph % (Auto) 27.6 % (20.0-40.0) 05/15/18 07:59 [place] % (Auto) 9.8 % (0.0-10.0) 05/15/18 07:59 Eos % (Auto) 4.8 % (0.0-4.0) H 05/15/18 07:59 Baso % (Auto) 1.5 % (0.0-2.0) 05/15/18 07:59 Neut # (Auto) 3.5 K/uL (1.8-7.0) 05/15/18 07:59 Lymph # (Auto) 1.7 K/uL (1.0-4.3) 05/15/18 07:59 [place] # (Auto) 0.6 K/uL (0.0-0.8) 05/15/18 07:59 Eos # (Auto) 0.3 K/uL (0.0-0.7) 05/15/18 07:59 Baso # (Auto) 0.1 K/uL (0.0-0.2) 05/15/18 07:59 Differential Comment 05/01/18 07:32 PT 11.4 SECONDS (9.7-12.2) 04/30/18 10:43 INR 1.0 04/30/18 10:43 APTT 30 SECONDS (21-34) 04/30/18 10:43 Sodium 136 mmol/L (132-148) 05/15/18 07:59 Potassium 3.5 mmol/L (3.6-5.2) L 05/15/18 07:59 Chloride 95 mmol/L (98-107) L 05/15/18 07:59 Carbon Dioxide 28 mmol/L (22-30) 05/15/18 07:59 Anion Gap 16 (10-20) 05/15/18 07:59 BUN 11 mg/dL (7-17) 05/15/18 07:59 Creatinine 0.8 mg/dL (0.7-1.2) 05/15/18 07:59 Est GFR ( Amer) > 60 05/15/18 07:59 Est GFR (Non-Af Amer) > 60 05/15/18 07:59 Random Glucose 79 mg/dL (65-105) 05/15/18 07:59 Calcium 9.0 mg/dl (8.6-10.4) 05/15/18 07:59 Phosphorus 5.1 mg/dL (2.5-4.5) H 05/15/18 07:59 Magnesium 1.8 mg/dL (1.6-2.3) 05/15/18 07:59 Total Bilirubin 0.6 mg/dL (0.2-1.3) 05/15/18 07:59 AST 29 U/L (14-36) 05/15/18 07:59 ALT 17 U/L (9-52) 05/15/18 07:59 Alkaline Phosphatase 110 U/L (38-126) 05/15/18 07:59 Total Protein 7.8 g/dL (6.3-8.3) 05/15/18 07:59 Albumin 3.8 g/dL (3.5-5.0) 05/15/18 07:59 Globulin 4.0 gm/dL (2.2-3.9) H 05/15/18 07:59 Albumin/Globulin Ratio 0.9 (1.0-2.1) L 05/15/18 07:59 Vitamin B12 427 pg/mL (239-931) 05/01/18 07:32 Folate > 20.0 ng/mL 05/01/18 07:32 TSH 3rd Generation 2.17 mIU/L (0.46-4.68) 05/01/18 07:32 Beta HCG, Quant 4.19 mIU/ML 04/30/18 10:43 Urine Color Yellow (YELLOW) 05/08/18 18:24 Urine Clarity Clear (Clear) 05/08/18 18:24 Urine pH 6.0 (5.0-8.0) 05/08/18 18:24 Ur Specific [place] 1.014 (1.003-1.030) 05/08/18 18:24 Urine Protein Negative mg/dL (NEGATIVE) 05/08/18 18:24 Urine Glucose (UA) Normal mg/dL (Normal) 05/08/18 18:24 Urine Ketones Negative mg/dL (NEGATIVE) 05/08/18 18:24 Urine Blood Negative (NEGATIVE) 05/08/18 18:24 Urine Nitrate Negative (NEGATIVE) 05/08/18 18:24 Urine Bilirubin Negative (NEGATIVE) 05/08/18 18:24 Urine Urobilinogen 2.0 mg/dL (0.2-1.0) H 05/08/18 18:24 Ur Leukocyte Esterase Neg [place]/uL (Negative) 05/08/18 18:24 Urine WBC (Auto) 3 /hpf (0-5) 05/08/18 18:24 Urine RBC (Auto) < 1 /hpf (0-3) 05/08/18 18:24 Ur Squamous Epith Cells 1 /hpf (0-5) 05/08/18 18:24 Urine Bacteria Rare (<OCC) 05/08/18 18:24 Urine HCG, Qual Negative (NEGATIVE) 05/05/18 00:32 Urine Opiates Screen Negative (NEGATIVE) 04/30/18 12:13 Urine Methadone Screen Negative (NEGATIVE) 04/30/18 12:13 Ur Barbiturates Screen Negative (NEGATIVE) 04/30/18 12:13 Ur Phencyclidine Scrn Negative (NEGATIVE) 04/30/18 12:13 Ur Amphetamines Screen Negative (NEGATIVE) 04/30/18 12:13 U Benzodiazepines Scrn Negative (NEGATIVE) 04/30/18 12:13 U Oth Cocaine Metabols Negative (NEGATIVE) 04/30/18 12:13 U Cannabinoids Screen Negative (NEGATIVE) 04/30/18 12:13 Alcohol, Quantitative 374 mg/dl (0-10) H 04/30/18 10:43 Influenza Typ A,B (EIA) Negative for flu a/b (NEGATIVE) 05/01/18 11:55 Blood Type A POSITIVE 05/12/18 16:55 Antibody Screen Negative 05/12/18 16:55 - Hospital Course Hospital Course: History of Present Illness: Patient is a 52 year old female with a PMH of asthma, HTN, alcohol abuse, and pneumonia who presents to the ED via Ambulance after a fall. Patient states she was inside a building on [facility] to keep warm. She was on the third floor and fell asleep. Upon awakening, she found herself falling down the stairs. She states that she fell down 3 flights of stairs. She denies any SOB, dizziness, palpitations prior to falling. Patient states that she eventually lost consciousness for about five minutes according to her. There was no one present who witnessed the LOC. Patient denies symptoms of blurry vision, dizziness, SOB or palpitations after the fall. She states that she fell on her legs and felt pain in posterior side of right extremity as well as left toe. She denies alcohol intoxication at the time of the incident. She states that her last drink prior to this incident was two days ago. Patient admits to numbness on plantar aspect of feet bilaterally that she has had for many years, fatigue, lower extremity edema, right LE pain, left toe pain, dysuria, and burning sensation during urinary voiding. She denies blurry vision, headache, fevers, chills, shortness of breath, cough, palpitations, chest pain, abdominal pain, or n/v/d. In ED, blood alcohol level was 375. PMH: Astma, Heart murmur, HTN, 3 miscarriages with heavy bleeding, Alcohol abuse, Ezcema, PNA, Anxiety/Depression PSH: D&C at age 45 with no complications Medications: Patient denies taking any medications, including prescription or herbal Allergies: NKDA FH: Mother had hypothyroid. Other family history unknown SH: Drinks half to one bottle of vodka daily. Last drink was 2 days ago. 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 PMD: none Next of kin: Viridiana (Mom): HOSPITAL COURSE: Ankle Frax s/p right ankle reduction of omar on fracture with application delta frame for stage procedure on 05/05/18 * s/p right ankle pilcon ORIF 05/11/18 HCAP Blood culture (05/01/18): no growth after 5 days X2 * Azithromycin 250mg PO daily (active since 04/22/18) completed on Saturday 05/05 Anemia PRBC given on 05/14 hgb 7.3 05/15 Hg came up to 9.7 , stable for d/c Imaging and Diagnostics Right Ankle Xray (04/30): Comminuted trimalleolar displaced fractures of the distal fibula. Disruption of the ankle mortise. Soft tissue swelling. * Right lower extremity CT (04/30): Markedly comminuted, distracted, and dislocated fracture deformity of the distal tibia with prominent intra- articular extension. A few prominent fracture fragments are noted at the anterolateral distal tibia measuring up to 3.4 centimeters with apparent anterior lateral distraction measuring 1.6 centimeters. Posterior subluxation of the remaining fracture fragment. Fracture deformities involve the medial and posterior malleolus. * Left lower extremity duplex 04/30: No evidence of deep or superficial vein thrombosis of the left lower extremity with excellent venous flow. Normal valve function noted of the left side. Normal venous flow noted in the right common femoral vein. * Head CT (04/30): No acute intracranial pathology identified. * CXR (04/30): No acute findings Discharge Plan Pt is to be discharged home with the following instructions Pt is to follow up with Dr Hruley on May 21Monday 9am at [facility] located on Floor B ([address] [place] [address] in [place], [place]) for Podiatry follow up Pt is to remain Non-weight bearing on the affected foot and use the crutches as instructed by physical therapy when you need to walk Call [phone] for an Alcohol Anonymous meeting near your and for other resources to help you to stop drinking alcohol Please take the following medications as instructed: Percocet 5/325 mg, 1 tablet by mouth only as needed every 6 hours Colace 100 mg, 1 tablet by mouth twice a day (8 AM and 8 PM) Lactobacillus, 1 capsule by mouth twice a day (8AM and 8 PM) Multivitamin, 1 tablet by mouth once a day (8 AM) Discharge Exam - Head Exam Head Exam: ATRAUMATIC - Additional Findings Additional findings: - Constitutional Appears: Non-toxic, In Acute Distress - Head Exam Head Exam: NORMAL INSPECTION - Eye Exam Eye Exam: EOMI - ENT Exam ENT Exam: Mucous Membranes Moist - Respiratory Exam Respiratory Exam: Clear to Ausculation Bilateral. absent: Rales, Rhonchi - Cardiovascular Exam Cardiovascular Exam: REGULAR RHYTHM, +S1, +S2 - GI/Abdominal Exam GI & Abdominal Exam: Soft, Normal Bowel Sounds. absent: Distended, Firm, Guarding, Tenderness, Mass - Extremities Exam Additional comments: right lower extremity splint; able to wiggle toes, sensation intact left lower extremity: scratch - Back Exam Back Exam: absent: CVA tenderness (L), CVA tenderness (R) - Neurological Exam Neurological Exam: Alert, Awake - Skin Skin Exam: Dry, Normal Color, Warm Additional comments: scratches over the back, bilateral upper and lower extremity, scratches in groin and inguinal area Discharge Plan - Discharge Medications Prescriptions: Docusate [Colace] 100 mg PO BID #60 cap Lactobacillus Acidophilus [Bacid Acidophilus] 1 cap PO BID #60 cap Multivitamins [Hexavitamin] 1 tab PO DAILY #30 tab oxyCODONE/Acetaminophen [Percocet 5/325 mg Tab] 1 tab PO Q6H PRN #15 tab PRN Reason: Pain, Moderate (4-7) - Follow Up Plan Condition: STABLE Disposition: HOME/ ROUTINE Instructions: Tibial Plateau Fracture (DC), Ankle Fracture (DC), Alcohol Withdrawal (DC), Alcohol Abuse and Alcoholism (DC), Open Reduction and Internal Fixation Surgery (DC), Managing Pain After Surgery Additional Instructions: Pt is to be discharged home with the following instructions Pt is to follow up with Dr Hurley on May 21Monday 9am at [facility] located on Floor [address] ([address] [place] [address] in [place], [place]) for Podiatry follow up Pt is to remain Non-weight bearing on the affected foot and use the crutches as instructed by physical therapy when you need to walk Call [phone] for an Alcohol Anonymous meeting near your and for other resources to help you to stop drinking alcohol Please take the following medications as instructed: Percocet 5/325 mg, 1 tablet by mouth only as needed every 6 hours Colace 100 mg, 1 tablet by mouth twice a day (8 AM and 8 PM) Lactobacillus, 1 capsule by mouth twice a day (8AM and 8 PM) Multivitamin, 1 tablet by mouth once a day (8 AM) Referrals: [facility] [Outside] Rola Hurley DPM [Staff Provider] -
[2018-05-15] MEDS ORDERED: Potassium Chloride 20 mEq/15 ml LIQ UD PO ONE (10:00)
--- NOTE | 2018-05-15 11:19 | CP.PCM.PN ---
Subjective - Date & Time of Evaluation Date of Evaluation: 05/15/18 Time of Evaluation: 11:15 - Subjective Subjective: Podiatry Progress Note: Dr. Hurley 52 year old female evaluated 4 days s/p ORIF of pilon fracture Patient is AAOx3 and NAD, resting comfortably in bed with her right leg elevated. Patient appears upset and expresses anger because she does not want to leave from the hospital. Denies any acute overnight events. Denies trying to walk on foot. Denies any further pedal complaints at this time. Denies any recent N/V/F/C/CP/SOB Objective - Vital Signs/Intake and Output Vital Signs (last 24 hours): Temp Pulse Resp BP Pulse Ox 98.7 F 83 20 115/70 100 05/15/18 05:32 05/15/18 05:32 05/15/18 05:32 05/15/18 05:32 05/15/18 05:32 - Medications Medications: Current Medications Acetaminophen (Tylenol 325mg Tab) 650 mg PO Q6 PRN PRN Reason: Pain, Mild (1-3) Last Admin: 05/13/18 19:43 Dose: 650 mg Benzocaine (Orajel 7.5%) 1 gm MM TID [facility] Last Admin: 05/14/18 17:10 Dose: 1 gm Ciprofloxacin (Cipro) 500 mg PO BID [facility]; Protocol Stop: 05/16/18 10:01 Last Admin: 05/15/18 09:40 Dose: 500 mg Diphenhydramine HCl (Benadryl) 25 mg PO Q6 PRN PRN Reason: Itching / Pruritus Last Admin: 05/15/18 06:50 Dose: 25 mg Docusate Sodium (Colace) 100 mg PO BID [facility] Last Admin: 05/15/18 09:40 Dose: 100 mg Folic Acid (Folic Acid) 1 mg PO DAILY [facility] Last Admin: 05/15/18 09:40 Dose: 1 mg Hydroxyzine HCl (Atarax) 50 mg PO Q12 PRN PRN Reason: Itching / Pruritus Last Admin: 05/14/18 17:09 Dose: 50 mg Lactobacillus Acidophilus (Bacid Acidophilus) 1 cap PO BID [facility] Last Admin: 05/15/18 09:39 Dose: 1 cap Multivitamins (Hexavitamin) 1 tab PO DAILY [facility] Last Admin: 05/15/18 09:40 Dose: 1 tab Ondansetron HCl (Zofran Inj) 4 mg IVP Q6H PRN PRN Reason: Nausea/Vomiting Last Admin: 05/09/18 04:52 Dose: 4 mg Oxycodone/Acetaminophen (Percocet 5/325 Mg Tab) 2 tab PO Q6H PRN PRN Reason: Pain, severe (8-10) Stop: 05/17/18 13:43 Last Admin: 05/15/18 05:28 Dose: 2 tab Thiamine HCl (Vitamin B1 Tab) 100 mg PO DAILY [facility] Last Admin: 05/15/18 09:40 Dose: 100 mg Trazodone HCl (Desyrel) 25 mg PO HS [facility] Last Admin: 05/14/18 22:20 Dose: 25 mg Zinc Acetate/Diphenhydramine (Benadryl 1% Zinc Acetate -0.1%) 0 cre TOP TID [facility] Last Admin: 05/15/18 09:39 Dose: 1 applic - Labs Labs: 05/15/18 07:59 05/15/18 07:59 PT 11.4 SECONDS (9.7-12.2) 04/30/18 10:43 INR 1.0 04/30/18 10:43 APTT 30 SECONDS (21-34) 04/30/18 10:43 - Constitutional Appears: Well, Non-toxic, No Acute Distress - Extremities Exam Additional comments: dressing clean dry and intact patient able to wiggle her toes CFT <3 secs x 5 - Neurological Exam Neurological Exam: Alert, Awake, Oriented x3 - Psychiatric Exam Psychiatric exam: Normal Affect, Normal Mood Assessment and Plan - Assessment and Plan (Free Text) Assessment: 52 year old female evaluated 4 days s/p ORIF of comminuted distal tibia fracture Plan: Patient seen and evaluated Plan discussed with Dr. Xavi Hernandez, absent leukocytosis Patient to remain strict NWB with the use of crutches Keep dressing clean, dry and intact until seen in the podiatry clinic - Extensive education provided to the patient for the importance of remaining NWB and the continued follow up in the clinic once discharged Advised RICE therapy once at home Patient stable for discharge from podiatry standpoint Podiatry will continue to follow while patient in house
== END 2018-05-15 13:05 | disposition home or self-care (01) | DRG 492 ==
LOC: C.ER 07:40 → C.9E 12:34 → C.6T 13:51
PROVIDERS: ADMIT Hospitalist; ATTEND Hospitalist
PROC: 0QHJ05Z Insertion of External Fixation Device into Right Fibula, Open Approach (ICD-10-PCS; 2018-05-05)
PROC: 0QSJ34Z Reposition Right Fibula with Internal Fixation Device, Percutaneous Approach (ICD-10-PCS; principal; 2018-05-05 07:45)
PROC: 0QSJ04Z Reposition Right Fibula with Internal Fixation Device, Open Approach (ICD-10-PCS; 2018-05-11)
PROC: 0QPJX5Z Removal of External Fixation Device from Right Fibula, External Approach (ICD-10-PCS; 2018-05-11)
DX: S82.871A Displaced pilon fracture of right tibia, initial encounter for closed fracture (principal); J18.9 Pneumonia, unspecified organism; F10.230 Alcohol dependence with withdrawal, uncomplicated; W10.9XXA Fall (on) (from) unspecified stairs and steps, initial encounter; Y90.8 Blood alcohol level of 240 mg/100 ml or more; Z59.0 Homelessness; S82.831A Other fracture of upper and lower end of right fibula, initial encounter for closed fracture; R50.82 Postprocedural fever; S82.851A Displaced trimalleolar fracture of right lower leg, initial encounter for closed fracture; K12.0 Recurrent oral aphthae; K12.1 Other forms of stomatitis; L29.9 Pruritus, unspecified; F10.220 Alcohol dependence with intoxication, uncomplicated; D64.9 Anemia, unspecified; D69.6 Thrombocytopenia, unspecified; F60.3 Borderline personality disorder; I10 Essential (primary) hypertension; I27.20 Pulmonary hypertension, unspecified; J44.9 Chronic obstructive pulmonary disease, unspecified; M85.80 Other specified disorders of bone density and structure, unspecified site; F17.210 Nicotine dependence, cigarettes, uncomplicated; F20.9 Schizophrenia, unspecified; M77.30 Calcaneal spur, unspecified foot

== ENCOUNTER 2018-05-22 01:33 | Emergency (ER) | payer OTHER ==
[2018-05-22 01:33] VITALS: BMI 23.3
[2018-05-22 01:43] VITALS: BP 95/73; PULSE 68; RESP 18; TEMP 98.6; O2SAT 100
--- NOTE | 2018-05-22 01:44 | C.PDOC ---
History Of Present Illness 52 year old female is brought to the ED by EMS for evaluation of right foot pain. Patient reports she had right distal tibial fracture, patient was seem in the clinic earlier today. Patient was also seen at [facility] for same presentation. Patient denies new injury, fall, trauma, weakness, numbness. Time Seen by Provider: 05/22/18 01:44 Chief Complaint (Nursing): Medical Clearance History Per: Patient History/Exam Limitations: no limitations Onset/Duration Of Symptoms: Days Current Symptoms Are (Timing): Still Present Reports Recently: Seen In ED ([place]) Recent travel outside of the [place]: No Additional History Per: Patient Past Medical History Reviewed: Historical Data, Nursing Documentation, Vital Signs Vital Signs: Last Vital Signs Temp 98.6 F 05/22/18 01:40 Pulse 68 05/22/18 01:40 Resp 18 05/22/18 01:40 BP 95/73 L 05/22/18 01:40 Pulse Ox 100 05/22/18 01:40 - Medical History PMH: Anxiety, Asthma, COPD, Depression, Fractures, Gastritis, HTN, Paranoia, Pneumonia, Schizophrenia, Seizures, TIA Denies: Diabetes, Hepatitis, HIV, Chronic Kidney Disease, Sexually Transmitted Disease Surgical History: No Surg Hx - [facility] Procedures ALCOHOL DETOXIFICATION (12/21/14) APPLICATION OF SPLINT (05/22/14) DETOXIFICATION SERVICES FOR SUBSTANCE ABUSE TREATMENT (09/20/16) GROUP C WPF DEVELOPER FOR SUBSTANCE ABUSE TREATMENT, PSYCHOEDUCATION (12/12/15) INDIV C WPF DEVELOPER FOR SUBSTANCE ABUSE, COGNITIVE BEHAVIORAL (03/06/16) INDIV PSYCHOTHERAPY FOR SUBSTANCE ABUSE TREATMENT, SUPPORT (03/06/16) INJECT/INFUSE NEC (12/19/13) INSERTION OF EXT FIX INTO R FIBULA, OPEN APPROACH (04/30/18) REMOVAL OF EXT FIX FROM R FIBULA, CLOTH BLEACHING RANGE BACK TENDER APPROACH (04/30/18) REPOSITION RIGHT FIBULA WITH INT FIX, OPEN APPROACH (04/30/18) REPOSITION RIGHT FIBULA WITH INT FIX, PERC APPROACH (04/30/18) Family History: States: Unknown Family Hx - Social History Hx Tobacco Use: Yes Hx Alcohol Use: Yes Hx Substance Use: No - Immunization History Hx Tetanus Toxoid Vaccination: Yes Hx Influenza Vaccination: No Hx Pneumococcal Vaccination: No Review Of Systems Constitutional: Negative for: Fever, Chills Cardiovascular: Negative for: Chest Pain Respiratory: Negative for: Shortness of Breath Gastrointestinal: Negative for: Nausea, Vomiting, Abdominal Pain Musculoskeletal: Positive for: Leg Pain, Foot Pain Skin: Negative for: Rash Neurological: Negative for: Weakness, Numbness, Headache Physical Exam - Physical Exam Appears: Non-toxic, No Acute Distress Skin: Warm, Dry Head: Normacephalic Eye(s): bilateral: Normal Inspection Neck: Supple Chest: Symmetrical Cardiovascular: Rhythm Regular Respiratory: No Rales, No Rhonchi, No Wheezing Gastrointestinal/Abdominal: Soft, No Tenderness, No Guarding, No Rebound Extremity: Capillary Refill (< 2 seconds) Extremity: Right: Other (cast intact), Bilateral: Normal Color And Temperature, Normal ROM Pulses: Left Dorsalis Pedis: Normal, Right Dorsalis Pedis: Normal Neurological/Psych: Oriented x3, Normal Speech, Normal Cognition, Normal Motor, Normal Sensation Gait: Steady ED Course And Treatment O2 Sat by Pulse Oximetry: 100 (ON RA) Pulse Ox Interpretation: Normal Progress Note: Plan: - Motrin 600 mg PO Disposition Counseled Patient/Family Regarding: Studies Performed, Diagnosis, Need For Followup - Disposition Referrals: Rola Hurley DPM [Staff Provider] - Disposition: HOME/ ROUTINE Disposition Time: 01:44 Condition: FAIR Forms: [facility] (Kittitian), General Discharge Instructions - Clinical Impression Clinical Impression: Encounter for postoperative wound check - Scribe Statement The provider has reviewed the documentation as recorded by the Scribe Julio C Rios All medical record entries made by the Scribe were at my direction and personally dictated by me. I have reviewed the chart and agree that the record accurately reflects my personal performance of the history, physical exam, medical decision making, and the department course for this patient. I have also personally directed, reviewed, and agree with the discharge instructions and disposition.
== END 2018-05-22 01:57 | disposition home or self-care (01) ==
LOC: C.ER 01:33
DX: Z51.89 Encounter for other specified aftercare (principal)

== ENCOUNTER 2018-05-24 18:46 | Emergency (ER) | payer OTHER ==
[2018-05-24 18:47] VITALS: BMI 23.3
--- NOTE | 2018-05-24 19:30 | C.PDOC ---
History Of Present Illness Patient presents to the ER intoxicated with a complaint of right foot pain. Patient was here yesterday for the same complaints, she has a cast on her right leg fron a prior tib/fib fracture. Denies weakness, numbness, or new injury. Time Seen by Provider: 05/24/18 19:26 Chief Complaint (Nursing): Lower Extremity Problem/Injury History Per: Patient History/Exam Limitations: no limitations Onset/Duration Of Symptoms: Hrs Current Symptoms Are (Timing): Still Present Severity: Moderate Pain Scale Rating Of: 4 Recent travel outside of the [place]: No Past Medical History Reviewed: Historical Data, Nursing Documentation, Vital Signs - Medical History PMH: Anxiety, Asthma, COPD, Depression, Fractures, Gastritis, HTN, Paranoia, Pneumonia, Schizophrenia, Seizures, TIA Denies: Diabetes, Hepatitis, HIV, Chronic Kidney Disease, Sexually Transmitted Disease - [facility] Procedures ALCOHOL DETOXIFICATION (12/21/14) APPLICATION OF SPLINT (05/22/14) DETOXIFICATION SERVICES FOR SUBSTANCE ABUSE TREATMENT (09/20/16) GROUP FAMILY DINNER SERVICE SPECIALIST FOR SUBSTANCE ABUSE TREATMENT, PSYCHOEDUCATION (12/12/15) INDIV FAMILY DINNER SERVICE SPECIALIST FOR SUBSTANCE ABUSE, COGNITIVE BEHAVIORAL (03/06/16) INDIV PSYCHOTHERAPY FOR SUBSTANCE ABUSE TREATMENT, SUPPORT (03/06/16) INJECT/INFUSE NEC (12/19/13) INSERTION OF EXT FIX INTO R FIBULA, OPEN APPROACH (04/30/18) REMOVAL OF EXT FIX FROM R FIBULA, BINDERY MACHINE FEEDER OFFBEARER APPROACH (04/30/18) REPOSITION RIGHT FIBULA WITH INT FIX, OPEN APPROACH (04/30/18) REPOSITION RIGHT FIBULA WITH INT FIX, PERC APPROACH (04/30/18) Family History: States: No Known Family Hx - Social History Hx Tobacco Use: Yes Hx Alcohol Use: Yes Hx Substance Use: No - Immunization History Hx Tetanus Toxoid Vaccination: Yes Hx Influenza Vaccination: No Hx Pneumococcal Vaccination: No Review Of Systems Constitutional: Negative for: Fever, Chills Cardiovascular: Negative for: Chest Pain, Palpitations Respiratory: Negative for: Cough, Shortness of Breath Gastrointestinal: Negative for: Nausea, Vomiting Musculoskeletal: Positive for: Foot Pain (Right) Neurological: Negative for: Weakness, Numbness Physical Exam - Physical Exam Appears: Non-toxic, Other (ETOH on breath) Skin: Warm, Dry Head: Normacephalic Eye(s): bilateral: Normal Inspection Oral Mucosa: Moist Chest: Symmetrical, No Tenderness Cardiovascular: Rhythm Regular Respiratory: No Rales, No Rhonchi, No Wheezing Gastrointestinal/Abdominal: Soft, No Tenderness Extremity: Capillary Refill (<2 seconds), Other (Cast on right leg) Neurological/Psych: Oriented x3 Gait: Unable To Assess ED Course And Treatment O2 Sat by Pulse Oximetry: 96 Pulse Ox Interpretation: Normal Progress Note: Motrin administered. Reevaluation Time: 05:38 Reassessment Condition: Improved Disposition Counseled Patient/Family Regarding: Studies Performed, Diagnosis, Need For Followup - Disposition Referrals: [facility] [Outside] Disposition: HOME/ ROUTINE Disposition Time: 19:29 Condition: FAIR Instructions: Alcohol Abuse and Alcoholism (DC) Forms: [facility] (Arabic) - Clinical Impression Clinical Impression: Alcohol intoxication, Leg pain - Scribe Statement The provider has reviewed the documentation as recorded by the Scribe Antoine Sumner All medical record entries made by the Scribe were at my direction and personally dictated by me. I have reviewed the chart and agree that the record accurately reflects my personal performance of the history, physical exam, medical decision making, and the department course for this patient. I have also personally directed, reviewed, and agree with the discharge instructions and disposition.
[2018-05-25 05:16] VITALS: BP 120/70; PULSE 78; RESP 14; TEMP 97.5; O2SAT 96
== END 2018-05-25 06:05 | disposition home or self-care (01) ==
LOC: C.ER 18:46
DX: M79.671 Pain in right foot (principal); F10.129 Alcohol abuse with intoxication, unspecified; F20.9 Schizophrenia, unspecified; I10 Essential (primary) hypertension; J44.9 Chronic obstructive pulmonary disease, unspecified; Z86.73 Personal history of transient ischemic attack (TIA), and cerebral infarction without residual deficits; Z72.0 Tobacco use

== ENCOUNTER 2018-05-27 14:58 | Emergency (ER) | payer OTHER ==
[2018-05-27 14:59] VITALS: BMI 23.3
--- NOTE | 2018-05-27 15:17 | C.PDOC ---
History Of Present Illness 52 years old homeless female, possible substance abuse today, presents to ED for complaints of pain to right foot. Patient has frequent visits to ED. Patient states she had a recent ankle fracture s/p ORIF and has been following with the podiatry clinic at [facility], however patient states she has been in pain and unable to refill her prescriptions. Patient is loud, disruptive, ambulating in ED on crutches and in a foot cast. Time Seen by Provider: 05/27/18 15:13 Chief Complaint (Nursing): Substance Abuse History Per: Patient History/Exam Limitations: no limitations Onset/Duration Of Symptoms: Hrs Current Symptoms Are (Timing): Still Present Suicide/Self Injury Attempted (Context): None Associated Symptoms: denies: Suicidal Thoughts, Suicidal Plan Involuntary Hold By: None Recent travel outside of the [place]: No Past Medical History Reviewed: Historical Data, Nursing Documentation, Vital Signs - Medical History PMH: Anxiety, Asthma, COPD, Depression, Fractures, Gastritis, HTN, Paranoia, Pneumonia, Schizophrenia, Seizures, TIA - [facility] Procedures ALCOHOL DETOXIFICATION (12/21/14) APPLICATION OF SPLINT (05/22/14) DETOXIFICATION SERVICES FOR SUBSTANCE ABUSE TREATMENT (09/20/16) GROUP VIRTUAL ASSISTANT FOR ADVERTISERS FOR SUBSTANCE ABUSE TREATMENT, PSYCHOEDUCATION (12/12/15) INDIV VIRTUAL ASSISTANT FOR ADVERTISERS FOR SUBSTANCE ABUSE, COGNITIVE BEHAVIORAL (03/06/16) INDIV PSYCHOTHERAPY FOR SUBSTANCE ABUSE TREATMENT, SUPPORT (03/06/16) INJECT/INFUSE NEC (12/19/13) INSERTION OF EXT FIX INTO R FIBULA, OPEN APPROACH (04/30/18) REMOVAL OF EXT FIX FROM R FIBULA, YARN DUMPER APPROACH (04/30/18) REPOSITION RIGHT FIBULA WITH INT FIX, OPEN APPROACH (04/30/18) REPOSITION RIGHT FIBULA WITH INT FIX, PERC APPROACH (04/30/18) Family History: States: Unknown Family Hx - Social History Hx Tobacco Use: Yes Hx Alcohol Use: Yes Hx Substance Use: No - Immunization History Hx Tetanus Toxoid Vaccination: Yes Hx Influenza Vaccination: No Hx Pneumococcal Vaccination: No Review Of Systems Constitutional: Positive for: Malaise (associated with fatigue ). Negative for: Fever, Chills Gastrointestinal: Negative for: Nausea, Vomiting, Abdominal Pain, Diarrhea Musculoskeletal: Positive for: Foot Pain (Right foot ) Skin: Negative for: Rash Neurological: Negative for: Weakness, Numbness, Headache Psych: Negative for: Suicidal ideation Physical Exam - Physical Exam Appears: Non-toxic, No Acute Distress, Unkempt, Agitated, Other (Dissheveled, loud, disruptive, malodorous. ) Skin: Warm, Dry, No Rash Eye(s): bilateral: Normal Inspection Extremity: Normal ROM, No Tenderness, Other (Cast on right foot. Cast intact. ) Neurological/Psych: Oriented x3, Normal Speech Gait: Steady Medical Decision Making Medical Decision Making: Plan: * Ultram * Motrin Progress: Patient was given pain medications and states she feel better. Patient states she can stay with her family. Patient states she has a follow up appointment tomorrow with podiatry. Care instructions are given and patient agrees. Denies any further complaints at this moment. Patient is stable for discharge and will be discharged. Return if symptoms persist or worsen. Disposition Counseled Patient/Family Regarding: Diagnosis, Need For Followup - Disposition Referrals: [facility] [Outside] Disposition: HOME/ ROUTINE Disposition Time: 16:32 Condition: STABLE Instructions: Ankle Fracture Forms: [facility] (Kyrgyz), General Discharge Instructions - POA Present On Arrival: None - Clinical Impression Clinical Impression: Alcohol intoxication, Leg pain - Scribe Statement The provider has reviewed the documentation as recorded by the Scribchristen Panchal All medical record entries made by the Tootieibchristen were at my direction and personally dictated by me. I have reviewed the chart and agree that the record accurately reflects my personal performance of the history, physical exam, medical decision making, and the department course for this patient. I have also personally directed, reviewed, and agree with the discharge instructions and disposition.
[2018-05-27 17:03] VITALS: BP 117/66; PULSE 85; RESP 20; TEMP 98; O2SAT 98
== END 2018-05-27 17:07 | disposition home or self-care (01) ==
LOC: C.ER 14:58
DX: F10.129 Alcohol abuse with intoxication, unspecified (principal); M79.604 Pain in right leg; F20.9 Schizophrenia, unspecified; I10 Essential (primary) hypertension; J44.9 Chronic obstructive pulmonary disease, unspecified; Z59.0 Homelessness; Z72.0 Tobacco use

== ENCOUNTER 2018-05-28 21:31 | Emergency (ER) | payer OTHER ==
[2018-05-28 21:31] VITALS: BMI 23.3
[2018-05-28] MEDS ORDERED: Naproxen 550 mg Tab PO STA (22:03)
--- NOTE | 2018-05-28 22:07 | C.PDOC ---
History Of Present Illness 52 year old female presents to the ER with a complaint of pain to the right foot area. 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 Denies other complaints. Patient has Hx of fracture to right foot. Chief Complaint (Nursing): Medical Clearance History Per: Patient History/Exam Limitations: no limitations Onset/Duration Of Symptoms: Days Current Symptoms Are (Timing): Still Present Recent travel outside of the [place]: No Past Medical History Reviewed: Historical Data, Nursing Documentation, Vital Signs Vital Signs: Last Vital Signs Temp 98.2 F 05/28/18 21:49 Pulse 88 05/28/18 21:49 Resp 24 05/28/18 21:49 BP 136/74 05/28/18 21:49 Pulse Ox 98 05/28/18 21:49 - Medical History PMH: Anxiety, Asthma, COPD, Depression, Fractures, Gastritis, HTN, Paranoia, Pneumonia, Schizophrenia, Seizures, TIA Denies: Diabetes, Hepatitis, HIV, Chronic Kidney Disease, Sexually Transmitted Disease - [facility] Procedures ALCOHOL DETOXIFICATION (12/21/14) APPLICATION OF SPLINT (05/22/14) DETOXIFICATION SERVICES FOR SUBSTANCE ABUSE TREATMENT (09/20/16) GROUP LONGITUDINAL FLOAT OPERATOR FOR SUBSTANCE ABUSE TREATMENT, PSYCHOEDUCATION (12/12/15) INDIV LONGITUDINAL FLOAT OPERATOR FOR SUBSTANCE ABUSE, COGNITIVE BEHAVIORAL (03/06/16) INDIV PSYCHOTHERAPY FOR SUBSTANCE ABUSE TREATMENT, SUPPORT (03/06/16) INJECT/INFUSE NEC (12/19/13) INSERTION OF EXT FIX INTO R FIBULA, OPEN APPROACH (04/30/18) REMOVAL OF EXT FIX FROM R FIBULA, FOILING MACHINE ADJUSTER APPROACH (04/30/18) REPOSITION RIGHT FIBULA WITH INT FIX, OPEN APPROACH (04/30/18) REPOSITION RIGHT FIBULA WITH INT FIX, PERC APPROACH (04/30/18) Family History: States: Unknown Family Hx - Social History Hx Tobacco Use: Yes Hx Alcohol Use: Yes Hx Substance Use: No - Immunization History Hx Tetanus Toxoid Vaccination: Yes Hx Influenza Vaccination: No Hx Pneumococcal Vaccination: No Review Of Systems Constitutional: Negative for: Fever, Chills Cardiovascular: Negative for: Chest Pain, Palpitations Respiratory: Negative for: Cough, Shortness of Breath Gastrointestinal: Negative for: Nausea, Vomiting Musculoskeletal: Positive for: Foot Pain (Right) Neurological: Negative for: Weakness, Numbness Physical Exam - Physical Exam Appears: Non-toxic Skin: Normal Color, Warm, Dry Head: Atraumatic, Normacephalic Eye(s): bilateral: Normal Inspection Oral Mucosa: Moist Neck: Normal, Supple Chest: Symmetrical, No Tenderness Cardiovascular: Rhythm Regular Respiratory: Normal Breath Sounds, No Rales, No Rhonchi, No Wheezing Gastrointestinal/Abdominal: Soft, No Tenderness Extremity: Other (Right foot intact including all toes) Pulses: Left Dorsalis Pedis: Normal, Right Dorsalis Pedis: Normal Neurological/Psych: Oriented x3, Normal Speech, Normal Motor, Normal Sensation ED Course And Treatment O2 Sat by Pulse Oximetry: 98 (room air) Pulse Ox Interpretation: Normal Progress Note: Medically cleared for incarceration, discharged in [employer]. Disposition Counseled Patient/Family Regarding: Diagnosis - Disposition Referrals: at [facility] [Outside] Disposition: HOME/ ROUTINE Disposition Time: 22:05 (POLICE CUSTODY) Condition: STABLE Additional Instructions: Medically cleared for incarceration under custody of police officers. Prescriptions: Naproxen 375 mg PO TIDPC #14 tablet Instructions: Ankle Fracture (DC) Forms: [employer] [facility] (North Korean) - POA Present On Arrival: None - Clinical Impression Clinical Impression: Fracture, ankle, Cast in place on lower extremity - Scribe Statement The provider has reviewed the documentation as recorded by the Scribchristen Sumner All medical record entries made by the Scribe were at my direction and personally dictated by me. I have reviewed the chart and agree that the record accurately reflects my personal performance of the history, physical exam, medical decision making, and the department course for this patient. I have also personally directed, reviewed, and agree with the discharge instructions and disposition.
[2018-05-28] MEDS ORDERED: Naproxen 550 mg Tab PO ONE (22:49)
[2018-05-28 22:59] VITALS: BP 149/85; PULSE 87; RESP 15; TEMP 97.9; O2SAT 95
== END 2018-05-28 22:56 | disposition home or self-care (01) ==
LOC: C.ER 21:31
DX: S82.891G Other fracture of right lower leg, subsequent encounter for closed fracture with delayed healing (principal); X58.XXXD Exposure to other specified factors, subsequent encounter

== ENCOUNTER 2018-05-29 01:27 | Emergency (ER) | payer OTHER ==
[2018-05-29 01:27] VITALS: BMI 23.3
--- NOTE | 2018-05-29 03:57 | C.PDOC ---
History Of Present Illness 52 year old female presents to the ER via EMS with a complaint of right foot pain. Patient seen earlier to for the same complaint. Denies new injury, trauma, weakness, or numbness. Chief Complaint (Nursing): Lower Extremity Problem/Injury History Per: Patient History/Exam Limitations: no limitations Onset/Duration Of Symptoms: Hrs Current Symptoms Are (Timing): Still Present Recent travel outside of the [place]: No Past Medical History Reviewed: Historical Data, Nursing Documentation, Vital Signs Vital Signs: Last Vital Signs Temp 97.8 F 05/29/18 01:40 Pulse 80 05/29/18 01:40 Resp 20 05/29/18 01:40 BP 120/76 05/29/18 01:40 Pulse Ox 100 05/29/18 01:40 - Medical History PMH: Anemia, Anxiety, Asthma, COPD, Depression, Fractures, Gastritis, HTN, Paranoia, Pneumonia, Schizophrenia, Seizures, TIA Denies: Diabetes, Hepatitis, HIV, Chronic Kidney Disease, Sexually Transmitted Disease - [facility] Procedures ALCOHOL DETOXIFICATION (12/21/14) APPLICATION OF SPLINT (05/22/14) DETOXIFICATION SERVICES FOR SUBSTANCE ABUSE TREATMENT (09/20/16) GROUP SURGICAL ASSISTANT CERTIFIED FOR SUBSTANCE ABUSE TREATMENT, PSYCHOEDUCATION (12/12/15) INDIV SURGICAL ASSISTANT CERTIFIED FOR SUBSTANCE ABUSE, COGNITIVE BEHAVIORAL (03/06/16) INDIV PSYCHOTHERAPY FOR SUBSTANCE ABUSE TREATMENT, SUPPORT (03/06/16) INJECT/INFUSE NEC (12/19/13) INSERTION OF EXT FIX INTO R FIBULA, OPEN APPROACH (04/30/18) REMOVAL OF EXT FIX FROM R FIBULA, HOTEL OPERATION MANAGER APPROACH (04/30/18) REPOSITION RIGHT FIBULA WITH INT FIX, OPEN APPROACH (04/30/18) REPOSITION RIGHT FIBULA WITH INT FIX, PERC APPROACH (04/30/18) Family History: States: Unknown Family Hx - Social History Hx Tobacco Use: Yes Hx Alcohol Use: No Hx Substance Use: No - Immunization History Hx Tetanus Toxoid Vaccination: Yes Hx Influenza Vaccination: No Hx Pneumococcal Vaccination: No Review Of Systems Constitutional: Negative for: Fever, Chills Cardiovascular: Negative for: Chest Pain, Palpitations Respiratory: Negative for: Cough, Shortness of Breath Musculoskeletal: Positive for: Foot Pain (right) Neurological: Negative for: Weakness, Numbness Physical Exam - Physical Exam Appears: Non-toxic Skin: Normal Color, Warm, Dry Head: Atraumatic, Normacephalic Eye(s): bilateral: Normal Inspection Oral Mucosa: Moist Chest: Symmetrical, No Tenderness Cardiovascular: Rhythm Regular Respiratory: Normal Breath Sounds, No Rales, No Rhonchi, No Wheezing Gastrointestinal/Abdominal: Soft, No Tenderness Back: No Vertebral Tenderness, No Paraspinal Tenderness Extremity: Normal ROM (x4), No Tenderness, No Deformity, Other (Cast on right foot) Neurological/Psych: Oriented x3, Normal Speech, Normal Motor, Normal Sensation ED Course And Treatment O2 Sat by Pulse Oximetry: 100 (Room air) Pulse Ox Interpretation: Normal Progress Note: Tylenol administered. Disposition Counseled Patient/Family Regarding: Diagnosis - Disposition Referrals: [facility] [Outside] Disposition Time: 06:44 Condition: STABLE Additional Instructions: TO TAKE NAPROSYN PRESCRIBED EARLIER STEPHANI. Instructions: Cast Care, Shinbone Fracture (DC) Forms: [facility] (Frisian) - POA Present On Arrival: None - Clinical Impression Clinical Impression: Leg pain, right, Cast in place on lower extremity - Scribe Statement The provider has reviewed the documentation as recorded by the Scribchristen Sumner All medical record entries made by the Scribe were at my direction and personally dictated by me. I have reviewed the chart and agree that the record accurately reflects my personal performance of the history, physical exam, medical decision making, and the department course for this patient. I have also personally directed, reviewed, and agree with the discharge instructions and disposition.
[2018-05-29 06:57] VITALS: BP 131/63; PULSE 81; RESP 20; TEMP 97.8; O2SAT 98
== END 2018-05-29 06:58 | disposition home or self-care (01) ==
LOC: C.ER 01:27
DX: M79.604 Pain in right leg (principal)

== ENCOUNTER 2018-05-29 22:05 | Emergency (ER) | payer SELFPAY ==
[2018-05-29 22:05] VITALS: BMI 23.3
[2018-05-29 22:09] VITALS: BP 146/83; PULSE 87; TEMP 97.6; O2SAT 97
--- NOTE | 2018-05-29 22:21 | C.PDOC ---
Time Seen by Provider: 05/29/18 22:18 Chief Complaint (Nursing): Lower Extremity Problem/Injury Past Medical History Vital Signs: Last Vital Signs Temp 97.6 F 05/29/18 22:08 Pulse 87 05/29/18 22:08 Resp 19 05/29/18 22:08 BP 146/83 05/29/18 22:08 Pulse Ox 97 05/29/18 22:08 - Medical History PMH: Anemia, Anxiety, Asthma, COPD, Depression, Fractures, Gastritis, HTN, Paranoia, Pneumonia, Schizophrenia, Seizures, TIA Denies: Diabetes, Hepatitis, HIV, Chronic Kidney Disease, Sexually Transmitted Disease - [facility] Procedures ALCOHOL DETOXIFICATION (12/21/14) APPLICATION OF SPLINT (05/22/14) DETOXIFICATION SERVICES FOR SUBSTANCE ABUSE TREATMENT (09/20/16) GROUP DOUBLE BOTTOM DRIVER FOR SUBSTANCE ABUSE TREATMENT, PSYCHOEDUCATION (12/12/15) INDIV DOUBLE BOTTOM DRIVER FOR SUBSTANCE ABUSE, COGNITIVE BEHAVIORAL (03/06/16) INDIV PSYCHOTHERAPY FOR SUBSTANCE ABUSE TREATMENT, SUPPORT (03/06/16) INJECT/INFUSE NEC (12/19/13) INSERTION OF EXT FIX INTO R FIBULA, OPEN APPROACH (04/30/18) REMOVAL OF EXT FIX FROM R FIBULA, CAM SPECIALIST APPROACH (04/30/18) REPOSITION RIGHT FIBULA WITH INT FIX, OPEN APPROACH (04/30/18) REPOSITION RIGHT FIBULA WITH INT FIX, PERC APPROACH (04/30/18) Family History: States: Unknown Family Hx - Social History Hx Tobacco Use: Yes Hx Alcohol Use: Yes Hx Substance Use: No - Immunization History Hx Tetanus Toxoid Vaccination: Yes Hx Influenza Vaccination: No Hx Pneumococcal Vaccination: No ED Course And Treatment O2 Sat by Pulse Oximetry: 97 Medical Decision Making Medical Decision Making: chronic alcohol abuse R lower leg cast, no s/s of DVT multiple recent evals for same hundreds of ED visits for substance abuse Refered to f/u with Ortho Clinic where cast placed d/c from ED in good condition and NAD Disposition Doctor Will See Patient In The: Office Counseled Patient/Family Regarding: Studies Performed, Diagnosis - Disposition Disposition: HOME/ ROUTINE Disposition Time: 22:20 Condition: GOOD - Clinical Impression Clinical Impression: Chronic pain due to injury, Alcohol abuse
[2018-05-29 22:58] VITALS: RESP 16
== END 2018-05-29 22:49 | disposition home or self-care (01) ==
LOC: C.ER 22:05
DX: G89.21 Chronic pain due to trauma (principal); F10.10 Alcohol abuse, uncomplicated; Y90.9 Presence of alcohol in blood, level not specified

== ENCOUNTER 2018-06-01 17:47 | Emergency (ER) | payer OTHER ==
[2018-06-01 17:48] VITALS: BMI 23.3
[2018-06-01 17:52] VITALS: BP 128/74; PULSE 81; RESP 16; TEMP 97; O2SAT 96
--- NOTE | 2018-06-01 18:09 | C.PDOC ---
History Of Present Illness Patient presents with lower R leg cast, states that she needs her leg checked, "[facility] this leg". Also states that she is hungry, demanding staff "bring me a hot tray now". Appears intoxicated. Time Seen by Provider: 06/01/18 17:53 Chief Complaint (Nursing): Substance Abuse Past Medical History Reviewed: Historical Data, Nursing Documentation, Vital Signs Vital Signs: Last Vital Signs Temp 97 F L 06/01/18 17:50 Pulse 81 06/01/18 17:50 Resp 16 06/01/18 17:50 BP 128/74 06/01/18 17:50 Pulse Ox 96 06/01/18 17:50 - Medical History PMH: Anemia, Anxiety, Asthma, COPD, Depression, Fractures, Gastritis, HTN, Paranoia, Pneumonia, Schizophrenia, Seizures, TIA Denies: Diabetes, Hepatitis, HIV, Chronic Kidney Disease, Sexually Transmitted Disease - [facility] Procedures ALCOHOL DETOXIFICATION (12/21/14) APPLICATION OF SPLINT (05/22/14) DETOXIFICATION SERVICES FOR SUBSTANCE ABUSE TREATMENT (09/20/16) GROUP CONSTRUCTION SUPERVISOR/CARPENTER FOR SUBSTANCE ABUSE TREATMENT, PSYCHOEDUCATION (12/12/15) INDIV CONSTRUCTION SUPERVISOR/CARPENTER FOR SUBSTANCE ABUSE, COGNITIVE BEHAVIORAL (03/06/16) INDIV PSYCHOTHERAPY FOR SUBSTANCE ABUSE TREATMENT, SUPPORT (03/06/16) INJECT/INFUSE NEC (12/19/13) INSERTION OF EXT FIX INTO R FIBULA, OPEN APPROACH (04/30/18) REMOVAL OF EXT FIX FROM R FIBULA, SERVICE DEPARTMENT MANAGER APPROACH (04/30/18) REPOSITION RIGHT FIBULA WITH INT FIX, OPEN APPROACH (04/30/18) REPOSITION RIGHT FIBULA WITH INT FIX, PERC APPROACH (04/30/18) Family History: States: Unknown Family Hx - Social History Hx Tobacco Use: Yes Hx Alcohol Use: Yes Hx Substance Use: No - Immunization History Hx Tetanus Toxoid Vaccination: Yes Hx Influenza Vaccination: No Hx Pneumococcal Vaccination: No Review Of Systems Except As Marked, All Systems Reviewed And Found Negative. Constitutional: Negative for: Fever Respiratory: Negative for: Cough Gastrointestinal: Negative for: Nausea, Vomiting Neurological: Negative for: Weakness Physical Exam - Physical Exam Appears: No Acute Distress, Unkempt Skin: Warm, Dry Head: Atraumatic Eye(s): bilateral: Normal Inspection Chest: Symmetrical Cardiovascular: Rhythm Regular Respiratory: Normal Breath Sounds Extremity: Other (R lower leg cast. R toes pink with normal capillary refill) Neurological/Psych: Oriented x3 ED Course And Treatment O2 Sat by Pulse Oximetry: 96 Medical Decision Making Medical Decision Making: This is the patient's 8th visit in the past 10 days with the same complaint regarding her leg. She has had X-rays of her R leg and has been seen by podiatry with no issues. Advised her to follow up as outpatient. Disposition - Disposition Disposition: HOME/ ROUTINE Disposition Time: 18:12 Condition: STABLE Instructions: Cast Care Forms: [facility] (Icelandic) - Clinical Impression Clinical Impression: Alcohol intoxication, Right leg pain
== END 2018-06-01 18:43 | disposition home or self-care (01) ==
LOC: C.ER 17:47
DX: F10.129 Alcohol abuse with intoxication, unspecified (principal); Y90.9 Presence of alcohol in blood, level not specified; M79.604 Pain in right leg

== ENCOUNTER 2018-06-11 01:06 | Emergency (ER) | payer SELFPAY ==
[2018-06-11 01:06] VITALS: BMI 20.7
--- NOTE | 2018-06-11 03:39 | C.PDOC ---
History Of Present Illness 53 year old female presents to the ER via EMS after being found intoxicated in public. Denies any complaints at this time. Time Seen by Provider: 06/11/18 02:13 Chief Complaint (Nursing): Substance Abuse History Per: Patient History/Exam Limitations: no limitations Onset/Duration Of Symptoms: Hrs Current Symptoms Are (Timing): Still Present Modifying Factor(s): Alcohol Associated Symptoms: denies: Depression, Suicidal Thoughts Involuntary Hold By: None Recent travel outside of the [place]: No Past Medical History Reviewed: Historical Data, Nursing Documentation, Vital Signs Vital Signs: Last Vital Signs Temp 98.6 F 06/11/18 02:51 Pulse 72 06/11/18 02:51 Resp 18 06/11/18 02:51 BP 96/74 L 06/11/18 02:51 Pulse Ox 98 06/11/18 02:51 - Medical History PMH: Anemia, Anxiety, Asthma, COPD, Depression, Fractures (right ankle), Gastritis, HTN, Paranoia, Pneumonia, Schizophrenia, Seizures, TIA Denies: Diabetes, Hepatitis, HIV, Chronic Kidney Disease, Sexually Transmitted Disease - [facility] Procedures ALCOHOL DETOXIFICATION (12/21/14) APPLICATION OF SPLINT (05/22/14) DETOXIFICATION SERVICES FOR SUBSTANCE ABUSE TREATMENT (09/20/16) GROUP FERRY OPERATOR FOR SUBSTANCE ABUSE TREATMENT, PSYCHOEDUCATION (12/12/15) INDIV FERRY OPERATOR FOR SUBSTANCE ABUSE, COGNITIVE BEHAVIORAL (03/06/16) INDIV PSYCHOTHERAPY FOR SUBSTANCE ABUSE TREATMENT, SUPPORT (03/06/16) INJECT/INFUSE NEC (12/19/13) INSERTION OF EXT FIX INTO R FIBULA, OPEN APPROACH (04/30/18) REMOVAL OF EXT FIX FROM R FIBULA, ACOUSTIC SENSOR OPERATOR APPROACH (04/30/18) REPOSITION RIGHT FIBULA WITH INT FIX, OPEN APPROACH (04/30/18) REPOSITION RIGHT FIBULA WITH INT FIX, PERC APPROACH (04/30/18) Family History: States: Unknown Family Hx - Social History Hx Tobacco Use: Yes Hx Alcohol Use: Yes Hx Substance Use: No - Immunization History Hx Tetanus Toxoid Vaccination: Yes Hx Influenza Vaccination: No Hx Pneumococcal Vaccination: No Review Of Systems Constitutional: Negative for: Fever, Chills Cardiovascular: Negative for: Chest Pain, Palpitations Respiratory: Negative for: Cough, Shortness of Breath Gastrointestinal: Negative for: Nausea, Vomiting Physical Exam - Physical Exam Appears: Non-toxic, Unkempt, Other (ETOH on breath) Skin: Normal Color, Warm, Dry Head: Atraumatic, Normacephalic Eye(s): bilateral: Normal Inspection Oral Mucosa: Moist Chest: Symmetrical, No Tenderness Cardiovascular: Rhythm Regular Respiratory: Normal Breath Sounds, No Rales, No Rhonchi, No Wheezing Gastrointestinal/Abdominal: Soft, No Tenderness Neurological/Psych: Oriented x3, Normal Speech ED Course And Treatment O2 Sat by Pulse Oximetry: 98 (Room air) Pulse Ox Interpretation: Normal Medical Decision Making Medical Decision Making: Patient resting comfortably in the ER in no acute distress, vitals are stable, patient clinically sober and stable for discharge. Disposition - Disposition Disposition: HOME/ ROUTINE Disposition Time: 04:30 Condition: STABLE Additional Instructions: Return if worsened. Instructions: Alcohol Use - When Is Drinking a Problem? Forms: [employer] [facility] (Monegasque) - Clinical Impression Clinical Impression: Alcoholic intoxication - PA / PACKAGING CLERK / Resident Statement MD/DO has reviewed & agrees with the documentation as recorded. - Scribe Statement The provider has reviewed the documentation as recorded by the Scribchristen Sumner All medical record entries made by the Scribe were at my direction and personally dictated by me. I have reviewed the chart and agree that the record accurately reflects my personal performance of the history, physical exam, medical decision making, and the department course for this patient. I have also personally directed, reviewed, and agree with the discharge instructions and disposition.
[2018-06-11 04:48] VITALS: BP 102/71; PULSE 81; RESP 20; TEMP 98.1
[2018-06-11] MEDS ORDERED: Ammonia 2% Inhalant ONE (04:58)
[2018-06-11 21:00] VITALS: O2SAT 98
== END 2018-06-11 04:59 | disposition home or self-care (01) ==
LOC: C.ER 01:06
DX: F10.129 Alcohol abuse with intoxication, unspecified (principal); F20.9 Schizophrenia, unspecified; I10 Essential (primary) hypertension; Z72.0 Tobacco use

== ENCOUNTER 2018-06-18 23:13 | Emergency (ER) | payer OTHER ==
[2018-06-18 23:32] VITALS: BMI 25.0
--- NOTE | 2018-06-18 23:46 | C.PDOC ---
History Of Present Illness 53 year old female presents to the ED BIBA for public intoxication. Pt had been living at a local [facility] but currently, again homeless. Patient has a history of many evaluations in the ED for alcohol abuse. Last ED visit for alcohol abuse was on 06/11/18. Denies SI/HI. Patient has a bottle containing a gallon of vodka in possession. Patient was hospitalized from 04/30-05/16 for open reduction internal fixation of right ankle status post fracture. Last right foot XR was on 06/08/18. Time Seen by Provider: 06/18/18 23:18 History Per: Patient, EMS History/Exam Limitations: no limitations Onset/Duration Of Symptoms: Hrs Current Symptoms Are (Timing): Still Present Suicide/Self Injury Attempted (Context): None Modifying Factor(s): Alcohol Associated Symptoms: denies: Suicidal Thoughts, Suicidal Plan Involuntary Hold By: None Additional History Per: Prior Records Past Medical History Reviewed: Historical Data, Nursing Documentation, Vital Signs - Medical History PMH: Anemia, Anxiety, Asthma, COPD, Depression, Fractures (right ankle), Gastritis, HTN, Paranoia, Pneumonia, Schizophrenia, Seizures, TIA Denies: Diabetes, Hepatitis, HIV, Chronic Kidney Disease, Sexually Transmitted Disease Other Surgeries: Hx of surgeries - [facility] Procedures ALCOHOL DETOXIFICATION (12/21/14) APPLICATION OF SPLINT (05/22/14) DETOXIFICATION SERVICES FOR SUBSTANCE ABUSE TREATMENT (09/20/16) EXTRACTION OF RIGHT LOWER LEG SKIN, EXTERNAL APPROACH (06/07/18) GROUP WALLET ASSEMBLER FOR SUBSTANCE ABUSE TREATMENT, PSYCHOEDUCATION (12/12/15) INDIV WALLET ASSEMBLER FOR SUBSTANCE ABUSE, COGNITIVE BEHAVIORAL (03/06/16) INDIV PSYCHOTHERAPY FOR SUBSTANCE ABUSE TREATMENT, SUPPORT (03/06/16) INJECT/INFUSE NEC (12/19/13) INSERTION OF EXT FIX INTO R FIBULA, OPEN APPROACH (04/30/18) REMOVAL OF EXT FIX FROM R FIBULA, LINEWORKER APPROACH (04/30/18) REPOSITION RIGHT FIBULA WITH INT FIX, OPEN APPROACH (04/30/18) REPOSITION RIGHT FIBULA WITH INT FIX, PERC APPROACH (04/30/18) Family History: States: No Known Family Hx - Social History Hx Tobacco Use: Yes Hx Alcohol Use: Yes Hx Substance Use: No - Immunization History Hx Tetanus Toxoid Vaccination: Yes Hx Influenza Vaccination: No Hx Pneumococcal Vaccination: No Review Of Systems Except As Marked, All Systems Reviewed And Found Negative. Gastrointestinal: Negative for: Vomiting, Abdominal Pain Psych: Negative for: Suicidal ideation Physical Exam - Physical Exam Appears: Non-toxic, No Acute Distress, Other (intoxicated, bizzare, foul smelling, disheveled, non-compliant, argumentative) Skin: Warm, Dry, No Rash Head: Normacephalic Eye(s): bilateral: Normal Inspection Nose: Normal Oral Mucosa: Moist Neck: Supple Chest: Symmetrical Cardiovascular: Rhythm Regular Respiratory: No Normal Breath Sounds, No Rales, No Rhonchi, No Wheezing Gastrointestinal/Abdominal: Soft, No Tenderness Extremity: Other (Posterior splint to right foot, wet, foul smelling. no bug infestation, no localized pain. ) Pulses: Left Dorsalis Pedis: Normal, Right Dorsalis Pedis: Normal Neurological/Psych: Oriented x3, Normal Speech Gait: Steady ED Course And Treatment - Other Rad R ankle X-Ray: Interpreted by Me (continued healing of R ankle s/p ORIF. ) Medical Decision Making Medical Decision Making: Plan - XR right ankle Homeless: usually she is not tolerated in the [facility] setting and probably got her self kicked out again. Other referrals suggested Alcoholism: Detoxed during admission 04/30- drinking heavily again full GALLON of vodka on her person on eval Referred to AA again R ankle Fx skin healing nicely macerated superficial ankle skin due to wet splint and pt ambulating freely in the winter raining weather. Splint removed. Wound vac in placed. Mildly swollen tissue. No cellulitis. Good distal pulses. Skin cleaned, and fresh dry splint applied Recent x-ray of ankle suggest additional time required in splint for adequate healing and bone remineralization Pt knows to f/u with Dr. Hurley in her [facility]. Disposition Doctor Will See Patient In The: Office Counseled Patient/Family Regarding: Studies Performed, Diagnosis - Disposition Referrals: Alcoholics Anonymous [Outside] [facility] [Outside] [facility] [Outside] at [facility] [Outside] Rola Hurley DPM [Staff Provider] - Disposition: HOME/ ROUTINE Disposition Time: 01:55 Condition: GOOD Additional Instructions: keep your ankle splint dry and covered Follow-up with Dr. Hurley in Podiatry Clinic Alcoholism: Seek AA [facility] placement: Seek a new [facility] Instructions: Alcohol Use - When Is Drinking a Problem?, Cast Care Forms: [facility] (Frisian) - Clinical Impression Clinical Impression: Alcohol abuse, Follow-up fracture care for healing fracture, Homeless single person - Scribe Statement The provider has reviewed the documentation as recorded by the Scribe Beth Beckham All medical record entries made by the Scribe were at my direction and personally dictated by me. I have reviewed the chart and agree that the record accurately reflects my personal performance of the history, physical exam, medical decision making, and the department course for this patient. I have also personally directed, reviewed, and agree with the discharge instructions and disposition.
[2018-06-19] MEDS ORDERED: Ammonia 2% Inhalant ONE (00:24)
[2018-06-19 04:48] VITALS: BP 130/80; PULSE 84
[2018-06-19 06:30] VITALS: RESP 20; TEMP 98; O2SAT 98
--- NOTE | 2018-06-19 12:32 | RAD ---
PROCEDURE: Right Ankle Radiographs. HISTORY: fx with repair 05/02 COMPARISON: Right ankle radiographs performed 05/11/18 FINDINGS: Images obtained through a splint which obscures osseous detail. BONES: Status post ORIF of distal tibia fracture with plate and screw fixation re-identified in similar alignment. Lucent tibial fracture lines persist with evidence of increased callus formation since prior study. Osseous demineralization. JOINTS: No dislocation. SOFT TISSUES: Soft tissue swelling. No evidence of radiopaque foreign body. OTHER FINDINGS: Drainage catheter noted laterally. IMPRESSION: Status post ORIF distal tibial fractures as above. Soft tissue swelling. Drainage catheter.
== END 2018-06-19 06:28 | disposition home or self-care (01) ==
LOC: C.ER 23:13
DX: F10.10 Alcohol abuse, uncomplicated (principal); S82.891D Other fracture of right lower leg, subsequent encounter for closed fracture with routine healing; Z59.0 Homelessness

== ENCOUNTER 2018-06-20 07:11 | Emergency (ER) | payer OTHER ==
[2018-06-20 07:11] VITALS: BMI 25.0
[2018-06-20 07:22] VITALS: RESP 20
--- NOTE | 2018-06-20 08:15 | C.PDOC ---
History Of Present Illness 53 years old female brought to ED by ambulance for evaluation of bilateral foot pain. Patient is s/p ORIF of right ankle on 05/03/18, subsequently developed a wound dehiscence. Patient currently complains of left big toe pain and right leg/lower leg pain. She denies fever, sensory changes, new injuries/falls. Patient was supposed to follow up with podiatry this monday, but did not due to them being closed for the holiday. Time Seen by Provider: 06/20/18 07:13 Chief Complaint (Nursing): Lower Extremity Problem/Injury History Per: Patient History/Exam Limitations: no limitations Onset/Duration Of Symptoms: Days Current Symptoms Are (Timing): Still Present Severity: Moderate Recent travel outside of the [place]: No Past Medical History Reviewed: Historical Data, Nursing Documentation, Vital Signs Vital Signs: Last Vital Signs Temp 98.3 F 06/20/18 07:18 Pulse 93 H 06/20/18 07:18 Resp 20 06/20/18 07:18 BP 138/91 H 06/20/18 07:18 Pulse Ox 100 06/20/18 07:18 - Medical History PMH: Anemia, Anxiety, Asthma, COPD, Depression, Fractures (right ankle), Gas tritis, HTN, Paranoia, Pneumonia, Schizophrenia, Seizures, TIA - [facility] Procedures ALCOHOL DETOXIFICATION (12/21/14) APPLICATION OF SPLINT (05/22/14) DETOXIFICATION SERVICES FOR SUBSTANCE ABUSE TREATMENT (09/20/16) EXTRACTION OF RIGHT LOWER LEG SKIN, EXTERNAL APPROACH (06/07/18) GROUP REAL ESTATE UTILIZATION OFFICER FOR SUBSTANCE ABUSE TREATMENT, PSYCHOEDUCATION (12/12/15) INDIV REAL ESTATE UTILIZATION OFFICER FOR SUBSTANCE ABUSE, COGNITIVE BEHAVIORAL (03/06/16) INDIV PSYCHOTHERAPY FOR SUBSTANCE ABUSE TREATMENT, SUPPORT (03/06/16) INJECT/INFUSE NEC (12/19/13) INSERTION OF EXT FIX INTO R FIBULA, OPEN APPROACH (04/30/18) REMOVAL OF EXT FIX FROM R FIBULA, CRYSTALLOGRAPHER APPROACH (04/30/18) REPOSITION RIGHT FIBULA WITH INT FIX, OPEN APPROACH (04/30/18) REPOSITION RIGHT FIBULA WITH INT FIX, PERC APPROACH (04/30/18) Family History: States: No Known Family Hx - Social History Hx Tobacco Use: Yes Hx Alcohol Use: Yes Hx Substance Use: No - Immunization History Hx Tetanus Toxoid Vaccination: No Hx Influenza Vaccination: No Hx Pneumococcal Vaccination: No Review Of Systems Constitutional: Negative for: Fever, Chills Gastrointestinal: Negative for: Nausea, Vomiting, Diarrhea Musculoskeletal: Positive for: Leg Pain, Foot Pain (Right lower leg/ankle pain), Other (Left big toe pain ) Skin: Negative for: Rash Neurological: Negative for: Weakness, Numbness Physical Exam - Physical Exam Appears: Well, Non-toxic, In Acute Distress (in Mild/Moderate pain) Skin: Normal Color, Warm, Dry, No Rash Head: Normacephalic Eye(s): bilateral: Normal Inspection Oral Mucosa: Moist Neck: Supple Cardiovascular: Rhythm Regular Respiratory: Normal Breath Sounds, No Rales, No Rhonchi, No Wheezing Extremity: Tenderness (Left foot Mild Tenderness at first toe), Capillary Refill (< 2 sec all digits ), Swelling (Right/ Lower leg moderate swelling. ), Other (Left toe has no obvious swelling or deformity; (+) scattered excoriations. Right lower leg with wound VAC on lateral aspect, (+) large wound dehisense in vertical orientation ) Pulses: Left Dorsalis Pedis: Normal, Right Dorsalis Pedis: Normal Neurological/Psych: Oriented x3, Other (mild tremors noted ) ED Course And Treatment - Laboratory Results Result Diagrams: 06/20/18 10:52 06/20/18 10:52 O2 Sat by Pulse Oximetry: 100 (RA) Pulse Ox Interpretation: Normal Progress Note: Patient given PO tylenol, PO Librium. Podiatry spoken with and sill come evaluate patient/wound. . 10:25- Podiatry requesting blood work - ordered. Xrays ordered and reviewed by them. 14:15- Patient cleared for discharge from podiatry standpoint. Patient instructed to follow up in podiatry clinic next wekk. She understands she should return to ED if she has any worsening or concerning symptoms. Reevaluation Time: 14:15 Reassessment Condition: Improved (Patient comfortable, pain has improved, has no tremors on exam. Ambulating with crutches.) Disposition Counseled Patient/Family Regarding: Studies Performed, Diagnosis, Need For Followup - Disposition Referrals: [facility] at [facility] [Outside] Disposition: HOME/ ROUTINE Disposition Time: 14:15 Condition: STABLE Additional Instructions: FOLLOW UP IN PODIATRY CLINIC SCHEDULED USE MOTRIN OR TYLENOL FOR PAIN NEEDED RETURN TO ER IF SYMPTOMS WORSEN Instructions: Wound Dehiscence (DC) Forms: [facility] [employer] [facility] (Citizen Of [place]) Print Language: ARMENIAN - Clinical Impression Clinical Impression: Postoperative wound dehiscence, Pain in right lower leg - Scribe Statement The provider has reviewed the documentation as recorded by the Isis Panchal All medical record entries made by the Tootieibchristen were at my direction and personal ly dictated by me. I have reviewed the chart and agree that the record accurately reflects my personal performance of the history, physical exam, medical decision making, and the department course for this patient. I have also personally directed, reviewed, and agree with the discharge instructions and disposition.
[2018-06-20 11:15] LABS: BASO % 1.2 % (0.0-2.0); EOS % 0.9 % (0.0-4.0); HEMOGLOBIN 10.3 g/dL (11.0-16.0); LYMPH # 0.9 K/uL (1.0-4.3); LYMPH % 27.1 % (20.0-40.0); MEAN CORPUSCULAR HEMOGLOBIN 29.2 pg (27.0-31.0); MEAN CORPUSCULAR HGB CONC 33.2 g/dL (33.0-37.0); MEAN PLATELET VOLUME 6.8 fL (7.2-11.7); MONO # 0.3 K/uL (0.0-0.8); MONO % 9.9 % (0.0-10.0); NEUT % 60.9 % (50.0-75.0); NRBC % 0.1 % (0.0-2.0); RBC 3.53 Mil/uL (3.80-5.20); RED CELL DISTRIBUTION WIDTH 16.9 % (11.5-14.5); WHITE BLOOD COUNT 3.2 K/uL (4.8-10.8)
--- NOTE | 2018-06-20 11:53 | CP.PCM.CON ---
History of Present Illness - History of Present Illness History of Present Illness: Podiatry Consult Note - Dr. Hurley 53 y/o female with PMHx of alcohol abuse, HTN, pneumonia, heart murmur, asthma, eczema, anxiety and depression known to Dr. Hurley's service seen in ED this morning 5 weeks s/p ORIF of right pilon fracture and 6 weeks s/p application of delta frame. Pt states she is having a lot of pain to the right ankle as well as the left great toe. States she has not followed medical advice and has been walking on the right ankle since the surgery. Says dressings often get wet and she is not always able to follow up with us. States she has been experiencing fever and chills and says this is because she had pneumonia recently. Says the vac dressing has remained in place since she was last seen by podiatry in [employer]. Denies nausea, vomiting or shortness of breath. PSH: D&C, application of delta frame R ankle, ORIF R ankle All: shellfish SocHx: Drinks 1/2-1 bottle vodka per day; denies cigarette or illicit drug use Review of Systems - Review of Systems All systems: reviewed and no additional remarkable complaints except (per HPI) Past Patient History - Infectious Disease Hx of Infectious Diseases: None - Tetanus Immunizations Tetanus Immunization: Unknown - Past Medical History & Family History Past Medical History?: Yes - Past Social History Smoking Status: Never Smoked - CARDIAC Hx Hypertension: Yes - PULMONARY Hx Asthma: Yes Hx Chronic Obstructive Pulmonary Disease (COPD): Yes Hx Pneumonia: Yes - NEUROLOGICAL Hx Seizures: Yes Hx Transient Ischemic Attacks (TIA): Yes - HEENT Hx HEENT Problems: Yes Other/Comment: Eye glasses - RENAL Hx Chronic Kidney Disease: No - ENDOCRINE/METABOLIC Hx Endocrine Disorders: No - HEMATOLOGICAL/ONCOLOGICAL Hx Anemia: Yes - INTEGUMENTARY Hx Dermatological Problems: Yes Hx Eczema: Yes Hx Psoriasis: Yes Other/Comment: Scabies - MUSCULOSKELETAL/RHEUMATOLOGICAL Hx Fractures: Yes (right ankle) - GASTROINTESTINAL Hx Gastritis: Yes - GENITOURINARY/GYNECOLOGICAL Hx Sexually Transmitted Disorders: No - PSYCHIATRIC Hx Anxiety: Yes Hx Depression: Yes Hx Paranoia: Yes Hx Schizophrenia: Yes Hx Substance Use: No - SURGICAL HISTORY Hx Surgeries: Yes Hx Dilation and Curettage: Yes Other/Comment: rt leg s/p fx - ANESTHESIA Hx Anesthesia: Yes Hx Anesthesia Reactions: No Hx Malignant Hyperthermia: No Meds Allergies/Adverse Reactions: Allergies Allergy/AdvReac Type Severity Reaction Status Date / Time shellfish derived Allergy Severe SWELLING Verified 06/20/18 07:20 Physical Exam - Constitutional Appears: Well, Non-toxic, No Acute Distress - Extremities Exam Additional comments: Lower extremity focused examination: Vasc: DP/PT pulses palpable 2/4 bilaterally. Temperature gradient is warm to warm on right, warm to cool on left. Diffuse edema noted to entirety of right lower leg and ankle as well as left 1st MPJ and left great toe. Capillary refill time < 3 sec to all digits Derm: Open wound noted to anterolateral lower right leg measuring approximately 12cm x 10cm x 0.3cm with mixed granular and fibrotic wound base and biofilm formation noted. Mild serosanguinous drainage noted. Mild malodor present. No fluctuance, no evidence of abscess formation. Neuro: protective and gross sensation intact to lower extremities Ortho: mild-moderate tenderness elicited upon palpation of left great toe. Minimal tenderness to palpation of right lower leg wound - Neurological Exam Neurological exam: Alert, Oriented x3 - Psychiatric Exam Psychiatric exam: Normal Affect, Normal Mood Results - Vital Signs Recent Vital Signs: Last Vital Signs Temp 98.3 F 06/20/18 07:18 Pulse 92 H 06/20/18 09:40 Resp 20 06/20/18 09:40 BP 122/82 06/20/18 09:40 Pulse Ox 99 06/20/18 09:40 - Labs Result Diagrams: 06/20/18 10:52 06/20/18 10:52 Assessment & Plan - Assessment and Plan (Free Text) Assessment: 53 y/o female with 1) 5 weeks s/p right ankle open reduction with internal fixation with open post-surgical wound to right lower leg and 2) left great toe pain secondary to metatarsophalangeal joint dislocation Plan: Pt seen and evaluated in ED Discussed plan with attending Dr. Hurley New x-rays of right ankle and tibia-fibula taken - reveal osseous growth surrounding surgical hardware sites with bone resorption noted, callus formation around fracture sites evident; no signs of hardware failure at present Left foot x-rays taken - 1st metatarsophalangeal joint in adequate position; no new fractures Right leg wound cleaned with saline and dressed with betadine, DSD; new posterior splint applied to RLE Webril and ROLO bandage applied to LLE Pt advised to remain NWB to the right lower extremity and utilize crutches at all times Pt advised to follow up in [facility] podiatry clinic on Mondays from 12- 3pm Thank you for this consult
--- NOTE | 2018-06-20 12:15 | RAD ---
Date of service: 06/20/2018 PROCEDURE: Radiographs of the right tibia and fibula. HISTORY: s/p surgery COMPARISON: None available TECHNIQUE: Frontal and lateral views obtained. FINDINGS: BONES: Status post ORIF distal tibial fractures including medial and posterior malleoli. Plate and screw fixation device along the lateral aspect of the distal tibial diaphysis. Oblique screw through the medial malleolus no fibular fracture identified fracture fragments are in near anatomic alignment. JOINT SPACES: Unremarkable. OTHER FINDINGS: None. IMPRESSION: Status post ORIF comminuted distal tibial fracture.
--- NOTE | 2018-06-20 12:23 | RAD ---
Date of service: 06/20/2018 PROCEDURE: Right Ankle Radiographs. HISTORY: s/p right ankle surgery; s/p left MPJ dislocation COMPARISON: 06/19/2018 FINDINGS: BONES: Status post ORIF comminuted distal tibial fracture. Orthopedic hardware is intact near anatomic alignment achieved. Surgical drains have been removed since the prior examination. There is productive bony change seen about the distal tibial fracture., JOINTS: Ankle mortise preserved. Talar dome intact. SOFT TISSUES: Normal. OTHER FINDINGS: None. IMPRESSION: Status post ORIF comminuted distal tibial fracture.
--- NOTE | 2018-06-20 12:23 | RAD ---
Date of service: 06/20/2018 PROCEDURE: Left Foot Radiographs. HISTORY: s/p left first MPJ dislocation COMPARISON: 04/30/2018 FINDINGS: BONES: Normal. No fracture. JOINTS: Normal. SOFT TISSUES: Normal. OTHER FINDINGS: None. IMPRESSION: Normal left foot radiographs.
[2018-06-20 14:25] VITALS: BP 121/70; PULSE 74; TEMP 98.9
[2018-06-20 15:13] LABS: BLOOD UREA NITROGEN 11 mg/dL (7-17); GFR NON-AFRICAN AMERICAN > 60
[2018-06-20 15:14] LABS: ALB/GLOB RATIO 1.1 (1.0-2.1); ALBUMIN 3.9 g/dL (3.5-5.0); ALT/SGPT 16 U/L (9-52); AST/SGOT 41 U/L (14-36); CALCIUM 9.3 mg/dl (8.6-10.4)
[2018-06-27 09:17] VITALS: O2SAT 100
== END 2018-06-20 14:25 | disposition home or self-care (01) ==
LOC: C.ER 07:11
DX: S81.801D Unspecified open wound, right lower leg, subsequent encounter (principal); S93.12 Dislocation of metatarsophalangeal joint; X58.XXXD Exposure to other specified factors, subsequent encounter
CPT/HCPCS: 29515; 73590; 73610; 73630; 80053; 85025; 87070; 87181; 96372; 99285; J1885

== ENCOUNTER 2018-07-05 21:56 | Emergency (ER) | payer OTHER ==
[2018-07-05 21:56] VITALS: BMI 25.0
== END 2018-07-05 21:57 | disposition left against medical advice (07) ==
LOC: C.ER 21:56
DX: Z02.89 Encounter for other administrative examinations (principal); Z00.00 Encounter for general adult medical examination without abnormal findings

== ENCOUNTER 2018-07-14 05:38 | Emergency (ER) | payer SELFPAY ==
[2018-07-14 05:39] VITALS: BMI 25.0
[2018-07-14 05:51] VITALS: BP 149/91; PULSE 93; RESP 16; TEMP 97.4; O2SAT 100
--- NOTE | 2018-07-14 06:35 | C.PDOC ---
History Of Present Illness 53 year old female is brought to the ED by EMS for evaluation of chronic right leg pain and alcohol intoxication. Patient is ambulating using crutches. Upon arrival to the ED patient was found to have alcohol with her which was removed from her. Patient refused to be examined, became aggressive, combative and started yelling profanities to the staff. Time Seen by Provider: 07/14/18 06:04 Chief Complaint (Nursing): Substance Abuse History Per: Patient, EMS History/Exam Limitations: intoxication Onset/Duration Of Symptoms: Hrs Current Symptoms Are (Timing): Still Present Suicide/Self Injury Attempted (Context): None Modifying Factor(s): Alcohol Associated Symptoms: Anger. denies: Depression, Suicidal Thoughts, Suicidal Plan Recent travel outside of the [place]: No Additional History Per: Patient, EMS Past Medical History Reviewed: Historical Data, Nursing Documentation, Vital Signs Vital Signs: Last Vital Signs Temp 97.4 F L 07/14/18 05:49 Pulse 93 H 07/14/18 05:49 Resp 16 07/14/18 06:17 BP 149/91 H 07/14/18 05:49 Pulse Ox 100 07/14/18 05:49 - Medical History PMH: Anemia, Anxiety, Asthma, COPD, Depression, Fractures (right ankle), Gastritis, HTN, Paranoia, Pneumonia, Schizophrenia, Seizures, TIA Denies: Diabetes, Hepatitis, HIV, Chronic Kidney Disease, Sexually Transmitte d Disease Surgical History: No Surg Hx - [facility] Procedures ALCOHOL DETOXIFICATION (12/21/14) APPLICATION OF SPLINT (05/22/14) DETOXIFICATION SERVICES FOR SUBSTANCE ABUSE TREATMENT (09/20/16) EXTRACTION OF RIGHT LOWER LEG SKIN, EXTERNAL APPROACH (06/07/18) GROUP INCINERATOR PLANT SUPERVISOR FOR SUBSTANCE ABUSE TREATMENT, PSYCHOEDUCATION (12/12/15) INDIV INCINERATOR PLANT SUPERVISOR FOR SUBSTANCE ABUSE, COGNITIVE BEHAVIORAL (03/06/16) INDIV PSYCHOTHERAPY FOR SUBSTANCE ABUSE TREATMENT, SUPPORT (03/06/16) INJECT/INFUSE NEC (12/19/13) INSERTION OF EXT FIX INTO R FIBULA, OPEN APPROACH (04/30/18) REMOVAL OF EXT FIX FROM R FIBULA, SPRINKLING TRUCK DRIVER APPROACH (04/30/18) REPOSITION RIGHT FIBULA WITH INT FIX, OPEN APPROACH (04/30/18) REPOSITION RIGHT FIBULA WITH INT FIX, PERC APPROACH (04/30/18) Family History: States: Unknown Family Hx - Social History Hx Tobacco Use: Yes Hx Alcohol Use: Yes Hx Substance Use: No - Immunization History Hx Tetanus Toxoid Vaccination: Yes Hx Influenza Vaccination: No Hx Pneumococcal Vaccination: No Review Of Systems Review Of Systems: ROS cannot be obtained secondary to pt's inabilty to answer questions. (refused to answer) Physical Exam - Physical Exam Appears: No Acute Distress, Unkempt, Other (agressive, yelling) Additional Physical Exam Comments: Patient refused to be examined ED Course And Treatment O2 Sat by Pulse Oximetry: 100 (ON RA) Pulse Ox Interpretation: Normal Progress Note: Patient with a splint in right lower leg, ambulating using crutches and left the ER. Disposition - Disposition Disposition: HOME/ ROUTINE Disposition Time: 05:00 Condition: GOOD Forms: [facility] (Mauritanian) - Clinical Impression Clinical Impression: History of alcohol abuse - PA / EYEWEAR MANUFACTURING SUPERVISOR / Resident Statement MD/DO has reviewed & agrees with the documentation as recorded. - Scribe Statement The provider has reviewed the documentation as recorded by the Scribe Julio C Rios All medical record entries made by the Scribe were at my direction and personally dictated by me. I have reviewed the chart and agree that the record accurately reflects my personal performance of the history, physical exam, medical decision making, and the department course for this patient. I have also personally directed, reviewed, and agree with the discharge instructions and disposition.
== END 2018-07-14 06:25 | disposition home or self-care (01) ==
LOC: C.ER 05:38
DX: F10.129 Alcohol abuse with intoxication, unspecified (principal); Y90.9 Presence of alcohol in blood, level not specified

== ENCOUNTER 2018-07-16 23:51 | Emergency (ER) | payer SELFPAY ==
[2018-07-16 23:53] VITALS: BMI 25.0
[2018-07-17 00:05] VITALS: BP 151/87; PULSE 112; RESP 20; TEMP 98.6; O2SAT 98
== END 2018-07-17 00:40 | disposition left against medical advice (07) ==
LOC: C.ER 23:51
DX: Z02.89 Encounter for other administrative examinations (principal); M79.606 Pain in leg, unspecified

== ENCOUNTER 2018-07-21 21:47 | Emergency (ER) | payer MEDICAID ==
[2018-07-21 21:47] VITALS: BMI 25.0
[2018-07-21 22:02] VITALS: RESP 18; TEMP 98; O2SAT 98
--- NOTE | 2018-07-21 22:09 | C.PDOC ---
History Of Present Illness 53 year old female is brought to the ED by EMS and escorted by the Police due to her behaviour. Patient is a local homeless alcoholic with many prior evaluations for the same presentation. Patient denies SI/HI, hallucinations, injury, fall, trauma. Time Seen by Provider: 07/21/18 22:06 Chief Complaint (Nursing): Substance Abuse History Per: Patient, EMS History/Exam Limitations: intoxication Onset/Duration Of Symptoms: Hrs Current Symptoms Are (Timing): Still Present Suicide/Self Injury Attempted (Context): None Modifying Factor(s): Alcohol Associated Symptoms: Anger. denies: Depression, Suicidal Thoughts, Suicidal Plan Involuntary Hold By: Local Law Enforcement Recent travel outside of the [place]: No Additional History Per: Patient, EMS Past Medical History Reviewed: Historical Data, Nursing Documentation, Vital Signs Vital Signs: Last Vital Signs Temp 98 F 07/21/18 22:00 Pulse 87 07/21/18 22:00 Resp 18 07/21/18 22:00 BP 159/79 H 07/21/18 22:00 Pulse Ox 98 07/21/18 22:00 - Medical History PMH: Anemia, Anxiety, Asthma, COPD, Depression, Fractures (right ankle), Gastritis, HTN, Paranoia, Pneumonia, Schizophrenia, Seizures, TIA Denies: Diabetes, Hepatitis, HIV, Chronic Kidney Disease, Sexually Transmitted Disease Surgical History: No Surg Hx - [facility] Procedures ALCOHOL DETOXIFICATION (12/21/14) APPLICATION OF SPLINT (05/22/14) DETOXIFICATION SERVICES FOR SUBSTANCE ABUSE TREATMENT (09/20/16) EXTRACTION OF RIGHT LOWER LEG SKIN, EXTERNAL APPROACH (06/07/18) GROUP LABORER OPERATOR FOR SUBSTANCE ABUSE TREATMENT, PSYCHOEDUCATION (12/12/15) INDIV LABORER OPERATOR FOR SUBSTANCE ABUSE, COGNITIVE BEHAVIORAL (03/06/16) INDIV PSYCHOTHERAPY FOR SUBSTANCE ABUSE TREATMENT, SUPPORT (03/06/16) INJECT/INFUSE NEC (12/19/13) INSERTION OF EXT FIX INTO R FIBULA, OPEN APPROACH (04/30/18) REMOVAL OF EXT FIX FROM R FIBULA, ACADEMIC REGISTRAR APPROACH (04/30/18) REPOSITION RIGHT FIBULA WITH INT FIX, OPEN APPROACH (04/30/18) REPOSITION RIGHT FIBULA WITH INT FIX, PERC APPROACH (04/30/18) Family History: States: Unknown Family Hx - Social History Hx Tobacco Use: Yes Hx Alcohol Use: Yes Hx Substance Use: No - Immunization History Hx Tetanus Toxoid Vaccination: Yes Hx Influenza Vaccination: No Hx Pneumococcal Vaccination: No Review Of Systems Constitutional: Negative for: Fever, Chills Eyes: Negative for: Vision Change Cardiovascular: Negative for: Chest Pain Respiratory: Negative for: Shortness of Breath Gastrointestinal: Negative for: Nausea, Vomiting, Abdominal Pain Skin: Negative for: Rash Psych: Negative for: Depression, Suicidal ideation Physical Exam - Physical Exam Appears: Non-toxic, No Acute Distress, Unkempt, Other (disheveled, foul smelling) Skin: Normal Color, Warm, Dry Head: Atraumatic, Normacephalic Eye(s): bilateral: Normal Inspection Neck: Normal ROM, Supple Chest: Symmetrical Cardiovascular: Rhythm Regular Respiratory: Normal Breath Sounds, No Rales, No Rhonchi, No Wheezing Gastrointestinal/Abdominal: Soft, No Tenderness, No Guarding, No Rebound Extremity: Right: Other (right foot cast for weeks), Bilateral: Atraumatic, Normal Color And Temperature, Normal ROM Neurological/Psych: Oriented x3, Normal Speech, Normal Cognition Gait: Steady ED Course And Treatment O2 Sat by Pulse Oximetry: 98 (ON RA) Pulse Ox Interpretation: Normal Medical Decision Making Medical Decision Making: public intox no acute injuries stable healing ankle ORIF without infection ok for opt f/u. Disposition Doctor Will See Patient In The: Office Counseled Patient/Family Regarding: Studies Performed, Diagnosis - Disposition Referrals: Alcoholics Anonymous [Outside] [facility] [Outside] [facility] [Outside] [facility] [Outside] Romario Hurley DPM [Medical Doctor] - Disposition: HOME/ ROUTINE Disposition Time: 22:18 Condition: GOOD Additional Instructions: outpatient Podiatry Clinic follow-up Instructions: Alcohol Abuse and Alcoholism (DC) Forms: [facility] (Turkmen) - Clinical Impression Clinical Impression: Alcohol abuse - Scribe Statement The provider has reviewed the documentation as recorded by the Scribe Julio C Rios All medical record entries made by the Scribe were at my direction and personally dictated by me. I have reviewed the chart and agree that the record accurately reflects my personal performance of the history, physical exam, medical decision making, and the department course for this patient. I have also personally directed, reviewed, and agree with the discharge instructions and disposition.
[2018-07-21 22:51] VITALS: BP 123/69; PULSE 78
== END 2018-07-21 22:51 | disposition home or self-care (01) ==
LOC: C.ER 21:47
DX: F10.10 Alcohol abuse, uncomplicated (principal); F20.9 Schizophrenia, unspecified; I10 Essential (primary) hypertension; J44.9 Chronic obstructive pulmonary disease, unspecified; Z59.0 Homelessness; Z86.73 Personal history of transient ischemic attack (TIA), and cerebral infarction without residual deficits; Z72.0 Tobacco use

== ENCOUNTER 2018-07-22 07:28 | Emergency (ER) | payer MEDICAID ==
[2018-07-22 07:34] VITALS: BMI 20.7
[2018-07-22 07:54] VITALS: RESP 20
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
[2018-07-22 08:29] LABS: BASO # 0.1 K/uL (0.0-0.2); BASO % 1.1 % (0.0-2.0); EOS # 0.1 K/uL (0.0-0.7); EOS % 3.2 % (0.0-4.0); HEMOGLOBIN 9.1 g/dL (11.0-16.0); MEAN CELL VOLUME 86.4 fL (81.0-99.0); MEAN CORPUSCULAR HEMOGLOBIN 28.2 pg (27.0-31.0); MEAN CORPUSCULAR HGB CONC 32.6 g/dL (33.0-37.0); MEAN PLATELET VOLUME 7.1 fL (7.2-11.7); MONO # 0.3 K/uL (0.0-0.8); MONO % 7.3 % (0.0-10.0); NEUT # 3.1 K/uL (1.8-7.0); NEUT % 67.4 % (50.0-75.0); RBC 3.22 Mil/uL (3.80-5.20); RED CELL DISTRIBUTION WIDTH 17.6 % (11.5-14.5); WHITE BLOOD COUNT 4.6 K/uL (4.8-10.8)
[2018-07-22 08:46] LABS: ALB/GLOB RATIO 1.1 (1.0-2.1); ALBUMIN 4.2 g/dL (3.5-5.0); ALT/SGPT 18 U/L (9-52); AST/SGOT 55 U/L (14-36); BLOOD UREA NITROGEN 13 mg/dL (7-17); CALCIUM 8.2 mg/dl (8.6-10.4); GFR NON-AFRICAN AMERICAN > 60
--- NOTE | 2018-07-22 09:51 | RAD ---
Date of service: 07/22/2018 PROCEDURE: Right Foot Radiographs. HISTORY: swelling COMPARISON: Right ankle radiographs 06/20/2018. FINDINGS: BONES: Prior ORIF again seen the distal right tibia comprised of a solitary compression plate and multiple compression screws partially captured in this exam. A solitary independent compression screws identified at the medial malleolus. Gross soft tissue edema is appreciated throughout the midfoot primarily but also moderately affects the forefoot and hindfoot as well as ankle. No definitive acute fracture or dislocation. Disuse osteopenia affects the entire foot. No retained radiodense foreign body appreciable grossly. No subluxation or dislocation evident. JOINTS: As above. SOFT TISSUES: As above. OTHER FINDINGS: None. IMPRESSION: Gross diffuse soft tissue edema without emphysematous change or retained radiodense foreign body evident. Diffuse disuse osteopenia throughout right foot. Prior ORIF again seen of the right ankle as per above.
--- NOTE | 2018-07-22 09:56 | RAD ---
Date of service: 07/22/2018 PROCEDURE: Right Ankle Radiographs. HISTORY: swelling COMPARISON: Right ankle radiographs 06/20/2018. FINDINGS: BONES: Prior distal tibial ORIF unchanged in appearance including a lateral compression plate transfixed by multiple screws and a perpendicular component at the base of the plate extending medially. A solitary compression screw is seen transfixing the medial malleolus. Prominent heterotopic bone is identified posterior to the distal tibia and fibula. JOINTS: Normal. No osteoarthritis. Ankle mortise maintained. Talar dome intact. SOFT TISSUES: Extensive soft tissue edema surrounds the ankle and the visualize midfoot and hindfoot. OTHER FINDINGS: None. IMPRESSION: No signal change in ORIF hardware distal tibia. No definite acute interval fracture subluxation or dislocation identified. Soft tissue edema as discussed above.
[2018-07-22 10:02] VITALS: BP 129/77; PULSE 95; TEMP 99.1
--- NOTE | 2018-07-22 10:03 | CP.PCM.CON ---
History of Present Illness - History of Present Illness History of Present Illness: Podiatry Consult Note: Dr. Hurley 53 year old female patient seen and evaluated in the ED for R foot pain and redness; patient is s/p 10 week R pilon fracture ORIF. Patient states that her foot started to hurt yesterday. She reports pain to the wound today and generalized weakness. Patient is well known to Dr. Hurley; patient is non- compliant and does not follow up for her appointments. She presents today in surgical shoe. Denies N/V/F/SOB/CP. PMHx: Alcohol abuse, HTN, pneumonia, heart murmur, asthma, eczema, anxiety, and depression PSHx: D&C, application of delta frame R ankle, ORIF R ankle All: shellfish SHx: Drinks 1/2-1 bottle vodka per day; denies cigarette or illicit drug use Review of Systems - Constitutional Constitutional: As Per HPI Past Patient History - Infectious Disease Hx of Infectious Diseases: None - Tetanus Immunizations Tetanus Immunization: Unknown - Past Medical History & Family History Past Medical History?: Yes - Past Social History Smoking Status: Never Smoked - CARDIAC Hx Hypertension: Yes - PULMONARY Hx Asthma: Yes Hx Chronic Obstructive Pulmonary Disease (COPD): Yes Hx Pneumonia: Yes - NEUROLOGICAL Hx Seizures: Yes Hx Transient Ischemic Attacks (TIA): Yes - HEENT Hx HEENT Problems: Yes Other/Comment: Eye glasses - RENAL Hx Chronic Kidney Disease: No - ENDOCRINE/METABOLIC Hx Endocrine Disorders: No - HEMATOLOGICAL/ONCOLOGICAL Hx Anemia: Yes - INTEGUMENTARY Hx Dermatological Problems: Yes Hx Eczema: Yes Hx Psoriasis: Yes - MUSCULOSKELETAL/RHEUMATOLOGICAL Hx Fractures: Yes (right ankle) - GASTROINTESTINAL Hx Gastritis: Yes - GENITOURINARY/GYNECOLOGICAL Hx Sexually Transmitted Disorders: No - PSYCHIATRIC Hx Anxiety: Yes Hx Depression: Yes Hx Paranoia: Yes Hx Schizophrenia: Yes Hx Substance Use: No - SURGICAL HISTORY Hx Surgeries: Yes Hx Dilation and Curettage: Yes Hx Orthopedic Surgery: Yes (R foot / R ankle surgery) Other/Comment: rt leg s/p fx - ANESTHESIA Hx Anesthesia: Yes Hx Anesthesia Reactions: No Hx Malignant Hyperthermia: No Meds Home Medications: Home Medication List Medication Instructions Recorded Confirmed Type Ibuprofen [Motrin] 600 mg PO TID #20 tab 07/22/18 Rx Ibuprofen [Motrin] 600 mg PO TID #20 tab 07/22/18 Rx Allergies/Adverse Reactions: Allergies Allergy/AdvReac Type Severity Reaction Status Date / Time shellfish derived Allergy Severe SWELLING Verified 07/26/18 09:29 Physical Exam - Extremities Exam Additional comments: LE focused Vasc: DP/PT pulses palpable 2/4 bilaterally. Temperature gradient is warm to warm on right, warm to cool on left. Diffuse edema noted to entirety of right lower leg and ankle as well as left 1st MPJ and left great toe. Capillary refill time < 3 sec to all digits Derm: Full thickness wound noted to anterolateral lower right leg measuring approximately 12cm x 7 cm x 0.3cm with granular wound base. Mild serosanguinous drainage noted. No malodor present. No fluctuance, no evidence of abscess formation. No clinical signs of infection noted. Neuro: protective and gross sensation intact to lower extremities Ortho: mild-moderate tenderness elicited upon palpation of left great toe. Minimal tenderness to palpation of right lower leg wound - Neurological Exam Neurological exam: Alert Results - Vital Signs Recent Vital Signs: Last Vital Signs Temp 99.1 F 07/22/18 10:01 Pulse 95 H 07/22/18 10:01 Resp 20 07/22/18 10:01 BP 129/77 07/22/18 10:01 Pulse Ox 97 07/22/18 10:01 - Labs Result Diagrams: 07/22/18 08:24 07/22/18 08:24 Labs: Laboratory Results - last 24 hr 07/22/18 07/22/18 08:24 08:24 WBC 4.6 L RBC 3.22 L Hgb 9.1 L Hct 27.8 L MCV 86.4 MCH 28.2 MCHC 32.6 L RDW 17.6 H Plt Count 156 D MPV 7.1 L Neut % (Auto) 67.4 Lymph % (Auto) 21.0 Garfield % (Auto) 7.3 Eos % (Auto) 3.2 Baso % (Auto) 1.1 Neut # (Auto) 3.1 Lymph # (Auto) 1.0 Garfield # (Auto) 0.3 Eos # (Auto) 0.1 Baso # (Auto) 0.1 Sodium 138 Potassium 3.5 L Chloride 103 Carbon Dioxide 26 Anion Gap 13 BUN 13 Creatinine 0.5 L Est GFR ( Amer) > 60 Est GFR (Non-Af Amer) > 60 Random Glucose 69 Calcium 8.2 L Total Bilirubin 0.5 AST 55 H ALT 18 Alkaline Phosphatase 140 H Total Protein 7.8 Albumin 4.2 Globulin 3.6 Albumin/Globulin Ratio 1.1 Assessment & Plan - Assessment and Plan (Free Text) Assessment: 53F 10 weeks s/p right ankle open reduction with internal fixation with open post-surgical wound to right lower leg and left 1st metatarsophalangeal joint dislocation, healed Plan: Patient seen and evaluated in ED Discussed plan with attending Dr. Hurley Right ankle XR obtained Posterior splint applied to RLE Advised to remain NWB to the right lower extremity and utilize crutches at all times Patient advised to follow up in [facility] podiatry clinic on Mondays from 12-3pm Thank you for this consult - Date & Time Date: 07/22/18 Time: 10:03
[2018-07-22 10:30] VITALS: O2SAT 98
== END 2018-07-22 10:47 | disposition home or self-care (01) ==
LOC: C.ER 07:28
DX: G89.21 Chronic pain due to trauma (principal)

== ENCOUNTER 2018-07-27 07:13 | Emergency (ER) | payer MEDICAID ==
[2018-07-27 07:14] VITALS: BMI 25.0
== END 2018-07-27 07:27 | disposition left against medical advice (07) ==
LOC: C.ER 07:13
DX: Z02.89 Encounter for other administrative examinations (principal); M79.673 Pain in unspecified foot

== ENCOUNTER 2018-07-27 07:42 | Emergency (ER) | payer MEDICAID ==
[2018-07-27 07:46] VITALS: BMI 20.7
[2018-07-27 07:51] VITALS: BP 112/76; PULSE 97; RESP 18; TEMP 98.9; O2SAT 99
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
== END 2018-07-27 11:14 | disposition home or self-care (01) ==
LOC: C.ER 07:42
DX: S81.801A Unspecified open wound, right lower leg, initial encounter (principal); Z59.0 Homelessness; I10 Essential (primary) hypertension; F20.9 Schizophrenia, unspecified; J44.9 Chronic obstructive pulmonary disease, unspecified; Z86.73 Personal history of transient ischemic attack (TIA), and cerebral infarction without residual deficits; Z72.0 Tobacco use

== ENCOUNTER 2018-08-02 06:39 | Emergency (ER) | payer MEDICAID ==
[2018-08-02 06:39] VITALS: BMI 20.7
[2018-08-02 06:58] VITALS: RESP 20
[2018-08-02] MEDS ORDERED: Permethrin 5% Cream(60 gm) TOP ONE (07:30)
--- NOTE | 2018-08-02 07:36 | C.PDOC ---
History Of Present Illness 53 year old female presents to ED with complaint of generalized body itchiness that gradually developed over the month. Patient is coming from a homeless skilled nursing and comes to this hospital regularly. Patient denies any difficulty breathing. Time Seen by Provider: 08/02/18 07:19 Chief Complaint (Nursing): Abnormal Skin Integrity History Per: Patient History/Exam Limitations: no limitations Onset/Duration Of Symptoms: Gradual, Other (developed over the month) Current Symptoms Are (Timing): Still Present Quality Of Symptoms: Itching Additional History Per: Patient Past Medical History Reviewed: Historical Data, Nursing Documentation, Vital Signs Vital Signs: Last Vital Signs Temp 98.2 F 08/02/18 06:50 Pulse 110 H 08/02/18 06:50 Resp 20 08/02/18 06:50 BP 160/92 H 08/02/18 06:50 Pulse Ox 99 08/02/18 06:50 - Medical History PMH: Anemia, Anxiety, Asthma, COPD, Depression, Fractures (right ankle), Gastritis, HTN, Paranoia, Pneumonia, Schizophrenia, Seizures, TIA Denies: HIV, Chronic Kidney Disease, Sexually Transmitted Disease - [facility] Procedures ALCOHOL DETOXIFICATION (12/21/14) APPLICATION OF SPLINT (05/22/14) DETOXIFICATION SERVICES FOR SUBSTANCE ABUSE TREATMENT (09/20/16) EXTRACTION OF RIGHT LOWER LEG SKIN, EXTERNAL APPROACH (06/07/18) GROUP E MERCHANT FOR SUBSTANCE ABUSE TREATMENT, PSYCHOEDUCATION (12/12/15) INDIV E MERCHANT FOR SUBSTANCE ABUSE, COGNITIVE BEHAVIORAL (03/06/16) INDIV PSYCHOTHERAPY FOR SUBSTANCE ABUSE TREATMENT, SUPPORT (03/06/16) INJECT/INFUSE NEC (12/19/13) INSERTION OF EXT FIX INTO R FIBULA, OPEN APPROACH (04/30/18) REMOVAL OF EXT FIX FROM R FIBULA, ELECTRICIAN'S HELPER APPROACH (04/30/18) REPOSITION RIGHT FIBULA WITH INT FIX, OPEN APPROACH (04/30/18) REPOSITION RIGHT FIBULA WITH INT FIX, PERC APPROACH (04/30/18) Family History: States: Unknown Family Hx - Social History Hx Tobacco Use: Yes Hx Alcohol Use: Yes Hx Substance Use: No - Immunization History Hx Tetanus Toxoid Vaccination: Yes Hx Influenza Vaccination: No Hx Pneumococcal Vaccination: No Review Of Systems Constitutional: Negative for: Fever, Chills, Weakness ENT: Negative for: Throat Swelling Cardiovascular: Negative for: Chest Pain Respiratory: Negative for: Shortness of Breath Skin: Positive for: Other (generalized itching) Neurological: Negative for: Weakness, Numbness, Dizziness Physical Exam - Physical Exam Appears: Well, Non-toxic, No Acute Distress Skin: Rash (generalized eruption with linear burrows, papules, some area of diffuse erythema with excoriation. No evidence of cellulitis.) Head: Atraumatic, Normacephalic Nose: No Flaring Oral Mucosa: Moist Tongue: No Swelling Lips: No Swelling Throat: No Drooling Neck: Trachea Midline, Supple Cardiovascular: Rhythm Regular, No Murmur, No JVD Respiratory: No Decreased Breath Sounds, No Accessory Muscle Use, No Rales, No Rhonchi, No Stridor, No Wheezing Gastrointestinal/Abdominal: Soft, No Tenderness Extremity: Normal ROM, Capillary Refill (< 2 seconds), Other (cast to Right lower leg noted) Extremity: Bilateral: Atraumatic Pulses: Left Radial: Normal, Right Radial: Normal Neurological/Psych: Oriented x3, Normal Speech, Normal Cognition ED Course And Treatment O2 Sat by Pulse Oximetry: 99 (RA) Progress Note: Patient given Benadryl PO and Permathrin 5% TOP. Disposition Counseled Patient/Family Regarding: Diagnosis, Need For Followup, Rx Given - Disposition Referrals: [facility] [Outside] Disposition: HOME/ ROUTINE Disposition Time: 08:50 Condition: STABLE Additional Instructions: May repeat treatment in 1-2 days Follow p with Clinic for further evaluation and treatment Prescriptions: Permethrin 5% [Permethrin 5% Cream] 1 inch TP ONCE #1 tube Instructions: Scabies Forms: [facility] (Puerto Rican) - Clinical Impression Clinical Impression: Scabies - PA / SECTION CREWS ACTIVITIES CLERK / Resident Statement MD/DO has reviewed & agrees with the documentation as recorded. (Philomena Cronin) - Scribe Statement The provider has reviewed the documentation as recorded by the Scribe (Philomena Cronin) All medical record entries made by the Scribe were at my direction and personally dictated by me. I have reviewed the chart and agree that the record accurately reflects my personal performance of the history, physical exam, medical decision making, and the department course for this patient. I have also personally directed, reviewed, and agree with the discharge instructions and disposition.
[2018-08-02 09:24] VITALS: BP 132/85; PULSE 80; TEMP 98.8; O2SAT 100
== END 2018-08-02 09:23 | disposition home or self-care (01) ==
LOC: C.ER 06:39
DX: B86 Scabies (principal); I10 Essential (primary) hypertension; F20.9 Schizophrenia, unspecified; Z59.0 Homelessness

== ENCOUNTER 2018-08-26 09:02 | Emergency (ER) | payer MEDICAID, OTHER ==
[2018-08-26 09:02] VITALS: BMI 20.7
[2018-08-26 09:14] VITALS: O2SAT 100
[2018-08-26] MEDS ORDERED: Albuterol-Ipratrop 3 mg / 0.5 (3 ml) UD ONE ×2 (10:08→10:29)
[2018-08-26] MEDS: Albuterol-Ipratrop 3 mg / 0.5 (3 ml) UD IH SCH ×2 (10:25→10:26)
--- NOTE | 2018-08-26 10:27 | C.PDOC ---
History Of Present Illness 53 years old female with multiple ER visits for alcohol presents to ED for complaints of shortness of breath. Patient states she was seen 2 days ago at [facility] and was diagnosed with pneumonia. Patient states she was prescribed antibiotics and has been complaint with them. Denies any other physical complaints. Time Seen by Provider: 08/26/18 09:15 Chief Complaint (Nursing): Cough, Cold, Congestion History Per: Patient History/Exam Limitations: no limitations Onset/Duration Of Symptoms: Hrs Current Symptoms Are (Timing): Still Present Recent travel outside of the [place]: No Past Medical History Reviewed: Historical Data, Nursing Documentation, Vital Signs Vital Signs: Last Vital Signs Temp 98.4 F 08/26/18 09:10 Pulse 108 H 08/26/18 09:10 Resp 24 08/26/18 09:10 BP 162/67 H 08/26/18 09:10 Pulse Ox 100 08/26/18 09:10 - Medical History PMH: Anemia, Anxiety, Asthma, COPD, Depression, Fractures (right ankle), Gastritis, HTN, Paranoia, Pneumonia, Schizophrenia, Seizures, TIA Denies: HIV, Chronic Kidney Disease, Sexually Transmitted Disease - [facility] Procedures ALCOHOL DETOXIFICATION (12/21/14) APPLICATION OF SPLINT (05/22/14) DETOXIFICATION SERVICES FOR SUBSTANCE ABUSE TREATMENT (09/20/16) EXTRACTION OF RIGHT LOWER LEG SKIN, EXTERNAL APPROACH (06/07/18) GROUP BIOSTATISTICIAN FOR SUBSTANCE ABUSE TREATMENT, PSYCHOEDUCATION (12/12/15) INDIV BIOSTATISTICIAN FOR SUBSTANCE ABUSE, COGNITIVE BEHAVIORAL (03/06/16) INDIV PSYCHOTHERAPY FOR SUBSTANCE ABUSE TREATMENT, SUPPORT (03/06/16) INJECT/INFUSE NEC (12/19/13) INSERTION OF EXT FIX INTO R FIBULA, OPEN APPROACH (04/30/18) REMOVAL OF EXT FIX FROM R FIBULA, STOCK BLENDER APPROACH (04/30/18) REPOSITION RIGHT FIBULA WITH INT FIX, OPEN APPROACH (04/30/18) REPOSITION RIGHT FIBULA WITH INT FIX, PERC APPROACH (04/30/18) Family History: States: Unknown Family Hx - Social History Hx Tobacco Use: Yes Hx Alcohol Use: Yes Hx Substance Use: No - Immunization History Hx Tetanus Toxoid Vaccination: Yes Hx Influenza Vaccination: No Hx Pneumococcal Vaccination: No Review Of Systems Except As Marked, All Systems Reviewed And Found Negative. Constitutional: Negative for: Fever, Chills Cardiovascular: Negative for: Chest Pain Respiratory: Positive for: Shortness of Breath Gastrointestinal: Negative for: Nausea, Vomiting, Abdominal Pain, Diarrhea Skin: Negative for: Rash Neurological: Negative for: Weakness, Numbness Physical Exam - Physical Exam Appears: Non-toxic, No Acute Distress, Unkempt Skin: Normal Color, Warm, Dry, No Rash Head: Atraumatic, Normacephalic Eye(s): bilateral: Normal Inspection, PERRL, EOMI, Other (Conjunctiva clear) Oral Mucosa: Moist ([place] ) Neck: Normal ROM, Supple Chest: Symmetrical, No Tenderness Cardiovascular: Rhythm Regular, No Murmur, Other (Normal S1, S2) Respiratory: No Rales, Rhonchi, Wheezing Gastrointestinal/Abdominal: Normal Exam, Soft, No Tenderness, No Guarding, No Rebound Extremity: Normal ROM, Other (Chronic wound on right anterior ankle. 7x7 good granulation tissue. Mild erythema surrounding. Wet bandages but wound not leaking. ) Extremity: Bilateral: Normal ROM Neurological/Psych: Oriented x3, Normal Speech, Normal Motor (5/5 muscle strength), Normal Sensation, Normal Reflexes, Other (GCS 15, CN 2-12 intact) Gait: Steady ED Course And Treatment O2 Sat by Pulse Oximetry: 100 (RA) Pulse Ox Interpretation: Normal - Other Rad CXR X-Ray: Viewed By Me, Read By Radiologist Interpretation: Date of service: 08/26/2018. HISTORY: cough. COMPARISON: Comparison is made with 05/08/2028. FINDINGS: LUNGS: No evidence of new infiltrate or consolidation in the lungs. Again noted are nodular opacities at the mid right lung. PLEURA: No significant pleural effusion identified, no pneumothorax apparent. CARDIOVASCULAR: No aortic atherosclerotic calcification present. Normal cardiac size. No pulmonary vascular congestion. OSSEOUS STRUCTURES: No significant abnormalities. VISUALIZED UPPER ABDOMEN: Normal. OTHER FINDINGS: None. IMPRESSION: Small nodular opacities at the midportion of the right lung appear more prominent compared to the previous exam. If clinically warranted further assessment by CT may be obtained. Medical Decision Making Medical Decision Making: Plan: * Duoneb * Blood work * CXR Patient is currently on medications which were prescribed to her 2 days ago from [facility]. Patient's dressing was also changed 2 days ago at [facility]. Disposition Counseled Patient/Family Regarding: Studies Performed, Diagnosis - Disposition Referrals: [facility] [Outside] [facility] [Outside] Disposition: HOME/ ROUTINE Disposition Time: 11:20 Instructions: Upper Respiratory Infection (ED) Forms: [facility] (Serbian), General Discharge Instructions - Clinical Impression Clinical Impression: URI (upper respiratory infection), Chronic wound of extremity - Scribe Statement The provider has reviewed the documentation as recorded by the Scribe Valeria Panchal All medical record entries made by the Scribe were at my direction and personally dictated by me. I have reviewed the chart and agree that the record accurately reflects my personal performance of the history, physical exam, medical decision making, and the department course for this patient. I have also personally directed, reviewed, and agree with the discharge instructions and disposition.
[2018-08-26] MEDS ORDERED: Ipratropium 0.02% Inhal Soln (0.5 mg/2.5 ml) UD IH ONE (10:30)
[2018-08-26] MEDS ORDERED: Albuterol 0.083% Inhal Sol (2.5 mg/3 mL) UD ONE (10:30)
--- NOTE | 2018-08-26 10:56 | RAD ---
Date of service: 08/26/2018 HISTORY: cough COMPARISON: Comparison is made with 05/08/2028 FINDINGS: LUNGS: No evidence of new infiltrate or consolidation in the lungs. Again noted are nodular opacities at the mid right lung. PLEURA: No significant pleural effusion identified, no pneumothorax apparent. CARDIOVASCULAR: No aortic atherosclerotic calcification present. Normal cardiac size. No pulmonary vascular congestion. OSSEOUS STRUCTURES: No significant abnormalities. VISUALIZED UPPER ABDOMEN: Normal. OTHER FINDINGS: None. IMPRESSION: Small nodular opacities at the midportion of the right lung appear more prominent compared to the previous exam. If clinically warranted further assessment by CT may be obtained.
[2018-08-26 11:23] VITALS: BP 159/10; PULSE 110; RESP 20; TEMP 98.7
== END 2018-08-26 11:40 | disposition home or self-care (01) ==
LOC: C.ER 09:02
DX: J06.9 Acute upper respiratory infection, unspecified (principal); S91.001D Unspecified open wound, right ankle, subsequent encounter; X58.XXXD Exposure to other specified factors, subsequent encounter; Z87.891 Personal history of nicotine dependence

== ENCOUNTER 2018-09-07 08:42 | Emergency (ER) | payer MEDICAID, OTHER ==
[2018-09-07 08:54] VITALS: BMI 21.4
--- NOTE | 2018-09-07 09:19 | C.PDOC ---
History Of Present Illness 53 y/o female presents to the ED complaining of a chronic generalized pruritic rash for the past few months. Patient also reports right ankle pain with chronic open wounds, worsening over time. Otherwise patient denies any fevers, chills, SOB, chest pain, nausea, vomiting, or abdominal pain. Time Seen by Provider: 09/07/18 08:50 Chief Complaint (Nursing): Lower Extremity Problem/Injury History Per: Patient History/Exam Limitations: no limitations Onset/Duration Of Symptoms: Days Current Symptoms Are (Timing): Still Present Past Medical History Reviewed: Historical Data, Nursing Documentation, Vital Signs Vital Signs: Last Vital Signs Temp 97.8 F 09/07/18 08:50 Pulse 97 H 09/07/18 08:50 Resp 18 09/07/18 08:50 BP 143/80 09/07/18 08:50 Pulse Ox 98 09/07/18 08:50 - Medical History PMH: Anemia, Anxiety, Asthma, COPD, Depression, Fractures (right ankle), Gastritis, HTN, Paranoia, Pneumonia, Schizophrenia, Seizures, TIA Denies: HIV, Chronic Kidney Disease, Sexually Transmitted Disease Other Surgeries: Right ankle surgery s/p fracture - [facility] Procedures ALCOHOL DETOXIFICATION (12/21/14) APPLICATION OF SPLINT (05/22/14) DETOXIFICATION SERVICES FOR SUBSTANCE ABUSE TREATMENT (09/20/16) EXTRACTION OF RIGHT LOWER LEG SKIN, EXTERNAL APPROACH (06/07/18) GROUP PERSONNEL MONITOR FOR SUBSTANCE ABUSE TREATMENT, PSYCHOEDUCATION (12/12/15) INDIV PERSONNEL MONITOR FOR SUBSTANCE ABUSE, COGNITIVE BEHAVIORAL (03/06/16) INDIV PSYCHOTHERAPY FOR SUBSTANCE ABUSE TREATMENT, SUPPORT (03/06/16) INJECT/INFUSE NEC (12/19/13) INSERTION OF EXT FIX INTO R FIBULA, OPEN APPROACH (04/30/18) REMOVAL OF EXT FIX FROM R FIBULA, ENVIRONMENTAL PROTECTION FORESTER APPROACH (04/30/18) REPOSITION RIGHT FIBULA WITH INT FIX, OPEN APPROACH (04/30/18) REPOSITION RIGHT FIBULA WITH INT FIX, PERC APPROACH (04/30/18) Family History: States: Unknown Family Hx - Social History Hx Tobacco Use: Yes Hx Alcohol Use: Yes Hx Substance Use: No - Immunization History Hx Tetanus Toxoid Vaccination: Yes Hx Influenza Vaccination: No Hx Pneumococcal Vaccination: No Review Of Systems Except As Marked, All Systems Reviewed And Found Negative. Constitutional: Negative for: Fever, Chills, Weakness Eyes: Negative for: Vision Change Cardiovascular: Negative for: Chest Pain Respiratory: Negative for: Shortness of Breath Gastrointestinal: Negative for: Vomiting, Abdominal Pain Musculoskeletal: Positive for: Foot Pain (Right ankle pain). Negative for: Back Pain Skin: Positive for: Rash (throughout body), Other (+Pruritus) Neurological: Negative for: Weakness, Numbness, Headache Physical Exam - Physical Exam Appears: Non-toxic, No Acute Distress Skin: Warm, Rash (Diffuse erythematous macular rash, with diffuse excoriations; Superficial abrasions noted to the extremities) Head: Normacephalic Eye(s): bilateral: PERRL Oral Mucosa: Moist Neck: Trachea Midline, No Midline Cervical Tenderness, Supple Chest: Symmetrical, No Deformity Cardiovascular: Rhythm Regular, No Murmur Respiratory: Normal Breath Sounds, No Accessory Muscle Use, No Rhonchi, No Wheezing Gastrointestinal/Abdominal: Soft, No Tenderness, No Distention Extremity: No Calf Tenderness, Capillary Refill (less than 2sec to right lower extremity), Swelling (Right foot w/ diffuse non-pitting edema), Other (+ Open wound over the lateral malleolus of right ankle, yellow discharge noted) Pulses: Left Dorsalis Pedis: Normal, Right Dorsalis Pedis: Normal Neurological/Psych: Oriented x3, Normal Speech, Normal Cranial Nerves, Normal Motor, Normal Sensation ED Course And Treatment - Laboratory Results Result Diagrams: 09/07/18 11:19 09/07/18 11:42 O2 Sat by Pulse Oximetry: 98 (RA) Pulse Ox Interpretation: Normal - Radiology CXR: Interpreted by Me, Read By Radiologist CXR Interpretation: Yes: No Acute Disease - Other Rad Right ankle X-Ray: Read By Radiologist Interpretation: ctator : Vidal Rivers MD. Civil Transportation Engineer : Supervisor Engine Repair : Vidal Rivers MD. Approver2 : Report Date : 09/07/2018 09:55:42. My Comment : . Date of service: 09/07/2018. PROCEDURE: Right Ankle Radiographs. HISTORY: pain. COMPARISON: 06/20/2018. FINDINGS: BONES: Status post ORIF distal tibial fracture. Plate and screw fixation along the lateral distal tibia. Compression screw traversing medial malleolar fracture. Heterotopic bone posterior to distal tibia. JOINTS: Tibiotalar articulation grossly intact. Ankle mortise preserved. SOFT TISSUES: Soft tissue swelling noted particularly lateral to the lateral malleolus. OTHER FINDINGS: None. IMPRESSION: ORIF distal tibial fracture with heterotopic bone. Lateral soft tissue swelling. - CT Scan/US Doppler US Other Rad Studies (CT/US): Radiology Report Reviewed CT/US Interpretation: (-) DVT B/L Progress Note: Patient given IV fluids, 80 mg IV solu-medrol, and 50 mg IV Benadryl. 1 gm Permethrin applied topically. Blood work, UA, and CXR ordered and reviewed. Pending ankle x-ray and venous duplex of the lower extremities. Blood work, imaging, Doppler US results review and appears without acute pathology. Pt was evaluated by medical reception and dressing changed over right ankle. Case discussed with Florist Helper and discharge with outpt f/u recommend now. Pt advised to F/u with Florist Helper on monday at Podiatry Clinic for furter evaluation/wound management. Pt is stable for discharge now Disposition Counseled Patient/Family Regarding: Studies Performed, Diagnosis, Need For Followup, Rx Given - Disposition Referrals: [facility] [Outside] Disposition: HOME/ ROUTINE Disposition Time: 13:08 Condition: STABLE Additional Instructions: Take medication as prescribed Follow up with Podiatry at Clinic on Monday from 12-3PM for re-evaluation return if any new changes Prescriptions: Permethrin 5% [Permethrin 5% Cream] 1 inch TP ONCE #1 tube Sulfamethoxazole/Trimethoprim [Bactrim DS 800 mg-160 mg] 1 tab PO BID #14 tab Instructions: Cellulitis (Skin Infection), Adult (DC), Scabies (DC) Forms: [facility] (Israeli) - Clinical Impression Clinical Impression: Cellulitis, Scabies, Ulcer - PA / POSTMASTER RELIEF / Resident Statement MD/DO has reviewed & agrees with the documentation as recorded. - Scribe Statement The provider has reviewed the documentation as recorded by the Scribchristen Velazquez All medical record entries made by the Tootieibchristen were at my direction and personally dictated by me. I have reviewed the chart and agree that the record accurately reflects my personal performance of the history, physical exam, medical decision making, and the department course for this patient. I have also personally directed, reviewed, and agree with the discharge instructions and dis position.
[2018-09-07] MEDS ORDERED: Sodium Chloride 0.9% 1,000 ML IV ONE (09:23)
[2018-09-07] MEDS ORDERED: DiphenhydrAMINE 50 mg/ml Inj IVP STA (09:25)
[2018-09-07] MEDS ORDERED: MethylPREDNISolone 40 mg Vial IVP STA (09:25)
[2018-09-07] MEDS ORDERED: Permethrin 5% Cream(60 gm) TOP ONE (09:26)
--- NOTE | 2018-09-07 10:58 | RAD ---
Date of service: 09/07/2018 PROCEDURE: CHEST RADIOGRAPH, 1 VIEW HISTORY: SOB COMPARISON: 08/26/2018. FINDINGS: LUNGS: The lungs are well inflated and clear. PLEURA: No pneumothorax or pleural effusion. CARDIOVASCULAR: The heart is normal in size. No aortic atherosclerotic calcifications present. OSSEOUS STRUCTURES: Within normal limits for the patient's age. VISUALIZED UPPER ABDOMEN: Normal. OTHER FINDINGS: None. IMPRESSION: No active pulmonary disease.
--- NOTE | 2018-09-07 11:07 | RAD ---
Date of service: 09/07/2018 PROCEDURE: Right Ankle Radiographs. HISTORY: pain COMPARISON: 06/20/2018 FINDINGS: BONES: Status post ORIF distal tibial fracture. Plate and screw fixation along the lateral distal tibia. Compression screw traversing medial malleolar fracture. Heterotopic bone posterior to distal tibia. JOINTS: Tibiotalar articulation grossly intact. Ankle mortise preserved. SOFT TISSUES: Soft tissue swelling noted particularly lateral to the lateral malleolus. OTHER FINDINGS: None. IMPRESSION: ORIF distal tibial fracture with heterotopic bone. Lateral soft tissue swelling.
[2018-09-07] MEDS ORDERED: DiphenhydrAMINE 50 mg/ml Inj ONE (11:19)
[2018-09-07] MEDS ORDERED: MethylPREDNISolone 40 mg Vial ONE (11:19)
[2018-09-07] MEDS ORDERED: Sodium Chloride 0.9% 1,000 ML ONE (11:19)
[2018-09-07 11:23] LABS: BASO # 0.1 K/uL (0.0-0.2); BASO % 1.4 % (0.0-2.0); EOS # 0.2 K/uL (0.0-0.7); HEMOGLOBIN 9.8 g/dL (11.0-16.0); LYMPH # 1.3 K/uL (1.0-4.3); LYMPH % 23.9 % (20.0-40.0); MEAN CELL VOLUME 84.1 fL (81.0-99.0); MEAN CORPUSCULAR HEMOGLOBIN 28.2 pg (27.0-31.0); MEAN CORPUSCULAR HGB CONC 33.5 g/dL (33.0-37.0); MEAN PLATELET VOLUME 7.2 fL (7.2-11.7); MONO # 0.6 K/uL (0.0-0.8); MONO % 11.8 % (0.0-10.0); NEUT # 3.2 K/uL (1.8-7.0); NEUT % 59.9 % (50.0-75.0); NRBC % 0.2 % (0.0-2.0); RBC 3.46 Mil/uL (3.80-5.20); WHITE BLOOD COUNT 5.4 K/uL (4.8-10.8)
[2018-09-07] MEDS ORDERED: Vancomycin 1 GM 1 GM/250 ML BAG IVPB ONE (12:01)
[2018-09-07 12:03] LABS: ALB/GLOB RATIO 1.2 (1.0-2.1); ALT/SGPT 15 U/L (9-52); AST/SGOT 48 U/L (14-36); BLOOD UREA NITROGEN 19 mg/dL (7-17); CALCIUM 8.7 mg/dl (8.6-10.4); GFR NON-AFRICAN AMERICAN > 60
[2018-09-07 13:51] LABS: SQUAMOUS EPITHIAL 5 /hpf (0-5); URINE BACTERIA RARE (<OCC); URINE BILIRUBIN NEGATIVE (NEGATIVE); URINE BLOOD NEGATIVE (NEGATIVE); URINE CLARITY Clear (Clear); URINE COLOR Yellow (YELLOW); URINE GLUCOSE (UA) NORMAL (Normal); URINE LEUKOCYTE ESTERASE 2+ Leu/uL (Negative); URINE PROTEIN NEGATIVE (NEGATIVE); URINE UROBILINOGEN NORMAL mg/dL (0.2-1.0)
[2018-09-07 14:12] VITALS: O2SAT 98
[2018-09-07 14:15] LABS: BARBITURATES, UR NEGATIVE (NEGATIVE); OPIATES, UR NEGATIVE (NEGATIVE); PHENCYCLIDINE, UR NEGATIVE (NEGATIVE)
[2018-09-07 14:24] VITALS: BP 152/88; PULSE 102; RESP 22; TEMP 98.2
[2018-09-07 14:34] LABS: BENZODIAZEPINES, UR POSITIVE (NEGATIVE)
--- NOTE | 2018-09-07 20:21 | CP.PCM.CON ---
History of Present Illness - History of Present Illness History of Present Illness: Podiatry Consult Note: Dr. Hurley 53 year old female well known to our service patient seen and evaluated in the ED for right ankle pain and ulcer. Patient is over 17 weeks s/p R pilon fracture ORIF (DOS: 05/11/18) . Patient reports pain to the right ankle at the site of the wound. Patient reports increase itchiness noted to the entire body and the the site of the wound. Reports scratching the wound site at the right ankle. Patient reports has been in the ED 3 days ago. Patient reports since the ED visitation, patient did not remove the dressing. Reports does not note increase drainage or odor. Denies any new traumatic events. Denies N/V/F/SOB/CP. PMHx: Alcohol abuse, HTN, pneumonia, heart murmur, asthma, eczema, anxiety, and depression PSHx: D&C, application of delta frame R ankle, ORIF R ankle All: shellfish SHx: Drinks 1/2-1 bottle vodka per day; denies cigarette or illicit drug use Past Patient History - Infectious Disease Hx of Infectious Diseases: None - Tetanus Immunizations Tetanus Immunization: Unknown - Past Medical History & Family History Past Medical History?: Yes - Past Social History Smoking Status: Never Smoked - CARDIAC Hx Hypertension: Yes - PULMONARY Hx Asthma: Yes Hx Chronic Obstructive Pulmonary Disease (COPD): Yes Hx Pneumonia: Yes - NEUROLOGICAL Hx Seizures: Yes Hx Transient Ischemic Attacks (TIA): Yes - HEENT Hx HEENT Problems: Yes Other/Comment: Eye glasses - RENAL Hx Chronic Kidney Disease: No - ENDOCRINE/METABOLIC Hx Endocrine Disorders: No - HEMATOLOGICAL/ONCOLOGICAL Hx Anemia: Yes Hx Human Immunodeficiency Virus (HIV): No - INTEGUMENTARY Hx Dermatological Problems: Yes Hx Eczema: Yes Hx Psoriasis: Yes Other/Comment: Has history of bedbugs in the past - MUSCULOSKELETAL/RHEUMATOLOGICAL Hx Fractures: Yes (right ankle) - GASTROINTESTINAL Hx Gastritis: Yes - GENITOURINARY/GYNECOLOGICAL Hx Sexually Transmitted Disorders: No - PSYCHIATRIC Hx Anxiety: Yes Hx Depression: Yes Hx Paranoia: Yes Hx Schizophrenia: Yes Hx Substance Use: No - SURGICAL HISTORY Hx Surgeries: Yes Hx Dilation and Curettage: Yes Hx Orthopedic Surgery: Yes (R foot / R ankle surgery) Other/Comment: rt leg s/p fx - ANESTHESIA Hx Anesthesia: Yes Hx Anesthesia Reactions: No Hx Malignant Hyperthermia: No Meds Home Medications: Home Medication List Medication Instructions Recorded Confirmed Type Permethrin 5% [Permethrin 5% Cream] 1 inch TP ONCE #1 tube 09/07/18 Rx Sulfamethoxazole/Trimethoprim 1 tab PO BID #14 tab 09/07/18 Rx [Bactrim DS 800 mg-160 mg] Allergies/Adverse Reactions: Allergies Allergy/AdvReac Type Severity Reaction Status Date / Time shellfish derived Allergy Severe SWELLING Verified 09/07/18 08:46 Physical Exam - Constitutional Appears: Well - Extremities Exam Extremities exam: Negative for: calf tenderness Additional comments: LE focused Vasc: DP/PT pulses palpable 2/4 bilaterally. Temperature gradient is warm to warm on right, warm to cool on left. Diffuse edema noted to entirety of right lower leg and ankle as well as left 1st MPJ and left great toe consistent with previous ORIF. Capillary refill time < 3 sec to all digits Derm: Full thickness wound noted to anterolateral lower right leg measuring approximately 12cm x 7 cm x 0.3cm with granular wound base. Mild serosanguinous drainage noted. No malodor present. No fluctuance, no evidence of abscess formation. No clinical signs of infection noted. Neuro: protective and gross sensation intact to lower extremities Ortho: mild-moderate tenderness elicited upon palpation of left great toe. Minimal tenderness to palpation of right lower leg wound - Neurological Exam Neurological exam: Alert, Oriented x3 - Psychiatric Exam Psychiatric exam: Normal Affect, Normal Mood Results - Vital Signs Recent Vital Signs: Last Vital Signs Temp 98.2 F 09/07/18 14:22 Pulse 102 H 09/07/18 14:22 Resp 22 09/07/18 14:22 BP 152/88 H 09/07/18 14:22 Pulse Ox 98 09/07/18 18:48 - Labs Result Diagrams: 09/07/18 11:19 09/07/18 11:42 Labs: Laboratory Results - last 24 hr 09/07/18 09/07/18 09/07/18 11:19 11:42 13:36 WBC 5.4 RBC 3.46 L Hgb 9.8 L Hct 29.1 L MCV 84.1 D MCH 28.2 MCHC 33.5 RDW 20.0 H Plt Count 398 D MPV 7.2 Neut % (Auto) 59.9 Lymph % (Auto) 23.9 [place] % (Auto) 11.8 H Eos % (Auto) 3.0 Baso % (Auto) 1.4 Neut # (Auto) 3.2 Lymph # (Auto) 1.3 [place] # (Auto) 0.6 Eos # (Auto) 0.2 Baso # (Auto) 0.1 Sodium 134 Potassium 4.1 Chloride 99 Carbon Dioxide 27 Anion Gap 12 BUN 19 H Creatinine 0.6 L Est GFR ( Amer) > 60 Est GFR (Non-Af Amer) > 60 Random Glucose 61 L Calcium 8.7 Total Bilirubin 0.4 AST 48 H ALT 15 Alkaline Phosphatase 124 Total Creatine Kinase 78 Total Protein 7.4 Albumin 4.0 Globulin 3.4 Albumin/Globulin Ratio 1.2 Urine Color Yellow Urine Clarity Clear Urine pH 5.0 Ur Specific [place] 1.014 Urine Protein Negative Urine Glucose (UA) Normal Urine Ketones Trace Urine Blood Negative Urine Nitrate Negative Urine Bilirubin Negative Urine Urobilinogen Normal Ur Leukocyte Esterase 2+ H Urine WBC (Auto) 10 H Ur Squamous Epith Cells 5 Urine Bacteria Rare Urine Opiates Screen Urine Methadone Screen Ur Barbiturates Screen Ur Phencyclidine Scrn Ur Amphetamines Screen U Benzodiazepines Scrn U Oth Cocaine Metabols U Cannabinoids Screen 09/07/18 13:36 WBC RBC Hgb Hct MCV MCH MCHC RDW Plt Count MPV Neut % (Auto) Lymph % (Auto) [place] % (Auto) Eos % (Auto) Baso % (Auto) Neut # (Auto) Lymph # (Auto) [place] # (Auto) Eos # (Auto) Baso # (Auto) Sodium Potassium Chloride Carbon Dioxide Anion Gap BUN Creatinine Est GFR ( Amer) Est GFR (Non-Af Amer) Random Glucose Calcium Total Bilirubin AST ALT Alkaline Phosphatase Total Creatine Kinase Total Protein Albumin Globulin Albumin/Globulin Ratio Urine Color Urine Clarity Urine pH Ur Specific [place] Urine Protein Urine Glucose (UA) Urine Ketones Urine Blood Urine Nitrate Urine Bilirubin Urine Urobilinogen Ur Leukocyte Esterase Urine WBC (Auto) Ur Squamous Epith Cells Urine Bacteria Urine Opiates Screen Negative Urine Methadone Screen Negative Ur Barbiturates Screen Negative Ur Phencyclidine Scrn Negative Ur Amphetamines Screen Negative U Benzodiazepines Scrn Positive U Oth Cocaine Metabols Negative U Cannabinoids Screen Negative Assessment & Plan - Assessment and Plan (Free Text) Assessment: 53F 17 weeks s/p right ankle open reduction with internal fixation with open post-surgical wound to right lower leg - stable Plan: Patient seen and evaluated in ED Discussed plan with attending Dr. Hurley Vitals, labs reviewed- afebrile, absent leukocyotosis X-rays reviewed Cleansed ulceration with saline solution, pat dry, applied xeroform dsd, abd and kerlix Patient advised to follow up in [facility] podiatry clinic on Mondays from 12-3pm Explained to patient the importance of follow up with podiatry Keep dressing clean dry and intact Do not get wet Patient reports understanding
--- NOTE | 2018-09-10 14:04 | VASCLAB ---
Date of service: 09/07/2018 PROCEDURE: Lower Extremity Venous Duplex Exam. HISTORY: pain PRIORS: None. TECHNIQUE: Bilateral common femoral, femoral, popliteal and posterior tibial, peroneal and great saphenous veins were evaluated. Flow was assessed with color Doppler, compressibility, assessment of phasic flow and augmentation response. Report prepared by SILVINO Carrizales, RVT FINDINGS: RIGHT: 1. Common Femoral Vein: 1.1. Compressibility - Fully compressible: Thrombus - None : Flow - Phasic: Augmentation -Normal: Reflux - None. 2. Femoral Vein: 2.1. Compressibility - Fully compressible: Thrombus - None : Flow - Phasic: Augmentation -Normal: Reflux - None. 3. Popliteal Vein: 3.1. Compressibility - Fully compressible: Thrombus - None : Flow - Phasic: Augmentation -Normal: Reflux - None. 4. Posterior Tibial Vein: 4.1. Compressibility - Fully compressible: Thrombus - None: Flow - Phasic: Augmentation -Normal: Reflux - None. 5. Peroneal Vein: 5.1. Compressibility - Fully compressible: Thrombus - None: Flow - Phasic: Augmentation -Normal: Reflux - None. 6. Great Saphenous Vein: 6.1. Compressibility - Fully compressible: Thrombus - None: Flow - Phasic: Augmentation - Normal: Reflux - None. LEFT: 1. Common Femoral Vein: 1.1. Compressibility - Fully compressible: Thrombus - None: Flow - Phasic: Augmentation -Normal: Reflux - None. 2. Femoral Vein: 2.1. Compressibility - Fully compressible: Thrombus - None: Flow - Phasic: Augmentation -Normal: Reflux - None. 3. Popliteal Vein: 3.1. Compressibility - Fully compressible: Thrombus - None : Flow - Phasic: Augmentation -Normal: Reflux - None. 4. Posterior Tibial Vein: 4.1. Compressibility - Fully compressible: Thrombus - None: Flow - Phasic: Augmentation -Normal: Reflux - None. 5. Peroneal Vein: 5.1. Compressibility - Fully compressible: Thrombus - None: Flow - Phasic: Augmentation -Normal: Reflux - None. 6. Great Saphenous Vein: 6.1. Compressibility - Fully compressible: Thrombus - None: Flow - Phasic: Augmentation - Normal: Reflux - None. OTHER FINDINGS: Right: None significant. Left: None significant. IMPRESSION: Right: No evidence of deep or superficial vein thrombosis of the right lower extremity. Normal valve function noted of the right side. Left: No evidence of deep or superficial vein thrombosis of the left lower extremity. Normal valve function noted of the left side.
== END 2018-09-07 14:32 | disposition home or self-care (01) ==
LOC: C.ER 08:42
DX: L97.319 Non-pressure chronic ulcer of right ankle with unspecified severity (principal); L03.115 Cellulitis of right lower limb; B86 Scabies; I10 Essential (primary) hypertension; D64.9 Anemia, unspecified; Z86.73 Personal history of transient ischemic attack (TIA), and cerebral infarction without residual deficits
CPT/HCPCS: 71045; 73610; 80053; 80324; 80345; 80346; 80349; 80353; 80358; 80361; 81001; 82550; 83992; 85025; 87040; 87086; 87181; 93970; 96361; 96365; 96375; 99284; J1200; J2920; J7030; J7050

== ENCOUNTER 2018-09-20 17:02 | Emergency (ER) | payer OTHER, MEDICAID ==
[2018-09-20 17:02] VITALS: BMI 20.7
[2018-09-20] MEDS ORDERED: Tmp-Smz 800 mg-160 mg DS Tab PO STA (20:11)
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
[2018-09-20] MEDS ORDERED: Tmp-Smz 800 mg-160 mg DS Tab ONE (20:25)
[2018-09-20 20:37] VITALS: BP 110/64; PULSE 100; RESP 14; TEMP 98.3
[2018-09-20 20:42] VITALS: O2SAT 98
--- NOTE | 2018-09-21 12:02 | RAD ---
Date of service: 09/20/2018 PROCEDURE: Right Ankle Radiographs. HISTORY: ankle injury COMPARISON: 09/07/2018. TECHNIQUE: 3 views obtained. FINDINGS: BONES: There is interval progressive healing of comminuted intra-articular fracture in the distal tibia with blurring of fracture margins and callus formation. Status post reduction and internal fixation of distal tibial fracture. No acute displaced fracture. Postsurgical changes in the diaphysis of the tibia. No hardware complication JOINTS: Normal. No osteoarthritis. Ankle mortise maintained. Talar dome intact SOFT TISSUES: There is hypertrophic ossification lateral to the fibula. There is severe periarticular soft tissue swelling. OTHER FINDINGS: None. IMPRESSION: Interval progressive healing of comminuted intra-articular fracture in the distal tibia. Status post open reduction and internal fixation. No hardware complications. Severe periarticular soft tissue swelling.
== END 2018-09-20 21:16 | disposition home or self-care (01) ==
LOC: C.ER 17:02
DX: T76.21XA Adult sexual abuse, suspected, initial encounter (principal); L97.319 Non-pressure chronic ulcer of right ankle with unspecified severity; M25.571 Pain in right ankle and joints of right foot

== ENCOUNTER 2018-09-21 07:18 | Emergency (ER) | payer MEDICAID, OTHER ==
[2018-09-21 07:29] VITALS: BMI 26.5
--- NOTE | 2018-09-21 08:55 | CT ---
Date of service: 09/21/2018 PROCEDURE: CT HEAD WITHOUT CONTRAST. HISTORY: HEAD INJURY R/O BLEED COMPARISON: 04/30/2018 TECHNIQUE: Axial computed tomography images were obtained through the head/brain without intravenous contrast. Radiation dose: Total exam DLP = 954.1 mGy-cm. This CT exam was performed using one or more of the following dose reduction techniques: Automated exposure control, adjustment of the mA and/or kV according to patient size, and/or use of iterative reconstruction technique. FINDINGS: HEMORRHAGE: No intracranial hemorrhage. BRAIN: No mass effect or edema. No atrophy or chronic microvascular ischemic changes. VENTRICLES: Unremarkable. No hydrocephalus. CALVARIUM: Unremarkable. PARANASAL SINUSES: Unremarkable as visualized. No significant inflammatory changes. MASTOID AIR CELLS: Unremarkable as visualized. No inflammatory changes. OTHER FINDINGS: None. IMPRESSION: No intracranial hemorrhage. Unremarkable examination.
--- NOTE | 2018-09-21 08:59 | CT ---
Date of service: 09/21/2018 PROCEDURE: CT MAXILLOFACIAL BONES WITHOUT CONTRAST HISTORY: FACIAL INJURIES R/O FX COMPARISON: None available. TECHNIQUE: Contiguous axial CT images of the maxillofacial bones were obtained. Coronal and sagittal reformats were generated. Radiation dose: Total exam DLP = 700.49 mGy-cm. This CT exam was performed using one or more of the following dose reduction techniques: Automated exposure control, adjustment of the mA and/or kV according to patient size, and/or use of iterative reconstruction technique. FINDINGS: NASAL BONES: Unremarkable. ORBITS: Unremarkable. PARANASAL SINUSES/ MASTOIDS: Clear. MAXILLA: Apical lucency about multiple teeth consistent with the periodontal abscess. Recommend dental consultation. No fracture. MANDIBLE/ TEMPOROMANDIBULAR JOINTS: No fracture. Apical lucency about right incisor consistent with periodontal abscess. SKULL BASE: Unremarkable. TEMPORAL BONES: Middle ears and mastoid grossly unremarkable. OTHER FINDINGS: None. IMPRESSION: No acute fracture. Multiple apical lucencies involving the maxilla and mandible. Recommend dental consultation. Otherwise unremarkable.
--- NOTE | 2018-09-21 10:14 | C.PDOC ---
History Of Present Illness 53 year old female brought to ED by ambulance for evaluation of alcohol intoxication. Patient is c/o of chronic right leg pain. She has scattered facial abrasions and dried blood, but is unsure of reason and denies falls/injuries. - HPI Time Seen by Provider: 09/21/18 07:28 Chief Complaint (Nursing): Trauma History Per: Patient, EMS History/Exam Limitations: intoxication Onset/Duration Of Symptoms: Unknown Location Of Injury: Anterior: Face (abrasions to the forehead and nose) Severity: Moderate Past Medical History Reviewed: Historical Data, Nursing Documentation, Vital Signs Vital Signs: Last Vital Signs Temp 97.9 F 09/21/18 07:32 Pulse 69 09/21/18 07:32 Resp 20 09/21/18 07:32 BP 137/83 09/21/18 07:32 Pulse Ox 97 09/21/18 07:32 - Medical History PMH: Anemia, Anxiety, Asthma, COPD, Depression, Fractures (right ankle), Gastritis, HTN, Paranoia, Pneumonia, Schizophrenia, Seizures, TIA Other Surgeries: ankle/foot surgery - [facility] Procedures ALCOHOL DETOXIFICATION (12/21/14) APPLICATION OF SPLINT (05/22/14) DETOXIFICATION SERVICES FOR SUBSTANCE ABUSE TREATMENT (09/20/16) EXTRACTION OF RIGHT LOWER LEG SKIN, EXTERNAL APPROACH (06/07/18) GROUP FRONT MAN FOR SUBSTANCE ABUSE TREATMENT, PSYCHOEDUCATION (12/12/15) INDIV FRONT MAN FOR SUBSTANCE ABUSE, COGNITIVE BEHAVIORAL (03/06/16) INDIV PSYCHOTHERAPY FOR SUBSTANCE ABUSE TREATMENT, SUPPORT (03/06/16) INJECT/INFUSE NEC (12/19/13) INSERTION OF EXT FIX INTO R FIBULA, OPEN APPROACH (04/30/18) REMOVAL OF EXT FIX FROM R FIBULA, SPIRAL WINDING MACHINE HELPER APPROACH (04/30/18) REPOSITION RIGHT FIBULA WITH INT FIX, OPEN APPROACH (04/30/18) REPOSITION RIGHT FIBULA WITH INT FIX, PERC APPROACH (04/30/18) Family History: States: No Known Family Hx - Social History Hx Tobacco Use: Yes Hx Alcohol Use: Yes Hx Substance Use: No - Immunization History Hx Tetanus Toxoid Vaccination: Yes Hx Influenza Vaccination: No Hx Pneumococcal Vaccination: No Review Of Systems Constitutional: Negative for: Fever ENT: Positive for: Other (facial abrasions to the forehead and nose) Cardiovascular: Negative for: Chest Pain Respiratory: Negative for: Shortness of Breath Gastrointestinal: Negative for: Nausea, Vomiting, Abdominal Pain Musculoskeletal: Positive for: Leg Pain (right lower leg pain) Neurological: Negative for: Weakness, Numbness, Headache, Dizziness Psych: Positive for: Other (alcohol intoxication) Physical Exam - Physical Exam Appears: Non-toxic, Unkempt, Chronically Ill, Other (intoxicated, smells of ETOH) Skin: Normal Color, Warm, Dry Head: Normacephalic, Abrasion (scattered facial abrasions - betwee eyes, nasal bridge) Eye(s): bilateral: Normal Inspection, PERRL, EOMI Nose: No Epistaxis, No Deformity, No Tenderness, No Septal Hematoma, Other (abrasion on nasal bridge ) Oral Mucosa: Moist Tongue: Normal Appearing, No Laceration Lips: Abrasion (large abrasion immediately above the lip), No Laceration Neck: Normal ROM, No Midline Cervical Tenderness, No Paracervical Tenderness, No Step Off Deformity, Supple Chest: Symmetrical, No Deformity, No Tenderness Cardiovascular: Rhythm Regular Respiratory: Normal Breath Sounds, No Accessory Muscle Use, No Rales, No Rhonchi, No Wheezing Gastrointestinal/Abdominal: Normal Exam, Bowel Sounds, Soft, No Tenderness Extremity: Other (right lower leg in posterior splint =) Neurological/Psych: Other (awake and alert, intoxicated, able to follow commands) ED Course And Treatment O2 Sat by Pulse Oximetry: 97 (RA) Pulse Ox Interpretation: Normal - CT Scan/US Maxillofacial Bones CT Other Rad Studies (CT/US): Interpreted By Me, Read By Radiologist CT/US Interpretation: IMPRESSION: No acute fracture. Multiple apical lucencies involving the maxilla and mandible. Recommend dental consultation. Otherwise unremarkable. Head CT Other Rad Studies (CT/US): Interpreted By Me, Read By Radiologist CT/US Interpretation: IMPRESSION: No intracranial hemorrhage. Unremarkable examination. Progress Note: CT head and facial bones ordered. Prior visits reviewed, splint recently redone in our ED. Patient pending sobriety. Reevaluation Time: 13:15 Reassessment Condition: Improved (Patient is currently AAOx3, ambulating normally in the ED and clinically sober. Will discharge.) Disposition Counseled Patient/Family Regarding: Studies Performed, Diagnosis, Need For Followup - Disposition Referrals: [facility] [Outside] Disposition: HOME/ ROUTINE Disposition Time: 13:15 Condition: STABLE Instructions: Closed Head Injury (DC), Alcohol Abuse and Alcoholism (DC), Skin Abrasions (DC) Forms: [employer] (Vietnamese) Print Language: PAKISTANI - Clinical Impression Clinical Impression: Facial abrasion, Closed head injury, Alcohol intoxication, Chronic leg pain - Scribe Statement The provider has reviewed the documentation as recorded by the Scribe (Philomena Cronin) All medical record entries made by the Scribe were at my direction and personally dictated by me. I have reviewed the chart and agree that the record accurately reflects my personal performance of the history, physical exam, medical decision making, and the department course for this patient. I have also personally directed, reviewed, and agree with the discharge instructions and disposition.
[2018-09-21 13:26] VITALS: BP 132/82; PULSE 81; RESP 18; TEMP 98.1
[2018-10-02 12:01] VITALS: O2SAT 97
== END 2018-09-21 13:27 | disposition home or self-care (01) ==
LOC: C.ER 07:18
DX: S00.81XA Abrasion of other part of head, initial encounter (principal); X58.XXXA Exposure to other specified factors, initial encounter; F10.129 Alcohol abuse with intoxication, unspecified; M79.604 Pain in right leg; G89.29 Other chronic pain

== ENCOUNTER 2018-09-22 10:32 | Emergency (ER) | payer MEDICAID ==
[2018-09-22 10:33] VITALS: BMI 26.5
--- NOTE | 2018-09-22 11:47 | C.PDOC ---
History Of Present Illness 53 year old chronic alcoholic female patient presents to the ER complaining of chronic foot pain secondary to healing fracture. Patient reports she is homeless and walks a lot. Patient was seen here yesterday for similar symptom. She has no other complaint or associated symptoms at this time. Time Seen by Provider: 09/22/18 10:56 Chief Complaint (Nursing): Lower Extremity Problem/Injury History Per: Patient History/Exam Limitations: no limitations Onset/Duration Of Symptoms: Days Current Symptoms Are (Timing): Still Present Past Medical History Reviewed: Historical Data, Nursing Documentation, Vital Signs Vital Signs: Last Vital Signs Temp 97.7 F 09/22/18 10:35 Pulse 85 09/22/18 10:35 Resp 16 09/22/18 10:35 BP 151/70 H 09/22/18 10:35 Pulse Ox 97 09/22/18 10:35 - Medical History PMH: Anemia, Anxiety, Asthma, COPD, Depression, Fractures (right ankle), Gastritis, HTN, Paranoia, Pneumonia, Schizophrenia, Seizures, TIA - [facility] Procedures ALCOHOL DETOXIFICATION (12/21/14) APPLICATION OF SPLINT (05/22/14) DETOXIFICATION SERVICES FOR SUBSTANCE ABUSE TREATMENT (09/20/16) EXTRACTION OF RIGHT LOWER LEG SKIN, EXTERNAL APPROACH (06/07/18) GROUP DOOR SERVICEMAN FOR SUBSTANCE ABUSE TREATMENT, PSYCHOEDUCATION (12/12/15) INDIV DOOR SERVICEMAN FOR SUBSTANCE ABUSE, COGNITIVE BEHAVIORAL (03/06/16) INDIV PSYCHOTHERAPY FOR SUBSTANCE ABUSE TREATMENT, SUPPORT (03/06/16) INJECT/INFUSE NEC (12/19/13) INSERTION OF EXT FIX INTO R FIBULA, OPEN APPROACH (04/30/18) REMOVAL OF EXT FIX FROM R FIBULA, OPERATIONS LEADER APPROACH (04/30/18) REPOSITION RIGHT FIBULA WITH INT FIX, OPEN APPROACH (04/30/18) REPOSITION RIGHT FIBULA WITH INT FIX, PERC APPROACH (04/30/18) Family History: States: Unknown Family Hx - Social History Hx Tobacco Use: Yes Hx Alcohol Use: Yes Hx Substance Use: No - Immunization History Hx Tetanus Toxoid Vaccination: Yes Hx Influenza Vaccination: No Hx Pneumococcal Vaccination: No Review Of Systems Except As Marked, All Systems Reviewed And Found Negative. Constitutional: Positive for: Other (chronic alcoholic ) Musculoskeletal: Positive for: Foot Pain (chronic; secondary to a healing fracture ) Physical Exam - Physical Exam Appears: Non-toxic, No Acute Distress Skin: Warm, Dry Head: Normacephalic Eye(s): bilateral: Normal Inspection Cardiovascular: Rhythm Regular Respiratory: Normal Breath Sounds Extremity: Normal ROM (x4), No Tenderness, No Pedal Edema, No Calf Tenderness, Capillary Refill (<2 sec ), No Deformity, No Swelling, Other (right ankle: dressing in place ) Extremity: Bilateral: Normal Color And Temperature Pulses: Left Dorsalis Pedis: Normal, Right Dorsalis Pedis: Normal Neurological/Psych: Oriented x3, Normal Speech, Normal Cognition, Normal Motor, Normal Sensation ED Course And Treatment O2 Sat by Pulse Oximetry: 97 (RA) Pulse Ox Interpretation: Normal Medical Decision Making Medical Decision Making: Plans: dressing was removed and wound was cleanse. Dressing was replaced. Patient is st able for discharge. Disposition - Disposition Referrals: [facility] [Outside] Disposition: HOME/ ROUTINE Disposition Time: 12:11 Condition: GOOD Additional Instructions: Follow up with the medical doctor within 1-2 days. Return if worsened. Instructions: Sports Taping for the Ankle Forms: [facility] (Polish) - Clinical Impression Clinical Impression: Skin ulcer, Ankle pain - PA / INLAYER / Resident Statement / has reviewed & agrees with the documentation as recorded. - Scribe Statement The provider has reviewed the documentation as recorded by the Isis Henderson Do All medical record entries made by the Scribe were at my direction and personall y dictated by me. I have reviewed the chart and agree that the record accurately reflects my personal performance of the history, physical exam, medical decision making, and the department course for this patient. I have also personally directed, reviewed, and agree with the discharge instructions and disposition.
[2018-09-22 15:38] VITALS: BP 137/56; PULSE 86; RESP 20; TEMP 97.9; O2SAT 94
== END 2018-09-22 15:36 | disposition home or self-care (01) ==
LOC: C.ER 10:32
DX: L97.919 Non-pressure chronic ulcer of unspecified part of right lower leg with unspecified severity (principal); M25.571 Pain in right ankle and joints of right foot; Z59.0 Homelessness

== ENCOUNTER 2018-10-05 11:58 | Emergency (ER) | payer MEDICAID ==
[2018-10-05 12:22] VITALS: BP 133/83; PULSE 80; RESP 18; TEMP 98.3; O2SAT 96
--- NOTE | 2018-10-05 12:32 | C.PDOC ---
History Of Present Illness 53 y/o F BIBEMS after being on street. She states she has no complaints and just needs to rest. She does want her R foot to be checked while she is here. She states she goes to wound care once per week and was prescribed antibiotics but does not take them because she does not want to be a "pill popper." She denies fever, dyspnea, chest pain. Time Seen by Provider: 10/05/18 12:04 Chief Complaint (Nursing): Medical Clearance Past Medical History Vital Signs: Last Vital Signs Temp 98.3 F 10/05/18 12:15 Pulse 80 10/05/18 12:15 Resp 18 10/05/18 12:15 BP 133/83 10/05/18 12:15 Pulse Ox 96 10/05/18 12:15 - Medical History PMH: Anemia, Anxiety, Asthma, COPD, Depression, Fractures (right ankle), Gastritis, HTN, Paranoia, Pneumonia, Schizophrenia, Seizures, TIA Denies: HIV, Chronic Kidney Disease, Sexually Transmitted Disease - [facility] Procedures ALCOHOL DETOXIFICATION (12/21/14) APPLICATION OF SPLINT (05/22/14) DETOXIFICATION SERVICES FOR SUBSTANCE ABUSE TREATMENT (09/20/16) EXTRACTION OF RIGHT LOWER LEG SKIN, EXTERNAL APPROACH (06/07/18) GROUP ICT SALES REPRESENTATIVE FOR SUBSTANCE ABUSE TREATMENT, PSYCHOEDUCATION (12/12/15) INDIV ICT SALES REPRESENTATIVE FOR SUBSTANCE ABUSE, COGNITIVE BEHAVIORAL (03/06/16) INDIV PSYCHOTHERAPY FOR SUBSTANCE ABUSE TREATMENT, SUPPORT (03/06/16) INJECT/INFUSE NEC (12/19/13) INSERTION OF EXT FIX INTO R FIBULA, OPEN APPROACH (04/30/18) REMOVAL OF EXT FIX FROM R FIBULA, INFANTRY OFFICER APPROACH (04/30/18) REPOSITION RIGHT FIBULA WITH INT FIX, OPEN APPROACH (04/30/18) REPOSITION RIGHT FIBULA WITH INT FIX, PERC APPROACH (04/30/18) Family History: States: Unknown Family Hx - Social History Hx Tobacco Use: Yes Hx Alcohol Use: Yes Hx Substance Use: No - Immunization History Hx Tetanus Toxoid Vaccination: Yes Hx Influenza Vaccination: No Hx Pneumococcal Vaccination: No Review Of Systems Except As Marked, All Systems Reviewed And Found Negative. Constitutional: Negative for: Fever Cardiovascular: Negative for: Chest Pain Physical Exam - Physical Exam Additional Physical Exam Comments: gen nad head nc eyes wearing sunglasses ent mmm cv reg rate lungs no acc muscle use extremities R lower extremity with edema, anterior mayer ulcer with small amount of drainage, well bandaged with xeroform and hard sole shoe skin as above neuro alert ED Course And Treatment O2 Sat by Pulse Oximetry: 96 Medical Decision Making Medical Decision Making: Advised continue wound care and instructed to take antibiotics. Informed patient that "pill popping" refers to abusing pain or sedative medications and that no one will consider antibiotic use to be bad. Disposition - Disposition Referrals: [facility] [place]] [facility] [Outside] Disposition: HOME/ ROUTINE Disposition Time: 14:03 Condition: FAIR Instructions: Wound Care (DC) Forms: [facility] (Urdu) - Clinical Impression Clinical Impression: Leg wound, right
== END 2018-10-05 15:35 | disposition home or self-care (01) ==
LOC: C.ER 11:58
DX: S81.801A Unspecified open wound, right lower leg, initial encounter (principal); X58.XXXA Exposure to other specified factors, initial encounter

== ENCOUNTER 2018-10-15 13:56 | Inpatient (IN) | payer MEDICAID | END 2018-10-22 14:14 | disposition left against medical advice (07) | DRG 582 | LOC: C.ER 13:56 → C.3T 21:32 | PROVIDERS: ADMIT Internal Medicine Nephrology ==

== ENCOUNTER 2018-10-24 11:38 | Emergency (ER) | payer MEDICAID ==
[2018-10-24] MEDS ORDERED: Permethrin 1% Kit 59 ML BOTTLE TOP ONE (13:17)
--- NOTE | 2018-10-24 15:21 | C.PDOC ---
History Of Present Illness 53 y/o female comes in to ED for evaluation of a chronic wound on the right lateral ankle. She was an inpatient from 10/15/18 to 10/22/18. She received zosyn IV, with resolution of the cellulitis in right foot wound. Patient had left AMA for unknown reason. She now comes back today wanting to continue evaluation. Patient also claims to be infested with scabies which she was seen for multiple times. Patient is a well known homeless alcoholic and schizophrenic with many presentations for infestation, alcohol abuse, and poor compliance. Kicked out of the Podiatry Clinic for poor/aggressive behavior with the Clinic staff, so presents to the ED for Podiatry evaluations/follow-up Time Seen by Provider: 10/24/18 13:03 Chief Complaint (Nursing): Abnormal Skin Integrity History Per: Patient History/Exam Limitations: no limitations Onset/Duration Of Symptoms: Days Current Symptoms Are (Timing): Still Present Location Of Injury: Right: Ankle Past Medical History Reviewed: Historical Data, Nursing Documentation, Vital Signs Vital Signs: Last Vital Signs Temp 98.6 F 10/24/18 11:47 Pulse 76 10/24/18 11:47 Resp 20 10/24/18 11:47 BP 108/53 L 10/24/18 11:47 Pulse Ox 100 10/24/18 11:47 Primary Care Provider: FAMILY PROVIDER,NO - Medical History PMH: Anemia, Anxiety, Arthritis (R ANKLE FX W/ ORIF 04/2018), Asthma, COPD, Depression, Fractures (right ankle), Gastritis, HTN, Paranoia, Pneumonia, Schizophrenia, Seizures, TIA Denies: HIV, Chronic Kidney Disease, [facility] ALCOHOL DETOXIFICATION (12/21/14) APPLICATION OF SPLINT (05/22/14) DETOXIFICATION SERVICES FOR SUBSTANCE ABUSE TREATMENT (09/20/16) EXTRACTION OF RIGHT LOWER LEG SKIN, EXTERNAL APPROACH (06/07/18) GROUP LITIGATION ASSISTANT FOR SUBSTANCE ABUSE TREATMENT, PSYCHOEDUCATION (12/12/15) INDIV LITIGATION ASSISTANT FOR SUBSTANCE ABUSE, COGNITIVE BEHAVIORAL (03/06/16) INDIV PSYCHOTHERAPY FOR SUBSTANCE ABUSE TREATMENT, SUPPORT (03/06/16) INJECT/INFUSE NEC (12/19/13) INSERTION OF EXT FIX INTO R FIBULA, OPEN APPROACH (04/30/18) REMOVAL OF EXT FIX FROM R FIBULA, COMPUTER PERIPHERAL EQUIPMENT OPERATOR APPROACH (04/30/18) REPOSITION RIGHT FIBULA WITH INT FIX, OPEN APPROACH (04/30/18) REPOSITION RIGHT FIBULA WITH INT FIX, PERC APPROACH (04/30/18) Family History: States: No Known Family Hx - Social History Hx Tobacco Use: Yes Hx Alcohol Use: Yes Hx Substance Use: No - Immunization History Hx Tetanus Toxoid Vaccination: Yes Hx Influenza Vaccination: No Hx Pneumococcal Vaccination: No Review Of Systems Except As Marked, All Systems Reviewed And Found Negative. Constitutional: Negative for: Fever, Chills Musculoskeletal: Positive for: Other (right lateral ankle wound) Skin: Negative for: Rash Neurological: Negative for: Weakness, Numbness Physical Exam - Physical Exam Appears: Non-toxic, No Acute Distress, Other (calm and cooperative) Skin: Warm, Dry, Other (excoriations on arms and legs consistent with aggressive scratching) Head: Normacephalic Eye(s): bilateral: Normal Inspection Oral Mucosa: Moist Neck: Supple Respiratory: Normal Breath Sounds Extremity: No Tenderness, Other (right ankle has healing skin wounds, mild erythema, no purulence or discharge) Extremity: Bilateral: Normal ROM Neurological/Psych: Oriented x3, Normal Speech, Normal Motor, Normal Sensation ED Course And Treatment O2 Sat by Pulse Oximetry: 100 (RA) Pulse Ox Interpretation: Normal Medical Decision Making Medical Decision Making: nicely healed with shallow chronic ulcer R lateral ankle area 5x5 cm NOT presently infected NO further abx required at this time, by my eval nor by Podiatry recommendation Podiatry recommends wound dressing and opt f/u- but apparently NOT in the Clinic (not welcomed there) De-Loused/scabies w Nix kit in ED high prob of re-infection as pt homeless, and will not relenquish contaminated worldly belongings nor is amenable to modifications of her social circumstances. Disposition Doctor Will See Patient In The: Office Counseled Patient/Family Regarding: Studies Performed, Diagnosis - Disposition Disposition: HOME/ ROUTINE Disposition Time: 16:49 Condition: GOOD Forms: [facility] (Swedish) - Clinical Impression Clinical Impression: Homelessness, Skin ulcer, Scabies infestation - Scribe Statement The provider has reviewed the documentation as recorded by the Isis Terry Provider Attestation: All medical record entries made by the Tootieibchristen were at my direction and personally dictated by me. I have reviewed the chart and agree that the record accurately reflects my personal performance of the history, physical exam, medical decision making, and the department course for this patient. I have also personally directed, reviewed, and agree with the discharge instructions and disposition.
[2018-10-24 16:39] VITALS: BP 122/76; PULSE 64; RESP 18; TEMP 98
[2018-10-24 16:50] VITALS: O2SAT 100
== END 2018-10-24 17:20 | disposition home or self-care (01) ==
LOC: C.ER 11:38
DX: B86 Scabies (principal); L98.499 Non-pressure chronic ulcer of skin of other sites with unspecified severity; Z59.0 Homelessness

== ENCOUNTER 2018-10-25 00:17 | Emergency (ER) | payer MEDICAID ==
--- NOTE | 2018-10-25 00:30 | C.PDOC ---
History Of Present Illness 53 year old female brought in by [facility] ambulance after she was discharged, walked across the street, and laid on the sidewalk. Patient was discharged from here at 5pm today, taken by [facility] to [facility] for evaluation of ETOH intoxication. Patient was deloused and had right lower leg wound evaluated, treated, and wrapped with podiatry consult. Patient was not intoxicated this afternoon but is intoxicated now. Extensive Hx of alcoholism, homelessness, and vermin infestation. Time Seen by Provider: 10/25/18 00:29 Chief Complaint (Nursing): Medical Clearance History Per: Patient History/Exam Limitations: no limitations Onset/Duration Of Symptoms: Hrs Current Symptoms Are (Timing): Still Present Recent travel outside of the [place]: No Past Medical History Reviewed: Historical Data, Nursing Documentation, Vital Signs - Medical History PMH: Anemia, Anxiety, Arthritis (R ANKLE FX W/ ORIF 04/2018), Asthma, COPD, Depression, Fractures (right ankle), Gastritis, HTN, Paranoia, Pneumonia, Schizophrenia, Seizures, TIA Denies: HIV, Chronic Kidney Disease, [facility] ALCOHOL DETOXIFICATION (12/21/14) APPLICATION OF SPLINT (05/22/14) DETOXIFICATION SERVICES FOR SUBSTANCE ABUSE TREATMENT (09/20/16) EXTRACTION OF RIGHT LOWER LEG SKIN, EXTERNAL APPROACH (06/07/18) GROUP FACILITIES MANAGER FOR SUBSTANCE ABUSE TREATMENT, PSYCHOEDUCATION (12/12/15) INDIV FACILITIES MANAGER FOR SUBSTANCE ABUSE, COGNITIVE BEHAVIORAL (03/06/16) INDIV PSYCHOTHERAPY FOR SUBSTANCE ABUSE TREATMENT, SUPPORT (03/06/16) INJECT/INFUSE NEC (12/19/13) INSERTION OF EXT FIX INTO R FIBULA, OPEN APPROACH (04/30/18) REMOVAL OF EXT FIX FROM R FIBULA, KENNEL HELPER APPROACH (04/30/18) REPOSITION RIGHT FIBULA WITH INT FIX, OPEN APPROACH (04/30/18) REPOSITION RIGHT FIBULA WITH INT FIX, PERC APPROACH (04/30/18) Family History: States: Unknown Family Hx - Social History Hx Tobacco Use: Yes Hx Alcohol Use: Yes Hx Substance Use: No - Immunization History Hx Tetanus Toxoid Vaccination: Yes Hx Influenza Vaccination: No Hx Pneumococcal Vaccination: No Review Of Systems Constitutional: Negative for: Fever, Chills Cardiovascular: Negative for: Chest Pain, Palpitations Respiratory: Negative for: Cough, Shortness of Breath Gastrointestinal: Negative for: Nausea, Vomiting Neurological: Negative for: Weakness, Numbness Physical Exam - Physical Exam Appears: Non-toxic Skin: Normal Color, Warm Head: Atraumatic, Normacephalic Oral Mucosa: Moist Neck: Normal, Supple Chest: Symmetrical, No Tenderness Cardiovascular: Rhythm Regular Respiratory: Normal Breath Sounds, No Rales, No Rhonchi, No Wheezing Gastrointestinal/Abdominal: Soft, No Tenderness Extremity: Other (Wound dressing on right lower leg intact) Neurological/Psych: Oriented x3, Normal Speech Medical Decision Making Medical Decision Making: alcohol abuse malingering homelessness no acute medical issues since d/c from here @ 5PM and ED eval @ [facility] approx 1 hr ago. Disposition Doctor Will See Patient In The: Office Counseled Patient/Family Regarding: Studies Performed, Diagnosis - Disposition Referrals: Alcoholics Anonymous [Outside] [facility] [Outside] [facility] [Outside] [facility] [Outside] [facility] [Outside] Disposition: HOME/ ROUTINE Disposition Time: 00:30 Condition: GOOD Additional Instructions: seek nightly snf placement seek AA Seek psych counseling outpatient Podiatry follow-up call for appt. Instructions: Alcohol Abuse and Alcoholism (DC) Forms: [employer] (Cook Islander) - Clinical Impression Clinical Impression: Alcohol abuse - Scribe Statement The provider has reviewed the documentation as recorded by the Scribchristen Sumner All medical record entries made by the Scribe were at my direction and personally dictated by me. I have reviewed the chart and agree that the record accurately reflects my personal performance of the history, physical exam, medical decision making, and the department course for this patient. I have also personally directed, reviewed, and agree with the discharge instructions and disposition.
[2018-10-25 00:31] VITALS: BP 133/85; PULSE 85; RESP 20; TEMP 98.1; O2SAT 100
== END 2018-10-25 00:43 | disposition home or self-care (01) ==
LOC: C.ER 00:17
DX: F10.10 Alcohol abuse, uncomplicated (principal); F20.9 Schizophrenia, unspecified; I10 Essential (primary) hypertension; J44.9 Chronic obstructive pulmonary disease, unspecified; Z86.73 Personal history of transient ischemic attack (TIA), and cerebral infarction without residual deficits; Z72.0 Tobacco use; Z59.0 Homelessness

== ENCOUNTER 2018-10-25 08:54 | Emergency (ER) | payer MEDICAID ==
[2018-10-25 09:07] VITALS: BP 118/81; PULSE 99; RESP 20; TEMP 98.1; O2SAT 96
--- NOTE | 2018-10-25 09:35 | C.PDOC ---
History Of Present Illness Patient is a 53 year old female who presents to the ED c/o cough. Patient has had multiple visits to the ER. She denies any CP, fever, chills, vomiting, or diarrhea. Time Seen by Provider: 10/25/18 09:00 Chief Complaint (Nursing): Cough, Cold, Congestion History Per: Patient History/Exam Limitations: no limitations Onset/Duration Of Symptoms: Days Current Symptoms Are (Timing): Still Present Associated Symptoms: Cough. denies: Fever, Chills, Vomiting, Diarrhea Recent travel outside of the [place]: No Additional History Per: Patient Past Medical History Reviewed: Historical Data, Nursing Documentation, Vital Signs Vital Signs: Last Vital Signs Temp 98.1 F 10/25/18 08:57 Pulse 99 H 10/25/18 08:57 Resp 20 10/25/18 08:57 BP 118/81 10/25/18 08:57 Pulse Ox 96 10/25/18 08:57 Primary Care Provider: Lupillo Almonte Medical History PMH: Anemia, Anxiety, Arthritis (R ANKLE FX W/ ORIF 04/2018), Asthma, COPD, Dep ression, Fractures (right ankle), Gastritis, HTN, Paranoia, Pneumonia, Schizophrenia, Seizures, TIA Denies: HIV, Chronic Kidney Disease, Sexually Transmitted Disease Surgical History: No Surg Hx - [facility] Procedures ALCOHOL DETOXIFICATION (12/21/14) APPLICATION OF SPLINT (05/22/14) DETOXIFICATION SERVICES FOR SUBSTANCE ABUSE TREATMENT (09/20/16) EXTRACTION OF RIGHT LOWER LEG SKIN, EXTERNAL APPROACH (06/07/18) GROUP FARMHAND FOR SUBSTANCE ABUSE TREATMENT, PSYCHOEDUCATION (12/12/15) INDIV FARMHAND FOR SUBSTANCE ABUSE, COGNITIVE BEHAVIORAL (03/06/16) INDIV PSYCHOTHERAPY FOR SUBSTANCE ABUSE TREATMENT, SUPPORT (03/06/16) INJECT/INFUSE NEC (12/19/13) INSERTION OF EXT FIX INTO R FIBULA, OPEN APPROACH (04/30/18) REMOVAL OF EXT FIX FROM R FIBULA, FEATHER CURLING MACHINE OPERATOR APPROACH (04/30/18) REPOSITION RIGHT FIBULA WITH INT FIX, OPEN APPROACH (04/30/18) REPOSITION RIGHT FIBULA WITH INT FIX, PERC APPROACH (04/30/18) Family History: States: Unknown Family Hx - Social History Hx Tobacco Use: Yes Hx Alcohol Use: Yes Hx Substance Use: No - Immunization History Hx Tetanus Toxoid Vaccination: Yes Hx Influenza Vaccination: No Hx Pneumococcal Vaccination: No Review Of Systems Except As Marked, All Systems Reviewed And Found Negative. Constitutional: Negative for: Fever, Chills Cardiovascular: Negative for: Chest Pain Respiratory: Positive for: Cough Gastrointestinal: Negative for: Vomiting, Abdominal Pain, Diarrhea Physical Exam - Physical Exam Appears: Non-toxic, No Acute Distress Skin: Normal Color, Warm, Dry Head: Atraumatic, Normacephalic Oral Mucosa: Moist Neck: Normal ROM, Supple Chest: Symmetrical, No Deformity Cardiovascular: Rhythm Regular, No Murmur Respiratory: Normal Breath Sounds, No Rales, No Rhonchi, No Wheezing Gastrointestinal/Abdominal: Soft, No Tenderness, No Distention, No Rebound Extremity: Normal ROM Neurological/Psych: Oriented x3, Normal Speech ED Course And Treatment O2 Sat by Pulse Oximetry: 96 (on RA) Pulse Ox Interpretation: Normal Medical Decision Making Medical Decision Making: Plan: CXR cxr neg sleeping in nad. Disposition - Disposition Referrals: [facility] [Outside] [facility] [Outside] Disposition: HOME/ ROUTINE Disposition Time: 09:40 Condition: STABLE Additional Instructions: return to er with worsening. Instructions: Cough, Adult (DC) Forms: [facility] (Hungarian) - Clinical Impression Clinical Impression: Cough - Scribe Statement The provider has reviewed the documentation as recorded by the Tootieibchristen Man All medical record entries made by the Scribe were at my direction and personally dictated by me. I have reviewed the chart and agree that the record accurately reflects my personal performance of the history, physical exam, medical decision making, and the department course for this patient. I have also personally directed, reviewed, and agree with the discharge instructions and disposition.
--- NOTE | 2018-10-25 10:25 | RAD ---
Date of service: 10/25/2018 HISTORY: cough COMPARISON: 09/07/2018 TECHNIQUE: Chest PA and lateral views FINDINGS: LUNGS: No active pulmonary disease. PLEURA: No significant pleural effusion identified. No pneumothorax apparent. CARDIOVASCULAR: No aortic atherosclerotic calcification present. Normal cardiac size. No pulmonary vascular congestion. OSSEOUS STRUCTURES: No significant abnormalities. VISUALIZED UPPER ABDOMEN: Normal. OTHER FINDINGS: None. IMPRESSION: No active disease.
== END 2018-10-25 10:34 | disposition home or self-care (01) ==
LOC: C.ER 08:54
DX: R05 Cough (principal); F20.9 Schizophrenia, unspecified; J44.9 Chronic obstructive pulmonary disease, unspecified; I10 Essential (primary) hypertension; Z86.73 Personal history of transient ischemic attack (TIA), and cerebral infarction without residual deficits; Z72.0 Tobacco use

== ENCOUNTER 2018-10-28 18:19 | Emergency (ER) | payer MEDICAID | END 2018-10-28 18:39 | disposition left against medical advice (07) | LOC: C.ER 18:19 | DX: Z02.89 Encounter for other administrative examinations (principal); F10.129 Alcohol abuse with intoxication, unspecified ==

== ENCOUNTER 2018-10-28 19:20 | Emergency (ER) | payer MEDICAID ==
[2018-10-28 19:43] VITALS: BP 102/69; PULSE 69; RESP 20; TEMP 98.3; O2SAT 99
--- NOTE | 2018-10-28 19:45 | C.PDOC ---
History Of Present Illness 53 y/o female brought to ER by ambulance for ETOH intoxication. Patient admits to drinking ETOH today. Patient was seen earlier and discharged from [facility] ER today. She is looking for place to stay.Denies having suicidal ideation, homicidal ideation, and active physical complaints. Time Seen by Provider: 10/28/18 19:35 Chief Complaint (Nursing): Substance Abuse History Per: Patient History/Exam Limitations: no limitations Past Medical History Vital Signs: Last Vital Signs Temp 98.3 F 10/28/18 19:27 Pulse 69 10/28/18 19:27 Resp 20 10/28/18 19:27 BP 102/69 10/28/18 19:27 Pulse Ox 99 10/28/18 19:27 Primary Care Provider: FAMILY PROVIDER,NO - Medical History PMH: Anemia, Anxiety, Arthritis (R ANKLE FX W/ ORIF 04/2018), Asthma, COPD, Depression, Fractures (right ankle), Gastritis, HTN, Paranoia, Pneumonia, Schizophrenia, Seizures, TIA Denies: HIV, Chronic Kidney Disease, Sexually Transmitted Disease - [facility] Procedures ALCOHOL DETOXIFICATION (12/21/14) APPLICATION OF SPLINT (05/22/14) DETOXIFICATION SERVICES FOR SUBSTANCE ABUSE TREATMENT (09/20/16) EXTRACTION OF RIGHT LOWER LEG SKIN, EXTERNAL APPROACH (06/07/18) GROUP MAGAZINE REPAIRER FOR SUBSTANCE ABUSE TREATMENT, PSYCHOEDUCATION (12/12/15) INDIV MAGAZINE REPAIRER FOR SUBSTANCE ABUSE, COGNITIVE BEHAVIORAL (03/06/16) INDIV PSYCHOTHERAPY FOR SUBSTANCE ABUSE TREATMENT, SUPPORT (03/06/16) INJECT/INFUSE NEC (12/19/13) INSERTION OF EXT FIX INTO R FIBULA, OPEN APPROACH (04/30/18) REMOVAL OF EXT FIX FROM R FIBULA, EXTRUSION FORMER APPROACH (04/30/18) REPOSITION RIGHT FIBULA WITH INT FIX, OPEN APPROACH (04/30/18) REPOSITION RIGHT FIBULA WITH INT FIX, PERC APPROACH (04/30/18) Family History: States: Unknown Family Hx - Social History Hx Tobacco Use: Yes Hx Alcohol Use: Yes Hx Substance Use: No - Immunization History Hx Tetanus Toxoid Vaccination: Yes Hx Influenza Vaccination: No Hx Pneumococcal Vaccination: No Review Of Systems Except As Marked, All Systems Reviewed And Found Negative. Constitutional: Negative for: Fever, Chills Psych: Negative for: Suicidal ideation Physical Exam - Physical Exam Appears: No Acute Distress, Other (loud,disruptive, foul-mouthed) Skin: Normal Color, Warm, Dry Head: Atraumatic, Normacephalic Eye(s): bilateral: Normal Inspection Nose: Normal Oral Mucosa: Moist Neck: Supple Chest: Symmetrical Cardiovascular: Rhythm Regular Respiratory: Normal Breath Sounds, No Rales, No Rhonchi, No Wheezing Gastrointestinal/Abdominal: Normal Exam, Soft, No Tenderness, No Guarding, No Rebound Neurological/Psych: Oriented x3, Normal Speech ED Course And Treatment O2 Sat by Pulse Oximetry: 99 (RA) Pulse Ox Interpretation: Normal Medical Decision Making Medical Decision Making: alcohol abuse Seen @ [facility] ER earlier today, also d/c'd multiple failed etoh detox Detox will not consider her for detox tonight due to behavioral issues. homeless referred to fpc usually bug infested does not appear so now Chronic R foot/ankle pain/shallow ulcer seen multiple times this week by this MD due to frequent visits no acute issues with this now HEALED wound [facility] due to bad behavior outpatient f/u with Dr. Rola Wadsworth- Pods Disposition Doctor Will See Patient In The: Office Counseled Patient/Family Regarding: Studies Performed, Diagnosis - Disposition Referrals: Alcoholics Anonymous [Outside] [facility] [Outside] [facility] [Outside] [facility] [Outside] [facility] [Outside] Rola Wadsworth DPM [Staff Provider] - Disposition: HOME/ ROUTINE Disposition Time: 19:44 Condition: GOOD Additional Instructions: seek nightly fpc placement Seek AA Seek psych services outpatient f/u with Dr. Wadsworth- Podiatry Call for appt. Instructions: Alcohol Abuse and Alcoholism (DC) Forms: [employer] (Khmer) - Clinical Impression Clinical Impression: Alcohol intoxication, Homelessness - Scribe Statement The provider has reviewed the documentation as recorded by the Tootieibchristen Farley Provider Attestation: All medical record entries made by the Scribe were at my direction and personally dictated by me. I have reviewed the chart and agree that the record accurately reflects my personal performance of the history, physical exam, medical decision making, and the department course for this patient. I have also personally directed, reviewed, and agree with the discharge instructions and disposition.
== END 2018-10-28 20:05 | disposition home or self-care (01) ==
LOC: C.ER 19:20
DX: F10.129 Alcohol abuse with intoxication, unspecified (principal); Y90.9 Presence of alcohol in blood, level not specified; Z59.0 Homelessness